=== PATIENT | male | born 1945 | race Caucasian/White ===

== ENCOUNTER 2017-04-29 18:54 | Inpatient (IN) | payer MEDICARE ==
[2017-04-29] MEDS ORDERED: traMADol HCl 50 MG TAB ONE ×2 (20:20→20:50)
--- NOTE | 2017-04-29 21:32 | RAD ---
PELVIC RADIOGRAPH 04/29/17 PROVIDED CLINICAL HISTORY: Bilateral hip pain. FINDINGS: There is no evidence for fracture or other acute osseous abnormality. If there is persistent clinical concern, conservative management and followup imaging are advised. IMPRESSION: As above. POS: [facility]
[2017-04-29 21:56] LABS: Bilirubin Small (Negative); Blood, Urine Moderate (Negative); Clarity CLEAR (Clear); Glucose, Urine (Dipstick) >=1000 mg/dL (Negative); Leukocyte Negative (Negative); Nitrite Negative (Negative); Protein, Urine (Dipstick) 100 mg/dL (Neg-Trace); Specific Gravity, Urine 1.035 (1.002-1.036); pH, Urine 5.5 (5.0-9.0)
[2017-04-29 21:56] LABS: ALT (SGPT) 13 U/L (8-55); AST (SGOT) 18 U/L (5-34); Albumin 3.5 g/dL (3.4-4.8); Alkaline Phosphatase 79 U/L (40-150); Anion Gap 16 mmol/L (10-20); BUN (Urea Nitrogen) 33 mg/dL (8.4-25.7); Bilirubin, Total 0.8 mg/dL (0.2-1.2); Calc. Creatinine Clearance 0 mL/min (70-130); Calcium 9.3 mg/dL (7.8-10.44); Carbon Dioxide 24 mmol/L (23-31); Chloride 93 mmol/L (98-107); Estimated GFR-MDRD 44; Globulin 3.1 g/dL (2.4-3.5); Glucose 254 mg/dL (83-110); Protein, Total 6.6 g/dL (5.8-8.1); Sodium 129 mmol/L (136-145)
[2017-04-29 21:58] LABS: Bacteria/HPF None Seen HPF (None Seen); Hyaline Casts/LPF 7-10 HYALINE CAST LPF (0-3 Hyaline); Pathc Cast-AUWi Flag 0.81 (0-2.49); Squamous Epithelial 0-3 HPF (0-3); WBC/HPF 0-3 HPF (0-3)
[2017-04-29 22:00] LABS: Band 19 % (5-11); Hemoglobin 13.4 g/dL (14.0-18.0); Lymphocytes 3 % (21-51); MDiff Complete? YES; Mean Corpuscular HGB CONC 33.4 g/dL (32.0-36.0); Mean Corpuscular Hemoglobin 32.3 pg (27.0-31.0); Mean Corpuscular Volume 96.6 fl (80.0-94.0); Mean Platelet Volume 9.1 fL (7.4-10.4); Monocytes 5 % (0-10); Neutrophil 73 % (42-75); PLT Morphology Comment Appears Adequate; Platelet Count 282 thou/uL (130-400); RBC Distribution Width 11.4 % (11.5-14.5); RBC Morphology Normal; Red Blood Cell (RBC) Count 4.15 mill/uL (4.70-6.10); White Blood Cell (WBC) Count 17.8 thou/uL (4.8-10.8)
[2017-04-29] MEDS ORDERED: Acetaminophen 500 MG TAB ONE (22:05)
--- NOTE | 2017-04-29 22:35 | RAD ---
PORTABLE CHEST 04/29/17 PROVIDED CLINICAL HISTORY: Fever. FINDINGS: Comparison 11/20/16. The cardiac and mediastinal silhouette is unchanged in appearance. Median sternotomy changes are agai n seen. No focal consolidation, pleural fluid or pneumothorax apparent. IMPRESSION: No evidence for an acute cardiopulmonary process. POS: [facility]
[2017-04-29] MEDS ORDERED: HYDROcodone/Acetaminophen 5/325 mg Tablet ONE (23:57)
[2017-04-30] MEDS ORDERED: Ondansetron HCl/PF 4 MG/2 ML Vial IVP PRN (01:41)
[2017-04-30] MEDS ORDERED: Acetaminophen 325 MG TAB PO PRN (01:41)
[2017-04-30] MEDS ORDERED: Ondansetron ODT 4 MG TAB SL PRN ×2 (01:41→02:33)
[2017-04-30] MEDS ORDERED: Dextrose 5% in Water 1,000 ML IV PRN (02:14)
[2017-04-30] MEDS ORDERED: Dextrose 50% Abboject 50 ML SYRINGE SLOW IVP PRN (02:14)
[2017-04-30] MEDS: Sodium Chloride 0.9% 1,000 ML IV SCH ×3 (02:27→16:40)
--- NOTE | 2017-04-30 04:42 | HP-2 ---
DATE OF ADMISSION: 04/30/2017 CODE STATUS: FULL. PRIMARY CARE PHYSICIAN: Dr. Pitts ATTENDING PHYSICIAN: Dr. Sukhi Chairez RESIDENT: Dr. Irish Bhakta CHIEF COMPLAINT: Bilateral hip pain. HISTORY OF PRESENT ILLNESS: This is a 71-year-old male with past medical history of type 1 diabetes, hyperlipidemia, hypertension who presents by EMS for bilateral hip pain. The patient is a very poor historian, unsure why EMS was called. The patient reports that he has been unable to walk the past 4 days and he also ran out of his Prozac about 3 weeks ago and has been having "anxiety fits" since then. The patient has also been having some nausea and vomiting about 4 days ago where he could not keep anything down, had decreased appetite. The patient reports his nausea and vomiting and appetite have improved since then. The patient denies any fever or chills, but does report decreased sleep over the past few days as well as a sore throat. In the ER, he was given Robaxin 1 gram IV, Viking 5 mg, 1 liter normal saline, Tylenol 1000 mg , tramadol 50 mg. PAST MEDICAL HISTORY: 1. Diabetes type 1. 2. Aortic valve stenosis. 3. Generalized anxiety disorder. 4. Coronary artery disease. 5. Hyperlipidemia. 6. Hypertension. 7. Eczema. PAST SURGICAL HISTORY: CABG x5 in 09/2009, cataract surgery and laser retinopathy surgery. ALLERGIES: No known drug allergies. MEDICATIONS: 1. Carvedilol 12.5 mg b.i.d. 2. Lisinopril 40 mg daily. 3. Atorvastatin 40 mg at bedtime. 4. Lantus 25 units subcu q.a.m. 5. NovoLog 4-5 units premeal per sliding scale. 6. Aspirin 81 mg daily. 7. Fluoxetine 20 mg daily. FAMILY HISTORY: Dad of an [place] in his 70s. SOCIAL HISTORY: Former smoker, smoked for about 7.5 years in the 90s. Smoked about a pack per day. Alcohol, drinks about a beer a day, occasionally. Denies any drug use. He is . REVIEW OF SYSTEMS: GENERAL: Positive for decreased sleep. GENERAL: Negative for fever or chills. EYES: Negative for eye pain or vision changes. ENT: Positive for sore throat. Negative for rhinorrhea. RESPIRATORY: Negative for cough, shortness of breath. CARDIOVASCULAR: Negative for chest pain, edema. GI: Positive for nausea, vomiting, negative for diarrhea, abdominal pain. GENITOURINARY: Negative for dysuria, polyuria. SKIN: Negative for rashes, lesions. MUSCULOSKELETAL: Positive for hip pain and stiffness., negative for tenderness , swelling. NEUROLOGIC: Negative for weakness, numbness. PHYSICAL EXAMINATION: VITAL SIGNS: Blood pressure 157/69, pulse 75, respiratory rate 16, temperature 98.3, pulse ox 97% on room air, current weight 84 kilograms. GENERAL: Alert and oriented x3, no acute distress, well-nourished, appropriately interactive. EYES: PERRLA. Extraocular muscles intact. Conjunctivae within normal limits. ENT: Nasal mucosa and oropharynx within normal limits, poor dentition NECK: Supple. No lymphadenopathy. CARDIAC: Regular rate and rhythm, 3/6 systolic murmur with radiation to carotids, 2+ radial and pedal pulses. RESPIRATORY: Normal effort, no retractions. Clear to auscultation bilaterally. SKIN: Warm, dry. No cyanosis or lesions. ABDOMEN: Soft, nontender to palpation, umbilical hernia easily reducible. Normoactive bowel sounds. No mass or distention. EXTREMITIES: No cyanosis or edema. MUSCULOSKELETAL: Structure and tone within normal limits. The patient not cooperative with musculoskeletal exam secondary to pain. No tenderness to palpation on the hips, full passive range of motion on the right hip, decreased passive range of motion on the left hip due to pain. No active range of motion as the patient refused. NEUROLOGICAL: No focal deficits. Sensation within normal limits. GCS 15. PSYCHIATRIC: Appropriate. LABORATORY DATA: WBC 17.8, hemoglobin 13.4, hematocrit 40.1, platelets 282. 19 % bands, 73% neutrophils. Sodium 129, corrected to 131, potassium 4.0, chloride 93, CO2 of 24, BUN 33, creatinine 1.55, glucose 254, calcium 9.3, total bilirubin 0.8, AST 18, ALT 13, alkaline phosphatase 78. Flu A and B negative. EKG showed normal sinus rhythm with QTS 510. Chest x-ray showed no acute cardiopulmonary process. Pelvis x-ray showed no evidence of fracture or acute osseous abnormality. ASSESSMENT AND PLAN: A 71-year-old male who presents with: 1. Inability to ambulate. This is the reason for admission by ED provider. The patient's bilateral hip pain is his main complaint. He was given tramadol and Viking in the ED, the patient reports that this is helping some. [facility] was consulted in the ED, but denied admission due to patient not meeting inpatient criteria. We will consult PT and will reevaluate the patient's hip exam in the morning after better pain control as we were unable to get a complete exam secondary to pain. We will give tramadol and Tylenol p.r.n. pain. We will discuss with family in the morning when available. Will place in observation on medical and will check a CK. 2. Bandemia with leukocytosis. No obvious source of infection at this time. The maximum temperature was 100.0 in the ED, x1 and has been afebrile. Chest x- ray was negative. We will repeat in a.m. after fluids as the patient appears dehydrated. Urinalysis is negative for infection. We will check blood cultures , urine cultures. Flu was negative, with recent vomiting may be related to gastroenteritis. We will check an ESR, lactate. No need for antibiotics at this time unless the source of infection reveals itself. 3. Acute gastroenteritis. Unclear etiology, but most likely viral. This appears to be resolving. We will give IV fluids normal saline at 150 mL per hour, Zofran p.r.n. nausea and vomiting. We will check a BMP in the morning. The patient may be having withdrawal effects from Prozac, but this is unlikely. 4. Moderate dehydration. Given this at 150, n.p.o. hydration. 5. Acute kidney injury on chronic kidney disease 2. We will give fluids and we will recheck a BMP in the morning. 6. Diabetes type 1. We will give the patient's home insulin regimen, Accu- Cheks a.c. and at bedtime, consistent carbohydrate diet. 7. Hypertension. Continue home medications. 8. Generalized anxiety disorder. We will continue Prozac. The patient has been out recently. 9. Hyperlipidemia. Continue meds. 10. VTE prophylaxis. Lovenox. DISPOSITION: Observation on medical. Symptomatic medications will be provided. History and physical exam as well as management discussed with Dr. Chairez. VLADISLAV
[2017-04-30] MEDS: FLUoxetine HCl 20 MG CAP PO SCH (04:46)
[2017-04-30] MEDS: traMADol HCl 50 MG TAB PO PRN (04:46)
[2017-04-30 05:48] LABS: Lactic Acid 3.1 mmol/L (0.5-2.2)
[2017-04-30 05:53] LABS: Anion Gap 16 mmol/L (10-20); BUN (Urea Nitrogen) 42 mg/dL (8.4-25.7); Calc. Creatinine Clearance 52 mL/min (70-130); Calcium 9.2 mg/dL (7.8-10.44); Carbon Dioxide 25 mmol/L (23-31); Chloride 96 mmol/L (98-107); Estimated GFR-MDRD 45; Glucose 343 mg/dL (83-110); Potassium 5.2 mmol/L (3.5-5.1); Sodium 132 mmol/L (136-145)
[2017-04-30] MEDS: HumaLOG 300 UNITS/3 ML VIAL SC PRN (06:06)
[2017-04-30 06:48] LABS: Band 14 % (5-11); Hemoglobin 14.2 g/dL (14.0-18.0); Lymphocytes 3 % (21-51); MDiff Complete? YES; Mean Corpuscular Hemoglobin 31.9 pg (27.0-31.0); Mean Corpuscular Volume 96.7 fl (80.0-94.0); Mean Platelet Volume 9.1 fL (7.4-10.4); Metamyelocyte 3 % (0-0); Monocytes 5 % (0-10); Neutrophil 75 % (42-75); PLT Morphology Comment Appears Adequate; Platelet Count 274 thou/uL (130-400); RBC Distribution Width 11.5 % (11.5-14.5); Red Blood Cell (RBC) Count 4.46 mill/uL (4.70-6.10); White Blood Cell (WBC) Count 18.2 thou/uL (4.8-10.8)
[2017-04-30] MEDS: Insulin Detemir 100 UNITS/ML 12 UNITS in Pre-Filled Syringe 1 EACH SC SCH ×2 (08:14→22:02)
[2017-04-30] MEDS: Enoxaparin Sodium 30 MG/0.3 ML SYRINGE SC SCH (08:15)
[2017-04-30] MEDS: HumaLOG 300 UNITS/3 ML VIAL SC SCH ×3 (08:15→17:02)
[2017-04-30] MEDS: Carvedilol 6.25 MG TAB PO SCH ×2 (08:15→16:44)
[2017-04-30 08:38] LABS: Creatinine, Urine 238.92 mg/dL (63-166)
[2017-04-30] MEDS ORDERED: Sodium Chloride 0.9% 1,000 ML IV SCH ×2 (11:15→17:00)
[2017-04-30] MEDS: Ondansetron HCl/PF 4 MG/2 ML Vial IVP PRN (11:22)
[2017-04-30 11:25] LABS: Actual Bicarbonate (HCO3a) 21.2 mEq/L (22-26); Base Excess (BEa) -0.8 mEq/L (0 (+/-) 2.5); CO2 Tension 27.7 mmHg (35.0-45.0); Hematocrit-ABG 42.4 % (42.0-52.0); Hemoglobin (Hb) 12.7 g/dL (14.0-18.0)
[2017-04-30 11:26] LABS: Calcium, Ionized 1.1 mmol/L (1.12-1.30); Puncture Site LRA
[2017-04-30] MEDS ORDERED: Sodium Chloride 0.9% 500 ML IVPB SCH (11:30)
[2017-04-30 11:36] LABS: Magnesium 1.8 mg/dL (1.6-2.6)
[2017-04-30 11:42] LABS: Phosphorus 4.1 mg/dL (2.3-4.7)
[2017-04-30 11:45] LABS: Syphilis Antibody Nonreactive (Nonreactive); Syphilis Antibody Index 0.03 S/CO (<1.00 Non-Reactive)
[2017-04-30 11:58] LABS: HIV (1/2) Antibody/Antigen Non-Reactive (NonReactive); HIV 1/2 INDEX 0.07 S/CO (<1.00); Hep C IgG Ab Non-Reactive (NonReactive); Hep C Index 0.14 S/CO (0-0.79); Thyroid Stimulating Hormone 2.2151 uIU/mL (0.35-4.94)
[2017-04-30 11:58] LABS: CKMB 4.9 ng/mL (0-6.6); Troponin I 0.119 ng/mL (< 0.028)
[2017-04-30] MEDS: Haloperidol Lactate 5 MG/ML VIAL IM SCH ×3 (11:59→21:02)
[2017-04-30] MEDS ORDERED: Enoxaparin Sodium 40 MG/0.4 ML SYRINGE SC SCH (12:15)
[2017-04-30 13:04] LABS: ALT (SGPT) 16 U/L (8-55); AST (SGOT) 23 U/L (5-34); Albumin 3.4 g/dL (3.4-4.8); Alkaline Phosphatase 78 U/L (40-150); Anion Gap 19 mmol/L (10-20); BUN (Urea Nitrogen) 46 mg/dL (8.4-25.7); Bilirubin, Total 0.7 mg/dL (0.2-1.2); Calc. Creatinine Clearance 50 mL/min (70-130); Calcium 8.5 mg/dL (7.8-10.44); Carbon Dioxide 20 mmol/L (23-31); Chloride 97 mmol/L (98-107); Estimated GFR-MDRD 44; Globulin 2.6 g/dL (2.4-3.5); Glucose 230 mg/dL (83-110); Potassium 4.2 mmol/L (3.5-5.1); Sodium 132 mmol/L (136-145)
--- NOTE | 2017-04-30 13:24 | CT ---
EXAM: NONCONTRAST HEAD CT: HISTORY: Acute mental status post change. COMPARISON: None. TECHNIQUE: Noncontrast head CT is performed from skull base to the skull vertex. FINDINGS: No parenchymal hemorrhage. No extraaxial hematoma. No midline shift. Basilar cisterns are patent. Brain volume is age appropriate. Cortical resendez-white matter differentiation is preserved. Ventricles and sulci are patent and symmetric. Adequate aeration of the sinuses and mastoid air cells. There is atherosclerosis of the carotid herminia denise. The calvarium is intact. IMPRESSION: No acute intracranial process. POS: [facility]
--- NOTE | 2017-04-30 13:29 | HP ---
I have reviewed the history and physical of Dr. Irish Bhakta and I have discussed the case with her. HISTORY OF PRESENT ILLNESS: Briefly, Mr. Zafar is a 71-year-old white male patient with a history of diabetes and hypertension who presented to the ER via EMS for bilateral hip pain and inability to mo ve, because of the pain. He has no history of trauma. He has been admitted for further evaluation a nd workup. On morning rounds, it was obvious that Mr. Zafar had altered mental status in that he was exhibiting delirium. We elicited the history via Dr. Pitts that the patient daily drink 4 alcoholic beverages ceasing approximately 4 days ago and impending DTs or full blown DTs is certainly a possibility at t his point. PHYSICAL EXAMINATION: GENERAL: As stated, right now he is confused, disoriented. He is alert and easily to awaken. VITAL SIGNS: His blood pressure is 150/70, his pulse rate is 80 and regular, respirations 16-22, olga m air pulse ox 97%. NECK: Supple. CARDIAC: Heart rhythm regular, no gallop noted. Soft, 2/6 systolic murmur noted. LUNGS: Diminished, but clear without rales or wheezes. He is tachypneic, but is not using accessory muscles. ABDOMEN: Flat and soft. No guarding, rebound or rigidity. NEUROLOGICAL: Other than his aforementioned delirium and confusion, he is not exhibiting any focal d eficits. LABORATORY DATA: CBC: White count was initially 17,800, hemoglobin 13.4, hematocrit 40.1, MCV of 96 . Chemistries: Sodium 132, potassium 5.2, chloride 96, bicarbonate 25, BUN 42, creatinine 1.52, glu cose is 343. C-reactive protein is very elevated at 33.94. D-dimer likewise significantly elevated. ASSESSMENT: Acute delirium, broad differential. We will treat for delirium tremens. We will also i nitiate therapy to rule out pulmonary embolus, sepsis, malignancy and numerous other causes of the pa chey's current symptoms.
--- NOTE | 2017-04-30 13:44 | CT ---
CT ANGIOGRAM OF THE CHEST: Date: 04/30/17 HISTORY: Worsening respiratory distress. Evaluate for pulmonary artery embolism. COMPARISON: None. TECHNIQUE: CT angiogram of the chest is performed in the axial plane. Bilateral oblique and coronal three-dimens ional reformatted images are submitted for interpretation. FINDINGS: No mediastinal mass, lymphadenopathy, or hematoma. Heart is enlarged. No significant pericardial flui d. There are coronary calcifications. The visualized aorta has an overall normal caliber. No periaort ic fat stranding. There is fluid attenuation in the mid to distal thoracic esophagus. Fluid attenuation is nonspecific. Upper solid organs are grossly unremarkable. Small right-sided pleural effusion with adjacent consolidation due to atelectasis or pneumonia. Depen dent atelectatic changes in the lung bases. Emphysematous changes in both lung apices. No suspicious masses or consolidation. No pneumothorax. There are no lytic or blastic lesions in the osseous structures. There is adequate contrast opacification of the pulmonary arterial system to the level of the lobar a rteries. No filling defect to imply thromboembolism. Evaluation of the segmental and subsegmental art eries is limited. IMPRESSION: 1. No evidence of pulmonary artery embolism to the level of the lobar arteries. 2. Small right-sided effusion with adjacent consolidation, atelectasis, or pneumonia. 3. Nonspecific fluid in the esophagus. Correlate clinically. POS: [facility]
[2017-04-30] MEDS: Thiamine HCl 100 MG, Admixture Fee 1 EACH in Sodium Chloride 0.9% 50 ML IVPB SCH (13:51)
[2017-04-30] MEDS ORDERED: Haloperidol Lactate 5 MG/ML VIAL IM SCH (15:00)
[2017-04-30] MEDS ORDERED: Vancomycin HCl 1.25 GM in Sodium Chloride 0.9% 250 ML 250 ML IVPB SCH (15:00)
[2017-04-30 15:07] LABS: Troponin I 0.202 ng/mL (< 0.028)
[2017-04-30] MEDS ORDERED: Haloperidol Lactate 5 MG/ML VIAL SLOW IVP SCH (15:30)
[2017-04-30] MEDS: Acetaminophen 325 MG TAB PO PRN (16:44)
[2017-04-30] MEDS: Lorazepam 1 MG TAB PO SCH ×3 (17:02→20:16)
[2017-04-30 18:43] LABS: Troponin I 0.591 ng/mL (< 0.028)
[2017-04-30] MEDS: Piperacillin/Tazobactam 3.375 GM in Sodium Chloride 0.9% 100 ML IVPB SCH (20:11)
[2017-04-30] MEDS: Atorvastatin Calcium 40 MG TAB PO SCH (20:16)
[2017-04-30] MEDS ORDERED: Enoxaparin Sodium 80 MG/0.8 ML SYRINGE SC SCH (21:00)
[2017-04-30 21:26] LABS: CKMB 6.8 ng/mL (0-6.6); Troponin I 0.659 ng/mL (< 0.028)
[2017-05-01] MEDS: Sodium Chloride 0.9% 1,000 ML IV SCH ×3 (00:08→17:41)
[2017-05-01 00:12] LABS: Troponin I 0.747 ng/mL (< 0.028)
--- NOTE | 2017-05-01 00:38 | HP ---
CODE STATUS: FULL CODE. PRIMARY CARE PROVIDER: Yobani Pitts MD CHIEF COMPLAINT: Lower extremity weakness, bilateral hip pain and inability to ambulate. HISTORY OF PRESENT ILLNESS: A 71-year-old diabetic male who complains of bilateral hip pain and has become unable to walk. He states this started over the last few days. He has had a subjective fever and chills and also endorses some nausea and vomiting at home. He was brought to the emergency room via ambulance after his became concerned with his overall condition. The history is obtained from the patient and emergency room medical record and review of the existing chart. There are no family members present at this time. He is a poor historian. ALLERGIES: No known drug allergies. MEDICATIONS: Lisinopril 40 daily, atorvastatin 40 mg daily, Lantus 25 units daily and NovoLog 45 units with meals. He is also on aspirin 81 mg and Prozac 20. HABITS: He quit smoking in , cannot give accurate pack years, but felt to be significant. Alcohol: He admits to drinking about a 6-pack of beer a week. SOCIAL HISTORY: He has been for 40 years. This is his second marriage. He has 2 children with first marriage and 3 with a second marriage. PAST SURGICAL HISTORY: An open heart surgery with a 5-vessel coronary artery bypass graft in 2011 in [place]. He has had bilateral cataracts surgery FAMILY HISTORY: Notable for his father being diabetic and in his 70s from heart disease. sister from had lung carcinoma. REVIEW OF SYSTEMS: General: He has had a low-grade fever recently. His weight has been fluctuating. He states it has varied from 213-181lbs. Integumentary: He endorses that he has had a sebaceous cyst resected from his back. He does have some eczema. He denies any skin cancers. Psychiatric: He suffers from generalized anxiety disorder. Cardiovascular: History of myocardial infarction approximately 2011 followed by bypass. He currently denies any chest pain. He does state he has had a history of a murmur, longstanding hypertension, dyslipidemia, Pulmonary recent mild cough which had been nonproductive. He denies any shortness of breath, history of asthma and denies any obstructive sleep apnea symptoms. Gastrointestinal: Notable for emesis and recent decreased appetite. He denies any blood per rectum abdominal pain or hematemesis. Urologic: No dysuria or hesitancy of urine. Neurological : He has had a history of diabetc neuropathy in the past, otherwise negative paralysis vertigo headache seizure. Musculoskeletal: He does complain of weakness and pain to the hips and lower extremities. PHYSICAL EXAMINATION: GENERAL: He is alert. He is oriented to person, and date. VITAL SIGNS: His weight is 84, his temperature is 98.3, blood pressure 157/69, pulse 75, respirations 16, his O2 saturation is 97% on room air. HEENT: Head is atraumatic, normocephalic. Pupils are equally round and reactive. NECK: Supple. no jvd no carotid bruit. Trachea is midline. No thyromegaly. CARDIOVASCULAR: Normal sinus rhythm. grade 2/6 systolic ejection murmur radiation to neck PULMONARY: Lungs with diminished breath sounds. No crackles, no wheezes are appreciated. ABDOMEN: He does have a reducible umbilical hernia. Soft. No guarding, rebound or tenderness. MUSCULOSKELETAL: tenderness of the left hip greater than right. He is able to passively draw his legs up in bed and passive range of motion elicits no pain and when he is distracted, he can drop both legs up. He does have some resistance and stiffens both lower extremities when asked to raise his straight legs against resistance. There is no swelling of the lower extremities. EXTREMITIES: Show no cyanosis, no clubbing or edema. NEUROLOGIC: Alert. He is oriented to person, place, and time. He does relate that he has some confusion about this being the "old [facility]." No focal neurological defects. PSYCHIATRIC: He is alert. He does have somewhat flat affect. LABORATORY DATA: He does have marked leukocytosis with a white count initially reported at 17.8 with bandemia, hemoglobin 13.4, hematocrit 40, platelet count 282. His sodium is 129, potassium is 4, chloride 93, bicarbonate is 24, BUN is 33, creatinine 1.55, blood sugar is 254. IMAGING: Chest x-ray shows no evidence of acute disease. Pelvic plain films show no fracture. No arthritic changes in the hip are noted. ASSESSMENT: 1. Lower extremity weakness with complaint of bilateral hip pain, left greater than right. 2. History of insulin-dependent diabetes. 3. History of hypertension. 4. History of dyslipidemia. 5. Chronic kidney insufficiency with acute kidney injury and with moderate dehydration. PLAN: Plan will be to admit obtain blood cultures and urine cultures.Inflammatory markers drawn Patient will be rehydrated. exam dosent support septic hip. Antibiotics will be withheld and expectant management for progression of further signs and symptoms. MTDD
[2017-05-01] MEDS: Lorazepam 1 MG TAB PO SCH ×5 (00:42→17:52)
--- NOTE | 2017-05-01 00:46 | CON ---
DATE OF CONSULTATION: 04/30/2017 HISTORY OF PRESENT ILLNESS: Mr. Zafar is a 71-year-old male. He has diabetes and hypertension. According to his , he drinks every day. He says he drinks 4-5 beers in the evening. He actually presented complaining of hip pain, although his hip pain goes back and forth as to which hip is bothering him. He has also been confused. Apparently for the last 3-4 days, he has not been drinking and is unable to walk. He has been anxious. According to the , he ran out of his Prozac, which has created problems. He subsequently transferred to the Intermediate Care Unit because of his confusion and a positive D-d steve. CT angiogram was negative. PAST MEDICAL HISTORY: 1. Diabetes. 2. Aortic stenosis. 3. Anxiety. 4. Coronary artery disease. 5. Lipid disorder. 6. Hypertension. 7. Eczema. 8. Coronary bypass grafting 8 years ago. 9. History of cataract surgery and retinal surgery. SOCIAL HISTORY: He is a former smoker. Reviewing his CT, I suspect he smoked more than he has reported. On admission H and P, says he drink s a beer a day. He told me he drinks 4-5 beers a day. The rough rule is to multiply what the patien t tells you by 2, so that would make him drink almost 12 pack a day which may or may not be the case. He is not a drug user. He has a supportive who is at the bedside. FAMILY HISTORY: Positive for vascular disease. Negative for lung disease at an early age. PHYSICAL EXAMINATION: GENERAL: He is oriented only to person. VITAL SIGNS: His temperature is 101, his heart rate is 109, respiratory rate is 24, oximetry is 98, and blood pressure 117/61. HEENT: Pupils are equal. Sclerae is anicteric. NECK: Very supple. There is no rigidity at all. He has no cervical lymphadenopathy. LUNGS: Clear. HEART: Regular rhythm, no S3. ABDOMEN: Soft and nontender. EXTREMITIES: Without clubbing, cyanosis, or edema. DIAGNOSTIC DATA: Chest CT has been reviewed by me. All x-rays have been reviewed. LABORATORY DATA: Have been reviewed. White count 18.2, hemoglobin 14.2, platelets 274, he has 14% b ands. On his peripheral smear yesterday 19%. Sodium 132, potassium 4.2, chloride 97, bicarbonate 20 , BUN 46, creatinine 1.57, creatinine was 1.55 on admission. IMPRESSION: Fever with encephalopathy. We are out of the mosquito-borne encephalitis season. He ce rtainly could have a viral meningitis/encephalitis. At this point in time, given a supple neck, I do ubt he has bacterial meningitis. I would recommend culturing everything and broad antimicrobial ther apy. I do not recommend a lumbar puncture in this setting. My index of suspicion for bacterial meni ngitis is extremely low. Highly likely had some of this if not all is alcohol withdrawal precipitate d by a viral illness and abstinence. He has nothing on his radiograph to suggest pulmonary edema or pneumonia. He has no pulmonary emboli . He has nothing on abdominal exam that suggests he has an acute intra-abdominal process. He has a large umbilical hernia but this is easily reducible and nontender. He has no rashes, no extremity fi ndings that would suggest a peripheral septic event. It is interesting to note now that he has 2 pos itive blood cultures with gram-positive cocci. These were not reported when I was seeing him earlier today. Apparently, this was called back at 1622. I reviewed prescribed antimicrobial therapy and he has been started on vancomycin. With his hip complaints, his confusion, he may have a paraspinous abscess or septic arthritis, althou gh endocarditis is also a possibility. I would expect septic emboli if he had right-sided endocardit is. A magnetic resonance imaging at some point would be appropriate. It is reasonable for him to ko ve a beer with his meals in the event that the fever is related to the bacteremia and the encephalopa thy is related to alcohol withdrawal. We will continue to follow with the other physicians caring fo r him. Critical care time was 30 minutes.
--- NOTE | 2017-05-01 00:58 | PRG-2 ---
CONTINUITY PROVIDER NOTE PRIMARY CARE PHYSICIAN: Yobani Pitts MD This note is being dictated as the patient's primary care provider as a reference for primary treating team and consultants and offer perspective as the patient's PCP for the last year and a half. HISTORY OF PRESENT ILLNESS: Mr. Dennis Zafar is a 71-year-old male I have been seeing for the last year and a half. He has diabetes mellitus type 1. He states that he has been on insulin since he was diagnosed in his teens and describes hospitalizations at times similar to diabetic ketoacidosis. Since I have been treating him, he has been on a very stable dose of insulin with Lantus 25 units daily in the morning and he gives himself 5-6 units of NovoLog with every meal. His glucose has been mildly uncontrolled between 8.2 and hemoglobin A1c of 9. We have attempted trials of increasing the Lantus to 27 units and other trials of increasing premeal to 7-8 units per meal, but the patient prefers to continue the dose that he was previously on. Other medical issues that we have been managing have been the patient's anxiety. He has been on a stable dose of fluoxetine 20 mg for years. For insurance reasons, he tried paroxetine for a short trial of 2 weeks this past November, but he did not feel like it controlled his anxieties well and so he switched back to fluoxetine. He tells me that he has not taken this medicine for 3 weeks. He is also on atorvastatin and carvedilol, and takes an adult aspirin daily. Other medical problems include aortic valve stenosis. He has not had an echo in several years. He has a security compliance engineer named Dr. Rehman whom he has made plans to see, and this has been discussed over the last few visits, but to my knowledge, he has not followed up with him. The patient's diabetes has developed to the point of some diabetic retinopathy and chronic kidney disease. Baseline creatinine is between 1.1 to 1.3. Most recently it was 1.1 in March. So, creatinine now of 1.56 is an acute kidney injury on chronic kidney disease, mild. The patient's baseline mental status and functionality are good. He lives with his , takes care of himself and helps to take care of her. He continues to manage his diabetes effectively. Can keep a blood glucose log and check his blood sugars 4 times a day. He does this very regularly. Also, I have seen him demonstrate higher levels of functioning including managing sources of medications to reduce cost and navigating different insurance issues. Today, his mental status is certainly a change from baseline. He appears to be in acute delirium. He normally remembers me easily, but has difficulty recognizing me today. He continues to be confused about where he is, at one point saying in office building rather than in hospital and asking if he can go to the bedroom. While initial complaint was hip pain with leukocytosis, the patient allows us to move hips without pain. Actually the more he lets us move his hips, the less pain resistance he has, and so I have low suspicion for a septic arthritis. While infectious source seems more likely for the patient's current delirium with [id number] temperatures, leukocytosis, and elevated CRP, malignancy must also be considered. While offered, the patient has never consented to colonoscopy while we have been taking care of him at [facility]. So, initiate workup with fecal occult blood, PSA, and CTA of the chest looking for lung nodules. We will continue to follow along with the [facility] inpatient team and offer assistance when possible. VLADISLAV
[2017-05-01] MEDS: Piperacillin/Tazobactam 3.375 GM in Sodium Chloride 0.9% 100 ML IVPB SCH ×2 (01:15→06:10)
[2017-05-01] MEDS: Haloperidol Lactate 5 MG/ML VIAL IM SCH ×6 (01:15→21:09)
[2017-05-01 01:29] LABS: Bilirubin Negative (Negative); Blood, Urine Large (Negative); Clarity CLOUDY (Clear); Glucose, Urine (Dipstick) 500 mg/dL (Negative); Leukocyte Negative (Negative); Nitrite Negative (Negative); Protein, Urine (Dipstick) 100 mg/dL (Neg-Trace); Specific Gravity, Urine 1.042 (1.002-1.036)
[2017-05-01 01:31] LABS: Bacteria/HPF None Seen HPF (None Seen); Hyaline Casts/LPF 4-6 HYALINE CAST LPF (0-3 Hyaline); Pathc Cast-AUWi Flag 0.67 (0-2.49)
[2017-05-01 02:07] LABS: Oval Fat Bodies/HPF None Seen HPF (None Seen); Renal Epithelial 0-3 HPF (0-3); Sperm/HPF None Seen HPF (None Seen); Transitional Epithelial NONE SEEN HPF (0-3); Trichomonas/HPF None Seen HPF (None Seen); Yeast-All Forms None Seen HPF (None Seen)
--- NOTE | 2017-05-01 04:20 | PDOC.EVN ---
Event Note - Event Note Event Note: Monitoring patient overnight due to rising troponins in setting of suspected infective endocarditis. Pt has been evaluated multiple times with no complaints of any chest discomfort or SOB. With bacteremia, fever, and overall dehydrated state on admission, pt is likely experiencing demand ischemia leading to elevated troponins. Repeat EKG showed no new ischemic changes earlier in the night. We are continuing to trend troponins and will likely discuss with cardiology in next few hours about the case. If troponins continue to rise, are continuing to consider covering for possible NSTEMI with therapeutic lovenox. The biggest caveat to this are his episodes of confusion which greatly increase his risk of falls with head bleed as a result. Continuing to closely monitor the situation.
[2017-05-01] MEDS: HumaLOG 300 UNITS/3 ML VIAL SC SCH ×3 (05:58→17:43)
[2017-05-01 06:04] LABS: CKMB 7.2 ng/mL (0-6.6); Troponin I 0.669 ng/mL (< 0.028)
[2017-05-01 06:13] LABS: Band 36 % (5-11); Hemoglobin 12.4 g/dL (14.0-18.0); Lymphocytes 1 % (21-51); MDiff Complete? YES; Mean Corpuscular HGB CONC 32.4 g/dL (32.0-36.0); Mean Corpuscular Hemoglobin 31.6 pg (27.0-31.0); Mean Corpuscular Volume 97.4 fl (80.0-94.0); Mean Platelet Volume 9.5 fL (7.4-10.4); Monocytes 3 % (0-10); Neutrophil 60 % (42-75); PLT Morphology Comment Appears Adequate; Platelet Count 248 thou/uL (130-400); RBC Distribution Width 11.6 % (11.5-14.5); Red Blood Cell (RBC) Count 3.92 mill/uL (4.70-6.10); White Blood Cell (WBC) Count 15.8 thou/uL (4.8-10.8)
[2017-05-01 06:34] LABS: Anion Gap 15 mmol/L (10-20); BUN (Urea Nitrogen) 46 mg/dL (8.4-25.7); Calc. Creatinine Clearance 63 mL/min (70-130); Calcium 8.5 mg/dL (7.8-10.44); Carbon Dioxide 22 mmol/L (23-31); Chloride 100 mmol/L (98-107); Estimated GFR-MDRD 57; Glucose 246 mg/dL (83-110); Potassium 4.4 mmol/L (3.5-5.1); Sodium 133 mmol/L (136-145)
--- NOTE | 2017-05-01 09:03 | PDOC.FM ---
- Subjective Subjective: Pt remians confused and not at baseline mentation. Blood cultures are positive X2 and pt had elevated troponins overnight which subsequently trended down. Pt denied chest pain throughout hospital stay. Only complaint is back and hip pain. Denies sob, nvdc. MSSA in blood, will de-escalate abx. - Objective Vital Signs & Weight: Vital Signs (12 hours) Temp Pulse Resp BP BP Pulse Ox 05/01/17 08:08 92 19 05/01/17 07:00 98.1 F 92 22 H 127/63 100 05/01/17 06:13 98.7 F 75 20 126/56 L 100 05/01/17 02:26 82 24 H 108/50 L 97 05/01/17 00:23 98.2 F 85 18 98/46 L 99 04/30/17 23:50 84 16 99 Weight Admit Weight 84.55 kg Weight 85.02 kg I&O: 04/30/17 05/01/17 05/02/17 06:59 06:59 06:59 Intake Total 800 3051 Output Total 300 770 Balance 500 2281 Result Diagrams: 05/01/17 04:52 05/01/17 04:52 Phys Exam - Physical Examination Constitutional: NAD HEENT: moist MMs, sclera anicteric Neck: no nodes, no JVD Respiratory: no wheezing, no rales, no rhonchi, clear to auscultation bilateral Cardiovascular: RRR, no rub 3/6 soledad w/ radiation to carotids Gastrointestinal: soft, non-tender, no distention, positive bowel sounds Musculoskeletal: no edema, pulses present no janeway/osler nodes present Neurological: non-focal, moves all 4 limbs Deviation from normal: A&O X 1 Skin: no rash Dx/Plan (1) SIRS (systemic inflammatory response syndrome) Code(s): R65.10 - SIRS OF NON-INFECTIOUS ORIGIN W/O ACUTE ORGAN DYSFUNCTION Status: Acute (2) Bacteremia due to Gram-positive bacteria Code(s): R78.81 - BACTEREMIA Status: Acute (3) Lactic acidosis Code(s): E87.2 - ACIDOSIS Status: Acute (4) Murmur Code(s): R01.1 - CARDIAC MURMUR, UNSPECIFIED Status: Acute (5) Altered mental status Code(s): R41.82 - ALTERED MENTAL STATUS, UNSPECIFIED Status: Acute (6) Diabetes Code(s): E11.9 - TYPE 2 DIABETES MELLITUS WITHOUT COMPLICATIONS Status: Acute - Plan Plan: Pt has SIRS 2/2 gram positive MSSA bacteremia with no identifiable source thus far. We will de-escalate abx at this time. Given no source and pts complaint of back pain will order MRI w/w/o for concern of osteo of l-spine. The ultimate concern is for endocarditis and TTE is pending. Will await results. Continue IVF and IV abx. Haldol and ativan loyd for confusion. Consider MRI pending echo results. Continue home medications for DM.
[2017-05-01] MEDS: Insulin Detemir 100 UNITS/ML 12 UNITS in Pre-Filled Syringe 1 EACH SC SCH (10:01)
[2017-05-01] MEDS: FLUoxetine HCl 20 MG CAP PO SCH (10:02)
[2017-05-01] MEDS: Enoxaparin Sodium 30 MG/0.3 ML SYRINGE SC SCH (10:02)
[2017-05-01] MEDS: Carvedilol 6.25 MG TAB PO SCH ×2 (10:03→17:50)
[2017-05-01] MEDS: BEER 1 CAN PO SCH ×3 (10:04→19:46)
[2017-05-01 10:21] LABS: Total PSA 0.5 ng/mL (0.0-4.0)
--- NOTE | 2017-05-01 11:08 | PRG ---
DATE OF SERVICE: 05/01/2017 Mr. Zafar's vital signs remain stable. He is a little more cooperative and alert today. He was drin sterling his beer this morning. PHYSICAL EXAMINATION: VITAL SIGNS: He is afebrile, heart rate is 92, respiratory rate 19, blood pressure 127/63. LUNGS: Lungs are clear. HEART: Regular rhythm. ABDOMEN: Soft. LABORATORY DATA: White count 15.8, hemoglobin 12.4, platelets 248. Sodium 133, potassium 4.4, chloride 100, bicarbonate 22, BUN 46, creatinine 1.25. Sensitivities are not back on Staphylococcus aureus yet. IMPRESSION: Staph aureus bacteremia, concerns include endocarditis and septic arthritis or paraspin ous process. His complaint surrounded his hips, but I suppose he could have a lumbar spine paraspino us abscess giving him referred pain. At some point in time, he will need imaging. Infectious Diseas e input may be helpful. I think he has coexistent alcohol withdrawal and the current medications and beer seem to be helping.
--- NOTE | 2017-05-01 11:30 | PRG ---
DATE OF SERVICE: 05/01/2017 Late yesterday afternoon Mr. Zafar had blood cultures returned with methicillin sensitive Staph aureu s. We have since switched his antibiotic coverage to cefazolin 2 grams q.8h. to cover the possibilit y of infective endocarditis. The patient is as we speak getting an echocardiogram to look for eviden ce of infectious endocarditis. Given his moderately severe back pain we have ordered a lumbar MRI to consider the possibility of vertebral osteomyelitis. Depending on these results we may proceed late r with an MRI of the brain given the consideration of septic emboli causing his mental changes. He i s not as agitated as he was yesterday, but he is still quite confused. CBC this morning shows a whit e count of 15,800, hemoglobin is 12.4, hematocrit is 38.2. He still has a significant bandemia with 36% bands. We have also consulted Dr. Alcantara for his input given this gentleman's Staphylococcus mili us bacteremia. We will await further recommendations of Dr. Alcantara. Should his transthoracic echocar diogram not reveal IE we will proceed with a transesophageal echocardiogram.
[2017-05-01] MEDS: Thiamine HCl 100 MG, Admixture Fee 1 EACH in Sodium Chloride 0.9% 50 ML IVPB SCH (12:59)
[2017-05-01] MEDS: CEFAZOLIN/Water 2 GM/20 ML SYRINGE SLOW IVP SCH ×2 (13:56→21:53)
[2017-05-01] MEDS ORDERED: STERILE WATER SLOW IVP SCH ×2 (14:00)
[2017-05-01] MEDS ORDERED: CEFAZOLIN 1.5 GM in Sodium Chloride 0.9% 100 ML IVPB SCH (14:00)
[2017-05-01] MEDS ORDERED: CEFAZOLIN SLOW IVP SCH ×2 (14:00)
--- NOTE | 2017-05-01 18:56 | CON-2 ---
DATE OF CONSULTATION: 05/01/2017 ATTENDING: Damian Vines M.D. RESIDENT: Gerri Arrieta M.D., PGY-2. REASON FOR CONSULTATION: Troponin elevation. HISTORY OF PRESENT ILLNESS: The patient is a 71-year-old male with a past history of coronary artery disease status post CABG x5 in 2009, aortic valve stenosis, diabetes mellitus type 1, hyperlipidemia , and hypertension, who initially presented with a chief complaint of bilateral hip pain and inabilit y to walk. The patient reportedly has a significant alcohol history and became increasingly confused today. The patient does have an elevated white count and neutrophilia and has been febrile and is c urrently being treated for SIRS without a source. The patient has not had any complaints of chest pa in during his hospitalization. He currently has received multiple sedatives for agitation and theref ore is somnolent, not conversant. Of note, 2 out of 2 blood cultures are positive for Staph aureus. PAST MEDICAL HISTORY: 1. Diabetes mellitus type 1. 2. Aortic valve stenosis. 3. Generalized anxiety disorder. 4. Coronary artery disease. 5. Hyperlipidemia. 6. Hypertension. 7. Eczema. PAST SURGICAL HISTORY: Significant for CABG x5 and cataract surgery. MEDICATIONS: 1. Carvedilol 12.5 mg b.i.d. 2. Lisinopril 40 mg daily. 3. Atorvastatin 40 mg at bedtime. 4. Lantus 25 units subcu q.a.m. 5. NovoLog 45 units premeal. 6. Aspirin 81 mg daily. 7. Fluoxetine 20 mg daily. FAMILY HISTORY: The patient's father of an VT in his 70s. SOCIAL HISTORY: The patient is a former smoker and as mentioned before, the patient drinks 4 beers p er day. REVIEW OF SYSTEMS: Difficult to obtain due to the patient's current sedated state. PHYSICAL EXAMINATION: VITAL SIGNS: T-max of 101.2, blood pressure 90/44, pulse ox 96% on room air, respirations 26. GENERAL: The patient is currently sedated, in no distress and breathing comfortably. HEENT: Normocephalic, atraumatic. NECK: Supple. CARDIOVASCULAR: Regular rate and rhythm, 3/6 crescendo-decrescendo systolic murmur. No rubs or gall ops. RESPIRATIONS: Lungs are clear to auscultation bilaterally. No crackles, wheezes or rhonchi. GASTROINTESTINAL: Abdomen is soft and nontender to palpation. No organomegaly. EXTREMITIES: No cyanosis or peripheral edema. NEUROLOGICAL: Difficult to ascertain currently. LABORATORIES: 1. CBC: White blood cell count 15.8, hemoglobin 12.4, hematocrit 38.2, platelet count 248. 2. BMP: Sodium 133, potassium 4.4, chloride 100, carbon dioxide 22, BUN 46, creatinine 1.25, glucos e 246. 3. Cardiac enzymes 0.119, 0.202, 0.591, 0.659, 0.747, and 0.669. 4. Serology: HIV 1 and 2 antigen and antibody nonreactive, hepatitis C antibody nonreactive, syphil is IgG and IgM antibody is nonreactive. 5. Blood cultures show 2 out of 2 cultures sets are positive for Staphylococcus aureus. 6. Influenza A and B antigen negative. 7. Urine culture shows less than 10,000 colony forming units of mixed skin delphine present. ASSESSMENT AND PLAN: The patient is a 71-year-old male with a past medical history as described abov e, who presented with bilateral hip pain and has increasing confusion and agitation and appear septic . 1. Elevated troponins, likely secondary to demand ischemia in the setting of aortic stenosis and sep sis unlikely related to acute coronary syndrome. No further evaluation needed at this time. Continu e to monitor. 2. Systemic inflammatory response syndrome with unknown source. Concern for infective endocarditis raised. Transthoracic echocardiogram does not show vegetations. The patient does have moderate to s evere aortic stenosis related to valve sclerosis. Recommend continuing antibiotic treatment of bacte remia and possibly consider transesophageal echo. As the patient continues to improve, no indication for urgent JOSEPH at this time. 3. Coronary artery disease. Continue medical management.
[2017-05-01] MEDS: Acetaminophen 325 MG TAB PO PRN (19:40)
[2017-05-01] MEDS: Atorvastatin Calcium 40 MG TAB PO SCH (19:41)
--- NOTE | 2017-05-01 23:47 | CON ---
DATE OF CONSULTATION: 05/01/2017 REASON FOR CONSULTATION: Bacteremia. HISTORY OF PRESENT ILLNESS: A 71-year-old who has a history of type 2 diabetes mellitus, coronary ar davy disease with prior bypass graft surgery as well as hypertension and developed progressively wors ening pain in the lower back and hip areas over the past few days associated with fever and chills. The patient had been living in family home with his . On arrival, he was delirious and history w as obtained from family members. Initial findings included a temperature of 98.3, blood pressure 157 /69, pulse 75, respirations 16 and O2 sat 97%. There was a systolic ejection murmur in the aortic ar ea. Lungs with diminished breath sounds. Abdomen was not particularly tender. There was noticeable left hip pain tenderness. The white cell count with a total WBC of 17.8 with 19% bands and a creati nine of 1.25. Sodium 133. Liver profile normal. CRP 33.94, albumin 3.4. Hepatitis C, HIV and syph ilis serology negative. Urinalysis with 0-3 wbc's and 100 protein. Imaging studies to have a CT of chest with angiogram with no evidence of pulmonary embolism and small right-sided pleural effusion, s ome fluid in the esophagus. There is a pelvis x-ray from admission with no osseous abnormalities. T here is a brain CT with no acute intracranial process. The patient has been given DuoNeb and Lipitor was given as well for prevention of delirium tremens, Coreg, cefazolin was started 2 grams q.8 hours , glucagon, insulin, lorazepam and tramadol. Initially actually, he had been given Zosyn and vancomy roseann and was transitioned to cefazolin after results of blood cultures where 2 sets of blood cultures with methicillin-susceptible Staphylococcus aureus. Urine culture negative thus far. Influenza A an d B negative. Currently, Mr. Zafar is awake. He could tell me his name, but could not tell me where he was. He was able to follow some commands with some insistence. REVIEW OF SYSTEMS: Denied any headaches. He still had some pain in the lower back. No respiratory symptoms. No diarrhea. He has a Rueda catheter in place. No pain in the knees, ankles or upper ext remity joints. No abdominal pain. PAST MEDICAL HISTORY: Type 2 diabetes, hypertension and coronary artery disease. There is also hist ory of eczema. PAST SURGICAL HISTORY: Prior bypass graft surgery. SOCIAL HISTORY: . Apparently drinks heavily. Former smoker and drinks 4 beers a day apparen tly or more. FAMILY HISTORY: Noncontributory. ALLERGIES: No known drug allergies. PHYSICAL EXAMINATION: VITAL SIGNS: Temperature max 101.2 and now 100.2, blood pressure 94/44, pulse 88, respirations 26 an d O2 sat 96%. GENERAL: The patient is awake, but confused. SKIN: Shows a small ulcerated area, left first toe with dark scab at the base, unstageable and perip heral IV access and Rueda catheter. HEENT: Ocular movements are conjugate. Sclerae are white, conjunctivae are normal. Oral cavity wit h numerous missing teeth. NECK: Supple. No jugular vein distention. LUNGS: With symmetric clear breath sounds. CARDIAC: Soft, aortic murmur. A 2/6 at the apex and pulse is not palpable. No S3 or S4, regular ra te. ABDOMEN: Soft, not distended or tender. I was able to flex both hips and do a log roll maneuver wit hout any pain elicited. He had some tenderness, which I would say mild to moderate in the lower back , but no tenderness in the cervical spine or thoracic spine area. EXTREMITIES: No other joint inflammatory process noticeable. Pulses 1+ in dorsalis pedis. He seems to have symmetric strength in all 4 extremities. NEUROLOGIC: He is awake, but confused. He cannot follow commands very well. Oriented to time and s elf only. LABORATORY DATA: Latest labs: White cell count 15.8, hemoglobin 12.4, platelets 248, 36% bands. PH 7.5, pCO2 of 27 and pO2 of 65. Creatinine 1.25. GFR 57. Cortisol 23. ASSESSMENT: 1. Type 2 diabetes with hypertension. 2. Coronary artery disease. 3. Aortic sclerosis with stenosis. 4. Alcoholism. 5. Methicillin-susceptible Staphylococcus aureus and methicillin-susceptible bacteremia. 6. Low back pain and pelvic pain and inability to ambulate due to pain localized to the hip region. DISCUSSION: The patient most likely has an inflammatory process in the pelvic area or lumbosacral sp ine area. This could be either diskitis osteomyelitis of lumbosacral spine or iliopsoas muscle absce ss or other pelvic musculature pyomyositis. The hips do not appear to be involved in view of the neg ative log roll maneuver and fairly decent range of motion of the hips. The other joints do not appea r to be involved. Likewise, thoracic spine and cervical spine do not appear to be involved. Endocar ditis is not yet ruled out and the patient may require JOSEPH depending on clinical progress. Continue cefazolin and let's go ahead and scan his lumbosacral spine and pelvis with an MRI with contrast.
[2017-05-02] MEDS: Sodium Chloride 0.9% 1,000 ML IV SCH ×5 (00:55→23:38)
[2017-05-02] MEDS: Insulin Detemir 100 UNITS/ML 12 UNITS in Pre-Filled Syringe 1 EACH SC SCH ×3 (00:55→21:03)
[2017-05-02] MEDS: Haloperidol Lactate 5 MG/ML VIAL IM SCH ×7 (00:57→23:33)
[2017-05-02] MEDS: CEFAZOLIN/Water 2 GM/20 ML SYRINGE SLOW IVP SCH ×3 (05:05→21:01)
--- NOTE | 2017-05-02 06:22 | PDOC.FM ---
- Subjective Subjective: pt reports having back pain and pain overall. Denies any chest pain or SOB. Says he just feels bad. Is alert and oriented x3. No sign of delirium or altered mental status at this time. Reports mouth being dry. Denies any fevers or chills. Denies any acute events overnight. - Objective Vital Signs & Weight: Vital Signs (12 hours) Temp Pulse Resp BP Pulse Ox 05/02/17 04:00 98.2 F 83 18 125/64 94 L 05/02/17 00:00 98.0 F 85 20 110/52 L 93 L 05/01/17 19:56 98.0 F 87 18 105/57 L 95 05/01/17 19:40 98.0 F 85 20 95 Weight Admit Weight 84.55 kg Weight 86.721 kg I&O: 04/30/17 05/01/17 05/02/17 06:59 06:59 06:59 Intake Total 800 3051 1881 Output Total 715 270 6138 Balance 500 2281 401 Result Diagrams: 05/01/17 04:52 05/01/17 04:52 Radiology Reviewed by me: Yes (No new imaging to review at this time. ) Radiology: Getting MRI of lumbar and Sacral spine. Awaiting images to be taken <Mayito Morrison - Last Filed: 05/02/17 07:43> - Objective Vital Signs & Weight: Vital Signs (12 hours) Temp Pulse Resp BP BP Pulse Ox 05/02/17 11:00 98.5 F 89 28 H 132/67 97 05/02/17 08:42 86 16 99 05/02/17 08:00 98.2 F 86 16 98 05/02/17 07:40 98.2 F 94 21 H 158/76 H 98 05/02/17 06:46 151/76 H 05/02/17 04:00 98.2 F 83 18 125/64 94 L Weight Admit Weight 84.55 kg Weight 86.721 kg I&O: 05/01/17 05/02/17 05/03/17 06:59 06:59 06:59 Intake Total 3051 1881 720 Output Total 770 1480 750 Balance 2281 401 -30 Result Diagrams: 05/01/17 04:52 05/01/17 04:52 <Lisa Alexis - Last Filed: 05/02/17 13:57> Phys Exam - Physical Examination Constitutional: NAD HEENT: PERRLA dry mucous membranes Neck: no nodes, supple, full ROM Respiratory: no wheezing, no rales, no rhonchi, clear to auscultation bilateral Cardiovascular: RRR, no rub severe systolic murmur noted Gastrointestinal: soft, non-tender, no distention Musculoskeletal: no edema, pulses present Neurological: non-focal, normal sensation, moves all 4 limbs Lymphatic: no nodes Psychiatric: normal affect, A&O x 3 Skin: no rash, normal turgor <Mayito Morrison - Last Filed: 05/02/17 07:43> Dx/Plan (1) Sepsis Code(s): A41.9 - SEPSIS, UNSPECIFIED ORGANISM Status: Resolved (2) Bacteremia due to Gram-positive bacteria Code(s): R78.81 - BACTEREMIA Status: Acute (3) Aortic stenosis Code(s): I35.0 - NONRHEUMATIC AORTIC (VALVE) STENOSIS Status: Acute (4) Altered mental status Code(s): R41.82 - ALTERED MENTAL STATUS, UNSPECIFIED Status: Acute (5) HTN (hypertension) Code(s): I10 - ESSENTIAL (PRIMARY) HYPERTENSION Status: Acute (6) Diabetes Code(s): E11.9 - TYPE 2 DIABETES MELLITUS WITHOUT COMPLICATIONS Status: Acute (7) KEMAL (acute kidney injury) Code(s): N17.9 - ACUTE KIDNEY FAILURE, UNSPECIFIED Status: Acute - Plan Plan: MSSA Bacteremia -S. Auerus blood cx positive x2. MSSA. -Tx with cefazolin at this time. Sensitivities in cultures show adequate tx. -Concern for source is pelvis, lumbar spine or endocarditis. -ID consulted- Dr. Alcantara- Will follow recs Getting MRI of L spine and pelvis -May need to get JOSEPH. TTE did not show any sign of vegetation at this time. -Will continue NS@150mls/hr. Altered mental Status -Delerium vs Withdrawl. Pt not altered this morning. A&Ox3. Will continue to monitor for signs of withdrawl or delirum -On ASE protocol. Beer ordered to help ease withdrawl sx. -Haldol loyd. Ativan PRN Elevated Troponins -Cardiology Consulted- Will follow recs -Think likely demand ischemia from disease. Plan is to continue medical managment at this time. DM -Continue home medications -Blood sugars stable at this time HTN Bp stable. Continue home medications KEMAL on CKD -Cr trending down. KEMAL resolved at this time. Receiving IVF. <Mayito Morrison - Last Filed: 05/02/17 07:43> Attending Addendum - Attending Addendum I personally evaluated the patient and discussed the management with Dr. Morrison. I agree with the History, Examination, Assessment and Plan documented above with any addition or exceptions noted below. The patient is felling better but still gets confused. Haldol being changed to PRN. Pt will have MRI today to help locate source of bacteremia. Continue antibiotics. <Lisa Alexis - Last Filed: 05/02/17 13:57>
[2017-05-02] MEDS: traMADol HCl 50 MG TAB PO PRN (06:45)
[2017-05-02] MEDS: Carvedilol 6.25 MG TAB PO SCH ×2 (06:46→17:17)
[2017-05-02] MEDS: HumaLOG 300 UNITS/3 ML VIAL SC SCH ×3 (08:33→17:17)
[2017-05-02] MEDS: FLUoxetine HCl 20 MG CAP PO SCH (08:34)
[2017-05-02] MEDS: Enoxaparin Sodium 30 MG/0.3 ML SYRINGE SC SCH (08:34)
[2017-05-02] MEDS: BEER 1 CAN PO SCH ×3 (09:25→17:14)
[2017-05-02] MEDS: Lorazepam 2 MG/ML VIAL SLOW IVP PRN (11:01)
--- NOTE | 2017-05-02 11:08 | PRG ---
DATE OF SERVICE: 05/02/2017 SUBJECTIVE: The patient is doing better, had no acute complaints. Apparently has episodic confusion . PHYSICAL EXAMINATION: VITAL SIGNS: Temperature is 98.2, pulse 86, respirations 16, O2 sat 98%, blood pressure 158/76. HEENT: Unremarkable. NECK: No JVD. CHEST: Fairly clear. CARDIAC: S1 and S2 regular. ABDOMEN: Soft. EXTREMITIES: No edema. LABORATORY DATA: No new labs were obtained today. ASSESSMENT: Staphylococcus bacteremia with concerns for endocarditis. PLAN: Continue antibiotics. Infectious Disease is following and has requested MRI which is still pe nding.
[2017-05-02] MEDS: Thiamine HCl 100 MG, Admixture Fee 1 EACH in Sodium Chloride 0.9% 50 ML IVPB SCH (12:26)
[2017-05-02] MEDS: Atorvastatin Calcium 40 MG TAB PO SCH (20:57)
[2017-05-03] MEDS: Haloperidol Lactate 5 MG/ML VIAL IM SCH (02:34)
[2017-05-03] MEDS: Sodium Chloride 0.9% 1,000 ML IV SCH ×4 (04:31→22:01)
[2017-05-03 04:47] LABS: Anion Gap 11 mmol/L (10-20); BUN (Urea Nitrogen) 40 mg/dL (8.4-25.7); Calc. Creatinine Clearance 100 mL/min (70-130); Calcium 8.2 mg/dL (7.8-10.44); Carbon Dioxide 22 mmol/L (23-31); Chloride 108 mmol/L (98-107); Estimated GFR-MDRD Greater than 90; Glucose 182 mg/dL (83-110); Sodium 137 mmol/L (136-145)
[2017-05-03 05:00] LABS: Band 23 % (5-11); Hemoglobin 11.8 g/dL (14.0-18.0); Lymphocytes 1 % (21-51); MDiff Complete? YES; Mean Corpuscular HGB CONC 32.6 g/dL (32.0-36.0); Mean Corpuscular Hemoglobin 31.5 pg (27.0-31.0); Mean Corpuscular Volume 96.7 fl (80.0-94.0); Mean Platelet Volume 9.2 fL (7.4-10.4); Monocytes 10 % (0-10); Neutrophil 66 % (42-75); PLT Morphology Comment Appears Adequate; Platelet Count 246 thou/uL (130-400); RBC Distribution Width 11.8 % (11.5-14.5); RBC Morphology Normal; Red Blood Cell (RBC) Count 3.74 mill/uL (4.70-6.10); White Blood Cell (WBC) Count 20.7 thou/uL (4.8-10.8)
[2017-05-03] MEDS: CEFAZOLIN/Water 2 GM/20 ML SYRINGE SLOW IVP SCH ×3 (05:03→21:58)
[2017-05-03] MEDS ORDERED: Haloperidol Lactate 5 MG/ML VIAL IM PRN (06:28)
--- NOTE | 2017-05-03 06:28 | PDOC.FM ---
- Subjective Subjective: Pt is alert and orientedx1. He seems confused this morning. Pt says pain is doing better. Denies any acute events overnight. Pt is not reliable at this time due to mental confusion. - Objective Vital Signs & Weight: Vital Signs (12 hours) Temp Pulse Resp BP Pulse Ox 05/03/17 04:00 98.3 F 96 18 151/82 H 94 L 05/03/17 00:00 98.4 F 87 16 142/70 H 95 05/02/17 23:40 81 16 94 L 05/02/17 20:00 98.8 F 90 18 155/68 H 95 05/02/17 18:50 91 20 98 Weight Admit Weight 84.55 kg Weight 88.224 kg I&O: 05/01/17 05/02/17 05/03/17 06:59 06:59 06:59 Intake Total 3051 1881 720 Output Total 770 1480 1984 Balance 2280 371 -4791 Result Diagrams: 05/03/17 04:15 05/03/17 04:15 Radiology Reviewed by me: Yes (No new imaging to review. Awaiting MRI to be taken. ) <Mayito Morrison - Last Filed: 05/03/17 07:36> - Objective Vital Signs & Weight: Vital Signs (12 hours) Temp Pulse Resp BP Pulse Ox 05/03/17 13:37 88 19 99 05/03/17 11:43 98.4 F 89 18 153/76 H 97 05/03/17 07:54 98.3 F 96 20 95 05/03/17 07:45 98.3 F 96 20 162/99 H 95 05/03/17 07:36 98 05/03/17 07:34 95 23 H 98 05/03/17 04:00 98.3 F 96 18 151/82 H 94 L Weight Admit Weight 84.55 kg Weight 88.224 kg I&O: 05/02/17 05/03/17 05/04/17 06:59 06:59 06:59 Intake Total 1881 720 Output Total 1480 1985 Balance 401 -0032 Result Diagrams: 05/03/17 04:15 05/03/17 04:15 <Lisa Alexis - Last Filed: 05/03/17 13:54> Phys Exam - Physical Examination Constitutional: NAD HEENT: PERRLA, moist MMs Neck: no nodes, supple, full ROM Respiratory: no wheezing, no rales, no rhonchi, clear to auscultation bilateral Cardiovascular: RRR, no rub significant systolic murmur noted Gastrointestinal: soft, non-tender, positive bowel sounds belly mildly distended Musculoskeletal: no edema Neurological: non-focal, normal sensation, moves all 4 limbs Lymphatic: no nodes Deviation from normal: Pt confused. A&Ox1 only to person Skin: no rash, normal turgor, cap refill <2 seconds <Mayito Morrison - Last Filed: 05/03/17 07:36> Dx/Plan (1) Sepsis Code(s): A41.9 - SEPSIS, UNSPECIFIED ORGANISM Status: Resolved (2) Bacteremia due to Gram-positive bacteria Code(s): R78.81 - BACTEREMIA Status: Acute (3) Aortic stenosis Code(s): I35.0 - NONRHEUMATIC AORTIC (VALVE) STENOSIS Status: Acute (4) Altered mental status Code(s): R41.82 - ALTERED MENTAL STATUS, UNSPECIFIED Status: Acute (5) HTN (hypertension) Code(s): I10 - ESSENTIAL (PRIMARY) HYPERTENSION Status: Acute (6) Diabetes Code(s): E11.9 - TYPE 2 DIABETES MELLITUS WITHOUT COMPLICATIONS Status: Acute (7) KEMAL (acute kidney injury) Code(s): N17.9 - ACUTE KIDNEY FAILURE, UNSPECIFIED Status: Acute - Plan Plan: MSSA Bacteremia -S. Auerus blood cx positive x2. MSSA. -Tx with cefazolin at this time. Sensitivities in cultures show adequate tx. -Concern for source is pelvis, lumbar spine or endocarditis. -ID consulted- Dr. Alcantara- Will follow recs Getting MRI of L spine and pelvis -Pt confused may need to get anesthesia involved to get images. -May need to get JOSEPH. TTE did not show any sign of vegetation at this time. -Will continue NS@150mls/hr. Altered mental Status -Delerium vs Withdrawl. Pt confused this morning. A&Ox1 only to person. -On ASE protocol. Beer ordered to help ease withdrawl sx. -Haldol PRN. Ativan PRN. Will continue to monitor. Some of his confusion may be due to infection. On appropriate tx. May need to adjust Elevated Troponins -Cardiology Consulted- Will follow recs -Think likely demand ischemia from disease. Plan is to continue medical managment at this time. DM -Continue home medications -Blood sugars stable at this time HTN Bp stable. Continue home medications KEMAL on CKD -Cr trending down. KEMAL resolved at this time. Receiving IVF. <Mayito Morrison - Last Filed: 05/03/17 07:36> Attending Addendum - Attending Addendum I personally evaluated the patient and discussed the management with Dr. Morrison. I agree with the History, Examination, Assessment and Plan documented above with any addition or exceptions noted below. Patient appears more confused this morning. Did not tolerate MRI yesterday. Will set up MRI with sedation for tomorrow. Pt's antibiotics are appropriate for current sensitivities on blood cultures. Continue supportive care. Pt requires restraints periodically as he has been trying to pull out his coppola and take his clothes off. <Lisa Alexis - Last Filed: 05/03/17 13:54>
[2017-05-03] MEDS: FLUoxetine HCl 20 MG CAP PO SCH (08:17)
[2017-05-03] MEDS: Carvedilol 6.25 MG TAB PO SCH ×2 (08:17→17:09)
[2017-05-03] MEDS: Enoxaparin Sodium 30 MG/0.3 ML SYRINGE SC SCH (08:18)
[2017-05-03] MEDS: HumaLOG 300 UNITS/3 ML VIAL SC SCH ×3 (08:18→17:13)
[2017-05-03] MEDS: Insulin Detemir 100 UNITS/ML 12 UNITS in Pre-Filled Syringe 1 EACH SC SCH ×2 (08:19→21:51)
[2017-05-03] MEDS: BEER 1 CAN PO SCH ×3 (10:42→17:34)
--- NOTE | 2017-05-03 11:53 | PRG ---
DATE OF SERVICE: 05/03/2017 SUBJECTIVE: He remains confused and requires restraints to keep him from pulling out his Rueda. OBJECTIVE: VITAL SIGNS: On exam temperature is 98.3, pulse 96, respirations 20, O2 sat 95%, blood pressure 162/ 99. HEENT: Unremarkable. NECK: No JVD. CHEST: Clear. CARDIAC: S1 and S2, regular. ABDOMEN: Soft. EXTREMITIES: No edema. LABORATORY DATA: White blood cell count 20, hematocrit 36.2, platelet count 246. Sodium 137, potass ium 4, chloride 108, CO2 of 22, BUN 40, creatinine 0.8, glucose 182. ASSESSMENT: 1. Encephalopathy. 2. Staphylococcus bacteremia and concern for endocarditis. PLAN: Continue antibiotics. MRI is planned for tomorrow under sedation.
[2017-05-03] MEDS: Thiamine HCl 100 MG, Admixture Fee 1 EACH in Sodium Chloride 0.9% 50 ML IVPB SCH (13:44)
[2017-05-03] MEDS: Lorazepam 2 MG/ML VIAL SLOW IVP PRN (17:09)
[2017-05-03] MEDS: Atorvastatin Calcium 40 MG TAB PO SCH (20:22)
[2017-05-04] MEDS: Sodium Chloride 0.9% 1,000 ML IV SCH ×3 (05:18→18:07)
[2017-05-04] MEDS: CEFAZOLIN/Water 2 GM/20 ML SYRINGE SLOW IVP SCH ×3 (05:19→21:00)
[2017-05-04 06:06] LABS: Anion Gap 14 mmol/L (10-20); BUN (Urea Nitrogen) 40 mg/dL (8.4-25.7); Calc. Creatinine Clearance 88 mL/min (70-130); Calcium 8.2 mg/dL (7.8-10.44); Carbon Dioxide 21 mmol/L (23-31); Chloride 108 mmol/L (98-107); Estimated GFR-MDRD 79; Glucose 275 mg/dL (83-110); Potassium 4.2 mmol/L (3.5-5.1); Sodium 139 mmol/L (136-145)
[2017-05-04 06:35] LABS: Band 9 % (5-11); Hemoglobin 12.7 g/dL (14.0-18.0); Lymphocytes 5 % (21-51); MDiff Complete? YES; Macrocytosis SLIGHT = 6-15 cells (100X) (0-5/hpf); Mean Corpuscular HGB CONC 32.4 g/dL (32.0-36.0); Mean Corpuscular Hemoglobin 31.5 pg (27.0-31.0); Mean Corpuscular Volume 97.1 fl (80.0-94.0); Mean Platelet Volume 9.5 fL (7.4-10.4); Monocytes 3 % (0-10); Neutrophil 82 % (42-75); PLT Morphology Comment Appears Adequate; Platelet Count 258 thou/uL (130-400); Reactive Lymphocytes 1 % (0-10); Red Blood Cell (RBC) Count 4.02 mill/uL (4.70-6.10); White Blood Cell (WBC) Count 17.6 thou/uL (4.8-10.8)
[2017-05-04] MEDS: BEER 1 CAN PO SCH ×3 (07:36→17:54)
[2017-05-04] MEDS: Insulin Detemir 100 UNITS/ML 12 UNITS in Pre-Filled Syringe 1 EACH SC SCH ×2 (07:48→21:01)
--- NOTE | 2017-05-04 08:14 | PDOC.FM ---
- Subjective Subjective: The patient was receiving a breathing treatment at the time of my evaluation. He reports that he is no longer having hip pain. He denies any back pain or chest pain. He is AOx1. - Objective MAR Reviewed: Yes Vital Signs & Weight: Vital Signs (12 hours) Temp Pulse Resp BP Pulse Ox 05/04/17 06:21 96 05/04/17 06:07 98 20 96 05/04/17 04:27 99.0 F 97 20 163/90 H 96 05/04/17 00:03 90 16 93 L 05/03/17 23:49 99.0 F 89 20 153/80 H 92 L Weight Admit Weight 84.55 kg Weight 89.131 kg I&O: 05/03/17 05/04/17 05/05/17 06:59 06:59 06:59 Intake Total 720 2040 Output Total 1984 1650 Balance -1265 390 Result Diagrams: 05/04/17 05:43 05/04/17 05:43 <Irish Bhakta - Last Filed: 05/04/17 08:12> - Objective Vital Signs & Weight: Vital Signs (12 hours) Temp Pulse Resp BP Pulse Ox 05/04/17 11:30 99.4 F 102 H 20 166/87 H 93 L 05/04/17 08:00 98.7 F 102 H 20 165/90 H 96 05/04/17 07:43 97.6 F 91 20 95 05/04/17 06:21 96 05/04/17 06:07 98 20 96 05/04/17 04:27 99.0 F 97 20 163/90 H 96 Weight Admit Weight 84.55 kg Weight 89.131 kg I&O: 05/03/17 05/04/17 05/05/17 06:59 06:59 06:59 Intake Total 720 2040 Output Total 1984 1650 Balance -1265 390 Result Diagrams: 05/04/17 05:43 05/04/17 05:43 <Bernard Campbell - Last Filed: 05/04/17 12:14> Phys Exam - Physical Examination Constitutional: NAD HEENT: moist MMs Respiratory: no wheezing, no rales, clear to auscultation bilateral Cardiovascular: RRR, no rub 3/6 systolic murmur, loudest at R upper sternum w radiation to carotids Gastrointestinal: soft, no distention, positive bowel sounds easily reducible umbilical hernia, mildly tender to palpation no rebound or guarding Musculoskeletal: no edema, pulses present Neurological: non-focal, moves all 4 limbs Deviation from normal: AOx1, oriented to person only <Irish Bhakta - Last Filed: 05/04/17 08:12> Dx/Plan (1) Sepsis Code(s): A41.9 - SEPSIS, UNSPECIFIED ORGANISM Status: Resolved QualifierTitle: Sepsis type: methicillin susceptible Staphylococcus aureus Qualified Code(s): A41.01 - Sepsis due to Methicillin susceptible Staphylococcus aureus (2) Bacteremia due to Gram-positive bacteria Code(s): R78.81 - BACTEREMIA Status: Acute (3) Altered mental status Code(s): R41.82 - ALTERED MENTAL STATUS, UNSPECIFIED Status: Acute QualifierTitle: Altered mental status type: disorientation Qualified Code (s): R41.0 - Disorientation, unspecified (4) KEMAL (acute kidney injury) Code(s): N17.9 - ACUTE KIDNEY FAILURE, UNSPECIFIED Status: Acute (5) Aortic stenosis Code(s): I35.0 - NONRHEUMATIC AORTIC (VALVE) STENOSIS Status: Acute QualifierTitle: Cardiac valve disease etiology: nonrheumatic Qualified Code(s): I35.0 - Nonrheumatic aortic (valve) stenosis (6) Diabetes Code(s): E11.9 - TYPE 2 DIABETES MELLITUS WITHOUT COMPLICATIONS Status: Acute QualifierTitle: Diabetes mellitus type: type 2 Diabetes mellitus complication status: with unspecified complications Diabetes mellitus chcf insulin use: unspecified chcf insulin use status Qualified Code(s): E11.8 - Type 2 diabetes mellitus with unspecified complications (7) HTN (hypertension) Code(s): I10 - ESSENTIAL (PRIMARY) HYPERTENSION Status: Acute QualifierTitle: Hypertension type: essential hypertension Qualified Code( s): I10 - Essential (primary) hypertension (8) Demand ischemia Code(s): I24.8 - OTHER FORMS OF ACUTE ISCHEMIC HEART DISEASE Status: Acute (9) Alcohol abuse Code(s): F10.10 - ALCOHOL ABUSE, UNCOMPLICATED Status: Acute - Plan Plan: MSSA Bacteremia -S. Auerus blood cx positive x2. MSSA. -Tx with cefazolin at this time. Sensitivities in cultures show adequate tx. -Concern for source is pelvis, lumbar spine or endocarditis. -ID consulted- Dr. Alcantara- Will follow recs Getting MRI of L spine and pelvis under sedation today -May need to get JOSEPH. TTE did not show any sign of vegetation at this time. -Will continue NS@150mls/hr. Altered mental Status -Delerium vs Withdrawl. Pt confused this morning. A&Ox1 only to person. -On ASE protocol. Beer ordered to help ease withdrawl sx. -Haldol PRN. Ativan PRN. Will continue to monitor. Some of his confusion may be due to infection. On appropriate tx. May need to adjust Elevated Troponins 2/2 Demand Ischemia -Cardiology Consulted- Will follow recs -Think likely demand ischemia from disease. Plan is to continue medical management at this time. DMII -Continue home medications -Accuchecks ACHS -Blood sugars stable at this time HTN BP has been elevated, will restart lisinopril as KEMAL has improved. Continue home medications KEMAL on CKD -Cr trending down. KEMAL resolved at this time. Receiving IVF. <Irish Bhakta - Last Filed: 05/04/17 08:12> Attending Addendum - Attending Addendum I personally evaluated the patient and discussed the management with Dr. Bhakta. I agree with the History, Examination, Assessment and Plan documented above with any addition or exceptions noted below. Patient continues to have some alteration of mental status, A&Ox1 with some intermittent confusion. Assume this is likely related to his bacteremia. We continue to segura for the source of his infection, MRI of the hip and pelvis today in search of bacterial infection. If negative, he will likely need JOSEPH to r/o endocarditis and prostate exam to r/o prostatitis. Continue on abx for infection, and he has been afebrile with decreasing WBC. He continues on treatment for EtOH withdrawal as could be worsening his delirium. BP elevated, will resume some of his BP meds today. <Bernard Campbell - Last Filed: 05/04/17 12:14>
[2017-05-04] MEDS ORDERED: Promethazine HCl 25 MG/ML VIAL IM PRN (09:43)
[2017-05-04] MEDS ORDERED: Promethazine HCl 25 MG/ML VIAL SLOW IVP PRN (09:43)
[2017-05-04] MEDS ORDERED: Ondansetron HCl/PF 4 MG/2 ML Vial IVP PRN (09:43)
--- NOTE | 2017-05-04 11:21 | MRI ---
MRI PELVIS WITH AND WITHOUT CONTRAST: HISTORY: Pain. MSSA bacteremia. COMPARISON: None. FINDINGS: Please refer to the lumbar spine MRI examination for findings of the spine. There is some loss of normal T1 signal within the S1 vertebra, as well as the S2 vertebra, which has the appearance of marrow reactivation. The same is true for the ilium. No erosions. These areas of T1 marrow reactivation do not have normal enhancement to suggest metastatic disease. Normal alignment of the hip joints. No fracture. There is extensive third spacing of fluid. There is hyperenhancement of the gluteus musculature. Th ere is severe thickening of the urinary bladder. There is free fluid within the pelvis, as well as e xtensive edema in the presacral space. No pyomyositis is appreciated. IMPRESSION: 1. No acute abnormality of the osseous pelvis. 2. Degenerative changes of L5-S1. Please see dedicated MRI spine for details. 3. Extensive third-spacing of fluid and presacral edema. There is also mild hyperenhancement, sugge sting hyperemic changes and less likely myositis. No evidence of pyomyositis. 4. Given the extensive third-spacing of fluid, retroperitoneal fasciitis cannot be totally excluded, although felt less likely. 5. Extensive thickening in the urinary bladder wall. POS: [facility]
[2017-05-04] MEDS: HumaLOG 300 UNITS/3 ML VIAL SC SCH ×3 (12:00→17:54)
[2017-05-04] MEDS: FLUoxetine HCl 20 MG CAP PO SCH (12:01)
[2017-05-04] MEDS: Carvedilol 6.25 MG TAB PO SCH ×2 (12:01→17:54)
[2017-05-04] MEDS: Thiamine HCl 100 MG, Admixture Fee 1 EACH in Sodium Chloride 0.9% 50 ML IVPB SCH (12:27)
--- NOTE | 2017-05-04 12:37 | MRI ---
EXAM: LUMBAR SPINE MRI WITH AND WITHOUT CONTRAST: HISTORY: MSSA bacteremia. Pain. COMPARISON: None. TECHNIQUE: A lumbar spine MRI is performed with and without intravenous Gadolinium administration. Multisequent ial, multiplanar imaging is performed. FINDINGS: There is diffuse T1 marrow signal hypointensity of the visualized lumbar vertebrae. No significant S TIR hyperintensity to suggest edema or ligamentous injury. There is anterolisthesis of L5 upon S1 wi th presumed associated spondylolysis. There is edema in the L5-S1 disk space. On the postcontrast i mages, there may be subtle enhancement of the S1 vertebral body level, remote from the end plate. Ty pe III Modic changes are stable. Symmetric signal intensity of the psoas muscles. Appropriate signal intensity of the visualized ramo d organs. On the postcontrast images, no abnormal enhancement within the thecal sac. T12-L1: Adequate disk hydration. No significant central canal stenosis or foraminal narrowing. L1-L2: Adequate disk hydration. No significant central canal stenosis. Mild ligamentum flavum thic kening and facet hypertrophy. Neural foramen are patent. L2-L3: Mild loss of disk space height. Generalized disk bulge, ligamentum flavum thickening, and fa cet hypertrophy result in mild central canal stenosis. Mild bilateral foraminal narrowing. L3-L4: Generalized disk bulge with a central disk protrusion. There is moderate central canal steno sis secondary to disk material and posterior epidural lipomatosis. Moderate bilateral foraminal narr owing. L4-L5: Generalized disk bulge, ligamentum flavum thickening, and facet hypertrophy result in mild to moderate central canal stenosis. Moderate bilateral foraminal narrowing. L5-S1: Moderate narrowing of the thecal sac secondary to epidural lipomatosis as well as posterior e lement hypertrophy. Moderate bilateral foraminal narrowing. IMPRESSION: 1. Suboptimal evaluation due to poor signal to noise resolution. There appears to be type III Modic change at the L5-S1 level. There is associated spondylolisthesis and spondylolysis. 2. No definite MR evidence of diskitis osteomyelitis or epidural abscess. 3. Degenerative change of the lumbar spine as above. POS: [facility]
[2017-05-04] MEDS: Enoxaparin Sodium 30 MG/0.3 ML SYRINGE SC SCH (12:40)
--- NOTE | 2017-05-04 16:17 | PRG ---
DATE OF SERVICE: 05/04/2017 Mr. Zafar is still encephalopathic. I met with his and daughter at bedside. OBJECTIVE: VITAL SIGNS: His temperature max today is 99.4, heart rate is 102, respiratory rate is 20, oximetry is 93 on 2 liters, blood pressure 166/87. LUNGS: Clear. NECK: Still not stiff. HEART: Regular rhythm. ABDOMEN: Soft. LABORATORY DATA: White count 17.6, hemoglobin 12.7, platelets 258. Sodium 139 , potassium 4.2, chloride 108, bicarb 21, BUN 40, creatinine 0.9, glucose 275. IMPRESSION: Oxacillin sensitive Staphylococcus aureus bacteremia. Pelvis MRI done today shows presacral edema, no evidence of pyomyositis. There was some concern about possible retroperitoneal fasciitis, although it was felt by the radiologist to be less likely, thickening of the urinary bladder wall was seen. Lumbar spine did not show any osteomyelitis or epidural abscesses. I do not see where an echocardiogram has been done. His blood cultures also would need to be repeated to document clearing in my opinion. I ordered above. IMPRESSION: Staphylococcus aureus bacteremia of unclear source, likely starting with cutaneous lesion, it is unclear whether or not it has lead to endocarditis. There is nothing by my review of the MRI report suggesting that he has a paraspinous or hip process. Continue with antimicrobial therapy. Input from Infectious Disease might be helpful. VLADISLAV
--- NOTE | 2017-05-04 17:40 | PRG ---
DATE OF SERVICE: 05/04/2017. SUBJECTIVE: Mr. Zafar remains confused and disoriented, but he is not short of breath. PHYSICAL EXAMINATION: VITAL SIGNS: Blood pressure 157/80, pulse 90 and sinus. LUNGS: Clear. CARDIAC: There is a harsh systolic murmur of aortic stenosis. ABDOMEN: Soft, nontender. EXTREMITIES: No edema. ASSESSMENT: 1. Staphylococcus sepsis being treated. 2. Aortic stenosis, valve area 1.2 cm2, peak gradient 48 mmHg, mean gradient 24 mmHg. PLAN: Transesophageal echo tomorrow to see if there is any evidence of any vegetation.
--- NOTE | 2017-05-04 18:14 | PRG ---
DATE OF SERVICE: 05/04/2017 SUBJECTIVE: Patient is still with some hallucinations, little bit disoriented, but is not agitated. He is able to have a conversation with me. Denies headaches. No respiratory symptoms. He has a Fo courtney catheter. No abdominal pain. Has some pain in the lower back area and with some certain movemen ts, but not in hips. OBJECTIVE: VITAL SIGNS: His vital signs with T-max 99.4, blood pressure 150/80, pulse 97, respirations 20, O2 s aturation 95%. GENERAL: Appears in no distress, disoriented, but appears calm at this time. Ocular movements are c onjugate. LUNGS: With symmetric air entry. HEART: S1, S2, regular rate. ABDOMEN: Soft. EXTREMITIES: I was able to mobilize his hips and lower extremities without eliciting any pain. He d id have some tenderness in lower lumbosacral spine area. LABORATORY DATA: White cell count is down to 17.6, hemoglobin 12, platelets 258, bands are down to 9 % and creatinine is at 0.94. We need to repeat two sets of blood cultures to verify resolution of ba cteremia. His MRI of pelvis and lumbar spine did not show any obvious areas of that which suggest in fection. The lumbosacral spine MRI was of poor technical quality; and therefore, I think we cannot r ule out the lumbosacral spine at this point in time and in fact I would advise treating as if he did have diskitis and osteomyelitis. The pelvis MRI showed some third spacing presacral edema. Some are as of enhancement felt to be edema as well. ASSESSMENT AND DISCUSSION: Type 2 diabetes, coronary artery disease, aortic sclerosis with stenosis, alcoholism, methicillin-sensitive susceptible Staphylococcus aureus, bacteremia, low back pain, and pelvic pain. Although, endocarditis is still concern and the possibility of lumbosacral spine infect ion is not ruled out. He is currently receiving cefazolin and appears to be steadily improving. He will need to continue treatment for a protracted period at this time, I would say at least until the first week of 06/10/2017 approximately weekly labs. JOSEPH might be necessary, but will repeat two sets of blood cultures. If they are negative, I probably advise just continuation of treatment without a ny further testing unless something develops.
[2017-05-04] MEDS: Lisinopril 20 MG TAB PO SCH (21:01)
[2017-05-04] MEDS: Atorvastatin Calcium 40 MG TAB PO SCH (21:01)
[2017-05-05] MEDS: Sodium Chloride 0.9% 1,000 ML IV SCH ×4 (01:08→22:33)
[2017-05-05 06:28] LABS: Anion Gap 10 mmol/L (10-20); BUN (Urea Nitrogen) 33 mg/dL (8.4-25.7); Calc. Creatinine Clearance 110 mL/min (70-130); Calcium 7.9 mg/dL (7.8-10.44); Carbon Dioxide 25 mmol/L (23-31); Chloride 110 mmol/L (98-107); Estimated GFR-MDRD Greater than 90; Glucose 171 mg/dL (83-110); Potassium 3.6 mmol/L (3.5-5.1); Sodium 141 mmol/L (136-145)
[2017-05-05] MEDS: CEFAZOLIN/Water 2 GM/20 ML SYRINGE SLOW IVP SCH ×3 (06:30→22:33)
[2017-05-05 06:33] LABS: Band 3 % (5-11); Hemoglobin 12.5 g/dL (14.0-18.0); Lymphocytes 12 % (21-51); MDiff Complete? YES; Mean Corpuscular HGB CONC 33.7 g/dL (32.0-36.0); Mean Corpuscular Hemoglobin 32.5 pg (27.0-31.0); Mean Corpuscular Volume 96.3 fl (80.0-94.0); Mean Platelet Volume 9.1 fL (7.4-10.4); Monocytes 3 % (0-10); Neutrophil 82 % (42-75); PLT Morphology Comment Appears Adequate; Platelet Count 278 thou/uL (130-400); RBC Distribution Width 12.1 % (11.5-14.5); Red Blood Cell (RBC) Count 3.86 mill/uL (4.70-6.10); White Blood Cell (WBC) Count 19.9 thou/uL (4.8-10.8)
[2017-05-05] MEDS ORDERED: Diprivan 20 ML ONE (07:10)
--- NOTE | 2017-05-05 07:44 | PDOC.FM ---
- Subjective Subjective: Patient had no specific complaints this morning. He pulled out his coppola overnight, but does not appear to have caused trauma as the bulb had deflated first. The new coppola was inserted without any blood return. He also has had a significant cough overnight and appears to be choking when he coughs per the nurse, and they were concerned about him eating until speech evaluated him. He denies any chest pain, SOB, abdominal pain, hip pain, back pain. - Objective MAR Reviewed: Yes Vital Signs & Weight: Vital Signs (12 hours) Temp Pulse Resp BP BP Pulse Ox 05/05/17 04:15 99 F 93 20 155/80 H 95 05/05/17 00:41 87 20 95 05/05/17 00:00 99.4 F 96 22 H 152/79 H 96 05/04/17 21:01 152/75 H Weight Admit Weight 84.55 kg Weight 89.981 kg I&O: 05/04/17 05/05/17 05/06/17 06:59 06:59 06:59 Intake Total 2040 1800 Output Total 1650 1550 Balance 390 250 Result Diagrams: 05/05/17 06:02 05/05/17 06:02 <Irish Bhakta - Last Filed: 05/05/17 07:47> - Objective Vital Signs & Weight: Vital Signs (12 hours) Temp Pulse Pulse Pulse Resp BP BP 05/05/17 12:00 170/82 H 05/05/17 09:41 98 86 172/89 H 05/05/17 09:09 90 16 05/05/17 08:42 152/75 H 05/05/17 08:25 98.6 F 90 16 05/05/17 08:00 98.6 F 90 16 169/94 H 05/05/17 04:15 99 F 93 20 05/05/17 00:41 87 20 BP BP Pulse Ox Pulse Ox Pulse Ox 05/05/17 12:00 05/05/17 09:41 172/89 H 100 98 05/05/17 09:09 98 05/05/17 08:42 05/05/17 08:25 169/94 H 98 05/05/17 08:00 98 05/05/17 04:15 155/80 H 95 05/05/17 00:41 95 Weight Admit Weight 84.55 kg Weight 89.981 kg I&O: 05/04/17 05/05/17 05/06/17 06:59 06:59 06:59 Intake Total 2040 1800 Output Total 1650 1550 Balance 390 250 Result Diagrams: 05/05/17 06:02 05/05/17 06:02 <Bernard Campbell - Last Filed: 05/05/17 12:11> Phys Exam - Physical Examination Constitutional: NAD HEENT: moist MMs Respiratory: no wheezing, no rales, no rhonchi, clear to auscultation bilateral Cardiovascular: RRR, no rub 3/6 systolic ejection murmur w radiation to carotids Gastrointestinal: soft, no distention, positive bowel sounds mildly tender diffusely, easily reducible abdominal hernia rectal tone wnl, prostate enlarged, but non-tender Musculoskeletal: no edema, pulses present Neurological: non-focal, moves all 4 limbs Psychiatric: normal affect Deviation from normal: AOx1 Skin: no rash <Irish Bhakta - Last Filed: 05/05/17 07:47> Dx/Plan (1) Sepsis Code(s): A41.9 - SEPSIS, UNSPECIFIED ORGANISM Status: Resolved QualifierTitle: Sepsis type: methicillin susceptible Staphylococcus aureus Qualified Code(s): A41.01 - Sepsis due to Methicillin susceptible Staphylococcus aureus (2) Bacteremia due to Gram-positive bacteria Code(s): R78.81 - BACTEREMIA Status: Acute (3) Altered mental status Code(s): R41.82 - ALTERED MENTAL STATUS, UNSPECIFIED Status: Acute QualifierTitle: Altered mental status type: disorientation Qualified Code (s): R41.0 - Disorientation, unspecified (4) KEMAL (acute kidney injury) Code(s): N17.9 - ACUTE KIDNEY FAILURE, UNSPECIFIED Status: Acute (5) Aortic stenosis Code(s): I35.0 - NONRHEUMATIC AORTIC (VALVE) STENOSIS Status: Acute QualifierTitle: Cardiac valve disease etiology: nonrheumatic Qualified Code(s): I35.0 - Nonrheumatic aortic (valve) stenosis (6) Diabetes Code(s): E11.9 - TYPE 2 DIABETES MELLITUS WITHOUT COMPLICATIONS Status: Acute QualifierTitle: Diabetes mellitus type: type 2 Diabetes mellitus complication status: with unspecified complications Diabetes mellitus mcc insulin use: unspecified terminal superintendent insulin use status Qualified Code(s): E11.8 - Type 2 diabetes mellitus with unspecified complications (7) HTN (hypertension) Code(s): I10 - ESSENTIAL (PRIMARY) HYPERTENSION Status: Acute QualifierTitle: Hypertension type: essential hypertension Qualified Code( s): I10 - Essential (primary) hypertension (8) Demand ischemia Code(s): I24.8 - OTHER FORMS OF ACUTE ISCHEMIC HEART DISEASE Status: Acute (9) Alcohol abuse Code(s): F10.10 - ALCOHOL ABUSE, UNCOMPLICATED Status: Acute - Plan Plan: MSSA Bacteremia -S. Auerus blood cx positive x2 MSSA. -Tx with cefazolin at this time. Sensitivities in cultures show adequate tx. -Concern for source is skin vs endocarditis. Prostate was enlarged, but non- tender - not concerning for prostatitis. MRI L spine and pelvis did not show any signs of osteo, abscess, diskitis. There was some edema seen. -ID consulted- Dr. Alcantara- Will follow recs -TTE did not show any sign of vegetation at this time. Getting JOSEPH today to rule/out endocarditis -Will continue NS@150mls/hr. -Repeat blood cx NG @ 24h Altered mental Status -Delirium vs Withdrawal. Pt confused this morning. A&Ox1 only to person. -On ASE protocol. Beer ordered to help ease withdrawal sx. -Haldol PRN. Ativan PRN. Will continue to monitor. Some of his confusion may be due to infection. On appropriate tx. May need to adjust -Patient coughing and choking some when trying to eat, this could be 2/2 AMS. Will make pt NPO and order a speech eval. Elevated Troponins 2/2 Demand Ischemia -Cardiology Consulted- Will follow recs -Think likely demand ischemia from disease. Plan is to continue medical management at this time. DMII -Continue home medications -Accuchecks ACHS -Blood sugars stable at this time HTN BP has been elevated, restarted lisinopril as KEMAL has improved. Continue home medications KEMAL on CKD -Cr trending down. KEMAL resolved at this time. Receiving IVF. <Irish Bhakta - Last Filed: 05/05/17 07:47> Attending Addendum - Attending Addendum I personally evaluated the patient and discussed the management with Dr. Bhakta. I agree with the History, Examination, Assessment and Plan documented above with any addition or exceptions noted below. Patient with elevation in WBC but continues to be afebrile. Per nursing, JOSEPH showed vegetations which are likely the cause of his bacteremia. Repeat blood cultures obtained and are negative to date. Patient to need mcc antibiotics and monitoring, and will work to set that up today, including PICC line. He will get speech eval due to concern for aspiration. Mentation continues to wax and wane but no definite cause other than his infection. Will work on placement, likely to SNF. <Bernard Campbell - Last Filed: 05/05/17 12:11>
[2017-05-05] MEDS: Carvedilol 6.25 MG TAB PO SCH ×2 (08:42→16:09)
[2017-05-05] MEDS: BEER 1 CAN PO SCH ×3 (08:42→16:08)
[2017-05-05] MEDS: HumaLOG 300 UNITS/3 ML VIAL SC SCH ×3 (08:42→16:09)
[2017-05-05] MEDS: FLUoxetine HCl 20 MG CAP PO SCH (08:43)
[2017-05-05] MEDS: Enoxaparin Sodium 30 MG/0.3 ML SYRINGE SC SCH (08:44)
[2017-05-05] MEDS: Insulin Detemir 100 UNITS/ML 12 UNITS in Pre-Filled Syringe 1 EACH SC SCH ×2 (08:45→21:07)
--- NOTE | 2017-05-05 10:10 | ECHO ---
TRANSESOPHAGEAL ECHOCARDIOGRAM: DATE OF PROCEDURE: 05/05/2017. HISTORY: This is a 71-year-old gentleman with Staph sepsis and possible endocarditis. PROCEDURE: The patient was taken to the PACU, the patient is sedated by anesthesiology. A transesophageal probe was placed to the distal esophagus and stomach. Echocardiographic images were obtained. The transe sophageal probe was removed. FINDINGS: 1. Normal left ventricular systolic function. 2. The aortic valve leaflets are heavily calcified with reduced leaflet excursion. 3. Moderate aortic stenosis. 4. A 1 cm mass was noted attached to the posterior mitral valve leaflet suggestive of vegetation. 5. Mild mitral regurgitation. 6. Mild tricuspid regurgitation. 7. Atherosclerotic debris descending aorta. IMPRESSION: A 1 cm mass noted attached to the posterior mitral valve leaflet highly suggestive of vegetation. POS: [facility]
[2017-05-05] MEDS: Thiamine HCl 100 MG, Admixture Fee 1 EACH in Sodium Chloride 0.9% 50 ML IVPB SCH (13:22)
[2017-05-05] MEDS ORDERED: Propofol 200 MG/20 ML VIAL ONE (14:48)
[2017-05-05] MEDS ORDERED: Labetalol HCl 100 MG/20 ML VIAL SLOW IVP PRN (14:57)
[2017-05-05] MEDS ORDERED: Heparin 1,000 UNITS/ML VIAL ONE (15:49)
--- NOTE | 2017-05-05 16:36 | PRG ---
DATE OF SERVICE: 05/05/2017 SUBJECTIVE: Mr. Zafar had a transesophageal echo. He has moderate aortic stenosis. He had 1 cm mas s attached to his mitral valve. IMPRESSION: Probable endocarditis. PLAN: Continue per Infectious Disease.
--- NOTE | 2017-05-05 16:45 | SPC ---
LEFT UPPER EXTREMITY PICC PLACEMENT WITH ULTRASOUND GUIDANCE 05/05/17 HISTORY: 71-year-old male with a history of endocarditis and need of IV antibiotics. FINDINGS: Informed consent was obtained prior to the procedure. Left antecubital fossa was prepped and draped i n normal sterile fashion and skin overlying the left basilic vein is anesthetized with 1% buffered li docaine. With direct sonographic guidance, vascular access is obtained via the left basilic vein and an 0.018 wire is advanced into the IVC. Subsequently, retracted to the cavoatrial junction. Intravascular betty th is calculated at 44 cm and the PICC is cut accordingly. Needle was removed and replaced with a pee l away sheath. PICC is advanced over the wire. The peel away sheath and wire were removed. Tip of catheter overlies the cavoatrial junction. Both ports flush well and the catheter is ready for use. IMPRESSION: Successful ultrasound guided left upper extremity PICC placement. EXPOSURE DATA: 0.2 minutes of fluoroscopic time, 2756 mGy*cm2. POS: [facility]
[2017-05-05] MEDS: Atorvastatin Calcium 40 MG TAB PO SCH (20:49)
[2017-05-05] MEDS: Lisinopril 20 MG TAB PO SCH (20:49)
[2017-05-06] MEDS: Metoprolol Tartrate 5 MG/5 ML VIAL IVP SCH ×4 (03:55→20:21)
[2017-05-06] MEDS: Sodium Chloride 0.9% 1,000 ML IV SCH ×2 (06:11→13:02)
[2017-05-06] MEDS: CEFAZOLIN/Water 2 GM/20 ML SYRINGE SLOW IVP SCH ×3 (06:12→21:28)
[2017-05-06] MEDS ORDERED: Lorazepam 2 MG/ML VIAL SLOW IVP PRN ×2 (06:38→06:44)
[2017-05-06] MEDS ORDERED: chlordiazePOXIDE HCl 25 MG CAP PO PRN (06:39)
--- NOTE | 2017-05-06 06:42 | PDOC.FM ---
- Subjective Subjective: Pt is AOx3 this morning, still a bit disoriented to day/time but mentation is much improved from yesterday. He is aware of his situation, wanting to know when he will be going to SNF asking if it will be local. Removed coppola just now , will remove soft restraints, discussed not pulling at PICC and talked to nursing about covering the PICC site to try to help with picking. Reports that his throat is very sore. Speech has him NPO for now but will re-eval today. He reports being hungry/thirsty but afraid to drink due to sore throat. - Objective MAR Reviewed: Yes Vital Signs & Weight: Vital Signs (12 hours) Temp Pulse Resp BP BP Pulse Ox 05/06/17 04:05 99.5 F 101 H 20 156/81 H 96 05/06/17 00:15 99 20 99 05/06/17 00:05 99.6 F 103 H 18 159/71 H 100 05/05/17 21:08 89 162/77 H 05/05/17 20:49 180/89 H 05/05/17 20:28 102 H 180/89 H 05/05/17 19:50 94 20 99 05/05/17 19:30 99.6 F 102 H 18 145/90 H 100 Weight Admit Weight 84.55 kg Weight 89.046 kg I&O: 05/04/17 05/05/17 05/06/17 06:59 06:59 06:59 Intake Total 2040 1800 1800 Output Total 1650 1550 3800 Balance 390 250 -2000 Result Diagrams: 05/05/17 06:02 05/05/17 06:02 <Itzel Carver - Last Filed: 05/06/17 08:32> - Objective Vital Signs & Weight: Vital Signs (12 hours) Temp Pulse Resp BP BP BP Pulse Ox 05/06/17 11:20 99.2 F 101 H 19 151/71 H 97 05/06/17 08:40 95 20 98 05/06/17 07:13 99.2 F 101 H 18 997 H 05/06/17 07:08 99.2 F 101 H 18 153/82 H 153/82 H 97 05/06/17 04:05 99.5 F 101 H 20 156/81 H 96 05/06/17 00:15 99 20 99 01/31/18 00:05 99.6 F 103 H 18 159/71 H 100 Weight Admit Weight 84.55 kg Weight 89.046 kg I&O: 05/05/17 05/06/17 05/07/17 06:59 06:59 06:59 Intake Total 1800 1800 Output Total 1550 3800 450 Balance 250 -2000 -450 Result Diagrams: 05/06/17 08:46 05/05/17 06:02 <Bernard Campbell - Last Filed: 05/06/17 12:05> Phys Exam - Physical Examination Constitutional: NAD HEENT: PERRLA dry mm, posterior oropharynx appears to have crusting burn like lesion Respiratory: no wheezing, no rales, no rhonchi, clear to auscultation bilateral Cardiovascular: RRR, no significant murmur Gastrointestinal: soft, non-tender Musculoskeletal: no edema Neurological: moves all 4 limbs Psychiatric: normal affect, A&O x 3 <Itzel Carver - Last Filed: 05/06/17 08:32> Dx/Plan (1) Endocarditis due to Staphylococcus Code(s): I33.0 - ACUTE AND SUBACUTE INFECTIVE ENDOCARDITIS; B95.8 - UNSP STAPHYLOCOCCUS THE CAUSE OF DISEASES CLASSD ELSWHR Status: Acute Plan: Dx via JOSEPH and cards yesterday, appreciate recs. Received PICC yesterday. To receive ancef through PICC at a SNF for 6 weeks. Repeat BCx so far negative. Pending placement to SNF, family is looking at 3 local SNFs. Coppola out today, to get up with PT, use bedside commode, up with assist, restraints off, protect PICC. Not ready for dc yet pending SNF approval and ability to take PO per speech. (2) Bacteremia due to Gram-positive bacteria Code(s): R78.81 - BACTEREMIA Status: Acute Plan: repeat cultures have been negative so far. (3) Abnormal mouth finding Code(s): K13.70 - UNSPECIFIED LESIONS OF ORAL MUCOSA Status: Acute Plan: Pt has very poor oral hygiene, there is a burn like crusting lesion in the posterior oropharynx which is likely contributing to his difficultly tolerating PO. Ordered oral care today with nursing, speech to re-eval. Could consider SSW lidocaine to aid with pain. (4) Altered mental status Code(s): R41.82 - ALTERED MENTAL STATUS, UNSPECIFIED Status: Acute QualifierTitle: Altered mental status type: disorientation Qualified Code (s): R41.0 - Disorientation, unspecified Plan: Seems much improved today, but he is in a waxing and waning state, a couple nights ago pulled out his coppola. Possibly improving 2/2 to resolving infection vs delirium and waxing and waning state (5) Diabetes Code(s): E11.9 - TYPE 2 DIABETES MELLITUS WITHOUT COMPLICATIONS Status: Acute QualifierTitle: Diabetes mellitus type: type 2 Diabetes mellitus complication status: with unspecified complications Diabetes mellitus exterminator helper termite insulin use: unspecified group home insulin use status Qualified Code(s): E11.8 - Type 2 diabetes mellitus with unspecified complications Plan: At goal for critical care <180. Continue levemir and SS I prn. Has been held recently 2/2 to NPO status so glucose has increased a bit. Re-eval by speech today (6) HTN (hypertension) Code(s): I10 - ESSENTIAL (PRIMARY) HYPERTENSION Status: Acute QualifierTitle: Hypertension type: essential hypertension Qualified Code( s): I10 - Essential (primary) hypertension Plan: BP not at goal but he is NPO and did not receive his nightly lisinopril. Has metoprolol IV loyd and labetalol prn for now. Will need to re-address when taking PO and likely will need a second agent. (7) Sepsis Code(s): A41.9 - SEPSIS, UNSPECIFIED ORGANISM Status: Resolved QualifierTitle: Sepsis type: methicillin susceptible Staphylococcus aureus Qualified Code(s): A41.01 - Sepsis due to Methicillin susceptible Staphylococcus aureus Plan: resolved as above (8) Alcohol abuse Code(s): F10.10 - ALCOHOL ABUSE, UNCOMPLICATED Status: Acute Plan: ASE scores recorded have been between 6-12. Ordered librium when tolerating PO and ativan IV for ASE>10 today. Also has haldol ordered for agitation. <Itzel Carver - Last Filed: 05/06/17 08:32> Attending Addendum - Attending Addendum I personally evaluated the patient and discussed the management with Dr. Carver. I agree with the History, Examination, Assessment and Plan documented above with any addition or exceptions noted below. Patient mentation significantly improved. He continues to be afebrile, though slight uptrend in WBC today. He has received PICC line. Awaiting placement for exterminator helper termite abx and deconditioning. Speech eval again today with SSW medication as he has a large abrasion on the soft palate that seems to be causing him some discomfort with swallowing. <Bernard Campbell - Last Filed: 05/06/17 12:05>
[2017-05-06] MEDS ORDERED: Sodium Chloride 0.9% 1,000 ML IV SCH (06:45)
[2017-05-06] MEDS: HumaLOG 300 UNITS/3 ML VIAL SC SCH ×3 (07:22→16:53)
[2017-05-06] MEDS: FLUoxetine HCl 20 MG CAP PO SCH (07:22)
[2017-05-06] MEDS: Enoxaparin Sodium 30 MG/0.3 ML SYRINGE SC SCH (07:22)
[2017-05-06] MEDS: Insulin Detemir 100 UNITS/ML 12 UNITS in Pre-Filled Syringe 1 EACH SC SCH ×2 (07:23→20:19)
[2017-05-06 09:04] LABS: Hemoglobin 12.3 g/dL (14.0-18.0); Mean Corpuscular HGB CONC 31.9 g/dL (32.0-36.0); Mean Corpuscular Hemoglobin 30.9 pg (27.0-31.0); Mean Corpuscular Volume 96.8 fl (80.0-94.0); Mean Platelet Volume 9.4 fL (7.4-10.4); Platelet Count 293 thou/uL (130-400); RBC Distribution Width 12.2 % (11.5-14.5); Red Blood Cell (RBC) Count 3.98 mill/uL (4.70-6.10); White Blood Cell (WBC) Count 22.2 thou/uL (4.8-10.8)
[2017-05-06 09:16] LABS: Band 2 % (5-11); Hypersemented Neutrophil SLIGHT; Lymphocytes 13 % (21-51); MDiff Complete? YES; Monocytes 1 % (0-10); Neutrophil 84 % (42-75); PLT Morphology Comment Appears Adequate; Toxic Granulation SLIGHT
[2017-05-06] MEDS ORDERED: Lidocaine Viscous Sol 2% 15 ml UD Cup SSW PRN (09:43)
[2017-05-06] MEDS ORDERED: Chloraseptic Spray 180 ml Bottle PO PRN (09:43)
--- NOTE | 2017-05-06 09:50 | PRG ---
DATE OF SERVICE: 05/06/2017 SUBJECTIVE: Mr. Zafar has no chest pain or pressure. He is awake. He appears alert. He is oriente d to know that he is in [place]. He does not know the year. OBJECTIVE: VITAL SIGNS: Blood pressure 150/80, pulse 90. LUNGS: Clear. CARDIAC: There is a soft murmur as before. ABDOMEN: Soft, nontender. EXTREMITIES: No edema. ASSESSMENT: 1. Endocarditis of the mitral valve. 2. Aortic stenosis, moderate. PLAN: 1. Continue intravenous antibiotics. 2. He is on aspirin. 3. He is on atorvastatin. 4. He is on carvedilol. Okay with me to go off telemetry. Reduced the saline infusion rate. We wi ll sign off for now. He needs to follow up as an outpatient in the Cardiology clinic.
[2017-05-06] MEDS: BEER 1 CAN PO SCH ×3 (13:02→17:58)
[2017-05-06] MEDS: Thiamine HCl 100 MG, Admixture Fee 1 EACH in Sodium Chloride 0.9% 50 ML IVPB SCH (15:47)
--- NOTE | 2017-05-06 18:44 | PRG ---
DATE OF SERVICE: 05/06/2017 SUBJECTIVE: The patient is still confused and somewhat delirious, having some visual hallucinations and still on the restraints, had a JOSEPH which showed mitral valve mass or vegetation and he denies any pain right now, no dyspnea. OBJECTIVE: VITAL SIGNS: T-max 99.8, blood pressure 170/88, pulse 102, respirations 19-20, O2 sat 92-97%. GENERAL: Appears in no distress. HEENT: Ocular movements are conjugate, establishes eye contact, follows commands. LUNGS: Clear. HEART: S1, S2, regular rate. ABDOMEN: Soft, nontender. EXTREMITIES: Moves all extremities. LABORATORY DATA: Repeat blood cultures from two days ago, thus far negative at 48 hours. ASSESSMENT AND DISCUSSION: Type 2 diabetes and coronary artery disease, aortic sclerosis, mitral marianne ve vegetation with methicillin sensitive Staph aureus endocarditis. May have a lumbosacral spine inv olvement as well. The patient to continue on cefazolin and the end date of therapy will be 8 with weekly labs.
[2017-05-06] MEDS: Lisinopril 20 MG TAB PO SCH (20:20)
[2017-05-06] MEDS: Atorvastatin Calcium 40 MG TAB PO SCH (20:20)
[2017-05-07] MEDS: Sodium Chloride 0.9% 1,000 ML IV SCH ×2 (02:31→09:22)
[2017-05-07] MEDS: Metoprolol Tartrate 5 MG/5 ML VIAL IVP SCH ×2 (02:31→09:13)
[2017-05-07 05:17] LABS: Anion Gap 14 mmol/L (10-20); BUN (Urea Nitrogen) 23 mg/dL (8.4-25.7); Calc. Creatinine Clearance 109 mL/min (70-130); Calcium 7.8 mg/dL (7.8-10.44); Carbon Dioxide 25 mmol/L (23-31); Chloride 106 mmol/L (98-107); Estimated GFR-MDRD Greater than 90; Glucose 178 mg/dL (83-110); Potassium 3.5 mmol/L (3.5-5.1); Sodium 141 mmol/L (136-145)
[2017-05-07] MEDS: CEFAZOLIN/Water 2 GM/20 ML SYRINGE SLOW IVP SCH ×3 (05:37→21:31)
[2017-05-07] MEDS: HumaLOG 300 UNITS/3 ML VIAL SC PRN (05:44)
--- NOTE | 2017-05-07 06:32 | PRG ---
DATE OF SERVICE: 05/06/2017 SUBJECTIVE: Dennis Zafar is still encephalopathic. OBJECTIVE: VITAL SIGNS: Stable. He is afebrile, heart rate is 77, respiratory rate is 18, oximetry is 91 on ro om air, blood pressures is 175/87 this evening. Intake and outputs, negative 2015 reported. LUNGS: Clear. HEART: S1 and S2 are normal with grade 2/6 systolic murmur today. ABDOMEN: Soft and nontender. EXTREMITIES: Without asymmetry. LABORATORY DATA: Blood cultures remain negative. IMPRESSION: Methicillin-sensitive Staph aureus endocarditis. Even though, his findings on his MRI were not diagnostic of paraspinous abscess with complaints of ba ck and hip pain when he came in without any abnormalities on MRI, so I suspect this could be an infla mmatory process related to his endocarditis. He is going to continue with antimicrobial therapy. Pl acement is the next step. Hopefully, encephalopathy will gradually improve. He can probably be take n off the heart monitor and moved to a medical bed. I the patient.
--- NOTE | 2017-05-07 07:59 | PDOC.FM ---
- Subjective Subjective: Patient AOx1 this AM. He reports that his buttocks feels sore, but otherwise has no symptoms. His throat feels better and he denies any CP, SOB, abd pain. He pulled his PICC line out last night when he got confused and agitated. - Objective MAR Reviewed: Yes Vital Signs & Weight: Vital Signs (12 hours) Temp Pulse Resp BP BP BP Pulse Ox 05/07/17 04:00 98.8 F 97 18 170/92 H 170/92 H 94 L 05/07/17 00:00 99.0 F 98 20 152/78 H 152/78 H 94 L 05/06/17 20:20 175/87 H 05/06/17 20:00 98.8 F 107 H 18 175/87 H 91 L Weight Admit Weight 84.55 kg Weight 90.407 kg I&O: 05/06/17 05/07/17 05/08/17 06:59 06:59 06:59 Intake Total 1800 3800 Output Total 3800 1750 Balance -1999 2049 Result Diagrams: 05/06/17 08:46 05/07/17 04:21 <Irish Bhakta - Last Filed: 05/07/17 08:03> - Objective Vital Signs & Weight: Vital Signs (12 hours) Temp Pulse Resp BP BP BP Pulse Ox 05/07/17 09:27 82 16 95 05/07/17 08:51 98.0 F 101 H 19 157/75 H 96 05/07/17 04:00 98.8 F 97 18 170/92 H 170/92 H 94 L 05/07/17 00:00 99.0 F 98 20 152/78 H 152/78 H 94 L Weight Admit Weight 84.55 kg Weight 90.407 kg I&O: 05/06/17 05/07/17 05/08/17 06:59 06:59 06:59 Intake Total 1800 3800 Output Total 3800 1750 Balance -1999 2049 Result Diagrams: 05/06/17 08:46 05/07/17 04:21 <Bernard Campbell - Last Filed: 05/07/17 11:01> Phys Exam - Physical Examination Constitutional: NAD HEENT: moist MMs burn like lesion on post pharynx Respiratory: no wheezing, no rales, no rhonchi, clear to auscultation bilateral Cardiovascular: RRR 3/6 syst murmur w radiation to carotids Gastrointestinal: soft, non-tender, no distention, positive bowel sounds Musculoskeletal: no edema, pulses present Neurological: non-focal, moves all 4 limbs Psychiatric: normal affect Deviation from normal: AOx1 <Irish Bhakta - Last Filed: 05/07/17 08:03> Dx/Plan (1) Endocarditis due to Staphylococcus Code(s): I33.0 - ACUTE AND SUBACUTE INFECTIVE ENDOCARDITIS; B95.8 - UNSP STAPHYLOCOCCUS THE CAUSE OF DISEASES CLASSD ELSWHR Status: Acute (2) Sepsis Code(s): A41.9 - SEPSIS, UNSPECIFIED ORGANISM Status: Resolved QualifierTitle: Sepsis type: methicillin susceptible Staphylococcus aureus Qualified Code(s): A41.01 - Sepsis due to Methicillin susceptible Staphylococcus aureus (3) Bacteremia due to Gram-positive bacteria Code(s): R78.81 - BACTEREMIA Status: Acute (4) Altered mental status Code(s): R41.82 - ALTERED MENTAL STATUS, UNSPECIFIED Status: Acute QualifierTitle: Altered mental status type: disorientation Qualified Code (s): R41.0 - Disorientation, unspecified (5) KEMAL (acute kidney injury) Code(s): N17.9 - ACUTE KIDNEY FAILURE, UNSPECIFIED Status: Acute (6) Aortic stenosis Code(s): I35.0 - NONRHEUMATIC AORTIC (VALVE) STENOSIS Status: Acute QualifierTitle: Cardiac valve disease etiology: nonrheumatic Qualified Code(s): I35.0 - Nonrheumatic aortic (valve) stenosis (7) Diabetes Code(s): E11.9 - TYPE 2 DIABETES MELLITUS WITHOUT COMPLICATIONS Status: Acute QualifierTitle: Diabetes mellitus type: type 2 Diabetes mellitus complication status: with unspecified complications Diabetes mellitus nursing home insulin use: unspecified intermodal dispatcher insulin use status Qualified Code(s): E11.8 - Type 2 diabetes mellitus with unspecified complications (8) HTN (hypertension) Code(s): I10 - ESSENTIAL (PRIMARY) HYPERTENSION Status: Acute QualifierTitle: Hypertension type: essential hypertension Qualified Code( s): I10 - Essential (primary) hypertension (9) Demand ischemia Code(s): I24.8 - OTHER FORMS OF ACUTE ISCHEMIC HEART DISEASE Status: Acute (10) Alcohol abuse Code(s): F10.10 - ALCOHOL ABUSE, UNCOMPLICATED Status: Acute (11) Abnormal mouth finding Code(s): K13.70 - UNSPECIFIED LESIONS OF ORAL MUCOSA Status: Acute - Plan Plan: Endocarditis 2/2 MSSA -S. Auerus blood cx positive x2 MSSA. Repeat BCx NG @ 48h -Tx with cefazolin at this time. Sensitivities in cultures show adequate tx. Will need 6 weeks of cefazolin -ID consulted- Dr. Alcantara- Will follow recs -Will continue NS@80mls/hr. -PICC was pulled last night, will re-insert PICC, but consider other options Altered mental Status -Delirium vs Withdrawal. Pt confused this morning. A&Ox1 only to person. -On ASE protocol. Beer ordered to help ease withdrawal sx. ASE scores 6-11 in past 24h -Librium PRN, Ativan PRN. Will continue to monitor. Some of his confusion may be due to infection. On appropriate tx. May need to adjust -Patient coughing and choking some when trying to eat, this could be 2/2 AMS vs lesion in post pharynx. Will do oral care and follow speech recs with diet. Currently pureed, will have them re-evaluate Elevated Troponins 2/2 Demand Ischemia -Cardiology Consulted- Will follow recs -Likely demand ischemia from disease. Plan is to continue medical management at this time. DMII -Continue home medications -Accuchecks ACHS -Blood sugars at goal at this time HTN BP has been elevated as patient has not been taking PO medications. Scheduled IV metoprolol. Speech will re-evaluate for possibility of taking PO meds. KEMAL on CKD -Cr at baseline. KEMAL resolved at this time. Receiving IVF. <Irish Bhakta - Last Filed: 05/07/17 08:03> Attending Addendum - Attending Addendum I personally evaluated the patient and discussed the management with Dr. Bhakta. I agree with the History, Examination, Assessment and Plan documented above with any addition or exceptions noted below. Patient afebrile. COntinue on nursing home abx per ID for Endocarditis. Will work to change IV metoprolol back to oral Coreg for better control of BP. Adding Geodon for his agitation that causes nightly issues and resulted in pulling out PICC line last night. Will replace PICC. Awaiting placement acceptance. Expect encephalopathy to improve as his infection clears. Blood cultures continue to be negative on repeat. <Bernard Campbell - Last Filed: 05/07/17 11:01>
[2017-05-07] MEDS: Insulin Detemir 100 UNITS/ML 12 UNITS in Pre-Filled Syringe 1 EACH SC SCH ×2 (09:12→20:21)
[2017-05-07] MEDS: Enoxaparin Sodium 30 MG/0.3 ML SYRINGE SC SCH (09:13)
[2017-05-07] MEDS: FLUoxetine HCl 20 MG CAP PO SCH (09:13)
[2017-05-07] MEDS: traMADol HCl 50 MG TAB PO PRN ×2 (09:19→20:20)
[2017-05-07] MEDS: HumaLOG 300 UNITS/3 ML VIAL SC SCH ×3 (09:21→17:50)
[2017-05-07] MEDS: BEER 1 CAN PO SCH ×3 (09:21→18:52)
[2017-05-07] MEDS ORDERED: Ziprasidone 20 MG CAP PO SCH (11:00)
[2017-05-07 11:47] LABS: Hemoglobin 11.3 g/dL (14.0-18.0); Mean Corpuscular HGB CONC 31.9 g/dL (32.0-36.0); Mean Corpuscular Hemoglobin 31.6 pg (27.0-31.0); Mean Platelet Volume 10.2 fL (7.4-10.4); Platelet Count 296 thou/uL (130-400); RBC Distribution Width 12.3 % (11.5-14.5); Red Blood Cell (RBC) Count 3.57 mill/uL (4.70-6.10); White Blood Cell (WBC) Count 24.5 thou/uL (4.8-10.8)
[2017-05-07 12:13] LABS: Band 3 % (5-11); Eosinophils 1 % (0-10); Lymphocytes 7 % (21-51); MDiff Complete? YES; Monocytes 5 % (0-10); Neutrophil 84 % (42-75); PLT Morphology Comment Appears Adequate; Toxic Granulation SLIGHT
--- NOTE | 2017-05-07 16:30 | PDOC.EVN ---
Event Note - Event Note Event Note: We were called to the bedside as pt reportedly was bradycardic to the 30s. Upon exam, he was somnolent than his baseline, AOx1-2 which is unchanged from this morning. From a physical pulse check and cardiac exam, he was truly bradycardic. His monitor showed PACs every other beat, HR was reading around 90 but on exam was half that. We administered atropine and HR rapidly returned to NSR, EKG confirmed. We spoke to Dr. Vines who agreed with plan to d/c all BB, continue tele monitoring and administer atropine for bradycardia. <Itzel Carver - Last Filed: 05/07/17 16:27> Attending Addendum - Attending Addendum I personally evaluated the patient and discussed the management with Dr. Carver I agree with the History, Examination, Assessment and Plan documented above with any addition or exceptions noted below. <Mendoza Juarez - Last Filed: 05/07/17 17:17>
[2017-05-07] MEDS: Ziprasidone 20 MG CAP PO SCH (17:52)
[2017-05-07 18:27] LABS: Bilirubin Negative (Negative); Blood, Urine Large (Negative); Clarity CLEAR (Clear); Glucose, Urine (Dipstick) >=1000 mg/dL (Negative); Leukocyte Negative (Negative); Nitrite Negative (Negative); Protein, Urine (Dipstick) 30 mg/dL (Neg-Trace); Specific Gravity, Urine 1.025 (1.002-1.036); Urobilinogen 0.2 mg/dL (0.2-1.0)
[2017-05-07 18:28] LABS: Bacteria/HPF None Seen HPF (None Seen); Hyaline Casts/LPF 0-3 HYALINE CAST LPF (0-3 Hyaline); RBC/HPF 21-50 HPF (0-3); Squamous Epithelial None Seen HPF (0-3); WBC/HPF 0-3 HPF (0-3)
--- NOTE | 2017-05-07 19:34 | PRG ---
DATE OF SERVICE: 05/07/2017 SUBJECTIVE: Mr. Zafar continues to be encephalopathic. He continues to receive antibiotics for methicillin sensitive staph. OBJECTIVE: VITAL SIGNS: Afebrile, heart rate is 83, respiratory rate is 18, oximetry is 97 on room air, blood pressure 144/71. He pulled out PICC line earlier and this has been replaced. LUNGS: Clear. LABORATORY DATA: White count is 24, hemoglobin is 11.3, platelets 296. Renal function has been stable. Last creatinine was 0.76 today. IMPRESSION: 1. Toxic metabolic encephalopathy. 2. Methicillin-sensitive Staph endocarditis. 3. Diabetes. 4. History of heavy alcohol use in the past and moderately heavy alcohol use recently. PLAN: Transfer to a medical bed. No reason to continue with telemetry monitoring. Would consider slowly tapering off the beer. MTDD
[2017-05-07] MEDS: Lisinopril 20 MG TAB PO SCH (20:18)
[2017-05-07] MEDS: Atorvastatin Calcium 40 MG TAB PO SCH (20:18)
[2017-05-07] MEDS ORDERED: Carvedilol 6.25 MG TAB PO SCH (21:00)
[2017-05-08] MEDS ORDERED: Dextrose 5 % And 0.9 % NaCl 1,000 ML IV SCH (00:15)
[2017-05-08] MEDS: Ondansetron HCl/PF 4 MG/2 ML Vial IVP PRN (01:10)
[2017-05-08] MEDS: Sodium Chloride 0.9% 1,000 ML IV SCH ×3 (01:35→17:55)
[2017-05-08] MEDS: traMADol HCl 50 MG TAB PO PRN ×2 (01:47→21:43)
[2017-05-08] MEDS: CEFAZOLIN/Water 2 GM/20 ML SYRINGE SLOW IVP SCH ×3 (05:35→21:35)
[2017-05-08] MEDS: HumaLOG 300 UNITS/3 ML VIAL SC PRN (05:38)
[2017-05-08 07:22] LABS: Hemoglobin 10.8 g/dL (14.0-18.0); Mean Corpuscular HGB CONC 31.6 g/dL (32.0-36.0); Mean Corpuscular Hemoglobin 30.8 pg (27.0-31.0); Mean Corpuscular Volume 97.5 fl (80.0-94.0); Mean Platelet Volume 9.4 fL (7.4-10.4); Platelet Count 318 thou/uL (130-400); RBC Distribution Width 12.4 % (11.5-14.5); White Blood Cell (WBC) Count 24.3 thou/uL (4.8-10.8)
[2017-05-08 07:23] LABS: Band 3 % (5-11); Hypersemented Neutrophil SLIGHT; Lymphocytes 5 % (21-51); MDiff Complete? YES; Monocytes 4 % (0-10); Neutrophil 88 % (42-75); PLT Morphology Comment Appears Adequate
--- NOTE | 2017-05-08 08:02 | PDOC.FM ---
- Subjective Subjective: The patient was AOx1 this AM. He was complaining of pain in his arms and abdomen. He has not had a BM in a few days. He had an episode of bradycardia yesterday that has resolved. He denies CP, SOB, N/V. He is tolerating PO well. - Objective MAR Reviewed: Yes Vital Signs & Weight: Vital Signs (12 hours) Temp Pulse Resp BP BP Pulse Ox 05/08/17 07:23 99.0 F 107 H 20 155/83 H 95 05/08/17 04:00 98.8 F 108 H 18 153/69 H 96 05/08/17 00:00 98.6 F 99 18 179/93 H 100 05/07/17 23:11 96 12 100 05/07/17 20:18 141/62 H Weight Admit Weight 84.55 kg Weight 91.342 kg I&O: 05/07/17 05/08/17 05/09/17 06:59 06:59 06:59 Intake Total 3800 3301 Output Total 1750 2375 Balance 2049 926 Result Diagrams: 05/08/17 04:42 05/07/17 04:21 <Irish Bhakta - Last Filed: 05/08/17 08:03> - Objective Vital Signs & Weight: Vital Signs (12 hours) Temp Pulse Resp BP Pulse Ox 05/08/17 09:17 97 05/08/17 09:15 107 H 20 97 05/08/17 08:00 99.0 F 107 H 20 97 05/08/17 07:23 99.0 F 107 H 20 155/83 H 95 05/08/17 04:00 98.8 F 108 H 18 153/69 H 96 05/08/17 00:00 98.6 F 99 18 179/93 H 100 05/07/17 23:11 96 12 100 Weight Admit Weight 84.55 kg Weight 91.342 kg I&O: 05/07/17 05/08/17 05/09/17 06:59 06:59 06:59 Intake Total 3800 3301 Output Total 1750 2375 Balance 2050 926 Result Diagrams: 05/08/17 04:42 05/07/17 04:21 <Bernard Campbell - Last Filed: 05/08/17 10:59> Phys Exam - Physical Examination Constitutional: NAD HEENT: moist MMs burn like lesion on posterior oropharynx Respiratory: no wheezing, no rales, no rhonchi, clear to auscultation bilateral Cardiovascular: RRR 3/6 systolic murmur Gastrointestinal: soft, non-tender, no distention, positive bowel sounds easily reducible umbilical hernia Musculoskeletal: no edema, pulses present Neurological: non-focal, moves all 4 limbs Psychiatric: normal affect Deviation from normal: AOx1 <Irish Bhakta - Last Filed: 05/08/17 08:03> Dx/Plan (1) Endocarditis due to Staphylococcus Code(s): I33.0 - ACUTE AND SUBACUTE INFECTIVE ENDOCARDITIS; B95.8 - UNSP STAPHYLOCOCCUS THE CAUSE OF DISEASES CLASSD ELSWHR Status: Acute (2) Sepsis Code(s): A41.9 - SEPSIS, UNSPECIFIED ORGANISM Status: Resolved QualifierTitle: Sepsis type: methicillin susceptible Staphylococcus aureus Qualified Code(s): A41.01 - Sepsis due to Methicillin susceptible Staphylococcus aureus (3) Bacteremia due to Gram-positive bacteria Code(s): R78.81 - BACTEREMIA Status: Acute (4) Altered mental status Code(s): R41.82 - ALTERED MENTAL STATUS, UNSPECIFIED Status: Acute QualifierTitle: Altered mental status type: disorientation Qualified Code (s): R41.0 - Disorientation, unspecified (5) KEMAL (acute kidney injury) Code(s): N17.9 - ACUTE KIDNEY FAILURE, UNSPECIFIED Status: Acute (6) Aortic stenosis Code(s): I35.0 - NONRHEUMATIC AORTIC (VALVE) STENOSIS Status: Acute QualifierTitle: Cardiac valve disease etiology: nonrheumatic Qualified Code(s): I35.0 - Nonrheumatic aortic (valve) stenosis (7) Diabetes Code(s): E11.9 - TYPE 2 DIABETES MELLITUS WITHOUT COMPLICATIONS Status: Acute QualifierTitle: Diabetes mellitus type: type 2 Diabetes mellitus complication status: with unspecified complications Diabetes mellitus intermediate designer insulin use: unspecified intermediate designer insulin use status Qualified Code(s): E11.8 - Type 2 diabetes mellitus with unspecified complications (8) HTN (hypertension) Code(s): I10 - ESSENTIAL (PRIMARY) HYPERTENSION Status: Acute QualifierTitle: Hypertension type: essential hypertension Qualified Code( s): I10 - Essential (primary) hypertension (9) Demand ischemia Code(s): I24.8 - OTHER FORMS OF ACUTE ISCHEMIC HEART DISEASE Status: Acute (10) Alcohol abuse Code(s): F10.10 - ALCOHOL ABUSE, UNCOMPLICATED Status: Acute (11) Abnormal mouth finding Code(s): K13.70 - UNSPECIFIED LESIONS OF ORAL MUCOSA Status: Acute (12) Constipation Code(s): K59.00 - CONSTIPATION, UNSPECIFIED Status: Acute QualifierTitle: Constipation type: unspecified constipation type Qualified Code(s): K59.00 - Constipation, unspecified (13) Urinary retention Code(s): R33.9 - RETENTION OF URINE, UNSPECIFIED Status: Acute - Plan Plan: Endocarditis 2/2 MSSA -S. Auerus blood cx positive x2 MSSA. Repeat BCx NG @ 48h -Tx with cefazolin at this time. Sensitivities in cultures show adequate tx. Will need 6 weeks of cefazolin -ID consulted- Dr. Alcantara- Will follow recs -Will continue NS@80mls/hr. -PICC was pulled 2 nights ago, will re-insert PICC today Altered mental Status -Delirium vs Withdrawal. Pt confused this morning. A&Ox1 only to person. -On ASE protocol. Beer ordered to help ease withdrawal sx. ASE scores have improved, 3-9 in past 24h -Librium PRN, Ativan PRN. Will continue to monitor. Some of his confusion may be due to infection. On appropriate tx. May need to adjust -Patient coughing and choking some when trying to eat, this could be 2/2 AMS vs lesion in post pharynx. Will do oral care and follow speech recs with diet. Currently pureed, will have them re-evaluate -Yoselin FISHER, pt did not receive this yesterday due to being asleep Bradycardia Transient, resolved with atropine -Discontinued all beta blockers -Cardiology on board, appreciate recs -Will monitor Elevated Troponins 2/2 Demand Ischemia -Cardiology Consulted- Will follow recs -Likely demand ischemia from disease. Plan is to continue medical management at this time. Urinary Retention, likely 2/2 BPH Patient had enlarged, non-tender prostate on exam and has had several episodes of urinary retention requiring in-and-out caths and foleys placed throughout his hospitalization. -Trial of flomax DMII -Continue home medications -Accuchecks ACHS -Blood sugar dropped to 63 yesterday, got D5NS and they improved to 260, switched back to NS. Will continue to monitor closely HTN Continue lisinopril, hold coreg due to patient's episode of bradycardia. KEMAL on CKD -Cr at baseline. KEMAL resolved at this time. Receiving IVF. Constipation -Bowel regimen, monitor <Irish Bhakta - Last Filed: 05/08/17 08:03> Attending Addendum - Attending Addendum I personally evaluated the patient and discussed the management with Dr. Bhakta. I agree with the History, Examination, Assessment and Plan documented above with any addition or exceptions noted below. Patient seems to be more oriented this morning. He did not have agitation overnight and his ASE scores have been ok. He continues to be treated for MSSA endocarditis with IV therapy. His WBC is elevated but overall stable, but he has been afebrile. Appreciate ID recs. We are still awaiting placement for intermediate abx therapy. Will schedule PICC placement today. Geodon should be resumed to help prevent agitation at night that results in pulling out lines and monitors. Patient did have episode of bradycardia yesterday that required atropine. Continue on tele monitoring and holding beta blockers for now. Can transfer patient out of IMCU but should continue on a telemetry floor. Ensure that patient is not progressing to heart block due to his endocarditis. He has had some issues with urinary retention recently, and prostate exam shows enlargement, will begin flomax therapy today. Consider that bradycardia yesterday could have been vagal response to urinary retention/distention. Not quite ready for discharge. <Bernard Campbell - Last Filed: 05/08/17 10:59>
--- NOTE | 2017-05-08 08:11 | PRG ---
DATE OF SERVICE: 05/08/2017 Mr. Zafar is alert today, but only oriented to person. PHYSICAL EXAMINATION: VITAL SIGNS: Blood pressure 150/80, pulse today is 109. Yesterday apparently he had some bradycardi a. LUNGS: Clear. CARDIAC: Normal S1, normal S2. ASSESSMENT: 1. Episode of bradycardia yesterday. 2. Confusion and disorientation. 3. Endocarditis. PLAN: 1. Continue antibiotics. 2. He is off beta blockers. 3. Continue aspirin and statins. 4. Continue antibiotics. 5. Continue lisinopril.
--- NOTE | 2017-05-08 08:57 | PDOC.FM ---
- Objective Vital Signs & Weight: Vital Signs (12 hours) Temp Pulse Resp BP Pulse Ox 05/08/17 08:00 99.0 F 107 H 20 97 05/08/17 07:23 99.0 F 107 H 20 155/83 H 95 05/08/17 04:00 98.8 F 108 H 18 153/69 H 96 05/08/17 00:00 98.6 F 99 18 179/93 H 100 05/07/17 23:11 96 12 100 Weight Admit Weight 84.55 kg Weight 91.342 kg I&O: 05/07/17 05/08/17 05/09/17 06:59 06:59 06:59 Intake Total 3800 3301 Output Total 1750 2375 Balance 2050 926 Result Diagrams: 05/08/17 04:42 05/07/17 04:21
--- NOTE | 2017-05-08 09:25 | SPC ---
LEFT LOWER EXTREMITY PICC LINE PLACEMENT ULTRASOUND AND FLUOROSCOPY GUIDANCE: COMPARISON: Comparison is made with an exam of 05/05/17. FINDINGS: The patient was brought to the specials suite. All questions were answered. The patient's left upper extremity was prepped and draped in normal sterile fashion. 2 mL of Lidocai ne was instilled into the superficial and deep soft tissues. Using a micropuncture kit, the left basilic vein was accessed. Over a wire and through a peelaway eath, a 45 cm dual-lumen PICC was placed. The patient tolerated the procedure well. IMPRESSION: Technically successful PICC line placement. FLUORO TIME: 0.6 minutes. Dose 5963 mGy*^cm2. POS: NATALIA
[2017-05-08] MEDS: HumaLOG 300 UNITS/3 ML VIAL SC SCH ×3 (10:28→16:53)
[2017-05-08] MEDS: Ziprasidone 20 MG CAP PO SCH ×2 (10:28→17:56)
[2017-05-08] MEDS: Enoxaparin Sodium 30 MG/0.3 ML SYRINGE SC SCH (10:29)
[2017-05-08] MEDS: FLUoxetine HCl 20 MG CAP PO SCH (10:29)
[2017-05-08] MEDS: Tamsulosin HCl 0.4 MG CAP PO SCH (10:29)
[2017-05-08] MEDS: Docusate 100 MG CAP PO SCH ×2 (10:29→21:33)
[2017-05-08] MEDS: Polyethylene Glycol 3350 17 GM Packet PO SCH (10:30)
[2017-05-08] MEDS: Insulin Detemir 100 UNITS/ML 12 UNITS in Pre-Filled Syringe 1 EACH SC SCH ×2 (10:31→21:34)
[2017-05-08] MEDS ORDERED: Heparin 1,000 UNITS/ML VIAL ONE (14:00)
[2017-05-08] MEDS ORDERED: BEER 1 CAN PO SCH (17:00)
[2017-05-08] MEDS: Atorvastatin Calcium 40 MG TAB PO SCH (21:33)
[2017-05-08] MEDS: Lisinopril 20 MG TAB PO SCH (21:33)
[2017-05-09] MEDS: CEFAZOLIN/Water 2 GM/20 ML SYRINGE SLOW IVP SCH ×3 (05:13→22:15)
[2017-05-09] MEDS: Sodium Chloride 0.9% 1,000 ML IV SCH ×2 (05:18→22:03)
[2017-05-09 05:56] LABS: #Lymphocytes 1.2 thou/uL (1.20-3.40); #Neutrophils 22.7 thou/uL (1.40-6.50); %Basophils 0.1 % (0.0-1.0); %Eosinophils 0.1 % (0.0-10.0); %Lymphocytes 4.7 % (21.0-51.0); %Neutrophils 91.2 % (42.0-75.0); Hemoglobin 11.1 g/dL (14.0-18.0); Mean Corpuscular HGB CONC 32.1 g/dL (32.0-36.0); Mean Corpuscular Hemoglobin 31.3 pg (27.0-31.0); Mean Corpuscular Volume 97.4 fl (80.0-94.0); Platelet Count 361 thou/uL (130-400); RBC Distribution Width 12.2 % (11.5-14.5); Red Blood Cell (RBC) Count 3.55 mill/uL (4.70-6.10); White Blood Cell (WBC) Count 24.9 thou/uL (4.8-10.8)
--- NOTE | 2017-05-09 06:55 | PDOC.FM ---
- Subjective Subjective: Patient has had urinary retention since having his coppola removed. He was able to void a little on the first day, but since then he has required in and out caths. He is still complaining of constipation. He is alert and oriented to person, but not to place or time, although he was oriented to who our president was. - Objective MAR Reviewed: Yes Vital Signs & Weight: Vital Signs (12 hours) Temp Pulse Resp BP BP Pulse Ox 05/09/17 05:55 98.8 F 106 H 20 178/86 H 178/86 H 94 L 05/09/17 00:38 106 H 16 05/08/17 21:33 141/62 H 05/08/17 20:00 98.2 F 106 H 16 163/77 H 92 L 05/08/17 19:03 99 16 99 Weight Admit Weight 84.55 kg Weight 96.479 kg I&O: 05/07/17 05/08/17 05/09/17 06:59 06:59 06:59 Intake Total 3800 3301 3574 Output Total 1750 2375 3875 Balance 2050 926 301 Result Diagrams: 05/09/17 05:34 05/07/17 04:21 <Irish Bhakta - Last Filed: 05/09/17 06:54> - Objective Vital Signs & Weight: Vital Signs (12 hours) Temp Pulse Resp BP BP Pulse Ox 05/09/17 08:33 95 05/09/17 08:31 106 H 16 05/09/17 08:00 99.9 F H 110 H 22 H 174/80 H 96 05/09/17 05:55 98.8 F 106 H 20 178/86 H 178/86 H 94 L 05/09/17 00:38 106 H 16 Weight Admit Weight 84.55 kg Weight 96.479 kg I&O: 05/08/17 05/09/17 05/10/17 06:59 06:59 06:59 Intake Total 3301 3574 Output Total 2375 3875 Balance 926 301 Result Diagrams: 05/09/17 05:34 05/07/17 04:21 <Bernard Campbell - Last Filed: 05/09/17 10:06> Phys Exam - Physical Examination Constitutional: NAD HEENT: moist MMs burn like lesion in posterior pharynx Respiratory: no wheezing, no rales, no rhonchi, clear to auscultation bilateral Cardiovascular: RRR, no rub 3/6 systolic murmur Gastrointestinal: soft, no distention, positive bowel sounds mildly tender to palpation diffusely Musculoskeletal: no edema, pulses present Neurological: non-focal, moves all 4 limbs Deviation from normal: AOx1 <LiviaIrish - Last Filed: 05/09/17 06:54> Dx/Plan (1) Endocarditis due to Staphylococcus Code(s): I33.0 - ACUTE AND SUBACUTE INFECTIVE ENDOCARDITIS; B95.8 - UNSP STAPHYLOCOCCUS THE CAUSE OF DISEASES CLASSD ELSWHR Status: Acute (2) Sepsis Code(s): A41.9 - SEPSIS, UNSPECIFIED ORGANISM Status: Resolved QualifierTitle: Sepsis type: methicillin susceptible Staphylococcus aureus Qualified Code(s): A41.01 - Sepsis due to Methicillin susceptible Staphylococcus aureus (3) Bacteremia due to Gram-positive bacteria Code(s): R78.81 - BACTEREMIA Status: Acute (4) Altered mental status Code(s): R41.82 - ALTERED MENTAL STATUS, UNSPECIFIED Status: Acute QualifierTitle: Altered mental status type: disorientation Qualified Code (s): R41.0 - Disorientation, unspecified (5) KEMAL (acute kidney injury) Code(s): N17.9 - ACUTE KIDNEY FAILURE, UNSPECIFIED Status: Acute (6) Aortic stenosis Code(s): I35.0 - NONRHEUMATIC AORTIC (VALVE) STENOSIS Status: Acute QualifierTitle: Cardiac valve disease etiology: nonrheumatic Qualified Code(s): I35.0 - Nonrheumatic aortic (valve) stenosis (7) Diabetes Code(s): E11.9 - TYPE 2 DIABETES MELLITUS WITHOUT COMPLICATIONS Status: Acute QualifierTitle: Diabetes mellitus type: type 2 Diabetes mellitus complication status: with unspecified complications Diabetes mellitus long-term insulin 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 Qualified Code(s): E11.8 - Type 2 diabetes mellitus with unspecified complications (8) HTN (hypertension) Code(s): I10 - ESSENTIAL (PRIMARY) HYPERTENSION Status: Acute QualifierTitle: Hypertension type: essential hypertension Qualified Code( s): I10 - Essential (primary) hypertension (9) Demand ischemia Code(s): I24.8 - OTHER FORMS OF ACUTE ISCHEMIC HEART DISEASE Status: Acute (10) Alcohol abuse Code(s): F10.10 - ALCOHOL ABUSE, UNCOMPLICATED Status: Acute (11) Abnormal mouth finding Code(s): K13.70 - UNSPECIFIED LESIONS OF ORAL MUCOSA Status: Acute (12) Constipation Code(s): K59.00 - CONSTIPATION, UNSPECIFIED Status: Acute QualifierTitle: Constipation type: unspecified constipation type Qualified Code(s): K59.00 - Constipation, unspecified (13) Urinary retention Code(s): R33.9 - RETENTION OF URINE, UNSPECIFIED Status: Acute - Plan Plan: Endocarditis 2/2 MSSA -S. Auerus blood cx positive x2 MSSA. Repeat BCx NG @ 48h -Tx with cefazolin at this time. Sensitivities in cultures show adequate tx. Will need 6 weeks of cefazolin. Pt has signed choice letter for [facility]. -ID consulted- Dr. Alcantara- Will follow recs -Will continue NS@80mls/hr. -Patient pulled first PICC line, but new PICC was inserted on 2/2 Altered mental Status -Delirium vs Withdrawal. Pt confused this morning. A&Ox1 only to person. -On ASE protocol. Beer ordered to help ease withdrawal sx. ASE scores have improved, 2-7 in past 24h -Librium PRN, Ativan PRN. Will continue to monitor. Some of his confusion may be due to infection. On appropriate tx. May need to adjust -Patient coughing and choking some when trying to eat, this could be 2/2 AMS vs lesion in post pharynx. Will do oral care and follow speech recs with diet. Currently pureed, will have them re-evaluate -Yoselin BID Bradycardia Transient, resolved with atropine -Discontinued all beta blockers -Cardiology on board, appreciate recs -Will monitor on tele Elevated Troponins 2/2 Demand Ischemia -Cardiology Consulted- Will follow recs -Likely demand ischemia from disease. Plan is to continue medical management at this time. Urinary Retention, likely 2/2 BPH Patient had enlarged, non-tender prostate on exam and has had several episodes of urinary retention requiring in-and-out caths and foleys placed throughout his hospitalization. -Trial of flomax DMII -Continue home medications -Accuchecks ACHS HTN Continue lisinopril, hold coreg due to patient's episode of bradycardia. KEMAL on CKD -Cr at baseline. KEMAL resolved at this time. Receiving IVF. Constipation -Bowel regimen, monitor <Irish Bhakta - Last Filed: 05/09/17 06:54> Attending Addendum - Attending Addendum I personally evaluated the patient and discussed the management with Dr. Bhakta. I agree with the History, Examination, Assessment and Plan documented above with any addition or exceptions noted below. Patient feels well this morning. He continues to have episodes of urinary retention, coppola will be placed, continue flomax. He has less agitation on Geodon, will continue for now. His HR has been persistently tachycardic with no further indications of bradycardia. Will begin beta aracely therapy to help get heart rate and BP under better control. COntinue abx for endocarditis, continues to have elevated WBC but afebrile. <Bernard Campbell - Last Filed: 05/09/17 10:06>
[2017-05-09] MEDS: HumaLOG 300 UNITS/3 ML VIAL SC SCH ×3 (08:00→17:41)
[2017-05-09] MEDS ORDERED: Carvedilol 6.25 MG TAB PO SCH (11:00)
[2017-05-09] MEDS: Docusate 100 MG CAP PO SCH ×2 (11:45→22:01)
[2017-05-09] MEDS: FLUoxetine HCl 20 MG CAP PO SCH (11:48)
[2017-05-09] MEDS: Tamsulosin HCl 0.4 MG CAP PO SCH (11:48)
[2017-05-09] MEDS: Ziprasidone 20 MG CAP PO SCH ×2 (11:48→17:41)
[2017-05-09] MEDS: Enoxaparin Sodium 30 MG/0.3 ML SYRINGE SC SCH (11:48)
[2017-05-09] MEDS: Polyethylene Glycol 3350 17 GM Packet PO SCH (11:49)
[2017-05-09] MEDS: Insulin Detemir 100 UNITS/ML 12 UNITS in Pre-Filled Syringe 1 EACH SC SCH ×3 (11:53→22:24)
--- NOTE | 2017-05-09 13:43 | EKG ---
Test Reason : Blood Pressure : / mmHG Vent. Rate : 087 BPM Atrial Rate : 087 BPM P-R Int : 160 ms QRS Dur : 090 ms QT Int : 424 ms P-R-T Axes : 078 083 029 degrees QTc Int : 510 ms Normal sinus rhythm Prolonged QT Abnormal ECG Confirmed by SHANELLE WEISS ([id number]), editor at large REX MCGHEE ([id number]) on 05/09/2017 1:43:14 PM Referred By: Confirmed By:SHANELLE WEISS
[2017-05-09] MEDS: Carvedilol 6.25 MG TAB PO SCH (17:40)
[2017-05-09] MEDS ORDERED: Clopidogrel Bisulfate 75 MG TAB ONE ×2 (17:42→17:43)
[2017-05-09] MEDS: traMADol HCl 50 MG TAB PO PRN (22:01)
[2017-05-09] MEDS: Atorvastatin Calcium 40 MG TAB PO SCH (22:01)
[2017-05-09] MEDS: Lisinopril 20 MG TAB PO SCH (22:01)
[2017-05-10] MEDS: CEFAZOLIN/Water 2 GM/20 ML SYRINGE SLOW IVP SCH ×3 (05:30→20:57)
[2017-05-10] MEDS: Sodium Chloride 0.9% 1,000 ML IV SCH (05:31)
[2017-05-10 06:29] LABS: #Eosinphils 0.1 thou/uL (0.0-0.7); #Lymphocytes 0.9 thou/uL (1.20-3.40); #Monocytes 1.1 thou/uL (0.11-0.59); #Neutrophils 19.6 thou/uL (1.40-6.50); %Eosinophils 0.2 % (0.0-10.0); %Lymphocytes 4.2 % (21.0-51.0); %Monocytes 5.1 % (0.0-10.0); %Neutrophils 90.5 % (42.0-75.0); Hemoglobin 10.4 g/dL (14.0-18.0); Mean Corpuscular Hemoglobin 31.5 pg (27.0-31.0); Mean Corpuscular Volume 98.6 fl (80.0-94.0); Mean Platelet Volume 8.5 fL (7.4-10.4); Platelet Count 379 thou/uL (130-400); RBC Distribution Width 12.2 % (11.5-14.5); White Blood Cell (WBC) Count 21.7 thou/uL (4.8-10.8)
--- NOTE | 2017-05-10 07:23 | PDOC.FM ---
- Subjective Subjective: Patient AOx2 this AM. No specific complaints. He has still not had a BM. He denies chest pain, abdominal pain, N/V. - Objective MAR Reviewed: Yes Vital Signs & Weight: Vital Signs (12 hours) Temp Pulse Resp BP BP Pulse Ox 05/10/17 04:00 97.7 F 106 H 17 162/74 H 162/74 H 97 05/10/17 03:58 97 05/10/17 02:56 94 L 05/10/17 00:08 85 15 05/10/17 00:01 165/70 H 96 05/10/17 00:00 99.7 F H 103 H 20 165/70 H 96 05/09/17 21:44 98.7 F 105 H 20 167/72 H 167/22 H 94 L Weight Admit Weight 84.55 kg Weight 93.485 kg I&O: 05/09/17 05/10/17 05/11/17 06:59 06:59 06:59 Intake Total 3574 2392 Output Total 3875 1300 Balance -301 1092 Result Diagrams: 05/10/17 05:51 05/07/17 04:21 <Irish Bhakta - Last Filed: 05/10/17 07:21> - Objective Vital Signs & Weight: Vital Signs (12 hours) Temp Pulse Resp BP BP BP Pulse Ox 05/10/17 09:06 106 H 16 05/10/17 08:00 98.7 F 108 H 18 144/71 H 97 05/10/17 04:00 97.7 F 106 H 17 162/74 H 162/74 H 97 05/10/17 03:58 97 05/10/17 02:56 94 L 05/10/17 00:08 85 15 05/10/17 00:01 165/70 H 96 05/10/17 00:00 99.7 F H 103 H 20 165/70 H 96 Weight Admit Weight 84.55 kg Weight 93.485 kg I&O: 05/09/17 05/10/17 05/11/17 06:59 06:59 06:59 Intake Total 3574 2392 Output Total 3875 1300 Balance -301 1092 Result Diagrams: 05/10/17 05:51 05/07/17 04:21 <Bernard Campbell - Last Filed: 05/10/17 10:04> Phys Exam - Physical Examination Constitutional: NAD HEENT: moist MMs burn like lesion in post pharynx Respiratory: no wheezing, no rales, no rhonchi, clear to auscultation bilateral Cardiovascular: RRR, no rub 3/6 syst murmur with radiation to carotids Gastrointestinal: soft, non-tender, no distention, positive bowel sounds Musculoskeletal: no edema, pulses present Neurological: non-focal, moves all 4 limbs Psychiatric: normal affect Deviation from normal: AOx2 <Irish Bhakta - Last Filed: 05/10/17 07:21> Dx/Plan (1) Endocarditis due to Staphylococcus Code(s): I33.0 - ACUTE AND SUBACUTE INFECTIVE ENDOCARDITIS; B95.8 - UNSP STAPHYLOCOCCUS THE CAUSE OF DISEASES CLASSD ELSWHR Status: Acute (2) Sepsis Code(s): A41.9 - SEPSIS, UNSPECIFIED ORGANISM Status: Resolved QualifierTitle: Sepsis type: methicillin susceptible Staphylococcus aureus Qualified Code(s): A41.01 - Sepsis due to Methicillin susceptible Staphylococcus aureus (3) Bacteremia due to Gram-positive bacteria Code(s): R78.81 - BACTEREMIA Status: Acute (4) Altered mental status Code(s): R41.82 - ALTERED MENTAL STATUS, UNSPECIFIED Status: Acute QualifierTitle: Altered mental status type: disorientation Qualified Code (s): R41.0 - Disorientation, unspecified (5) KEMAL (acute kidney injury) Code(s): N17.9 - ACUTE KIDNEY FAILURE, UNSPECIFIED Status: Acute (6) Aortic stenosis Code(s): I35.0 - NONRHEUMATIC AORTIC (VALVE) STENOSIS Status: Acute QualifierTitle: Cardiac valve disease etiology: nonrheumatic Qualified Code(s): I35.0 - Nonrheumatic aortic (valve) stenosis (7) Diabetes Code(s): E11.9 - TYPE 2 DIABETES MELLITUS WITHOUT COMPLICATIONS Status: Acute QualifierTitle: Diabetes mellitus type: type 2 Diabetes mellitus complication status: with unspecified complications Diabetes mellitus 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 Qualified Code(s): E11.8 - Type 2 diabetes mellitus with unspecified complications (8) HTN (hypertension) Code(s): I10 - ESSENTIAL (PRIMARY) HYPERTENSION Status: Acute QualifierTitle: Hypertension type: essential hypertension Qualified Code( s): I10 - Essential (primary) hypertension (9) Demand ischemia Code(s): I24.8 - OTHER FORMS OF ACUTE ISCHEMIC HEART DISEASE Status: Acute (10) Alcohol abuse Code(s): F10.10 - ALCOHOL ABUSE, UNCOMPLICATED Status: Acute (11) Abnormal mouth finding Code(s): K13.70 - UNSPECIFIED LESIONS OF ORAL MUCOSA Status: Acute (12) Constipation Code(s): K59.00 - CONSTIPATION, UNSPECIFIED Status: Acute QualifierTitle: Constipation type: unspecified constipation type Qualified Code(s): K59.00 - Constipation, unspecified (13) Urinary retention Code(s): R33.9 - RETENTION OF URINE, UNSPECIFIED Status: Acute - Plan Plan: Endocarditis 2/2 MSSA -S. Auerus blood cx positive x2 MSSA. Repeat BCx NG @ 5 days -Tx with cefazolin at this time. Sensitivities in cultures show adequate tx. Will need 6 weeks of cefazolin. Pt has signed choice letter for [facility]. -ID consulted- Dr. Alcantara- Will follow recs -Will continue NS@80mls/hr. -Patient pulled first PICC line, but new PICC was inserted on 2/2 Altered mental Status -Delirium vs Withdrawal. A&Ox2 today - to person and place -On ASE protocol. ASE scores have been 5-8 in past 24h -Librium PRN, Ativan PRN. Will continue to monitor. Some of his confusion may be due to infection. On appropriate tx. May need to adjust -Patient coughing and choking some when trying to eat, this could be 2/2 AMS vs lesion in post pharynx. Will do oral care and follow speech recs with diet. Currently pureed, will have them re-evaluate -Geodon BID Bradycardia Transient, resolved with atropine -Carvedilol has been restarted at half dose and patient has tolerated this well and has remained tachycardic and hypertensive -Cardiology on board, appreciate recs -Will monitor on tele Elevated Troponins 2/2 Demand Ischemia -Cardiology Consulted- Will follow recs -Likely demand ischemia from disease. Plan is to continue medical management at this time. Urinary Retention, likely 2/2 BPH Patient had enlarged, non-tender prostate on exam and has had several episodes of urinary retention requiring in-and-out caths and foleys placed throughout his hospitalization. -Trial of flomax -Reinserted coppola on 2/3 DMII -Continue home medications -Accuchecks ACHS HTN Continue lisinopril and coreg KEMAL on CKD -Cr at baseline. KEMAL resolved at this time. Receiving IVF. Constipation -Bowel regimen, monitor <Irish Bhakta - Last Filed: 05/10/17 07:21> Attending Addendum - Attending Addendum I personally evaluated the patient and discussed the management with Dr. Bhakta. I agree with the History, Examination, Assessment and Plan documented above with any addition or exceptions noted below. Patient overall stable. His WBC has a slight downtrend, and remains afebrile. Continue Ancef for retirement abx for endocarditis. Repeat cx negative implying clearing of infection. Coppola in place and draining well 2/2 prostate enlargement. His HR and BP continues to be elevated, therefore will increase Coreg dose. Continue tele monitoring. No bowel movement, will escalate bowel regimen. Anticipate patient is nearing ready for discharge in next 1-2 days. <Bernard Campbell - Last Filed: 05/10/17 10:04>
[2017-05-10] MEDS: HumaLOG 300 UNITS/3 ML VIAL SC SCH ×3 (08:00→17:37)
[2017-05-10] MEDS: Polyethylene Glycol 3350 17 GM Packet PO SCH (09:54)
[2017-05-10] MEDS: Carvedilol 6.25 MG TAB PO SCH ×2 (09:58→17:36)
[2017-05-10] MEDS: FLUoxetine HCl 20 MG CAP PO SCH (09:58)
[2017-05-10] MEDS: Docusate 100 MG CAP PO SCH ×3 (09:58→21:02)
[2017-05-10] MEDS: Ziprasidone 20 MG CAP PO SCH ×2 (09:59→17:37)
[2017-05-10] MEDS: Tamsulosin HCl 0.4 MG CAP PO SCH (10:00)
[2017-05-10] MEDS: Enoxaparin Sodium 30 MG/0.3 ML SYRINGE SC SCH (10:03)
[2017-05-10] MEDS ORDERED: Carvedilol 6.25 MG TAB PO SCH ×2 (10:30→11:30)
[2017-05-10] MEDS ORDERED: Bisacodyl 10 MG SUPP PR SCH (10:30)
[2017-05-10] MEDS: Insulin Detemir 100 UNITS/ML 12 UNITS in Pre-Filled Syringe 1 EACH SC SCH ×2 (12:21→20:57)
--- NOTE | 2017-05-10 16:17 | EKG ---
Test Reason : Blood Pressure : / mmHG Vent. Rate : 102 BPM Atrial Rate : 102 BPM P-R Int : 186 ms QRS Dur : 088 ms QT Int : 378 ms P-R-T Axes : 089 081 050 degrees QTc Int : 492 ms Sinus tachycardia Otherwise normal ECG When compared with ECG of 29-APR-2017 20:52, (Unconfirmed) No significant change was found Confirmed by Evangelist PETTY ([id number]) on 05/10/2017 4:17:23 PM Referred By: RUBIN Confirmed By:Evangelist PETTY
--- NOTE | 2017-05-10 16:26 | EKG ---
Test Reason : STAT Blood Pressure : / mmHG Vent. Rate : 086 BPM Atrial Rate : 086 BPM P-R Int : 164 ms QRS Dur : 090 ms QT Int : 416 ms P-R-T Axes : 000 000 015 degrees QTc Int : 497 ms Normal sinus rhythm Prolonged QT Abnormal ECG When compared with ECG of 30-APR-2017 11:56, (Unconfirmed) Questionable change in QRS axis Confirmed by Evangelist PETTY ([id number]) on 05/10/2017 4:25:51 PM Referred By: ROBIN Confirmed By:Evangelist PETTY
--- NOTE | 2017-05-10 18:02 | PRG ---
DATE OF SERVICE: 05/10/2017 SUBJECTIVE: Patient is transferred to [facility]. He is awake and alert, less confused than before. Edgar es any respiratory symptoms or abdominal pain, no diarrhea. OBJECTIVE: VITAL SIGNS: T-max 99.7, blood pressure 140/63, pulse 82, respirations 16, O2 sat 94%. GENERAL: Patient on distress, less confused and more calm than before. LUNGS: Symmetric air entry. HEART: S1 and S2, regular rate. ABDOMEN: Soft and not distended. EXTREMITIES: Moves all extremities equally. LABORATORY DATA: White cell count down to 21.7, hemoglobin 10.4, MCV 98, platelets 379 with 90% neut rophils. The chemistry was not remarkable except for hyperglycemia 178, repeat blood cultures no db wth in 5 days from 05/04/2017. 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 The patient to continue c efazolin and date of therapy 06/10/2017 with weekly reads.
[2017-05-10] MEDS: Lisinopril 20 MG TAB PO SCH ×4 (20:56→21:14)
[2017-05-10] MEDS: Atorvastatin Calcium 40 MG TAB PO SCH ×4 (20:56→21:15)
[2017-05-10] MEDS: Acetaminophen 325 MG TAB PO PRN (21:10)
[2017-05-11] MEDS: Morphine 5 MG/ML SYRINGE SLOW IVP PRN ×2 (04:43→11:55)
[2017-05-11] MEDS: CEFAZOLIN/Water 2 GM/20 ML SYRINGE SLOW IVP SCH ×3 (05:07→22:12)
[2017-05-11 05:58] LABS: #Basophils 0.1 thou/uL (0.0-0.2); #Lymphocytes 0.8 thou/uL (1.20-3.40); #Monocytes 1.3 thou/uL (0.11-0.59); #Neutrophils 20.2 thou/uL (1.40-6.50); %Basophils 0.2 % (0.0-1.0); %Eosinophils 0.1 % (0.0-10.0); %Lymphocytes 3.7 % (21.0-51.0); %Monocytes 5.6 % (0.0-10.0); %Neutrophils 90.3 % (42.0-75.0); Hemoglobin 10.6 g/dL (14.0-18.0); Mean Corpuscular HGB CONC 32.1 g/dL (32.0-36.0); Mean Corpuscular Hemoglobin 31.3 pg (27.0-31.0); Mean Corpuscular Volume 97.5 fl (80.0-94.0); Mean Platelet Volume 8.4 fL (7.4-10.4); Platelet Count 405 thou/uL (130-400); RBC Distribution Width 12.2 % (11.5-14.5); Red Blood Cell (RBC) Count 3.39 mill/uL (4.70-6.10); White Blood Cell (WBC) Count 22.4 thou/uL (4.8-10.8)
--- NOTE | 2017-05-11 06:37 | PDOC.FM ---
- Subjective Subjective: Patient slightly agitated this AM. He was made NPO at midnight due to barium swallow to be performed this AM to evaluate swallowing. Patient upset that he cannot have any water. He endorses some shortness of breath. His oxygen saturation is >92%. No significant overnight events. Patient able to answer questions appropriately. Oriented x2 to person and place. - Objective MAR Reviewed: Yes Vital Signs & Weight: Vital Signs (12 hours) Temp Pulse Resp BP BP Pulse Ox 05/11/17 04:57 160/65 H 05/11/17 04:00 98.1 F 100 20 160/65 H 94 L 05/11/17 01:28 92 16 05/11/17 00:40 154/68 H 05/11/17 00:00 99.0 F 85 20 154/68 H 93 L 05/10/17 21:02 99.4 F 98 20 94 L 05/10/17 20:45 99.4 F 98 20 122/69 122/69 94 L 05/10/17 19:17 88 16 Weight Admit Weight 84.55 kg Weight 94.574 kg I&O: 05/09/17 05/10/17 05/11/17 06:59 06:59 06:59 Intake Total 3574 2392 140 Output Total 3875 1300 450 Balance -301 1092 -310 Result Diagrams: 05/11/17 05:36 05/07/17 04:21 EKG Reviewed by me: Yes Radiology Reviewed by me: Yes <Guerline Sánchez - Last Filed: 05/11/17 08:46> - Objective Vital Signs & Weight: Vital Signs (12 hours) Temp Pulse Resp BP BP Pulse Ox 05/11/17 09:39 160/65 H 05/11/17 08:15 96.1 F L 105 H 18 131/59 L 93 L 05/11/17 08:05 95 16 96 05/11/17 04:57 160/65 H 05/11/17 04:00 98.1 F 100 20 160/65 H 94 L 05/11/17 01:28 92 16 05/11/17 00:40 154/68 H 05/11/17 00:00 99.0 F 85 20 154/68 H 93 L Weight Admit Weight 84.55 kg Weight 94.574 kg I&O: 0205/11/17 05/12/17 06:59 06:59 06:59 Intake Total 2392 140 Output Total 1300 450 Balance 1092 -310 Result Diagrams: 05/11/17 05:36 05/07/17 04:21 <PopeAndrews Bernard - Last Filed: 05/11/17 11:09> Phys Exam - Physical Examination Constitutional: NAD Agitated HEENT: moist MMs Oropharynx with ulceration Neck: supple Respiratory: no wheezing, no rales Cardiovascular: RRR systolic murmur Gastrointestinal: soft, no distention reducible umbilical hernia Musculoskeletal: no edema Legs painful to palpation b/l Neurological: non-focal, moves all 4 limbs Psychiatric: normal affect Skin: no rash, cap refill <2 seconds <Guerline Sánchez - Last Filed: 05/11/17 08:46> Dx/Plan (1) Endocarditis due to Staphylococcus Code(s): I33.0 - ACUTE AND SUBACUTE INFECTIVE ENDOCARDITIS; B95.8 - UNSP STAPHYLOCOCCUS THE CAUSE OF DISEASES CLASSD ELSWHR Status: Acute (2) Abnormal mouth finding Code(s): K13.70 - UNSPECIFIED LESIONS OF ORAL MUCOSA Status: Acute (3) Alcohol abuse Code(s): F10.10 - ALCOHOL ABUSE, UNCOMPLICATED Status: Chronic (4) Altered mental status Code(s): R41.82 - ALTERED MENTAL STATUS, UNSPECIFIED Status: Acute QualifierTitle: Altered mental status type: disorientation Qualified Code (s): R41.0 - Disorientation, unspecified (5) Constipation Code(s): K59.00 - CONSTIPATION, UNSPECIFIED Status: Acute QualifierTitle: Constipation type: unspecified constipation type Qualified Code(s): K59.00 - Constipation, unspecified - Plan Plan: Endocarditis 05/08 MSSA -S. Auerus blood cx positive x2 MSSA. Repeat BCx NG @ 5 days -Tx with cefazolin at this time. Sensitivities in cultures show adequate tx. Will need 6 weeks of cefazolin. Pt has signed choice letter for [facility]. -ID consulted- Dr. Alcantara- Will follow recs -Patient pulled first PICC line, but new PICC was inserted on 05/08/16 Altered mental Status -Delirium vs. baseline mental status; A&Ox2 today - to person and place, answering questions appropriately -On ASE protocol. ASE scores have been 5-8 in past 24h -Librium PRN, Ativan PRN. Will continue to monitor. Some of his confusion may be due to infection. On appropriate tx. May need to adjust -Patient coughing and choking some when trying to eat, this could be 2/2 AMS vs lesion in posterior pharynx. Will do oral care and follow speech recs with diet. Currently pureed, will have them re-evaluate -Yoselin BID -Barium swallow this AM; concerns for aspiration Bradycardia Transient, resolved with atropine -Carvedilol has been restarted at half dose and patient has tolerated this well and has remained tachycardic and hypertensive -Cardiology on board, appreciate recs -Will monitor on telemetry -No episodes of bradycarida overnight; short segment of SVT Elevated Troponins 2/2 Demand Ischemia -Cardiology Consulted- Will follow recs -Likely demand ischemia from disease. Plan is to continue medical management at this time. Urinary Retention, likely 2/2 BPH -Patient had enlarged, non-tender prostate on exam and has had several episodes of urinary retention requiring in-and-out caths and foleys placed throughout his hospitalization. -Trial of flomax -Reinserted coppola on 05/09/16 -May need to go to SNF with coppola in place DMII -Continue home medications -Accuchecks ACHS HTN Continue lisinopril and coreg KEMAL on CKD -Cr at baseline. KEMAL resolved at this time. Receiving IVF. Constipation -Bowel regimen -BM x2 yesterday <Guerline Sánchez - Last Filed: 05/11/17 08:46> Attending Addendum - Attending Addendum I personally evaluated the patient and discussed the management with Dr. Sánchez I agree with the History, Examination, Assessment and Plan documented above with any addition or exceptions noted below. Concern prior to discharge to [facility] of not having had bms for a few days. He has had 2 bms overnight. Concern from speech yesterday of aspiration, made NPO for a modified barium swallow today. Plan is for patient to be discharged with coppola catheter for at least 1-2 weeks and allow flomax to take effect. If not urinating, will not outpatient urology follow up. <Andrews Barriga - Last Filed: 05/11/17 11:09>
[2017-05-11] MEDS: Carvedilol 6.25 MG TAB PO SCH ×2 (09:39→17:38)
[2017-05-11] MEDS: HumaLOG 300 UNITS/3 ML VIAL SC SCH ×3 (09:39→17:38)
[2017-05-11] MEDS: Ziprasidone 20 MG CAP PO SCH ×2 (09:39→17:38)
[2017-05-11] MEDS: Enoxaparin Sodium 30 MG/0.3 ML SYRINGE SC SCH (09:43)
[2017-05-11] MEDS: Docusate 100 MG CAP PO SCH ×2 (13:46→21:54)
[2017-05-11] MEDS: FLUoxetine HCl 20 MG CAP PO SCH (13:46)
[2017-05-11] MEDS: Polyethylene Glycol 3350 17 GM Packet PO SCH (13:47)
[2017-05-11] MEDS: Insulin Detemir 100 UNITS/ML 12 UNITS in Pre-Filled Syringe 1 EACH SC SCH ×2 (13:47→22:11)
[2017-05-11] MEDS: Tamsulosin HCl 0.4 MG CAP PO SCH (13:47)
--- NOTE | 2017-05-11 15:01 | RAD ---
MODIFIED BARIUM SWALLOW WITH SPEECH THERAPIST: DATE: 05/11/17. HISTORY: A 71-year-old male with dysphagia, oropharyngeal phase, R13.12; feeding difficulties, R63.3; and pneu monitis due to inhalation of food and vomit, J69.0. FINDINGS: There is poor laryngeal elevation. Epiglottic inversion is slow. There is premature free spillage w ith all consistencies. There is significant residue with all consistencies in the vallecula, with po or clearing. There is significantly delayed swallow initiation. There are several episodes of silen t penetration. There is at least 1 episode of silent aspiration. The patient had a single delayed c ough episode, uncertain whether related to the aspiration. IMPRESSION: 1. Significant pharyngeal phase of dysphagia, including silent penetration and aspiration. 2. See separate complete report by speech pathologist. POS: DILLAN
[2017-05-11] MEDS: Sodium Chloride 0.9% 1,000 ML IV SCH (17:53)
--- NOTE | 2017-05-11 18:57 | PDOC.EVN ---
Event Note - Event Note Event Note: This is a transition of care note to outline the first part of Mr. Zafar' hospitalization as I am handing him off as the primary provider at this time. This is a 71 y/o gentleman with DMI, HTN, HLD, Aortic Stenosis who presented due to inability to ambulate, hip pain, and altered mental status. He was found to be septic with a lactic acid of 3.1, so he was worked up to find sources of infection and started on Vanc and Zosyn on 04/30. It was initially thought that he may have an infection involving his hips, but this was ruled out with a negative MRI of his pelvis and lumbar spine. He had 05/08 blood cultures come back positive for MSSA, so he was de-escalated to Cefazolin on 05/01. Endocarditis was considered at this time, so a TTE was ordered, but it did not reveal any vegetation. On 05/05 the patient got a JOSEPH by Dr. Florez, which showed a 1cm mass attached to the posterior mitral valve leaflet, suggestive of vegetation. At this time an official diagnosis of endocarditis was made and the patient needed to be treated with Cefazolin for 6 weeks. A PICC line was placed on 05/05, but the patient pulled this out due to his delirium (see below) on . A new PICC was placed on 05/08. The patient had repeat blood cultures done that showed no growth at 5 days. The patient was found to have an ulcer on his posterior pharynx that could have possibly been a source of infection. He had been having difficulty swallowing and speech evaluated him and gave him a modified diet and reported that his dentures did not fit appropriately and could have caused the ulcer. He was treated with oral care and speech was asked to re-evaluate him. After his first day of hospitalization, it was discovered that the patient was a heavy drinker and was possibly in alcohol withdrawal. He was given beer three times a day as well as ativan and librium. He was watched very closely on the ASE protocol, but it was difficult to assess him as the patient was AOx1 and likely has underlying dementia. The patient had several episodes of delirium where he pulled out his coppola one night and pulled out his PICC another night. He was started on Geodon BID and this improved his symptoms. His beer was stopped as he was refusing it and the patient was not requiring any librium or ativan. He has been less agitated since his first few nights of hospitalization. The patient had elevated troponins that started off indeterminate and then became positive and peaked at 0.747 and then downtrended again on the first night of hospitalization. Cardiology was consulted and they stated that this was likely demand ischemia from the sepsis and to continue to monitor as the patient had no chest pain and no ischemic changes on EKG. On 05/07 the patient had an episode of bradycardia down to the 30's. He was given atropine, which rapidly returned his heart rate to NSR. All beta blockers were discontinued at that point. After that time it discovered that he had significant urinary retention and he was unable to void on his own. This could have been the cause of his episode of bradycardia. The patient was started on flomax, but still could not void so a coppola was re-inserted. The patient remained tachycardic to the low 100's after this time, so he was restarted on his beta aracely and had no further episodes of bradycardia. I suspect BPH is the cause of the urinary retention because I did a prostate exam and the patient had an enlarge prostate, but it was non-tender, and the nurses had difficulty passing catheters. The patient has remained AOx1 and had not had a BM in several days despite a bowel regimen. The patient has been approved at [facility]. I will handoff the patient at this time to Dr. Sánchez and I appreciate all of the recommendations from Cardiology, Infectious Disease, and Pulmonology.
--- NOTE | 2017-05-11 19:55 | PRG ---
DATE OF SERVICE: 05/11/2017 Mr. Zafar is still encephalopathic. He has had urinary retention. I have seen ipratropium cause urinary retention. He is not hypoxic. He is on room air. He is in no distress. I recommended stopping his nebulizer treatments. I will continue to follow from a distance.
[2017-05-11] MEDS: Atorvastatin Calcium 40 MG TAB PO SCH (21:53)
[2017-05-11] MEDS: Lisinopril 20 MG TAB PO SCH (21:54)
[2017-05-12] MEDS: Sodium Chloride 0.9% 1,000 ML IV SCH (01:08)
[2017-05-12 05:40] LABS: #Lymphocytes 1.2 thou/uL (1.20-3.40); #Monocytes 1.3 thou/uL (0.11-0.59); #Neutrophils 17.9 thou/uL (1.40-6.50); %Basophils 0.1 % (0.0-1.0); %Eosinophils 0.1 % (0.0-10.0); %Lymphocytes 5.6 % (21.0-51.0); %Monocytes 6.3 % (0.0-10.0); %Neutrophils 87.9 % (42.0-75.0); Hemoglobin 11.6 g/dL (14.0-18.0); Mean Corpuscular HGB CONC 31.7 g/dL (32.0-36.0); Mean Corpuscular Hemoglobin 30.9 pg (27.0-31.0); Mean Corpuscular Volume 97.5 fl (80.0-94.0); Mean Platelet Volume 8.6 fL (7.4-10.4); Platelet Count 488 thou/uL (130-400); RBC Distribution Width 12.5 % (11.5-14.5); Red Blood Cell (RBC) Count 3.74 mill/uL (4.70-6.10); White Blood Cell (WBC) Count 20.3 thou/uL (4.8-10.8)
[2017-05-12] MEDS: CEFAZOLIN/Water 2 GM/20 ML SYRINGE SLOW IVP SCH ×2 (05:48→14:05)
[2017-05-12 05:56] LABS: ALT (SGPT) Less than 7 U/L (8-55); AST (SGOT) 14 U/L (5-34); Albumin 2.4 g/dL (3.4-4.8); Alkaline Phosphatase 72 U/L (40-150); Anion Gap 19 mmol/L (10-20); BUN (Urea Nitrogen) 30 mg/dL (8.4-25.7); Bilirubin, Total 0.5 mg/dL (0.2-1.2); Calc. Creatinine Clearance 86 mL/min (70-130); Calcium 8.2 mg/dL (7.8-10.44); Carbon Dioxide 21 mmol/L (23-31); Chloride 106 mmol/L (98-107); Estimated GFR-MDRD 72; Globulin 3.7 g/dL (2.4-3.5); Glucose 253 mg/dL (83-110); Potassium 4.2 mmol/L (3.5-5.1); Protein, Total 6.1 g/dL (5.8-8.1); Sodium 142 mmol/L (136-145)
--- NOTE | 2017-05-12 07:31 | PDOC.FM ---
- Subjective Subjective: Patient alert and oriented x1 today. He is complaining of dry mouth this morning. Otherwise, he feels fine. He was asking for urinal this morning, and it was explained that he has a coppola in place. I will contact family this morning to see if they would be willing to come up to the hospital for a meeting regarding goals of care. - Objective MAR Reviewed: Yes Vital Signs & Weight: Vital Signs (12 hours) Temp Pulse Resp BP BP Pulse Ox 05/12/17 04:00 154/64 H 05/12/17 03:25 97.3 F L 102 H 20 154/64 H 98 05/11/17 21:50 98.0 F 107 H 20 107/52 L 98 05/11/17 20:00 107/52 L Weight Admit Weight 84.55 kg Weight 94.347 kg I&O: 05/11/17 05/12/17 05/13/17 06:59 06:59 06:59 Intake Total 140 1320 Output Total 450 1575 Balance -310 -255 Result Diagrams: 05/12/17 05:06 05/12/17 05:06 EKG Reviewed by me: Yes Radiology Reviewed by me: Yes <Guerline Sánchez - Last Filed: 05/12/17 08:32> - Objective Vital Signs & Weight: Vital Signs (12 hours) Temp Pulse Resp BP BP BP Pulse Ox 05/12/17 09:15 154/64 H 05/12/17 08:00 97.5 F L 104 H 22 H 184/80 H 98 05/12/17 04:00 154/64 H 05/12/17 03:25 97.3 F L 102 H 20 154/64 H 98 Weight Admit Weight 84.55 kg Weight 94.347 kg I&O: 05/11/17 05/12/17 05/13/17 06:59 06:59 06:59 Intake Total 140 1320 Output Total 450 1575 Balance -310 -255 Result Diagrams: 05/12/17 05:06 05/12/17 05:06 <Andrews Barriga - Last Filed: 05/12/17 10:50> Phys Exam - Physical Examination Constitutional: NAD Dry mucous membranes Ulceration in posterior pharynx Neck: supple Respiratory: no wheezing 3/6 systolic murmur, tachycardic Gastrointestinal: soft, no distention Musculoskeletal: no edema, pulses present Neurological: non-focal, moves all 4 limbs Deviation from normal: Alert and oriented to person, but not place or time Skin: no rash <PrincessGuerline massey - Last Filed: 05/12/17 08:32> Dx/Plan (1) Endocarditis due to Staphylococcus Code(s): I33.0 - ACUTE AND SUBACUTE INFECTIVE ENDOCARDITIS; B95.8 - UNSP STAPHYLOCOCCUS THE CAUSE OF DISEASES CLASSD ELSWHR Status: Acute (2) Abnormal mouth finding Code(s): K13.70 - UNSPECIFIED LESIONS OF ORAL MUCOSA Status: Acute (3) Alcohol abuse Code(s): F10.10 - ALCOHOL ABUSE, UNCOMPLICATED Status: Chronic (4) Altered mental status Code(s): R41.82 - ALTERED MENTAL STATUS, UNSPECIFIED Status: Acute QualifierTitle: Altered mental status type: disorientation Qualified Code (s): R41.0 - Disorientation, unspecified (5) Constipation Code(s): K59.00 - CONSTIPATION, UNSPECIFIED Status: Acute QualifierTitle: Constipation type: unspecified constipation type Qualified Code(s): K59.00 - Constipation, unspecified - Plan Plan: Endocarditis 2/2 MSSA -S. Auerus blood cx positive x2 MSSA. Repeat BCx NG @ 5 days -Tx with cefazolin at this time. Sensitivities in cultures show adequate tx. Will need 6 weeks of cefazolin. Pt has signed choice letter for [facility]. -ID consulted- Dr. Alcantara- Will follow recs -Patient pulled first PICC line, but new PICC was inserted on 05/08/16 Altered mental Status -Delirium vs. baseline mental status; A&Ox1 today - to person -On ASE protocol -Librium PRN, Ativan PRN. Will continue to monitor. Some of his confusion may be due to infection. On appropriate tx. May need to adjust -Patient coughing and choking some when trying to eat, this could be 2/2 AMS vs lesion in posterior pharynx. Will do oral care and follow speech recs with diet. -Geodon BID -Modified barium swallow showed patient aspirating. Speech therapy does not recommend oral diet at this time. Will discuss findings with family and decide on plan of care based on family discussion. Palliative Care was consulted for goals of care. Bradycardia Transient, resolved with atropine -Cardiology on board, appreciate recs -Will monitor on telemetry -No episodes of bradycarida overnight -Tele strip showed sinus rhythm with many PAC's that appeared bigeminal in nature Elevated Troponins 2/2 Demand Ischemia -Cardiology Consulted- Will follow recs -Likely demand ischemia from disease. Plan is to continue medical management at this time. Urinary Retention, likely 2/2 BPH -Patient had enlarged, non-tender prostate on exam and has had several episodes of urinary retention requiring in-and-out caths and foleys placed throughout his hospitalization. -Trial of flomax -Reinserted coppola on 05/09/16 -May need to go to SNF with coppola in place DMII -Continue home medications -Accuchecks ACHS HTN -Continue lisinopril and coreg -Since patient NPO, will add IV medications KEMAL on CKD -Cr at baseline. KEMAL resolved at this time. Receiving IVF. Constipation -Bowel regimen -BM x4 Ulcer of posterior pharynx - Oral care - Patient currently NPO - Advised to keep dentures off as it may be contributing factor <Guerline Sánchez - Last Filed: 05/12/17 08:32> Attending Addendum - Attending Addendum I personally evaluated the patient and discussed the management with Dr. Sánchez. I agree with the History, Examination, Assessment and Plan documented above with any addition or exceptions noted below. The plan is to have a discussion with his family about his aspiration risk and PEG tube placement vs palliative and comfort feeds. From our standpoint, he is not a good candidate for PEG with his underlying dementia and agitation w/hx of pulling out his PICC and coppola. <Andrews Barriga - Last Filed: 05/12/17 10:50>
[2017-05-12] MEDS ORDERED: Labetalol HCl 100 MG/20 ML VIAL SLOW IVP PRN (08:39)
[2017-05-12] MEDS: Insulin Detemir 100 UNITS/ML 12 UNITS in Pre-Filled Syringe 1 EACH SC SCH (09:13)
[2017-05-12] MEDS: HumaLOG 300 UNITS/3 ML VIAL SC SCH (09:14)
[2017-05-12] MEDS: Enoxaparin Sodium 30 MG/0.3 ML SYRINGE SC SCH (09:14)
[2017-05-12] MEDS: Carvedilol 6.25 MG TAB PO SCH (09:15)
[2017-05-12] MEDS: Docusate 100 MG CAP PO SCH (09:16)
[2017-05-12] MEDS: Ziprasidone 20 MG CAP PO SCH (09:16)
[2017-05-12] MEDS: Polyethylene Glycol 3350 17 GM Packet PO SCH (09:17)
[2017-05-12] MEDS: FLUoxetine HCl 20 MG CAP PO SCH (09:17)
[2017-05-12] MEDS: Tamsulosin HCl 0.4 MG CAP PO SCH (09:17)
[2017-05-12] MEDS ORDERED: Sodium Chloride 0.9% 1,000 ML IV SCH (09:19)
[2017-05-12 09:38] VITALS: BMI 27.4
--- NOTE | 2017-05-12 09:44 | PRG ---
DATE OF SERVICE: 05/12/2017 Mr. Zafar remains confused and disoriented. PHYSICAL EXAMINATION: VITAL SIGNS: Blood pressure 154/64, pulse is about 90, it is sinus. LUNGS: Clear. CARDIAC: Normal S1, S2. ASSESSMENT: 1. Confusion and disorientation. 2. Endocarditis. 3. Hypertension. 4. Previous bradycardia. PLAN: 1. We are going to reduce intravenous fluid. 2. ? PEG tube.
[2017-05-12 12:36] VITALS: BP 159/83; TEMP 97.6
== END 2017-05-12 17:52 | DRG 871 ==
LOC: ERS 18:54 → T4-B 04-30 01:26 → OBSVTOIN 04-30 01:26 → IMCU/EMU 04-30 12:28 → 2NO 05-08 18:42
PROVIDERS: ADMIT Family Medicine; ATTEND Family Medicine
PROC: 02HV33Z Insertion of Infusion Device into Superior Vena Cava, Percutaneous Approach (ICD-10-PCS; principal; 2017-05-05)
PROC: 02HV33Z Insertion of Infusion Device into Superior Vena Cava, Percutaneous Approach (ICD-10-PCS; 2017-05-08)
DX: A41.01 Sepsis due to Methicillin susceptible Staphylococcus aureus (principal); I33.0 Acute and subacute infective endocarditis; N17.9 Acute kidney failure, unspecified; F10.231 Alcohol dependence with withdrawal delirium; G92 Toxic encephalopathy; I24.8 Other forms of acute ischemic heart disease; R44.3 Hallucinations, unspecified; B95.61 Methicillin susceptible Staphylococcus aureus infection as the cause of diseases classified elsewhere; K13.70 Unspecified lesions of oral mucosa; K59.00 Constipation, unspecified; N40.1 Benign prostatic hyperplasia with lower urinary tract symptoms; R33.8 Other retention of urine; J39.2 Other diseases of pharynx; I35.0 Nonrheumatic aortic (valve) stenosis; I25.2 Old myocardial infarction; I25.10 Atherosclerotic heart disease of native coronary artery without angina pectoris; F41.1 Generalized anxiety disorder; L30.9 Dermatitis, unspecified; E78.5 Hyperlipidemia, unspecified; E86.0 Dehydration; Z87.891 Personal history of nicotine dependence; K52.9 Noninfective gastroenteritis and colitis, unspecified; A08.4 Viral intestinal infection, unspecified; I70.0 Atherosclerosis of aorta; I12.9 Hypertensive chronic kidney disease with stage 1 through stage 4 chronic kidney disease, or unspecified chronic kidney disease; E10.22 Type 1 diabetes mellitus with diabetic chronic kidney disease; N18.2 Chronic kidney disease, stage 2 (mild); Z79.4 Long term (current) use of insulin; E10.65 Type 1 diabetes mellitus with hyperglycemia
CPT/HCPCS: 36415; 36416; 36569; 70450; 71045; 71275; 72158; 72170; 72197; 74230; 80048; 80053; 81001; 81003; 81015; 82010; 82274; 82533; 82550; 82553; 82570; 82805; 83605; 83735; 83935; 84100; 84153; 84154; 84300; 84443; 84484; 85025; 85379; 85652; 86140; 86780; 86803; 87040; 87077; 87086; 87149; 87186; 87389; 93005; 93010; 93306; 93312; 94640; 96360; J2270; A4216; C1751; G8978-GP-CN; G8979-GP-CJ; G8996-GN-CL; G8996-GN-CN; G8997-GN-CI; G8997-GN-CJ; G8997-GN-CN; J0690; J1644; J1650; J1815; J2405; J2543; J2704; J2920; J3370; J3411; J7050; J7620

== ENCOUNTER 2017-05-13 23:48 | Emergency (ER) | payer MEDICARE ==
[2017-05-14 00:25] LABS: Bilirubin Negative (Negative); Blood, Urine Large (Negative); Clarity TURBID (Clear); Glucose, Urine (Dipstick) Negative (Negative); Leukocyte Moderate (Negative); Nitrite Negative (Negative); Protein, Urine (Dipstick) 30 mg/dL (Neg-Trace)
[2017-05-14 00:27] LABS: Bacteria/HPF None Seen HPF (None Seen); Squamous Epithelial 0-3 HPF (0-3)
[2017-05-14 00:34] LABS: Pathc Cast-AUWi Flag 18.43 (0-2.49); Yeast-AUWi Flag 1550.2 (0-25.0)
[2017-05-14 00:44] LABS: Hyaline Casts/LPF 0-3 HYALINE CAST LPF (0-3 Hyaline); Other Casts/LPF None Seen LPF (0-3 Hyaline); Yeast-All Forms 4+ HPF (None Seen)
[2017-05-14 01:37] LABS: #Lymphocytes 0.8 thou/uL (1.20-3.40); #Monocytes 0.8 thou/uL (0.11-0.59); %Basophils 0.1 % (0.0-1.0); %Eosinophils 0.1 % (0.0-10.0); %Lymphocytes 6.6 % (21.0-51.0); %Monocytes 6.3 % (0.0-10.0); %Neutrophils 86.8 % (42.0-75.0); Hemoglobin 10.4 g/dL (14.0-18.0); Mean Corpuscular HGB CONC 32.1 g/dL (32.0-36.0); Mean Corpuscular Hemoglobin 31.2 pg (27.0-31.0); Mean Corpuscular Volume 97.1 fl (80.0-94.0); Platelet Count 428 thou/uL (130-400); RBC Distribution Width 12.3 % (11.5-14.5); Red Blood Cell (RBC) Count 3.34 mill/uL (4.70-6.10); White Blood Cell (WBC) Count 12.7 thou/uL (4.8-10.8)
[2017-05-14 01:57] LABS: ALT (SGPT) Less than 7 U/L (8-55); AST (SGOT) 14 U/L (5-34); Albumin 2.4 g/dL (3.4-4.8); Alkaline Phosphatase 74 U/L (40-150); Anion Gap 11 mmol/L (10-20); BUN (Urea Nitrogen) 18 mg/dL (8.4-25.7); Bilirubin, Total 0.7 mg/dL (0.2-1.2); Calc. Creatinine Clearance 0 mL/min (70-130); Calcium 8.2 mg/dL (7.8-10.44); Carbon Dioxide 31 mmol/L (23-31); Chloride 106 mmol/L (98-107); Estimated GFR-MDRD Greater than 90; Globulin 3.5 g/dL (2.4-3.5); Glucose 63 mg/dL (83-110); Potassium 3.2 mmol/L (3.5-5.1); Protein, Total 5.9 g/dL (5.8-8.1); Sodium 145 mmol/L (136-145)
[2017-05-14] MEDS ORDERED: Ciprofloxacin 500 MG TAB ONE (02:14)
[2017-05-14] MEDS ORDERED: Potassium Chloride 20 MEQ TAB ONE (02:14)
--- NOTE | 2017-05-14 07:54 | RAD ---
1 VIEW CHEST: Date: 05/14/17 COMPARISON: 04/29/17. HISTORY: Fall. FINDINGS: There are sternotomy wires. There is atherosclerosis of aorta. There is a left-sided PICC line with d istal tip terminating in the expected region of the superior vena cava. Normal cardiac silhouette. Pu lmonary vessels are normal. There are bibasilar veil-like opacities which may represent pleural effus ion. Superimposed parenchymal changes in the lung bases cannot be excluded. No pneumothorax or osseou s abnormalities. IMPRESSION: Bibasilar opacities as detailed above. Continued surveillance. POS: [facility]
--- NOTE | 2017-05-14 08:57 | CT ---
PRELIMINARY REPORT/[facility]/EMERGENCY AFTER HOURS PROCEDURE: EXAM: CT Cervical Spine Without Intravenous Contrast CLINICAL HISTORY: 71 years old, male; Injury or trauma; Fall; Initial encounter; Abrasion; Patient HX: Er 4; M71 presen ts to ed S/P fall from bed. According to records, pt did hit his head. Pt has no complaints. TECHNIQUE: Axial computed tomography images of the cervical spine without intravenous contrast. Coronal and sagittal reformatted images were created and reviewed. COMPARISON: No relevant prior studies available. FINDINGS: Vertebrae: Loss of vertebral body height, presumed degenerative No acute fracture. Discs/spinal canal/neural foramina: No acute findings. Central canal and foraminal stenosis most pron ounced at C4-C5 and C6-C7. Soft tissues: Unremarkable. Lung apices: Emphysema and question superimposed minimal edema/pleural fluid IMPRESSION: No definite acute cervical fracture observed Minimal pulmonary edema and trace pleural effusion suspected Thank you for allowing us to participate in the care of your patient. Dictated and Authenticated by: Joseph Li MD 05/14/2017 1:39 AM Central Time ([place] & [place]) FINAL REPORT CT CERVICAL SPINE WITH CORONAL AND SAGITTAL REFORMATIONS: I agree with the preliminary report given by Dr. Joseph Li of [facility]. POS: [facility]
--- NOTE | 2017-05-14 08:59 | CT ---
PRELIMINARY REPORT/[facility]/EMERGENCY AFTER HOURS PROCEDURE: EXAM: CT Head Without Intravenous Contrast CLINICAL HISTORY: 71 years old, male; Injury or trauma; Fall; Initial encounter; Abrasion; Head, generalized; Patient H X: Er 4; M71 presents to ed S/P fall from bed. According to records, pt did hit his head. Pt has no complaints. TECHNIQUE: Axial computed tomography images of the head/brain without intravenous contrast. COMPARISON: No relevant prior studies available. FINDINGS: Brain: Moderate volume loss No hemorrhage. Mild white matter disease. No edema. Ventricles: Unremarkable. No ventriculomegaly. Bones/joints: Unremarkable. No acute fracture. Soft tissues: Unremarkable. Sinuses: Unremarkable as visualized. No acute sinusitis. Mastoid air cells: Unremarkable as visualized. No mastoid effusion. IMPRESSION: No intracranial hemorrhage.Please see discussion above. Thank you for allowing us to participate in the care of your patient. Dictated and Authenticated by: Joseph Li MD 05/14/2017 1:38 AM Central Time ([place] & [place]) FINAL REPORT CT BRAIN WITHOUT CONTRAST: I agree with the preliminary report given by Dr. Joseph Li of [facility]. Comparison is made with the exam of 12/29/17. No CT evidence of acute intracranial process is identified. POS: [facility]
== END 2017-05-14 05:18 | disposition home or self-care (01) ==
LOC: ERS 23:48
DX: N30.00 Acute cystitis without hematuria (principal); I25.10 Atherosclerotic heart disease of native coronary artery without angina pectoris; I11.0 Hypertensive heart disease with heart failure; I50.9 Heart failure, unspecified; E10.9 Type 1 diabetes mellitus without complications; I25.2 Old myocardial infarction; F41.9 Anxiety disorder, unspecified
CPT/HCPCS: 36415; 70450; 71045; 72125; 80053; 81003; 81015; 85025; 87040; 87077; 87149; 87186; 93005

== ENCOUNTER 2017-05-17 19:01 | Emergency (ER) | payer MEDICARE ==
[2017-05-17 20:29] LABS: #Lymphocytes 0.8 thou/uL (1.20-3.40); #Monocytes 0.8 thou/uL (0.11-0.59); #Neutrophils 10.8 thou/uL (1.40-6.50); %Eosinophils 0.2 % (0.0-10.0); %Lymphocytes 6.3 % (21.0-51.0); %Monocytes 6.6 % (0.0-10.0); %Neutrophils 86.8 % (42.0-75.0); Hemoglobin 10.2 g/dL (14.0-18.0); Mean Corpuscular HGB CONC 33.2 g/dL (32.0-36.0); Mean Corpuscular Hemoglobin 32.5 pg (27.0-31.0); Mean Corpuscular Volume 97.8 fl (80.0-94.0); Mean Platelet Volume 7.9 fL (7.4-10.4); Platelet Count 378 thou/uL (130-400); RBC Distribution Width 12.2 % (11.5-14.5); Red Blood Cell (RBC) Count 3.13 mill/uL (4.70-6.10); White Blood Cell (WBC) Count 12.5 thou/uL (4.8-10.8)
[2017-05-17 20:38] LABS: INR-International Normal Ratio 1.3; Prothrombin Time 16.1 SEC (12.0-14.7)
[2017-05-17 20:39] LABS: PTT 38.6 SEC (22.9-36.1)
[2017-05-17 21:17] LABS: ALT (SGPT) Less than 7 U/L (8-55); AST (SGOT) 19 U/L (5-34); Albumin 2.2 g/dL (3.4-4.8); Alkaline Phosphatase 70 U/L (40-150); Anion Gap 10 mmol/L (10-20); BUN (Urea Nitrogen) 16 mg/dL (8.4-25.7); Bilirubin, Total 0.5 mg/dL (0.2-1.2); Calc. Creatinine Clearance 0 mL/min (70-130); Calcium 8.2 mg/dL (7.8-10.44); Carbon Dioxide 31 mmol/L (23-31); Chloride 102 mmol/L (98-107); Estimated GFR-MDRD Greater than 90; Glucose 109 mg/dL (83-110); Potassium 3.8 mmol/L (3.5-5.1); Protein, Total 6.2 g/dL (5.8-8.1); Sodium 139 mmol/L (136-145)
== END 2017-05-17 22:25 ==
LOC: ERS 19:01
DX: E10.649 Type 1 diabetes mellitus with hypoglycemia without coma (principal); I25.10 Atherosclerotic heart disease of native coronary artery without angina pectoris; I50.9 Heart failure, unspecified; I25.2 Old myocardial infarction; G89.29 Other chronic pain; F41.9 Anxiety disorder, unspecified; Z86.718 Personal history of other venous thrombosis and embolism
CPT/HCPCS: 36415; 36416; 80053; 85025; 85610; 85730; 93005

== ENCOUNTER 2017-05-27 01:33 | Emergency (ER) | payer MEDICARE ==
[2017-05-27 02:15] LABS: Bilirubin Negative (Negative); Blood, Urine Large (Negative); Clarity TURBID (Clear); Glucose, Urine (Dipstick) Negative (Negative); Leukocyte Large (Negative); Nitrite Negative (Negative); Protein, Urine (Dipstick) 100 mg/dL (Neg-Trace); Specific Gravity, Urine 1.027 (1.002-1.036); pH, Urine 6.5 (5.0-9.0)
[2017-05-27 02:21] LABS: #Eosinphils 0.1 thou/uL (0.0-0.7); #Lymphocytes 1.3 thou/uL (1.20-3.40); #Monocytes 0.7 thou/uL (0.11-0.59); #Neutrophils 6.6 thou/uL (1.40-6.50); %Basophils 0.4 % (0.0-1.0); %Eosinophils 1.1 % (0.0-10.0); %Neutrophils 75.5 % (42.0-75.0); Mean Corpuscular HGB CONC 32.5 g/dL (32.0-36.0); Mean Corpuscular Hemoglobin 30.8 pg (27.0-31.0); Mean Corpuscular Volume 94.6 fl (80.0-94.0); Mean Platelet Volume 7.1 fL (7.4-10.4); Platelet Count 437 thou/uL (130-400); RBC Distribution Width 11.9 % (11.5-14.5); Red Blood Cell (RBC) Count 2.59 mill/uL (4.70-6.10); White Blood Cell (WBC) Count 8.7 thou/uL (4.8-10.8)
[2017-05-27 02:34] LABS: ALT (SGPT) Less than 7 U/L (8-55); AST (SGOT) 14 U/L (5-34); Albumin 2.2 g/dL (3.4-4.8); Alkaline Phosphatase 76 U/L (40-150); Anion Gap 8 mmol/L (10-20); BUN (Urea Nitrogen) 13 mg/dL (8.4-25.7); Bilirubin, Total 0.3 mg/dL (0.2-1.2); Calc. Creatinine Clearance 0 mL/min (70-130); Calcium 7.9 mg/dL (7.8-10.44); Carbon Dioxide 31 mmol/L (23-31); Chloride 101 mmol/L (98-107); Estimated GFR-MDRD Greater than 90; Globulin 3.6 g/dL (2.4-3.5); Glucose 104 mg/dL (83-110); Potassium 3.4 mmol/L (3.5-5.1); Protein, Total 5.8 g/dL (5.8-8.1); Sodium 137 mmol/L (136-145)
[2017-05-27 02:56] LABS: Renal Epithelial None Seen HPF (0-3); Squamous Epithelial 0-3 HPF (0-3); Transitional Epithelial NONE SEEN HPF (0-3)
[2017-05-27 02:57] LABS: Bacteria/HPF Rare-Few HPF (None Seen); Crystals/HPF RARE CA OXALATE HPF (Negative); Hyaline Casts/LPF NONE SEEN LPF (0-3 Hyaline); Sperm/HPF 1+ HPF (None Seen); Yeast-All Forms 2+ HPF (None Seen)
== END 2017-05-27 04:19 | disposition home or self-care (01) ==
LOC: ERS 01:33
DX: N39.0 Urinary tract infection, site not specified (principal); D64.9 Anemia, unspecified; I25.10 Atherosclerotic heart disease of native coronary artery without angina pectoris; I11.0 Hypertensive heart disease with heart failure; I50.9 Heart failure, unspecified; E10.9 Type 1 diabetes mellitus without complications; I25.2 Old myocardial infarction; F41.9 Anxiety disorder, unspecified; Z86.718 Personal history of other venous thrombosis and embolism; Z79.899 Other long term (current) drug therapy; Z79.82 Long term (current) use of aspirin
CPT/HCPCS: 80053; 81003; 81015; 82274; 85025; 86850; 86900; 86901; 87086; 96374; J0696

== ENCOUNTER 2017-06-20 17:05 | Inpatient (IN) | payer MEDICARE ==
[2017-06-20] MEDS ORDERED: Dextrose 50% Abboject 50 ML SYRINGE ONE (17:14)
[2017-06-20] MEDS ORDERED: hydrALAZINE 20 MG/ML VIAL ONE (17:53)
[2017-06-20 17:56] LABS: Bilirubin Negative (Negative); Blood, Urine Large (Negative); Clarity TURBID (Clear); Glucose, Urine (Dipstick) 250 mg/dL (Negative); Leukocyte Large (Negative); Nitrite Negative (Negative); Protein, Urine (Dipstick) 100 mg/dL (Neg-Trace); Specific Gravity, Urine 1.021 (1.002-1.036); pH, Urine 6.5 (5.0-9.0)
[2017-06-20 18:00] LABS: Bacteria/HPF Rare-Few HPF (None Seen); RBC/HPF GREATER THAN 50-TNTC HPF (0-3); Squamous Epithelial 0-3 HPF (0-3)
[2017-06-20 18:21] LABS: Pathc Cast-AUWi Flag 7.85 (0-2.49)
[2017-06-20 18:23] LABS: Hyaline Casts/LPF 0-3 HYALINE CAST LPF (0-3 Hyaline); Manual Microscopic Reviewed? No Path Casts Seen; Yeast-All Forms 1+ HPF (None Seen)
--- NOTE | 2017-06-20 18:37 | RAD ---
PORTABLE UPRIGHT FRONTAL CHEST RADIOGRAPH 06/20/17 COMPARISON: 05/14/17 HISTORY: Hypoglycemia, cough. FINDINGS: Mild increased interstitial density with pulmonary hyperinflation noted. Midline sternotomy wires are present. No pneumothorax, pleural fluid, focal consolidation or alveolar edema. IMPRESSION: Stable appearance of the chest - no acute findings. POS: [facility]
[2017-06-20 18:43] LABS: #Eosinphils 0.1 thou/uL (0.0-0.7); #Lymphocytes 1.8 thou/uL (1.20-3.40); #Monocytes 0.9 thou/uL (0.11-0.59); #Neutrophils 8.6 thou/uL (1.40-6.50); %Eosinophils 1.2 % (0.0-10.0); %Lymphocytes 15.9 % (21.0-51.0); %Monocytes 7.8 % (0.0-10.0); %Neutrophils 75.1 % (42.0-75.0); Hemoglobin 9.5 g/dL (14.0-18.0); Mean Corpuscular HGB CONC 31.5 g/dL (32.0-36.0); Mean Corpuscular Hemoglobin 28.1 pg (27.0-31.0); Mean Corpuscular Volume 89.1 fl (80.0-94.0); Mean Platelet Volume 7.1 fL (7.4-10.4); Platelet Count 418 thou/uL (130-400); Red Blood Cell (RBC) Count 3.37 mill/uL (4.70-6.10); White Blood Cell (WBC) Count 11.4 thou/uL (4.8-10.8)
[2017-06-20 18:52] LABS: INR-International Normal Ratio 1.1; PTT 27.3 SEC (22.9-36.1); Prothrombin Time 14.4 SEC (12.0-14.7)
[2017-06-20] MEDS ORDERED: Fluconazole In NaCl,Iso-Osm 200 MG in Premix Bag 1 BAG IVPB ONE (19:00)
[2017-06-20 19:07] LABS: Troponin I Less than 0.010 ng/mL (< 0.028)
[2017-06-20 19:11] LABS: ALT (SGPT) Less than 7 U/L (8-55); AST (SGOT) 15 U/L (5-34); Albumin 2.6 g/dL (3.4-4.8); Alkaline Phosphatase 138 U/L (40-150); Anion Gap 16 mmol/L (10-20); BUN (Urea Nitrogen) 10 mg/dL (8.4-25.7); Bilirubin, Total 0.4 mg/dL (0.2-1.2); CK (CPK) 52 U/L (30-200); Calc. Creatinine Clearance 0 mL/min (70-130); Calcium 8.4 mg/dL (7.8-10.44); Carbon Dioxide 21 mmol/L (23-31); Chloride 99 mmol/L (98-107); Estimated GFR-MDRD Greater than 90; Globulin 4.6 g/dL (2.4-3.5); Glucose 67 mg/dL (83-110); Lipase 8 U/L (8-78); Potassium 4.7 mmol/L (3.5-5.1); Protein, Total 7.2 g/dL (5.8-8.1); Sodium 131 mmol/L (136-145)
--- NOTE | 2017-06-20 20:17 | CT ---
HEAD CT WITHOUT CONTRAST 06/20/17 COMPARISON: 05/14/17 HISTORY: Confusion, fall, trauma, pain. TECHNIQUE: Serial axial CT imaging at 5 mm intervals from the vertex through the skull base without contrast. FINDINGS: There is mild mucosal thickening involving the alveolar recess of the maxillary sinus on the left. Th ere is atherosclerotic calcification of the cavernous carotid arteries bilaterally. There is no displ aced calvarial fracture. There is moderate diffuse cerebral volume loss with associated prominence of the CSF containing space s. No intracranial hemorrhage, midline shift or mass effect. IMPRESSION: Cerebral volume loss with no evidence for intracranial hemorrhage or displaced calvarial fracture. POS: [facility]
[2017-06-20] MEDS ORDERED: Dextrose 5 % And 0.9 % NaCl 1,000 ML IV SCH ×2 (21:30)
--- NOTE | 2017-06-20 22:12 | CT ---
CERVICAL SPINE CT WITHOUT CONTRAST: 06/20/17 COMPARISON: 05/14/17. HISTORY: Fall, trauma, pain. TECHNIQUE: Serial axial CT imaging at 2.5 mm intervals from lung apices through skull base without contrast. Cor onal and sagittal reformatted imaging obtained. FINDINGS: There is prominent emphysematous change noted in bilateral lung apices. There is atherosclerotic calc ifications involving the distal CCA and proximal ICA bilaterally, right greater than left. The C1 ring is intact. Occipital condyles, dens, and C1-2 articulation demonstrate no acute findings. There is prominent deg enerative change at the atlantoaxial interspace. There is no significant anterolisthesis or retrolisthesis noted within the cervical spine. There is m ild stable anterolisthesis of C7 on T1. There is prominent multilevel bilateral facet and uncovertebral osteophyte formation, left greater th an right, most significant at the C3-4, C4-5, and C5-6 levels. No acute fracture or evidence of dislocation is seen. IMPRESSION: Multilevel prominent degenerative change noted within the cervical spine, stable. No displaced fractu re or evidence of dislocation. POS: [facility]
[2017-06-20 22:40] LABS: Lactic Acid 0.8 mmol/L (0.5-2.2)
--- NOTE | 2017-06-20 23:14 | HP ---
DATE OF ADMISSION: 06/20/2017 CHIEF COMPLAINT: Fall. HISTORY OF PRESENT ILLNESS: This is a 71-year-old white male living in a ch[facility]. The patient has a history of urinary tract infection, recurrent infections in the past. He has known history of type 2 diabetes mellitus. Today, he was very confused at the [facility] and happened to had a fall , being very agitated and when he fell, he hit his head on the ground and the fall was not witnessed by anybody, so patient was brought to the ER and was noted to have low blood sugars in 50s and was gi sonido D50s per hyperglycemia protocol and had a cervical spine CT which was negative for any fractures and also brain CT was negative for any intracranial hemorrhage. Chest x-ray was unremarkable, but vahid bobbytahir had evidence of a urinary tract infection which could have triggered the confusion. Patient al so had a chest x-ray which did not show any evidence of pneumonia. PAST MEDICAL HISTORY: 1. Patient has a history of 5-vessel coronary artery bypass, history of coronary artery disease. 2. Type 2 diabetes mellitus, on insulin. 3. Hypertension. 4. Hyperlipidemia. PAST SURGICAL HISTORY: CABG in 2011 in [place], history of bilateral cataract surgery. SOCIAL HISTORY: Patient is for 40 years and he has 2 children. His older daughter is monique fernando power of [employer]agger maker. The patient lives in a chcf. The patient is at a rehab facility accord ing to the ER physician. The patient is a known smoker, quit smoking in 1989. No history of alcohol , no history of illicit drug use at this time. FAMILY HISTORY: Father of diabetes with heart disease at age of 70 and sister from lung ca ncer. REVIEW OF SYSTEMS: Unable to obtain review of systems. The patient is completely confused and unabl e to give any reliable history. No family member is available at the bedside. ALLERGIES: No known drug allergies. HOME MEDICATIONS: 1. Aspirin 81 mg p.o. daily. 2. Phenol. 3. Polyethylene glycol. 4. Insulin. The patient takes 5 units subcutaneous a.c. and at bedtime. 5. Glargine 20 units subcu daily. 6. Coreg 12.5 mg p.o. b.i.d. 7. Fluoxetine 20 mg p.o. daily. 8. Lisinopril 40 mg p.o. at bedtime. 9. Simvastatin 1 tablet p.o. daily. 10. Tamsulosin 0.4 mg p.o. daily. 11. Ziprasidone 20 mg p.o. b.i.d. PHYSICAL EXAMINATION: VITAL SIGNS: Blood pressure is 122/88, heart rate is 18, saturation is 98% on 3 liters. GENERAL: The patient is moderately built and moderately nourished, but does not appear to be in acut e distress at this time. He is alert, but completely disoriented. HEENT: Trauma to the neck on a cervical collar at this time. PERRLA. Extraocular movements were in tact. Oral mucosa is dry. CARDIOVASCULAR: S1, S2 normal. No murmurs, rubs or gallops. LUNGS: Bilateral air entry was equal. No wheezing, no crackles. ABDOMEN: Soft, nontender, no guarding, no rebound tenderness. Bowel sounds normal. MUSCULOSKELETAL: No calf tenderness. No pedal edema, no joint tenderness, no joint swelling. SKIN: No cyanosis, no erythema, no rash, no pallor. CENTRAL NERVOUS SYSTEM: Could not be done as the patient is not able to follow the commands. PSYCHIATRIC: No signs of suicidal ideation. No signs of micky. No signs of agitation at this time. NECK: No thyromegaly. No lymphadenopathy was noted. LABORATORY DATA: WBC 11.4, hemoglobin is 9.5, hematocrit is 30.0, platelets 418. Sodium 131, potass ium 3.7, chloride is 99, BUN 10, creatinine 0.72, blood sugar is 60. BNP was 571. ASSESSMENT: 1. Acute pyelonephritis. 2. Acute hypoglycemia with type 2 diabetes mellitus. 3. Acute hyponatremia. 4. History of coronary artery disease and coronary artery bypass graft. 5. Acute encephalopathy. PLAN: 1. Plan is to closely monitor this patient. We will start the patient on D5 NS at this time for 1 l iter and then change to normal saline. We will reduce Lantus to 10 units. We will start 10 units in the morning. I will hold off on the a.c and at bedtime until we see the patient is able to be eatin g normally. 2. We will check the hemoglobin A1c to look for blood sugar control. 3. The patient has evidence of pyelonephritis with elevated white count and the flank UTI. 4. Patient has anemia of chronic disease with low hemoglobin. We will closely monitor and we will s tart the patient on iron medications. 5. The patient has history of coronary artery disease with history of coronary artery bypass graftin g. We will closely monitor. Avoid any fluid overload at this time and patient has elevated BNP curr ently. I will continue the patient on the lisinopril. 6. Deep venous thrombosis prophylaxis. Lovenox 40 mg subcu daily. I spent 75 minutes with this patient.
[2017-06-21] MEDS ORDERED: Dextrose 50% Abboject 50 ML SYRINGE SLOW IVP PRN (01:15)
[2017-06-21] MEDS ORDERED: Dextrose 5% in Water 1,000 ML IV PRN (01:15)
[2017-06-21] MEDS ORDERED: HYDROcodone/Acetaminophen 5/325 mg Tablet PO PRN (01:15)
[2017-06-21] MEDS ORDERED: Ondansetron HCl/PF 4 MG/2 ML Vial IVP PRN (01:15)
[2017-06-21] MEDS ORDERED: Acetaminophen 325 MG TAB PO PRN (01:15)
[2017-06-21 01:58] VITALS: BMI 21.2
[2017-06-21] MEDS ORDERED: Cefepime 2 GM in Sodium Chloride 0.9% 100 ML IVPB SCH (02:00)
[2017-06-21] MEDS: Cefepime 2 GM in Syringe 12.5 ML IVPB SCH ×2 (02:10→13:05)
[2017-06-21 02:12] LABS: #Basophils 0.1 thou/uL (0.0-0.2); #Eosinphils 0.2 thou/uL (0.0-0.7); #Lymphocytes 2.4 thou/uL (1.20-3.40); %Basophils 0.5 % (0.0-1.0); %Eosinophils 1.3 % (0.0-10.0); %Lymphocytes 19.1 % (21.0-51.0); %Monocytes 7.8 % (0.0-10.0); %Neutrophils 71.4 % (42.0-75.0); Hemoglobin 9.3 g/dL (14.0-18.0); Mean Corpuscular HGB CONC 31.7 g/dL (32.0-36.0); Mean Corpuscular Hemoglobin 28.1 pg (27.0-31.0); Mean Corpuscular Volume 88.7 fl (80.0-94.0); Mean Platelet Volume 6.7 fL (7.4-10.4); Platelet Count 526 thou/uL (130-400); RBC Distribution Width 13.7 % (11.5-14.5); Red Blood Cell (RBC) Count 3.29 mill/uL (4.70-6.10); White Blood Cell (WBC) Count 12.6 thou/uL (4.8-10.8)
[2017-06-21 03:01] LABS: Anion Gap 13 mmol/L (10-20); BUN (Urea Nitrogen) 10 mg/dL (8.4-25.7); Calc. Creatinine Clearance 103 mL/min (70-130); Calcium 8.4 mg/dL (7.8-10.44); Carbon Dioxide 26 mmol/L (23-31); Chloride 99 mmol/L (98-107); Estimated GFR-MDRD Greater than 90; Glucose 72 mg/dL (83-110); Potassium 3.7 mmol/L (3.5-5.1); Sodium 134 mmol/L (136-145)
[2017-06-21] MEDS ORDERED: Sodium Chloride 0.9% 1,000 ML IV SCH (07:30)
[2017-06-21] MEDS: Tamsulosin HCl 0.4 MG CAP PO SCH (08:16)
[2017-06-21] MEDS: Famotidine 40 MG/4 ML VIAL SLOW IVP SCH ×2 (08:16→20:03)
[2017-06-21] MEDS: Carvedilol 25 MG TAB PO SCH ×2 (08:16→20:03)
[2017-06-21] MEDS: FLUoxetine HCl 20 MG CAP PO SCH (08:16)
[2017-06-21] MEDS: Docusate 100 MG CAP PO SCH ×2 (08:17→20:07)
[2017-06-21] MEDS: Insulin Detemir 100 UNITS/ML 10 UNITS in Admixture Fee 1 EACH SC SCH (08:22)
[2017-06-21] MEDS ORDERED: FLU VACC TS2017-18 (>65YR) 0.5 ML SYRINGE IM ONE (09:00)
[2017-06-21] MEDS ORDERED: Enoxaparin Sodium 40 MG/0.4 ML SYRINGE SC SCH (09:00)
[2017-06-21] MEDS ORDERED: Prevnar 13-Val Conj/PF 0.5 ML SYRINGE IM ONE (09:00)
[2017-06-21] MEDS: Ziprasidone 20 MG CAP PO SCH ×2 (10:58→15:53)
--- NOTE | 2017-06-21 12:12 | PDOC.PN ---
- Subjective Encounter Start Date: 06/21/17 Encounter Start Time: 12:21 Subjective: No complaints. AO x 3 -: No acute overnight events. - Objective Resuscitation Status: Resuscitation Status FULL:Full Resuscitation MAR Reviewed: Yes Vital Signs & Weight: Vital Signs (12 hours) Temp Pulse Resp BP Pulse Ox 06/21/17 11:13 98.7 F 73 16 134/73 98 06/21/17 08:05 98.6 F 90 16 162/75 H 96 06/21/17 08:00 98.6 F 90 16 06/21/17 05:01 98.6 F 85 20 142/63 H 95 06/21/17 01:32 98.5 F 97 20 99 06/21/17 01:08 98.5 F 97 20 151/61 H 99 Weight Weight 161 lb 5 oz I&O: 06/20/17 06/21/17 06/22/17 06:59 06:59 06:59 Intake Total 880 Output Total 450 Balance 430 Result Diagrams: 06/21/17 01:56 06/21/17 01:56 Additional Labs: Accuchecks 06/21/17 06/21/17 06/21/17 11:11 10:12 08:09 POC Glucose 302 H 264 H 218 H 06/21/17 06/21/17 06/20/17 05:01 02:09 23:43 POC Glucose 299 H 73 64 L 06/20/17 19:47 POC Glucose 64 L Phys Exam - Physical Examination Constitutional: NAD HEENT: PERRLA, moist MMs, sclera anicteric Neck: no JVD, supple, full ROM Respiratory: no wheezing, no rales, no rhonchi, clear to auscultation bilateral Cardiovascular: RRR, no significant murmur, no rub Gastrointestinal: soft, non-tender, no distention, positive bowel sounds Musculoskeletal: no edema, pulses present Neurological: non-focal, moves all 4 limbs Psychiatric: normal affect, A&O x 3 Skin: no rash, normal turgor Dx/Plan (1) Hypoglycemia associated with diabetes Code(s): E11.649 - TYPE 2 DIABETES MELLITUS WITH HYPOGLYCEMIA WITHOUT COMA Status: Acute Comment: Resolved. Will discontinue d5, continue long and short acting insulin. (2) Acute encephalopathy Code(s): G93.40 - ENCEPHALOPATHY, UNSPECIFIED Status: Acute Comment: 2/2 hypoglycemia. (3) Pyelonephritis Code(s): N12 - TUBULO-INTERSTITIAL NEPHRITIS, NOT [facility] ACUTE OR CHRONIC Status: Acute Comment: Continue antibiotics. F/u cultures. (4) CAD (coronary artery disease) of artery bypass graft Code(s): I25.810 - ATHEROSCLEROSIS OF CABG W/O ANGINA PECTORIS Status: Acute Qualifiers: [place] vs. transplanted heart: [place] heart Associated angina: without angina Qualified Code(s): I25.810 - Atherosclerosis of coronary artery bypass graft(s) without angina pectoris Comment: Stable, chest pain free. Continue home medications. (5) Diabetes mellitus, insulin dependent (IDDM), uncontrolled Code(s): E10.65 - TYPE 1 DIABETES MELLITUS WITH HYPERGLYCEMIA Status: Acute Qualifiers: Diabetes mellitus complication status: with hypoglycemia Diabetes mellitus complication detail: without coma Qualified Code(s): E10.649 - Type 1 diabetes mellitus with hypoglycemia without coma Plan: See problem #1. (6) HTN (hypertension) Code(s): I10 - ESSENTIAL (PRIMARY) HYPERTENSION Status: Acute Qualifiers: Hypertension type: essential hypertension Comment: Fair conrtol. Continue home regimen. - Plan cont current plan of care, continue antibiotics * . Review of Systems - Review of Systems Constitutional: negative: fever, chills, sweats, weakness, malaise, other Eyes: negative: Pain, Vision Change, Conjunctivae Inflammation, Eyelid Inflammation, Redness, Other ENT: negative: Ear Pain, Ear Discharge, Nose Pain, Nose Discharge, Nose Congestion, Mouth Pain, Mouth Swelling, Throat Pain, Throat Swelling, Other Respiratory: negative: Cough, Dry, Shortness of Breath, Hemoptysis, SOB with Excertion, Pleuritic Pain, Sputum, Wheezing Cardiovascular: negative: chest pain, palpitations, orthopnea, paroxysmal nocturnal dyspnea, edema, light headedness, other Gastrointestinal: negative: Nausea, Vomiting, Abdominal Pain, Diarrhea, Constipation, Melena, Hematochezia, Other Genitourinary: negative: Dysuria, Frequency, Incontinence, Hematuria, Retention , Other Musculoskeletal: negative: Neck Pain, Shoulder Pain, Arm Pain, Back Pain, Hand Pain, Leg Pain, Foot Pain, Other Skin: negative: Rash, Lesions, Norbert, Bruising, Other Neurological: negative: Weakness, Numbness, Incoordination, Change in Speech, Confusion, Seizures, Other - Medications/Allergies Allergies/Adverse Reactions: Allergies Allergy/AdvReac Type Severity Reaction Status Date / Time No Known Allergies Allergy Verified 06/21/17 02:47 Medications: Current Medications Acetaminophen (Tylenol) 650 mg PO Q4H PRN PRN Reason: Headache/Fever or Pain Hydrocodone Bitart/Acetaminophen ([place] 5/325) 1 tab PO Q4H PRN PRN Reason: Moderate Pain (4-6) Aspirin (Aspirin Chewable) 81 mg PO DAILY [facility] Last Admin: 06/21/17 08:16 Dose: 81 mg Atorvastatin Calcium (Lipitor) 20 mg PO HS [facility] Carvedilol (Coreg) 12.5 mg PO BID [facility] Last Admin: 06/21/17 08:16 Dose: 12.5 mg Dextrose/Water (Dextrose 50%) 25 gm SLOW IVP PRN PRN PRN Reason: Hypoglycemia Docusate Sodium (Colace) 100 mg PO BID [facility] Last Admin: 06/21/17 08:17 Dose: Not Given Enoxaparin Sodium (Lovenox) 40 mg SC 0900 [facility] Last Admin: 06/21/17 08:17 Dose: 40 mg Famotidine (Pepcid) 20 mg SLOW IVP Q12HR [facility] Last Admin: 06/21/17 08:16 Dose: 20 mg Fluoxetine HCl (Prozac) 20 mg PO DAILY [facility] Last Admin: 06/21/17 08:16 Dose: 20 mg Glucagon (Glucagon) 1 mg IM PRN PRN PRN Reason: Hypoglycemia Guaifenesin/Dextromethorphan (Robitussin Dm) 15 ml PO Q4H PRN PRN Reason: Cough Sodium Chloride (Normal Saline 0.9%) 1,000 mls @ 75 mls/hr IV .[id number] [facility] Last Admin: 06/21/17 10:58 Dose: 1,000 mls Dextrose/Water (D5w) 1,000 mls @ 0 mls/hr IV .Q0M PRN; As Directed PRN Reason: Hypoglycemia Insulin Detemir 10 units/ (Miscellaneous Medication) 0.1 mls @ 0 mls/hr SC QAM [facility] Last Admin: 06/21/17 08:22 Dose: 0.1 mls Cefepime HCl 2 gm/ Syringe 12.5 mls @ 150 mls/hr IVPB 0200,1400 [facility] Last Admin: 06/21/17 02:10 Dose: 12.5 mls Insulin Human Lispro (Humalog) 0 units SC .MODERATE SLIDING SC PRN PRN Reason: Moderate Correctional Scale Lactulose (Lactulose) 20 gm PO DAILYPRN PRN PRN Reason: Constipation Lisinopril (Zestril) 40 mg PO HS [facility] Ondansetron HCl (Zofran) 4 mg IVP Q6H PRN PRN Reason: Nausea/Vomiting Tamsulosin HCl (Flomax) 0.4 mg PO DAILY [facility] Last Admin: 06/21/17 08:16 Dose: 0.4 mg Ziprasidone (Geodon) 20 mg PO BID-[facility] Last Admin: 06/21/17 10:58 Dose: Not Given
[2017-06-21] MEDS ORDERED: Ondansetron ODT 4 MG TAB PO PRN (12:25)
[2017-06-21] MEDS ORDERED: Ziprasidone 20 MG CAP PO SCH (17:00)
[2017-06-21] MEDS: Saccharomyces boulardii 250 MG CAP PO SCH (20:04)
[2017-06-21] MEDS: Ferrous Sulfate 325 MG TAB PO SCH (20:04)
[2017-06-21] MEDS ORDERED: Lisinopril 20 MG TAB PO SCH (21:00)
[2017-06-21] MEDS ORDERED: Atorvastatin Calcium 20 MG TAB PO SCH (21:00)
[2017-06-22] MEDS: Cefepime 2 GM in Syringe 12.5 ML IVPB SCH (01:45)
[2017-06-22] MEDS: Guaifenesin DM 100-10/5 ML UDCUP PO PRN ×2 (03:05→09:36)
[2017-06-22 04:38] LABS: #Eosinphils 0.3 thou/uL (0.0-0.7); #Lymphocytes 1.9 thou/uL (1.20-3.40); #Monocytes 0.8 thou/uL (0.11-0.59); #Neutrophils 7.5 thou/uL (1.40-6.50); %Basophils 0.4 % (0.0-1.0); %Eosinophils 2.7 % (0.0-10.0); %Monocytes 7.9 % (0.0-10.0); Hemoglobin 9.2 g/dL (14.0-18.0); Mean Corpuscular Hemoglobin 27.7 pg (27.0-31.0); Mean Corpuscular Volume 89.3 fl (80.0-94.0); Mean Platelet Volume 6.9 fL (7.4-10.4); Platelet Count 534 thou/uL (130-400); RBC Distribution Width 13.9 % (11.5-14.5); Red Blood Cell (RBC) Count 3.33 mill/uL (4.70-6.10); White Blood Cell (WBC) Count 10.5 thou/uL (4.8-10.8)
[2017-06-22 04:56] LABS: Anion Gap 11 mmol/L (10-20); BUN (Urea Nitrogen) 9 mg/dL (8.4-25.7); Calc. Creatinine Clearance 97 mL/min (70-130); Calcium 8.2 mg/dL (7.8-10.44); Carbon Dioxide 26 mmol/L (23-31); Chloride 101 mmol/L (98-107); Estimated GFR-MDRD Greater than 90; Glucose 177 mg/dL (83-110); Potassium 3.9 mmol/L (3.5-5.1); Sodium 134 mmol/L (136-145)
[2017-06-22] MEDS: HumaLOG 300 UNITS/3 ML VIAL SC PRN ×2 (05:22→11:40)
[2017-06-22 08:32] LABS: Hemoglobin A1c 6.3 % (4.0-6.0)
[2017-06-22] MEDS ORDERED: Rivaroxaban 10 MG TAB PO SCH (09:00)
[2017-06-22] MEDS ORDERED: Polyethylene Glycol 3350 17 GM Packet PO SCH (09:00)
[2017-06-22] MEDS ORDERED: Tamsulosin HCl 0.4 MG CAP PO SCH (09:00)
[2017-06-22] MEDS: Insulin Detemir 100 UNITS/ML 10 UNITS in Admixture Fee 1 EACH SC SCH (09:19)
[2017-06-22] MEDS: Saccharomyces boulardii 250 MG CAP PO SCH (09:22)
[2017-06-22] MEDS: Carvedilol 25 MG TAB PO SCH (09:23)
[2017-06-22] MEDS: FLUoxetine HCl 20 MG CAP PO SCH (09:23)
[2017-06-22] MEDS: Ferrous Sulfate 325 MG TAB PO SCH (09:25)
[2017-06-22] MEDS: Tamsulosin HCl 0.4 MG CAP PO SCH (09:26)
[2017-06-22] MEDS: Docusate 100 MG CAP PO SCH (09:26)
[2017-06-22] MEDS: Ziprasidone 20 MG CAP PO SCH (09:27)
[2017-06-22] MEDS: Famotidine 40 MG/4 ML VIAL SLOW IVP SCH (09:28)
[2017-06-22] MEDS ORDERED: cloNIDine 0.1 MG TAB PO SCH (11:30)
[2017-06-22 11:34] VITALS: BP 176/80; TEMP 98.3
--- NOTE | 2017-06-22 15:32 | DIS ---
DATE OF ADMISSION: 06/20/2017 DATE OF DISCHARGE: 06/22/2017 DISCHARGE DIAGNOSES: Hypoglycemia, type 2 diabetes mellitus on insulin, acute encephalopathy, mur[place] ry artery disease, and hypertension. HISTORY OF PRESENT ILLNESS/HOSPITAL COURSE: A 71-year-old male who resides in a nursing facility and has a history of recurrent urinary tract infections in the past and type 2 diabetes mellitus who was found confused at the snf and had a fall and was very agitated. He just fell on the ground , although fall was not witnessed. He was brought to the emergency room and noted to have blood gluc ose in the 50s and was given an amp of D50 with improvement. He also had a brain CT and cervical spi ne, which was negative for intracranial hemorrhage or acute pathology respectively. He had a chest x -ray that was unremarkable. He had evidence of urinary tract infection, which could have triggered h is confusion. His labs showed mild elevated WBC and blood glucose of 60. BNP was 571. An assessmen t of ? acute pyelonephritis and acute hypoglycemia was made. The patient was started on IV D5. He w as monitored with his blood sugar check every 2 hours, insulin Lantus was reduced to 10 units from 15 and he was placed on the sliding scale insulin. He was also started on antibiotics for his question able pyelonephritis which is elevated. White count and he improved. On admission, his blood sugar a ctually became elevated while he was here and dextrose was discontinued. On the day of discharge, bl ood sugar check was 365 and insulin was scheduled to be given to the patient, but he declined stating he would prefer to consider getting his regimen from the snf. DISCHARGE MEDICATIONS: Simvastatin 1 tablet daily, lisinopril 1 tablet at bedtime, aspirin 1 tablet daily, carvedilol 12.5 mg twice a day, fluoxetine 20 mg daily, MiraLax 17 grams daily, menthol applie d topically 4 times a day as needed for muscle pain, ondansetron 4 mg q.8 h. for nausea, Xarelto 20 m g daily, saccharomyces boulardii 250 mg twice a day, acetaminophen with codeine 1 tablet 3 times dash y, ferrous sulfate 325 mg twice daily, ziprasidone 20 mg b.i.d., tamsulosin 0.4 mg daily, insulin gla rgine 15 units subcutaneously every morning, insulin aspart sliding scale. PHYSICAL EXAMINATION: He was examined on the day of discharge. VITAL SIGNS: Temperature 98.3, pulse rate 84, respiratory rate 16, oxygen saturation 98% on room air , blood pressure 176/80. GENERAL: Not in acute distress, sitting comfortably in bed. HEENT: PERRLA, EOMI. Moist mucous membranes. HEAD: Normocephalic, atraumatic. NECK: No JVD. Supple. Full range of movement respirations. No wheezes, rales or rhonchi. LUNGS: Clear to auscultation bilaterally. CARDIOVASCULAR: S1, S2 noted with no murmurs, rubs or gallop. Regular rate and rhythm. GASTROINTESTINAL: Soft, nontender, nondistended. Bowel sounds positive. No organomegaly. MUSCULOSKELETAL: No edema. NEUROLOGIC: Well oriented, no focal deficits. PSYCHIATRIC: Normal mood and affect. SKIN: Warm, dry, well-perfused. No rashes. LABORATORY DATA: Sodium 134, potassium 3.9, chloride 101, carbon dioxide 26, anion gap 11, BUN 9, cr eatinine 0.7, glucose 177, calcium 8.2, WBC count 10.5, hemoglobin 9.2, platelet count 534. IMAGING: Cervical spine CT, chest x-ray and brain CT result as discussed in HPI/hospital course. CONSULTS: Palliative care CONDITION AT DISCHARGE: Stable and improved. PROCEDURES: None. DIET: Diabetic, heart healthy with low sodium. HEALTHCARE GOALS: The patient is to follow up with his primary care physician within 1 week of disch arge for repeat labs. He is also told to return to the emergency room if he develops any chest pain, shortness of breath or any episodes of confusion. Activity: Resume as tolerated. Discharge time 55 minutes including chart review and documentation.
--- NOTE | 2017-07-12 00:25 | EKG ---
Test Reason : Blood Pressure : / mmHG Vent. Rate : 097 BPM Atrial Rate : 100 BPM P-R Int : 000 ms QRS Dur : 090 ms QT Int : 390 ms P-R-T Axes : 000 -05 046 degrees QTc Int : 495 ms Accelerated Junctional rhythm Prolonged QT Abnormal ECG Confirmed by SHANELLE WEISS ([id number]), editorial specialist ANNIE MARION ([id number]) on 07/12/2017 12:24:23 AM Referred By: Confirmed By:SHANELLE WEISS
== END 2017-06-22 11:45 | DRG 727 ==
LOC: ERS 17:05 → T4-A 19:46
PROVIDERS: ADMIT Emergency Medicine; ATTEND Emergency Medicine
DX: B37.49 Other urogenital candidiasis (principal); G93.41 Metabolic encephalopathy; E87.1 Hypo-osmolality and hyponatremia; E11.649 Type 2 diabetes mellitus with hypoglycemia without coma; D63.8 Anemia in other chronic diseases classified elsewhere; I10 Essential (primary) hypertension; Z79.4 Long term (current) use of insulin; Z95.1 Presence of aortocoronary bypass graft; I25.10 Atherosclerotic heart disease of native coronary artery without angina pectoris; Z51.5 Encounter for palliative care
CPT/HCPCS: 36415; 36416; 51702; 70450; 71045; 72125; 80048; 80053; 81003; 81015; 82553; 83036; 83605; 83690; 83880; 84484; 85025; 85610; 85730; 87040; 87086; 90471; 90670; 90682; 93005; 96365; 96375; G0008; G0009; G8978-GP-CM; G8979-GP-CK; G8987-GO-CL; G8988-GO-CK; J0360; J0692; J1450; J1650; J1815; J7050; Q2036

== ENCOUNTER 2017-06-27 19:04 | Inpatient (IN) | payer MEDICARE ==
[2017-06-27 19:56] LABS: Bilirubin Moderate (Negative); Blood, Urine Large (Negative); Clarity TURBID (Clear); Glucose, Urine (Dipstick) 500 mg/dL (Negative); Leukocyte Large (Negative); Nitrite Negative (Negative); Protein, Urine (Dipstick) 300 mg/dL (Neg-Trace); Specific Gravity, Urine 1.029 (1.002-1.036); pH, Urine 5.5 (5.0-9.0)
[2017-06-27 19:56] LABS: Hemoglobin 8.4 g/dL (14.0-18.0); Mean Corpuscular Hemoglobin 27.2 pg (27.0-31.0); Mean Corpuscular Volume 87.6 fl (80.0-94.0); Mean Platelet Volume 6.9 fL (7.4-10.4); Platelet Count 374 thou/uL (130-400); RBC Distribution Width 14.4 % (11.5-14.5); White Blood Cell (WBC) Count 31.1 thou/uL (4.8-10.8)
[2017-06-27 19:58] LABS: Bacteria/HPF None Seen HPF (None Seen)
[2017-06-27 20:03] LABS: Hyaline Casts/LPF >50 HYALINE CAST LPF (0-3 Hyaline); Yeast-AUWi Flag 249.2 (0-25.0)
[2017-06-27 20:04] LABS: Pathc Cast-AUWi Flag 28.81 (0-2.49)
[2017-06-27 20:12] LABS: Crystals/HPF RARE CA OXALATE HPF (Negative); Other Casts/LPF None Seen LPF (0-3 Hyaline); RBC/HPF 21-50 HPF (0-3); Yeast-All Forms None Seen HPF (None Seen)
[2017-06-27 20:14] LABS: Band 14 % (5-11); Lymphocytes 3 % (21-51); MDiff Complete? YES; Monocytes 1 % (0-10); Neutrophil 82 % (42-75); PLT Morphology Comment Appears Adequate; Polychromasia SLIGHT = 2-3 cells (100X) (0-2/hpf)
[2017-06-27 20:15] LABS: ALT (SGPT) Less than 7 U/L (8-55); AST (SGOT) 6 U/L (5-34); Albumin 2.5 g/dL (3.4-4.8); Alkaline Phosphatase 124 U/L (40-150); Anion Gap 14 mmol/L (10-20); BUN (Urea Nitrogen) 20 mg/dL (8.4-25.7); Bilirubin, Total 0.4 mg/dL (0.2-1.2); CK (CPK) 45 U/L (30-200); Calc. Creatinine Clearance 0 mL/min (70-130); Calcium 8.2 mg/dL (7.8-10.44); Carbon Dioxide 24 mmol/L (23-31); Chloride 99 mmol/L (98-107); Estimated GFR-MDRD 72; Globulin 3.7 g/dL (2.4-3.5); Glucose 245 mg/dL (83-110); Potassium 4.3 mmol/L (3.5-5.1); Protein, Total 6.2 g/dL (5.8-8.1); Sodium 133 mmol/L (136-145)
[2017-06-27 20:20] LABS: Troponin I 0.039 ng/mL (< 0.028)
--- NOTE | 2017-06-27 20:34 | RAD ---
PORTABLE AP CHEST X-RAY: 06/27/17 HISTORY: Hyperglycemia and episode of vomiting. COMPARISON: 06/20/17. FINDINGS: Postsurgical changes related to CABG are again noted. The cardiac silhouette is magnified by projecti on. Pulmonary vasculature is within normal limits. There is a small right pleural effusion and atelec tasis. The left lung is clear. Vascular calcifications are seen in the thoracic aorta. No other inter marianne change. IMPRESSION: Very small right pleural effusion and atelectasis. POS: DILLAN
[2017-06-27] MEDS ORDERED: Piperacillin/Tazobactam 4.5 GM in Sodium Chloride 0.9% 100 ML IVPB SCH (21:45)
[2017-06-27] MEDS ORDERED: Vancomycin HCl 1.5 GM in Sodium Chloride 0.9% 250 ML 300 ML IVPB SCH (21:45)
[2017-06-28] MEDS ORDERED: Ondansetron HCl/PF 4 MG/2 ML Vial IVP PRN (02:30)
[2017-06-28] MEDS ORDERED: HYDROcodone/Acetaminophen 5/325 mg Tablet PO PRN ×2 (02:30)
[2017-06-28] MEDS ORDERED: Ondansetron ODT 4 MG TAB SL PRN (02:30)
[2017-06-28] MEDS ORDERED: Acetaminophen 325 MG TAB PO PRN (02:30)
[2017-06-28] MEDS ORDERED: VANCOMYCIN/ RENALLY ADJUST ZOSYN IVPB PRN (03:09)
[2017-06-28] MEDS: Sodium Chloride 0.9% 1,000 ML IV SCH ×2 (03:39→15:49)
[2017-06-28 04:31] LABS: Anion Gap 11 mmol/L (10-20); BUN (Urea Nitrogen) 18 mg/dL (8.4-25.7); Calc. Creatinine Clearance 95 mL/min (70-130); Calcium 7.8 mg/dL (7.8-10.44); Carbon Dioxide 26 mmol/L (23-31); Chloride 101 mmol/L (98-107); Estimated GFR-MDRD Greater than 90; Glucose 209 mg/dL (83-110); Potassium 4.1 mmol/L (3.5-5.1); Sodium 134 mmol/L (136-145)
[2017-06-28 04:34] LABS: Troponin I 0.048 ng/mL (< 0.028)
[2017-06-28 04:35] LABS: Band 5 % (5-11); Hemoglobin 7.9 g/dL (14.0-18.0); Lymphocytes 4 % (21-51); MDiff Complete? YES; Mean Corpuscular HGB CONC 31.4 g/dL (32.0-36.0); Mean Corpuscular Hemoglobin 27.5 pg (27.0-31.0); Mean Corpuscular Volume 87.5 fl (80.0-94.0); Mean Platelet Volume 7.2 fL (7.4-10.4); Monocytes 3 % (0-10); Neutrophil 88 % (42-75); PLT Morphology Comment Appears Adequate; Platelet Count 357 thou/uL (130-400); RBC Distribution Width 14.3 % (11.5-14.5); Red Blood Cell (RBC) Count 2.89 mill/uL (4.70-6.10); White Blood Cell (WBC) Count 27.8 thou/uL (4.8-10.8)
[2017-06-28] MEDS: Piperacillin/Tazobactam 3.375 GM in Sodium Chloride 0.9% 100 ML IVPB SCH ×3 (06:52→18:15)
[2017-06-28] MEDS: Ziprasidone 20 MG CAP PO SCH ×2 (08:13→16:55)
[2017-06-28] MEDS: Carvedilol 6.25 MG TAB PO SCH ×2 (08:13→21:19)
[2017-06-28] MEDS: Ferrous Sulfate 325 MG TAB PO SCH ×2 (08:13→16:55)
[2017-06-28] MEDS: Rivaroxaban 10 MG TAB PO SCH (08:14)
[2017-06-28] MEDS: Tamsulosin HCl 0.4 MG CAP PO SCH (08:15)
[2017-06-28] MEDS ORDERED: Non-Formulary Item 1 EACH (Insulin Glargine,Hum.Rec.Anlog [Lantus] 15 UNITS) SQ SCH (09:00)
[2017-06-28] MEDS: Insulin Detemir 100 UNITS/ML 15 UNITS in Pre-Filled Syringe 1 EACH SC SCH (09:13)
[2017-06-28] MEDS: Vancomycin HCl 1 GM in Premix Bag 1 BAG IVPB SCH ×2 (09:14→21:19)
--- NOTE | 2017-06-28 09:52 | HP ---
PRIMARY CARE PHYSICIAN: Sd Gaming M.D. CHIEF COMPLAINT: Hyperglycemia/elevated blood sugar. HISTORY OF PRESENT ILLNESS: Patient is a [facility] patient. Most of the history is obtained from [facility] and from documentations. The patient is a 71-year-old male, who arrived through EMS fr [facility] with complaints of hyperglycemia and altered mental status. Per notes, patient had v omited x1; however, denied any abdominal pain or diarrhea. The patient, in the ER, was found to have elevated white count of 31,000 and possible UTI. Patient also complained of lower abdominal pain. The patient also was found to have bands of 14, and therefore, he was admitted for further evaluation . PAST MEDICAL HISTORY: 1. A 5-vessel coronary artery bypass. 2. Type 2 diabetes. 3. Hypertension. 4. Hyperlipidemia. PAST SURGICAL HISTORY: CABG in 2011 in [place], history of bilateral cataract surgery. SOCIAL HISTORY: The patient lives in a [facility]. He is a nonsmoker; quit in 1989. No history o f alcohol or drug use. FAMILY HISTORY: Father of diabetes with heart disease at the age of 70. Sister from lung cancer. REVIEW OF SYSTEMS: Unable to obtain, patient is only oriented x2. ALLERGIES: No known drug allergies. HOME MEDICATIONS: 1. Aspirin 81 mg daily. 2. Insulin 5 units a.c. and at bedtime. 3. The patient takes Lantus 20 units subcu daily. 4. Coreg 12.5 mg p.o. b.i.d. 5. Fluoxetine 20 mg p.o. daily. 6. Lisinopril 40 mg at bedtime. 7. Simvastatin 1 tab p.o. daily. 8. Tamsulosin 0.4 daily. 9. Ziprasidone 20 mg p.o. b.i.d. PHYSICAL EXAMINATION: VITAL SIGNS: Temperature of 98.8, blood pressure of 141/62, respirations 18, 98% on room air, [address] he[address] rate. GENERAL: He is awake, alert, oriented to self and to place. CARDIOVASCULAR: S1 and S2 present. No rubs or gallops. Patient does have a systolic murmur in his right and left sternal border and I am not sure if this is something new or old. RESPIRATORY: Clear to auscultation. No rhonchi or wheezes noted. ABDOMEN: Soft, mild tenderness to lower suprapubic area; however, no pain upon epigastric area. Watson el sounds are present x2. EXTREMITIES: No edema. Pedal pulses present x2. LABORATORY AND X-RAY FINDINGS: Labs are as the following: White count of 31.1; hemoglobin of 8.4, w hich is at baseline; hematocrit of 27.1; platelets of 374; bands of 14. Chemistry: Sodium of 134, p otassium 4.1, BUN of 18, creatinine of 0.73, mildly elevated troponins. The patient did have a chest x-ray, which indicated very small pleural effusion and atelectasis. He did have a UA, which indicat ed a large amount of leukocytes, wbcs 21-50, negative for any nitrites. ASSESSMENT: The patient is a very pleasant 71-year-old male, who initially presented to the hospital for altered mental status and hypoglycemia. 1. Acute metabolic encephalopathy, possibly secondary to urinary tract infection. We will start the patient on some Zosyn and vancomycin since the patient's previous cultures indicated he had blood cu ltures in actually 05/2017 of Enterococcus. He did have yeast in the urine and also in April 2017, he had Staphylococcus aureus in his blood cultures. Blood cultures are drawn and pending. We will broadly cover patient with Zosyn and vancomycin. Vancomycin should cover Enterococcus. Urine cultur e is pending. We will continue some gentle IV hydration. 2. Leukocytosis with bandemia, most likely secondary to urinary tract infection. We will continue c urrent antibiotics. 3. Anemia. We will continue to monitor patient's baseline. 3. Diabetes. We will continue patient's home insulin. 4. Mildly elevated troponins. It seems like that is the patient's baseline. He has been mildly trista vated in April. We will continue to trend. Patient denies any pain of any chest pain. 5. Systolic murmur. Upon reviewing the notes, patient had a JOSEPH that was done in 05/2017, which ind icated he did have a 1 cm mass noted attached to the posterior mitral valve, highly suggestive of pos sible vegetation. Actually when looking back at his medication list, it does indicate Xarelto, so we will continue Xare lto; however, I am unsure why he is on Xarelto.
--- NOTE | 2017-06-28 12:27 | PDOC.PN ---
- Subjective Encounter Start Date: 06/28/17 Encounter Start Time: 10:00 Subjective: has dry cough, freq of urination -: no chest pain/palp/sob/back pain -: no diarrhea - Objective Resuscitation Status: Resuscitation Status FULL:Full Resuscitation MAR Reviewed: Yes Vital Signs & Weight: Vital Signs (12 hours) Temp Pulse Resp BP BP Pulse Ox 06/28/17 11:37 98.3 F 79 12 140/64 94 L 06/28/17 08:13 149/72 H 06/28/17 08:00 99.3 F 101 H 16 149/72 H 93 L 06/28/17 07:45 99.3 F 101 H 16 06/28/17 04:00 98.8 F 95 18 141/62 H 98 06/28/17 01:50 98.8 F 95 18 148/68 H 97 Weight Weight 165 lb 2 oz Result Diagrams: 06/28/17 03:39 06/28/17 03:39 Additional Labs: Accuchecks 06/28/17 06/28/17 11:20 07:14 POC Glucose 331 H 282 H Phys Exam - Physical Examination HEENT: PERRLA, sclera anicteric dry mucosa Neck: no JVD, supple Respiratory: no wheezing, no rales Cardiovascular: RRR, no significant murmur Gastrointestinal: soft, non-tender, positive bowel sounds Musculoskeletal: no edema, pulses present Neurological: non-focal, moves all 4 limbs Psychiatric: normal affect, A&O x 3 Dx/Plan (1) Sepsis Code(s): A41.9 - SEPSIS, UNSPECIFIED ORGANISM Status: Acute Qualifiers: Sepsis type: sepsis due to unspecified organism Qualified Code(s): A41.9 - Sepsis, unspecified organism (2) UTI (urinary tract infection) Status: Acute Qualifiers: Urinary tract infection type: acute cystitis Hematuria presence: without hematuria Qualified Code(s): N30.00 - Acute cystitis without hematuria (3) H/O endocarditis Code(s): Z86.79 - PERSONAL HISTORY OF OTHER DISEASES OF THE CIRCULATORY SYSTEM Status: Chronic Comment: had mitral post leaflet veg 05/05/2017 (4) DM type 2 (diabetes mellitus, type 2) Status: Chronic Qualifiers: Diabetes mellitus terminal press operator insulin use: with fdc use Diabetes mellitus complication status: with unspecified complications Qualified Code(s) : E11.8 - Type 2 diabetes mellitus with unspecified complications; Z79.4 - nursing home (current) use of insulin; Z79.4 - nursing home (current) use of insulin; Z79.4 - nursing home (current) use of insulin; Z79.4 - intermediate card tender (current) use of insulin (5) CAD (coronary artery disease) Code(s): I25.10 - ATHSCL HEART DISEASE OF [place] CORONARY ARTERY W/O ANG PCTRS Status: Chronic Qualifiers: Coronary Disease-Associated Artery/Lesion type: bypass graft [place] vs. transplanted heart: [place] heart Associated angina: without angina Qualified Code(s): I25.810 - Atherosclerosis of coronary artery bypass graft(s) without angina pectoris (6) Demand ischemia of myocardium Code(s): I24.8 - OTHER FORMS OF ACUTE ISCHEMIC HEART DISEASE Status: Acute (7) Hypoalbuminemia due to protein-calorie malnutrition Code(s): E46 - UNSPECIFIED PROTEIN-CALORIE MALNUTRITION Status: Chronic (8) Aortic stenosis Code(s): I35.0 - NONRHEUMATIC AORTIC (VALVE) STENOSIS Status: Chronic Qualifiers: Cardiac valve disease etiology: nonrheumatic Comment: valve area of 1.2cm2 (9) HTN (hypertension) Code(s): I10 - ESSENTIAL (PRIMARY) HYPERTENSION Status: Chronic Qualifiers: Hypertension type: essential hypertension Comment: - Plan on vanc and zosyn -: gentle iv hydration, watch for overload -: tx pt to telemetry -: is on xarelto, switch pt to inpt status -: await cultures, echo, wbc is down to 27k from 31 * . Review of Systems - Medications/Allergies Allergies/Adverse Reactions: Allergies Allergy/AdvReac Type Severity Reaction Status Date / Time No Known Allergies Allergy Verified 06/21/17 02:47 Medications: Current Medications Aspirin (Aspirin Chewable) 81 mg PO DAILY [facility] Last Admin: 06/28/17 08:13 Dose: 81 mg Carvedilol (Coreg) 12.5 mg PO BID [facility] Last Admin: 06/28/17 08:13 Dose: 12.5 mg Ferrous Sulfate (Feosol) 325 mg PO BID-WM [facility] Last Admin: 06/28/17 08:13 Dose: 325 mg Fluoxetine HCl (Prozac) 20 mg PO DAILY [facility] Sodium Chloride (Normal Saline 0.9%) 1,000 mls @ 75 mls/hr IV .[id number] [facility] Last Admin: 06/28/17 03:39 Dose: 1,000 mls Piperacillin Sod/Tazobactam (Sod 3.375 gm/ Sodium Chloride) 100 mls @ 200 mls/ hr IVPB Q6HR [facility] Last Admin: 06/28/17 11:01 Dose: 100 mls Vancomycin HCl 1 gm/ Device 200 mls @ 200 mls/hr IVPB 1000,2200 [facility] Last Admin: 06/28/17 09:14 Dose: 200 mls Insulin Detemir 15 units/ (Miscellaneous Medication) 0.15 mls @ 0 mls/hr SC QAM KIM PRN Reason: As Directed Last Admin: 06/28/17 09:13 Dose: 0.15 mls Lisinopril (Zestril) 1 mg PO HS [facility] Miscellaneous Medication (Pharmacy To Dose) 1 each IVPB PRN PRN PRN Reason: Pharmacy to dose Polyethylene Glycol (Miralax) 17 gm PO DAILY [facility] Rivaroxaban (Xarelto) 20 mg PO DAILY [facility] Last Admin: 06/28/17 08:14 Dose: 20 mg Saccharomyces Boulardii (Florastor) 250 mg PO BID [facility] Simvastatin (Zocor) 40 mg PO HS [facility] Sodium Chloride (Flush - Normal Saline) 10 ml IVF Q12HR [facility] Last Admin: 06/28/17 08:15 Dose: Not Given Sodium Chloride (Flush - Normal Saline) 10 ml IVF PRN PRN PRN Reason: Saline Flush Tamsulosin HCl (Flomax) 0.4 mg PO DAILY [facility] Last Admin: 06/28/17 08:15 Dose: 0.4 mg Ziprasidone (Geodon) 20 mg PO BID-[facility] Last Admin: 06/28/17 08:13 Dose: 20 mg
[2017-06-28] MEDS ORDERED: Ibuprofen 200 MG TAB PO PRN (18:13)
[2017-06-28] MEDS ORDERED: Lisinopril 20 MG TAB PO SCH (21:00)
[2017-06-28] MEDS: Saccharomyces boulardii 250 MG CAP PO SCH (21:18)
[2017-06-28] MEDS: Simvastatin 40 MG TAB PO SCH (21:19)
[2017-06-29] MEDS: Piperacillin/Tazobactam 3.375 GM in Sodium Chloride 0.9% 100 ML IVPB SCH ×4 (00:06→17:23)
[2017-06-29] MEDS: Sodium Chloride 0.9% 1,000 ML IV SCH ×3 (00:06→17:30)
[2017-06-29] MEDS: Tamsulosin HCl 0.4 MG CAP PO SCH (09:04)
[2017-06-29] MEDS: FLUoxetine HCl 20 MG CAP PO SCH (09:04)
[2017-06-29] MEDS: Carvedilol 6.25 MG TAB PO SCH ×2 (09:04→21:57)
[2017-06-29] MEDS: Ziprasidone 20 MG CAP PO SCH ×2 (09:04→17:24)
[2017-06-29] MEDS: Rivaroxaban 10 MG TAB PO SCH (09:04)
[2017-06-29] MEDS: Polyethylene Glycol 3350 17 GM Packet PO SCH (09:05)
[2017-06-29] MEDS: Ferrous Sulfate 325 MG TAB PO SCH ×2 (09:05→17:24)
[2017-06-29] MEDS: Saccharomyces boulardii 250 MG CAP PO SCH ×2 (09:05→21:58)
[2017-06-29] MEDS: Insulin Detemir 100 UNITS/ML 15 UNITS in Pre-Filled Syringe 1 EACH SC SCH (09:05)
[2017-06-29 09:19] LABS: Vancomycin, Trough 11.3 ug/mL
[2017-06-29 09:19] LABS: Anion Gap 11 mmol/L (10-20); BUN (Urea Nitrogen) 14 mg/dL (8.4-25.7); Calc. Creatinine Clearance 108 mL/min (70-130); Calcium 7.8 mg/dL (7.8-10.44); Carbon Dioxide 24 mmol/L (23-31); Chloride 102 mmol/L (98-107); Estimated GFR-MDRD Greater than 90; Glucose 140 mg/dL (83-110); Potassium 3.6 mmol/L (3.5-5.1); Sodium 133 mmol/L (136-145)
[2017-06-29] MEDS: Vancomycin HCl 1 GM in Premix Bag 1 BAG IVPB SCH (09:54)
[2017-06-29 10:07] LABS: #Lymphocytes 1.7 thou/uL (1.20-3.40); #Monocytes 0.8 thou/uL (0.11-0.59); #Neutrophils 15.2 thou/uL (1.40-6.50); %Basophils 0.1 % (0.0-1.0); %Eosinophils 0.1 % (0.0-10.0); %Lymphocytes 9.3 % (21.0-51.0); %Monocytes 4.5 % (0.0-10.0); Anisocytosis SLIGHT = 6-15 cells (100X) (0-5/hpf); Hemoglobin 8.9 g/dL (14.0-18.0); MDiff Complete? YES; Mean Corpuscular Hemoglobin 26.9 pg (27.0-31.0); Mean Corpuscular Volume 89.7 fl (80.0-94.0); Mean Platelet Volume 7.4 fL (7.4-10.4); PLT Morphology Comment Appears Adequate; Platelet Count 295 thou/uL (130-400); RBC Distribution Width 14.3 % (11.5-14.5); Red Blood Cell (RBC) Count 3.33 mill/uL (4.70-6.10); White Blood Cell (WBC) Count 17.7 thou/uL (4.8-10.8)
--- NOTE | 2017-06-29 10:59 | PDOC.PN ---
- Subjective Encounter Start Date: 06/29/17 Encounter Start Time: 09:40 Subjective: no sob, feels better -: no cough or freq of urination -: no chest pain or palp - Objective Resuscitation Status: Resuscitation Status FULL:Full Resuscitation MAR Reviewed: Yes Vital Signs & Weight: Vital Signs (12 hours) Temp Pulse Resp BP BP Pulse Ox 06/29/17 07:30 98.6 F 89 20 167/77 H 92 L 06/29/17 04:15 94 L 06/29/17 03:57 97.8 F 86 16 145/72 H 87 L 06/28/17 23:38 98.5 F 80 16 128/60 92 L Weight Admit Weight 165 lb 1.6 oz Weight 167 lb I&O: 06/28/17 06/29/17 06/30/17 06:59 06:59 06:59 Intake Total 1599 Output Total 700 Balance 899 Result Diagrams: 06/29/17 08:54 06/29/17 08:55 Additional Labs: Accuchecks 06/28/17 06/28/17 15:22 11:20 POC Glucose 241 H 331 H Phys Exam - Physical Examination HEENT: PERRLA, sclera anicteric dry mucosa Neck: no JVD, supple Respiratory: no wheezing, no rales Cardiovascular: RRR, no significant murmur Gastrointestinal: soft, non-tender, positive bowel sounds Musculoskeletal: no edema, pulses present Neurological: non-focal, moves all 4 limbs Psychiatric: A&O x 3 Dx/Plan (1) Sepsis Code(s): A41.9 - SEPSIS, UNSPECIFIED ORGANISM Status: Acute Qualifiers: Sepsis type: sepsis due to unspecified organism Qualified Code(s): A41.9 - Sepsis, unspecified organism (2) UTI (urinary tract infection) Status: Acute Qualifiers: Urinary tract infection type: acute cystitis Hematuria presence: without hematuria Qualified Code(s): N30.00 - Acute cystitis without hematuria (3) H/O endocarditis Code(s): Z86.79 - PERSONAL HISTORY OF OTHER DISEASES OF THE CIRCULATORY SYSTEM Status: Chronic Comment: had mitral post leaflet veg 05/05/2017 (4) DM type 2 (diabetes mellitus, type 2) Status: Chronic Qualifiers: Diabetes mellitus prison insulin use: with intermediate accountant use Diabetes mellitus complication status: with unspecified complications Qualified Code(s) : E11.8 - Type 2 diabetes mellitus with unspecified complications; Z79.4 - exterminator helper (current) use of insulin; Z79.4 - group home (current) use of insulin; Z79.4 - group home (current) use of insulin; Z79.4 - group home (current) use of insulin (5) CAD (coronary artery disease) Code(s): I25.10 - ATHSCL HEART DISEASE OF [place] CORONARY ARTERY W/O ANG PCTRS Status: Chronic Qualifiers: Coronary Disease-Associated Artery/Lesion type: bypass graft [place] vs. transplanted heart: [place] heart Associated angina: without angina Qualified Code(s): I25.810 - Atherosclerosis of coronary artery bypass graft(s) without angina pectoris (6) Demand ischemia of myocardium Code(s): I24.8 - OTHER FORMS OF ACUTE ISCHEMIC HEART DISEASE Status: Acute (7) Hypoalbuminemia due to protein-calorie malnutrition Code(s): E46 - UNSPECIFIED PROTEIN-CALORIE MALNUTRITION Status: Chronic (8) Aortic stenosis Code(s): I35.0 - NONRHEUMATIC AORTIC (VALVE) STENOSIS Status: Chronic Qualifiers: Cardiac valve disease etiology: nonrheumatic Comment: valve area of 1.2cm2 (9) HTN (hypertension) Code(s): I10 - ESSENTIAL (PRIMARY) HYPERTENSION Status: Chronic Qualifiers: Hypertension type: essential hypertension Comment: - Plan await echo, CT results -: is on vanc and zosyn -: xarelto, gentle iv hydration -: wbc down to 17k today from 30+ on admit -: mobilize as tolerated * . Review of Systems - Medications/Allergies Allergies/Adverse Reactions: Allergies Allergy/AdvReac Type Severity Reaction Status Date / Time No Known Allergies Allergy Verified 06/21/17 02:47 Medications: Current Medications Aspirin (Aspirin Chewable) 81 mg PO DAILY [facility] Last Admin: 06/29/17 09:05 Dose: 81 mg Carvedilol (Coreg) 12.5 mg PO BID [facility] Last Admin: 06/29/17 09:04 Dose: 12.5 mg Ferrous Sulfate (Feosol) 325 mg PO BID-WM [facility] Last Admin: 06/29/17 09:05 Dose: 325 mg Fluoxetine HCl (Prozac) 20 mg PO DAILY [facility] Last Admin: 06/29/17 09:04 Dose: 20 mg Sodium Chloride (Normal Saline 0.9%) 1,000 mls @ 75 mls/hr IV .[id number] [facility] Last Admin: 06/29/17 05:27 Dose: Not Given Piperacillin Sod/Tazobactam (Sod 3.375 gm/ Sodium Chloride) 100 mls @ 200 mls/ hr IVPB Q6HR [facility] Last Admin: 06/29/17 05:21 Dose: 100 mls Vancomycin HCl 1 gm/ Device 200 mls @ 200 mls/hr IVPB 1000,2200 [facility] Last Admin: 06/29/17 09:54 Dose: 200 mls Insulin Detemir 15 units/ (Miscellaneous Medication) 0.15 mls @ 0 mls/hr SC QAM [facility] PRN Reason: As Directed Last Admin: 06/29/17 09:05 Dose: 0.15 mls Ibuprofen (Motrin) 400 mg PO TIDPRN PRN PRN Reason: PAIN/FEVER Last Admin: 06/28/17 18:23 Dose: 400 mg Lisinopril (Zestril) 1 mg PO [facility] Last Admin: 06/28/17 21:18 Dose: 1 mg Miscellaneous Medication (Pharmacy To Dose) 1 each IVPB PRN PRN PRN Reason: Pharmacy to dose Polyethylene Glycol (Miralax) 17 gm PO DAILY [facility] Last Admin: 06/29/17 09:05 Dose: 17 gm Rivaroxaban (Xarelto) 20 mg PO DAILY [facility] Last Admin: 06/29/17 09:04 Dose: 20 mg Saccharomyces Boulardii (Florastor) 250 mg PO BID [facility] Last Admin: 06/29/17 09:05 Dose: 250 mg Simvastatin (Zocor) 40 mg PO [facility] Last Admin: 06/28/17 21:19 Dose: 40 mg Sodium Chloride (Flush - Normal Saline) 10 ml IVF Q12HR [facility] Last Admin: 06/29/17 09:06 Dose: Not Given Sodium Chloride (Flush - Normal Saline) 10 ml IVF PRN PRN PRN Reason: Saline Flush Tamsulosin HCl (Flomax) 0.4 mg PO DAILY [facility] Last Admin: 06/29/17 09:04 Dose: 0.4 mg Ziprasidone (Geodon) 20 mg PO BID-[facility] Last Admin: 06/29/17 09:04 Dose: 20 mg
--- NOTE | 2017-06-29 11:49 | PQF ---
DATE: 06-29-17 ATTN: DR. CHAPO VELÁSQUEZ Please exercise your independent, professional judgment in responding to the clarification form. Clinical indicators are provided on the bottom of this form for your review Please check appropriate box(s): [ x ] Sepsis with UTI due to Indwelling catheter [ ] Sepsis with UTI not due to Indwelling catheter [ ] Other diagnosis [ ] Unable to determine In addition, please specify: Present on Admission (POA): [ x ] Yes [ ] No [ ] Unable to determine For continuity of documentation, please document condition throughout progress notes and discharge summary. Thank You. 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 PT IS FROM LONG TERM TREATMENT: (ER): VANCOCIN, ZOSYN, IVF (This form is maintained as a part of the permanent medical record) 2014 [employer] All Rights Reserved [email or web address] Office: [phone] [email or web address]
[2017-06-29] MEDS ORDERED: Dextrose 50% Abboject 50 ML SYRINGE SLOW IVP PRN (12:50)
[2017-06-29] MEDS ORDERED: Dextrose 5% in Water 1,000 ML IV PRN (12:50)
[2017-06-29] MEDS ORDERED: Iopamidol 370 76% 100 ML VIAL ONE (13:10)
--- NOTE | 2017-06-29 14:20 | PQF ---
Date: 06-29-17 ATTN: DR. CHAPO VELÁSQUEZ Please exercise your independent, professional judgment in responding to the clarification form. Clinical indicators are provided on the bottom of this form for your review Please check appropriate box(s): [ x ] Protein Calorie Malnutrition: [ ] Mild [ x ] Moderate [ ] Severe [ ] Cachexia [ ] Other diagnosis [ ] Unable to determine In addition, please specify: Present on Admission (POA): [ ] Yes [ ] No [ ] Unable to determine CLINICAL INDICATORS - SIGNS / SYMPTOMS / LABS BMI of 22.0 ALBUMIN: 06-27-17: 2.5 PN 06-28-17: HYPOALBUMINEMIA DUE TO PROTEIN CALORIE MALNUTRITION RISK FACTORS: ER DOCUMENTATION: FROM [facility], AMS, VOMITING, HX OF CAD, CHF, DM 1, HX OF PR, ENDOCARDITIS, CABG, DRINKER TREATMENT: DITCHER OPERATOR CONSULT 06-29-17: RECOMMEND 2000 KCAL CONSISTENT CARD, HEART HEALTHY DIET. RD WILL ADD SF MIGHTY SHAKES BID WITH MEALS Moderate Malnutrition (in acute illness) Energy Intake: <75% of estimated energy requirement for > 7 days Weight Loss: 1-2%/1 week; 5%/ 1 month; 7.5%/3 months Other: mild body fat loss; mild muscle mass loss; mild fluid accumulation; Severe Malnutrition (in acute illness) Energy Intake: < 50% of estimated energy requirement for > 5 days Weight Loss: >1-2%/1 week; >5%/1 month; >7.5%/3 months Other: moderate body fat loss; moderate muscle mass loss; moderate- severe fluid accumulation; measurably reduced insulation board back tender strength Moderate Malnutrition (in chronic illness) Energy Intake: <75% of estimated energy requirement for >1 month Weight Loss: 5%/1 month; 7.5%/3 months; 10%/6 months; 20%/1 year Other: mild body fat loss; mild muscle mass loss; mild fluid accumulation Severe Malnutrition (in chronic illness) Energy Intake: <75% of estimated energy requirement for >1 month Weight Loss: >5%/1 month; >7.5%/3 months; >10%/6 months; >20%/1 year Other: severe body fat loss; severe muscle mass loss; severe fluid accumulation ; measurably reduced insulation board back tender strength (This form is maintained as a part of the permanent medical record) 2014 [employer] All Rights Reserved [email or web address] Office: [phone] [facility]
--- NOTE | 2017-06-29 14:32 | CON ---
DATE OF CONSULTATION: 06/29/2017 REASON FOR CONSULTATION: Altered mental status, diarrhea, neutrophilia and lower abdominal pain. HISTORY OF PRESENT ILLNESS: A 71-year-old patient whom I had seen at the beginning of this year with a history of type 2 diabetes, coronary artery disease, prior bypass graft surgery as well as hyperte nsion and methicillin susceptible Staphylococcus aureus bacteremia. Patient was diagnosed with luis m l valve endocarditis and received 6 weeks course of treatment with IV antimicrobial therapy. This co ncluded at the beginning of this month. Now, the patient had been living at home and then developed altered mental status with hyperglycemia. The patient had one episode of vomiting. No reported head aches, no seizure activity, no respiratory symptoms. No abdominal pain or genitourinary symptoms. I nitial white cell count 31,000. Bands are 14 with a temperature 98.8, blood pressure 140/60, respira tory rate 18, O2 saturation 98%. Appeared alert and oriented with a systolic murmur at the second in tercostal space to the left of the sternal border. Lungs were clear. Abdomen is soft with mild tend erness in lower suprapubic area. Initial labs, white cell count 31,000 down to 17, hemoglobin 8.4 an d 8.9, platelets 295, the predominance of mature neutrophils. Sodium 134, creatinine 0.73 and transa minases, bilirubin and alkaline phosphatase within normal limits. Albumin 2.5. Urinalysis greater t stephen 50 wbcs and urine culture with yeast species, two sets of negative blood cultures thus far. PAST MEDICAL HISTORY: 1. Type 2 diabetes. 2. Coronary artery disease. 3. Eczema. 4. Hypertension. PAST SURGICAL HISTORY: Bypass graft surgery. SOCIAL HISTORY: Apparently drinks heavily. Former smoker. FAMILY HISTORY: Noncontributory. ALLERGIES: None. CURRENT MEDICATIONS: Aspirin, Coreg, dextrose, Feosol, Prozac, glucagon, Motrin, insulin, Zosyn, Mar juliane, Xarelto, Florastor, Zocor, and vancomycin. PHYSICAL EXAMINATION: VITAL SIGNS: T-max 102.2 yesterday at 5:00 p.m., BP 160/70, pulse is 64, respirations 20. SKIN: The area of hypospadia at the entrance of the Rueda catheter and some maceration with erythema in the perianal area. Peripheral IV access. No lymphadenopathy. HEENT: Ocular movements conjugate. Oral cavity with numerous missing teeth. NECK: Supple. LUNGS: With symmetric clear breath sounds. HEART: S1, S2, without murmurs. No S3 or S4. ABDOMEN: Soft and not distended or tender. No bladder distention. GENITOURINARY: Rueda catheter in place. EXTREMITIES: He is awake. He has some element of large airway secretions which he has hard time to clear and the lung examination actually does have basilar inspiratory crackles. EXTREMITIES: Pulses are 1+ in dorsalis pedis. NEUROLOGIC: Plantar responses are flexure. No clonus. Some element of onychodystrophy. He moves e xtremities equally. Cognitive function is remarkable for orientation x3, follows commands. Recollec tion is somewhat limited. LABORATORY AND X-RAY FINDINGS: Urinalysis with greater than 50 WBCs. White cell count 31,000 and 17 ,000, hemoglobin 8.2, creatinine 0.73. Transaminases normal, albumin 2.5. Chest, abdomen, and pelvi s CT scan is pending at this time. Wet reading demonstrates interstitial pulmonary edema in the CT o f chest and the abdomen shows the Rueda catheter in place. There is a distended rectosigmoid area. The bladder is not remarkable. ASSESSMENT: Coronary artery disease with prior bypass graft surgery, type 2 diabetes, hypertension, abnormal urinalysis, recent episode of Enterococcus faecalis bacteremia, 1/2 sets of unknown primary site. DISCUSSION: Differential diagnosis includes invasive UTI with bacteremia. An intra-abdominal inflam matory process is not apparent, but will wait on interpretation of the CT scan completed. The chest area demonstrates interstitial edema, but no pneumonic infiltrate. Continue current regimen and then will follow up the results of cultures to determine further interventions if needed.
--- NOTE | 2017-06-29 15:20 | CT ---
CT CHEST WITH IV CONTRAST CT ABDOMEN AND PELVIS WITH IV CONTRAST: Date: 06/29/17 HISTORY: Sepsis, unclear source. UTI. COMPARISON: CTA thorax on 04/30/17, as well as CTA abdomen on 03/11/09. FINDINGS: CT THORAX: As noted on the prior exam, there are postsurgical changes related to CABG. Vascular calcifications a re seen in the coronary arteries, as well as involving the thoracic aorta. Thoracic aorta is normal i n caliber without evidence of an aortic dissection. There are small to moderate sized bilateral pleur al effusions and associated passive atelectasis. There are mild emphysematous changes seen within the upper lobes, greater on the right. Minimal ground-glass densities are seen in the right upper lobe, and to a lesser extent on the left, which could be related to atelectasis or infectious process. Degenerative changes are noted in the spine. There is mildly prominent pretracheal lymph node present, which measures 1.2 cm in short axis dimensi on, and was also on prior exam. CT ABDOMEN/PELVIS: There is prominent motion artifact. There are subcentimeter, too small to characterize, hypodense les ions within the left kidney. The liver, spleen, pancreas, bilateral adrenal glands, and opacified small bowel demonstrate a normal CT appearance. There are dense atherosclerotic vascular calcifications seen in the abdominal aorta and involving the iliac arteries. Rueda catheter is present in the urinary bladder. There is gas in the urinary bladder, likely related to the catheterization. There is a small amount of stranding and edema within the mesentery and greater in a presacral locati on. There is no fluid collection or lymphadenopathy seen in the abdomen or pelvis. There is a small to moderate amount of retained fecal material seen throughout the colon. A small por tion of the appendix is visualized and is normal in caliber. Prominent degenerative changes are seen in the spine with severe end plate degenerative changes prese nt at the L4-5 and L5-S1 levels. There is Grade I anterolisthesis of L5 on S1. There is generalized subcutaneous edema suggesting anasarca. IMPRESSION: 1. Small to moderate size bilateral pleural effusions and passive atelectasis. 2. Tiny amount of intraperitoneal free fluid and edema within the mesentery, as well as in a presacr al location. There is evidence of anasarca. 3. Findings likely attributable to severe end plate degenerative changes in the lower lumbar spine, greatest at the L5-S1 level. There is Grade I anterolisthesis of L5 on S1. 4. Subtle ground-glass densities in the upper lobes bilaterally, which could be a factor of atelecta sis, but infectious or inflammatory process is a possibility as well. 5. Emphysematous changes. POS: DILLAN
[2017-06-29] MEDS: Lisinopril 20 MG TAB PO SCH (21:57)
[2017-06-29] MEDS: Simvastatin 40 MG TAB PO SCH (21:58)
[2017-06-29] MEDS: Vancomycin HCl 1.25 GM in Sodium Chloride 0.9% 250 ML 250 ML IVPB SCH (22:27)
[2017-06-30] MEDS: Piperacillin/Tazobactam 3.375 GM in Sodium Chloride 0.9% 100 ML IVPB SCH ×4 (00:19→17:27)
[2017-06-30 05:22] LABS: #Lymphocytes 2.6 thou/uL (1.20-3.40); %Eosinophils 0.1 % (0.0-10.0); %Lymphocytes 17.8 % (21.0-51.0); %Monocytes 6.6 % (0.0-10.0); %Neutrophils 75.5 % (42.0-75.0); Hemoglobin 8.5 g/dL (14.0-18.0); Mean Corpuscular HGB CONC 30.6 g/dL (32.0-36.0); Mean Corpuscular Hemoglobin 26.9 pg (27.0-31.0); Mean Platelet Volume 7.4 fL (7.4-10.4); Platelet Count 309 thou/uL (130-400); RBC Distribution Width 14.1 % (11.5-14.5); Red Blood Cell (RBC) Count 3.14 mill/uL (4.70-6.10); White Blood Cell (WBC) Count 14.5 thou/uL (4.8-10.8)
[2017-06-30 05:38] LABS: Anion Gap 8 mmol/L (10-20); BUN (Urea Nitrogen) 11 mg/dL (8.4-25.7); Calc. Creatinine Clearance 126 mL/min (70-130); Calcium 7.6 mg/dL (7.8-10.44); Carbon Dioxide 25 mmol/L (23-31); Chloride 102 mmol/L (98-107); Estimated GFR-MDRD Greater than 90; Potassium 3.4 mmol/L (3.5-5.1); Sodium 132 mmol/L (136-145)
[2017-06-30 06:04] LABS: Glucose 43 mg/dL (83-110)
[2017-06-30] MEDS: Saccharomyces boulardii 250 MG CAP PO SCH ×2 (08:26→21:21)
[2017-06-30] MEDS: Rivaroxaban 10 MG TAB PO SCH (08:26)
[2017-06-30] MEDS: Polyethylene Glycol 3350 17 GM Packet PO SCH (08:26)
[2017-06-30] MEDS: Ferrous Sulfate 325 MG TAB PO SCH ×2 (08:27→17:28)
[2017-06-30] MEDS: Tamsulosin HCl 0.4 MG CAP PO SCH (08:27)
[2017-06-30] MEDS: Ziprasidone 20 MG CAP PO SCH ×2 (08:27→17:28)
[2017-06-30] MEDS: Carvedilol 6.25 MG TAB PO SCH ×2 (08:27→21:20)
[2017-06-30] MEDS: FLUoxetine HCl 20 MG CAP PO SCH (08:27)
[2017-06-30] MEDS: Insulin Detemir 100 UNITS/ML 15 UNITS in Pre-Filled Syringe 1 EACH SC SCH (08:48)
[2017-06-30] MEDS: Vancomycin HCl 1.25 GM in Sodium Chloride 0.9% 250 ML 250 ML IVPB SCH ×2 (08:48→21:22)
[2017-06-30] MEDS: Sodium Chloride 0.9% 1,000 ML IV SCH (08:49)
--- NOTE | 2017-06-30 10:45 | PDOC.PN ---
- Subjective Encounter Start Date: 06/30/17 Encounter Start Time: 09:15 Subjective: no sob or abd pain -: is not fully oriented this am, ?hypoglycemic episode this am - Objective Resuscitation Status: Resuscitation Status FULL:Full Resuscitation MAR Reviewed: Yes Vital Signs & Weight: Vital Signs (12 hours) Temp Pulse Resp BP BP Pulse Ox 06/30/17 08:27 159/75 H 06/30/17 08:00 98.5 F 84 16 137/65 93 L 06/30/17 04:00 98.0 F 78 19 159/74 H 100 06/30/17 00:49 99.8 F H 86 15 163/75 H 96 Weight Admit Weight 165 lb 1.6 oz Weight 176 lb I&O: 06/29/17 06/30/17 07/01/17 06:59 06:59 06:59 Intake Total 1599 3250 Output Total 700 960 Balance 899 2290 Result Diagrams: 06/30/17 05:12 06/30/17 05:12 Additional Labs: Accuchecks 06/30/17 06/30/17 06/30/17 07:17 06:36 06:00 POC Glucose 135 H 88 63 L 06/29/17 06/29/17 06/29/17 20:17 16:49 10:43 POC Glucose 115 H 160 H 254 H Phys Exam - Physical Examination HEENT: PERRLA, moist MMs Neck: no JVD, supple Respiratory: no wheezing, no rales Cardiovascular: RRR, no significant murmur Gastrointestinal: soft, non-tender, positive bowel sounds Musculoskeletal: no edema, pulses present Neurological: non-focal, moves all 4 limbs Dx/Plan (1) Sepsis Code(s): A41.9 - SEPSIS, UNSPECIFIED ORGANISM Status: Acute Qualifiers: Sepsis type: sepsis due to unspecified organism Qualified Code(s): A41.9 - Sepsis, unspecified organism (2) UTI (urinary tract infection) Status: Acute Qualifiers: Urinary tract infection type: acute cystitis Hematuria presence: without hematuria Qualified Code(s): N30.00 - Acute cystitis without hematuria (3) H/O endocarditis Code(s): Z86.79 - PERSONAL HISTORY OF OTHER DISEASES OF THE CIRCULATORY SYSTEM Status: Chronic Comment: had mitral post leaflet veg 05/05/2017 (4) DM type 2 (diabetes mellitus, type 2) Status: Chronic Qualifiers: Diabetes mellitus computer terminal operator insulin use: with mcc use Diabetes mellitus complication status: with unspecified complications Qualified Code(s) : E11.8 - Type 2 diabetes mellitus with unspecified complications; Z79.4 - halfway (current) use of insulin; Z79.4 - halfway (current) use of insulin; Z79.4 - halfway (current) use of insulin; Z79.4 - computer terminal operator (current) use of insulin (5) CAD (coronary artery disease) Code(s): I25.10 - ATHSCL HEART DISEASE OF [place] CORONARY ARTERY W/O ANG PCTRS Status: Chronic Qualifiers: Coronary Disease-Associated Artery/Lesion type: bypass graft [place] vs. transplanted heart: [place] heart Associated angina: without angina Qualified Code(s): I25.810 - Atherosclerosis of coronary artery bypass graft(s) without angina pectoris (6) Demand ischemia of myocardium Code(s): I24.8 - OTHER FORMS OF ACUTE ISCHEMIC HEART DISEASE Status: Resolved (7) Hypoalbuminemia due to protein-calorie malnutrition Code(s): E46 - UNSPECIFIED PROTEIN-CALORIE MALNUTRITION Status: Chronic (8) Aortic stenosis Code(s): I35.0 - NONRHEUMATIC AORTIC (VALVE) STENOSIS Status: Chronic Qualifiers: Cardiac valve disease etiology: nonrheumatic Comment: valve area of 1.2cm2 (9) HTN (hypertension) Code(s): I10 - ESSENTIAL (PRIMARY) HYPERTENSION Status: Chronic Qualifiers: Hypertension type: essential hypertension Comment: - Plan mercedez miguel just coverage for now -: encourage po intake -: repeat echo is pending, h/o mitral veg -: blood cs are -ve, urine ?wen -: is on vanc and zosyn, wbc down to 14 from 31k * . Review of Systems - Medications/Allergies Allergies/Adverse Reactions: Allergies Allergy/AdvReac Type Severity Reaction Status Date / Time No Known Allergies Allergy Verified 06/21/17 02:47 Medications: Current Medications Aspirin (Aspirin Chewable) 81 mg PO DAILY [facility] Last Admin: 06/30/17 08:27 Dose: 81 mg Carvedilol (Coreg) 12.5 mg PO BID [facility] Last Admin: 06/30/17 08:27 Dose: 12.5 mg Dextrose/Water (Dextrose 50%) 25 gm SLOW IVP PRN PRN PRN Reason: Hypoglycemia Ferrous Sulfate (Feosol) 325 mg PO BID-[facility] Last Admin: 06/30/17 08:27 Dose: 325 mg Fluoxetine HCl (Prozac) 20 mg PO DAILY [facility] Last Admin: 06/30/17 08:27 Dose: 20 mg Glucagon (Glucagon) 1 mg IM PRN PRN PRN Reason: Hypoglycemia Sodium Chloride (Normal Saline 0.9%) 1,000 mls @ 75 mls/hr IV .[id number] [facility] Last Admin: 06/30/17 08:49 Dose: 1,000 mls Piperacillin Sod/Tazobactam (Sod 3.375 gm/ Sodium Chloride) 100 mls @ 200 mls/ hr IVPB Q6HR [facility] Last Admin: 06/30/17 05:38 Dose: 100 mls Vancomycin HCl 1.25 gm/ Sodium (Chloride) 250 mls @ 166.667 mls/hr IVPB 1000, 2200 [facility] Last Admin: 06/30/17 08:48 Dose: 250 mls Dextrose/Water (D5w) 1,000 mls @ 0 mls/hr IV .Q0M PRN; As Directed PRN Reason: Hypoglycemia Ibuprofen (Motrin) 400 mg PO TIDPRN PRN PRN Reason: PAIN/FEVER Last Admin: 06/28/17 18:23 Dose: 400 mg Insulin Human Lispro (Humalog) 0 units SC .MODERATE SLIDING SC PRN PRN Reason: Moderate Correctional Scale Insulin Human Lispro (Humalog) 0 units SC .BEDTIME SLIDING SC PRN PRN Reason: Bedtime Correctional Scale Lisinopril (Zestril) 40 mg PO [facility] Last Admin: 06/29/17 21:57 Dose: 40 mg Miscellaneous Medication (Pharmacy To Dose) 1 each IVPB PRN PRN PRN Reason: Pharmacy to dose Polyethylene Glycol (Miralax) 17 gm PO DAILY [facility] Last Admin: 06/30/17 08:26 Dose: 17 gm Rivaroxaban (Xarelto) 20 mg PO DAILY [facility] Last Admin: 06/30/17 08:26 Dose: 20 mg Saccharomyces Boulardii (Florastor) 250 mg PO BID [facility] Last Admin: 06/30/17 08:26 Dose: 250 mg Simvastatin (Zocor) 40 mg PO [facility] Last Admin: 06/29/17 21:58 Dose: 40 mg Sodium Chloride (Flush - Normal Saline) 10 ml IVF Q12HR [facility] Last Admin: 06/30/17 08:27 Dose: 10 ml Sodium Chloride (Flush - Normal Saline) 10 ml IVF PRN PRN PRN Reason: Saline Flush Tamsulosin HCl (Flomax) 0.4 mg PO DAILY [facility] Last Admin: 06/30/17 08:27 Dose: 0.4 mg Ziprasidone (Geodon) 20 mg PO BID-[facility] Last Admin: 06/30/17 08:27 Dose: 20 mg
[2017-06-30] MEDS: Lisinopril 20 MG TAB PO SCH (21:20)
[2017-06-30] MEDS: Simvastatin 40 MG TAB PO SCH (21:21)
[2017-07-01] MEDS: Sodium Chloride 0.9% 1,000 ML IV SCH ×3 (00:08→21:02)
[2017-07-01] MEDS: Piperacillin/Tazobactam 3.375 GM in Sodium Chloride 0.9% 100 ML IVPB SCH ×4 (00:30→23:27)
[2017-07-01 06:07] LABS: #Lymphocytes 2.3 thou/uL (1.20-3.40); #Monocytes 0.8 thou/uL (0.11-0.59); #Neutrophils 8.5 thou/uL (1.40-6.50); %Basophils 0.1 % (0.0-1.0); %Eosinophils 0.1 % (0.0-10.0); %Lymphocytes 19.8 % (21.0-51.0); %Monocytes 7.2 % (0.0-10.0); %Neutrophils 72.8 % (42.0-75.0); Hemoglobin 8.1 g/dL (14.0-18.0); Mean Corpuscular HGB CONC 30.6 g/dL (32.0-36.0); Mean Corpuscular Hemoglobin 27.2 pg (27.0-31.0); Mean Corpuscular Volume 88.9 fl (80.0-94.0); Mean Platelet Volume 7.7 fL (7.4-10.4); Platelet Count 315 thou/uL (130-400); RBC Distribution Width 14.2 % (11.5-14.5); White Blood Cell (WBC) Count 11.6 thou/uL (4.8-10.8)
[2017-07-01 06:16] LABS: Anion Gap 9 mmol/L (10-20); BUN (Urea Nitrogen) 10 mg/dL (8.4-25.7); Calc. Creatinine Clearance 128 mL/min (70-130); Calcium 7.4 mg/dL (7.8-10.44); Carbon Dioxide 24 mmol/L (23-31); Chloride 103 mmol/L (98-107); Estimated GFR-MDRD Greater than 90; Glucose 115 mg/dL (83-110); Potassium 3.2 mmol/L (3.5-5.1); Sodium 133 mmol/L (136-145)
[2017-07-01] MEDS: FLUoxetine HCl 20 MG CAP PO SCH (09:17)
[2017-07-01] MEDS: Tamsulosin HCl 0.4 MG CAP PO SCH (09:17)
[2017-07-01] MEDS: Saccharomyces boulardii 250 MG CAP PO SCH ×2 (09:17→20:56)
[2017-07-01] MEDS: Carvedilol 6.25 MG TAB PO SCH ×2 (09:17→20:56)
[2017-07-01] MEDS: Polyethylene Glycol 3350 17 GM Packet PO SCH (09:17)
[2017-07-01] MEDS: Ziprasidone 20 MG CAP PO SCH ×2 (09:17→17:28)
[2017-07-01] MEDS: Rivaroxaban 10 MG TAB PO SCH (09:18)
[2017-07-01] MEDS: Ferrous Sulfate 325 MG TAB PO SCH ×2 (09:18→17:28)
--- NOTE | 2017-07-01 09:38 | PDOC.PN ---
- Subjective Encounter Start Date: 07/01/17 Encounter Start Time: 09:36 Subjective: nsg notes rev, kathrin ovn, no new c/o, is currently working with PT - Objective Resuscitation Status: Resuscitation Status FULL:Full Resuscitation Vital Signs & Weight: Vital Signs (12 hours) Temp Pulse Resp BP BP Pulse Ox 07/01/17 09:17 128/68 07/01/17 04:50 98.7 F 91 16 128/68 93 L 07/01/17 00:26 98.7 F 79 18 158/73 H 94 L Weight Admit Weight 165 lb 1.6 oz Weight 179 lb 3.2 oz I&O: 06/30/17 07/01/17 07/02/17 06:59 06:59 06:59 Intake Total 3250 1720 Output Total 960 500 Balance 2290 1220 Result Diagrams: 07/01/17 05:46 07/01/17 05:46 Additional Labs: Accuchecks 07/01/17 07/01/17 06/30/17 06:00 00:26 21:11 POC Glucose 124 H 97 90 06/30/17 06/30/17 17:36 11:02 POC Glucose 85 178 H Phys Exam - Physical Examination Constitutional: NAD HEENT: PERRLA, moist MMs, sclera anicteric Neck: no nodes Respiratory: no wheezing, no rales, no rhonchi, clear to auscultation bilateral diminished throughout Cardiovascular: RRR, no rub, gallop 3/5 JODIE best heard LSB Gastrointestinal: soft, no distention, positive bowel sounds Musculoskeletal: no edema Neurological: moves all 4 limbs Psychiatric: normal affect Dx/Plan - Plan * UTI * bacteremia * leukocytosis improved with empiric abx * ? ECHO repeat * pending culture speciation (only 1- of 2) * apprec ID c/s Review of Systems - Medications/Allergies Allergies/Adverse Reactions: Allergies Allergy/AdvReac Type Severity Reaction Status Date / Time No Known Allergies Allergy Verified 06/21/17 02:47 Medications: Current Medications Aspirin (Aspirin Chewable) 81 mg PO DAILY [facility] Last Admin: 07/01/17 09:18 Dose: 81 mg Carvedilol (Coreg) 12.5 mg PO BID [facility] Last Admin: 07/01/17 09:17 Dose: 12.5 mg Dextrose/Water (Dextrose 50%) 25 gm SLOW IVP PRN PRN PRN Reason: Hypoglycemia Ferrous Sulfate (Feosol) 325 mg PO BID-[facility] Last Admin: 07/01/17 09:18 Dose: 325 mg Fluoxetine HCl (Prozac) 20 mg PO DAILY [facility] Last Admin: 07/01/17 09:17 Dose: 20 mg Glucagon (Glucagon) 1 mg IM PRN PRN PRN Reason: Hypoglycemia Sodium Chloride (Normal Saline 0.9%) 1,000 mls @ 75 mls/hr IV .[id number] [facility] Last Admin: 07/01/17 04:57 Dose: 1,000 mls Piperacillin Sod/Tazobactam (Sod 3.375 gm/ Sodium Chloride) 100 mls @ 200 mls/ hr IVPB Q6HR [facility] Last Admin: 07/01/17 05:02 Dose: 100 mls Vancomycin HCl 1.25 gm/ Sodium (Chloride) 250 mls @ 166.667 mls/hr IVPB 1000, 2200 [facility] Last Admin: 06/30/17 21:22 Dose: 250 mls Dextrose/Water (D5w) 1,000 mls @ 0 mls/hr IV .Q0M PRN; As Directed PRN Reason: Hypoglycemia Ibuprofen (Motrin) 400 mg PO TIDPRN PRN PRN Reason: PAIN/FEVER Last Admin: 06/28/17 18:23 Dose: 400 mg Insulin Human Lispro (Humalog) 0 units SC .MODERATE SLIDING SC PRN PRN Reason: Moderate Correctional Scale Insulin Human Lispro (Humalog) 0 units SC .BEDTIME SLIDING SC PRN PRN Reason: Bedtime Correctional Scale Lisinopril (Zestril) 40 mg PO [facility] Last Admin: 06/30/17 21:20 Dose: 40 mg Miscellaneous Medication (Pharmacy To Dose) 1 each IVPB PRN PRN PRN Reason: Pharmacy to dose Polyethylene Glycol (Miralax) 17 gm PO DAILY [facility] Last Admin: 07/01/17 09:17 Dose: 17 gm Rivaroxaban (Xarelto) 20 mg PO DAILY [facility] Last Admin: 07/01/17 09:18 Dose: 20 mg Saccharomyces Boulardii (Florastor) 250 mg PO BID [facility] Last Admin: 07/01/17 09:17 Dose: 250 mg Simvastatin (Zocor) 40 mg PO [facility] Last Admin: 06/30/17 21:21 Dose: 40 mg Sodium Chloride (Flush - Normal Saline) 10 ml IVF Q12HR [facility] Last Admin: 07/01/17 09:19 Dose: 10 ml Sodium Chloride (Flush - Normal Saline) 10 ml IVF PRN PRN PRN Reason: Saline Flush Tamsulosin HCl (Flomax) 0.4 mg PO DAILY [facility] Last Admin: 07/01/17 09:17 Dose: 0.4 mg Ziprasidone (Geodon) 20 mg PO BID-[facility] Last Admin: 07/01/17 09:17 Dose: 20 mg
[2017-07-01 09:44] LABS: Vancomycin, Trough 16.8 ug/mL
[2017-07-01] MEDS: Vancomycin HCl 1.25 GM in Sodium Chloride 0.9% 250 ML 250 ML IVPB SCH (11:00)
[2017-07-01] MEDS: HumaLOG 300 UNITS/3 ML VIAL SC PRN ×2 (11:14→17:28)
[2017-07-01] MEDS: Simvastatin 40 MG TAB PO SCH (20:57)
[2017-07-01] MEDS: Lisinopril 20 MG TAB PO SCH (20:57)
[2017-07-01] MEDS ORDERED: Piperacillin/Tazobactam 3.375 GM in Sodium Chloride 0.9% 100 ML IVPB SCH (21:00)
[2017-07-02] MEDS: Vancomycin HCl 1.25 GM in Sodium Chloride 0.9% 250 ML 250 ML IVPB SCH ×3 (00:27→21:12)
[2017-07-02] MEDS: Piperacillin/Tazobactam 3.375 GM in Sodium Chloride 0.9% 100 ML IVPB SCH ×4 (05:02→23:25)
[2017-07-02 06:10] LABS: #Lymphocytes 1.7 thou/uL (1.20-3.40); #Monocytes 0.6 thou/uL (0.11-0.59); %Basophils 0.1 % (0.0-1.0); %Eosinophils 0.2 % (0.0-10.0); %Monocytes 4.7 % (0.0-10.0); Hemoglobin 8.8 g/dL (14.0-18.0); Mean Corpuscular HGB CONC 31.3 g/dL (32.0-36.0); Mean Corpuscular Hemoglobin 27.3 pg (27.0-31.0); Mean Corpuscular Volume 87.2 fl (80.0-94.0); Mean Platelet Volume 7.7 fL (7.4-10.4); Platelet Count 390 thou/uL (130-400); RBC Distribution Width 14.4 % (11.5-14.5); Red Blood Cell (RBC) Count 3.23 mill/uL (4.70-6.10); White Blood Cell (WBC) Count 12.3 thou/uL (4.8-10.8)
[2017-07-02] MEDS: HumaLOG 300 UNITS/3 ML VIAL SC PRN ×4 (06:25→21:13)
[2017-07-02 06:29] LABS: Anion Gap 19 mmol/L (10-20); BUN (Urea Nitrogen) 18 mg/dL (8.4-25.7); Calc. Creatinine Clearance 88 mL/min (70-130); Calcium 7.7 mg/dL (7.8-10.44); Carbon Dioxide 16 mmol/L (23-31); Chloride 102 mmol/L (98-107); Estimated GFR-MDRD 84; Glucose 332 mg/dL (83-110); Potassium 3.7 mmol/L (3.5-5.1); Sodium 133 mmol/L (136-145)
--- NOTE | 2017-07-02 07:21 | PRG ---
DATE OF SERVICE: 07/01/2017 Mr. Zafar is awake, a little bit confused. He had a hard time answering questions. Denies all the q uestions regarding his review of systems, specifically no chest pain, no abdominal pain, no back pain . Not clear that his answers are reliable. PHYSICAL EXAMINATION: VITAL SIGNS: The T-max 99.8, blood pressure 120/69, pulse 87, respirations 16, O2 sat 95%. SKIN: No skin changes of significance. GENERAL: Disheveled a little bit diaphoretic and warm. HEENT: Ocular movements conjugate. NECK: Supple. LUNGS: Symmetric clear breath sounds. HEART: S1, S2, regular rate. ABDOMEN: Soft. LABORATORY DATA: White cell count 11.6, hemoglobin 8, platelets 315. Sodium 133, creatinine 0.89 an d now 2 sets of blood cultures with Staphylococcus aureus with pending susceptibilities. There is an echocardiogram report which demonstrates EF 55% to 60%, mild to moderate mitral regurgita tion, moderate aortic stenosis. We have the chest, abdomen, and pelvis CT from 06/29/2017 with small to moderate sized bilateral pleural effusions, passive atelectases, some intraperitoneal free fluid and edema with anasarca and end-plate degenerative changes L5-S1 and subtle ground glass densities up per lobes. ASSESSMENT AND DISCUSSION: Coronary artery disease, prior bypass graft surgery, type 2 diabetes, hyp ertension Staphylococcus aureus bacteremia, either MSSA or MRSA. Possible lumbosacral spine infectio n, possible endocarditis with hematogenous lung strike check. Consider a JOSEPH and MRI of the lumbosac ral spine. Will need protracted treatment for the organism anywhere from 4-6 weeks depending on the results of the above workup.
[2017-07-02] MEDS: Ziprasidone 20 MG CAP PO SCH ×2 (10:22→14:33)
[2017-07-02] MEDS: Ferrous Sulfate 325 MG TAB PO SCH ×3 (10:22→17:28)
[2017-07-02] MEDS: FLUoxetine HCl 20 MG CAP PO SCH ×2 (10:22→14:34)
[2017-07-02] MEDS: Carvedilol 6.25 MG TAB PO SCH ×3 (10:22→20:29)
[2017-07-02] MEDS: Tamsulosin HCl 0.4 MG CAP PO SCH (10:23)
[2017-07-02] MEDS: Polyethylene Glycol 3350 17 GM Packet PO SCH ×2 (10:23→14:34)
[2017-07-02] MEDS: Rivaroxaban 10 MG TAB PO SCH ×2 (10:23→14:34)
[2017-07-02] MEDS: Saccharomyces boulardii 250 MG CAP PO SCH ×3 (10:23→20:29)
[2017-07-02] MEDS: Sodium Chloride 0.9% 1,000 ML IV SCH (14:41)
--- NOTE | 2017-07-02 15:50 | PDOC.PN ---
- Subjective Encounter Start Date: 07/02/17 Encounter Start Time: 11:00 Subjective: nsg notes rev, kathrin ovn, no new c/o -: denies any fevers/ chills - Objective Resuscitation Status: Resuscitation Status FULL:Full Resuscitation Vital Signs & Weight: Vital Signs (12 hours) Temp Pulse Pulse Pulse Resp BP BP 07/02/17 15:39 98.7 F 86 15 07/02/17 14:33 121/60 07/02/17 13:03 97 89 172/79 H 07/02/17 12:45 98.6 F 94 20 07/02/17 10:22 121/60 07/02/17 08:12 98.7 F 90 20 07/02/17 07:49 98.7 F 90 20 BP BP Pulse Ox 07/02/17 15:39 165/71 H 97 07/02/17 14:33 07/02/17 13:03 141/66 H 07/02/17 12:45 128/61 96 07/02/17 10:22 07/02/17 08:12 94 L 07/02/17 07:49 110/55 L 94 L Weight Admit Weight 165 lb 1.6 oz Weight 186 lb 4.8 oz I&O: 07/01/17 07/02/17 07/03/17 06:59 06:59 06:59 Intake Total 1720 1980 1000 Output Total 500 1250 500 Balance 1220 730 500 Result Diagrams: 07/02/17 05:50 07/02/17 05:50 Additional Labs: Accuchecks 07/02/17 07/02/17 07/01/17 11:10 05:40 20:36 POC Glucose 316 H 315 H 208 H 07/01/17 17:00 POC Glucose 211 H Phys Exam - Physical Examination Constitutional: NAD HEENT: PERRLA, moist MMs, sclera anicteric Respiratory: no wheezing, no rales, no rhonchi, clear to auscultation bilateral Cardiovascular: RRR, no significant murmur, no rub Gastrointestinal: soft, positive bowel sounds Musculoskeletal: pulses present Psychiatric: normal affect, A&O x 3 Deviation from normal: no splinter hemorrhages Dx/Plan - Plan * UTI * bacteremia * leukocytosis improved with empiric abx * apprec card c/s for JOSEPH * pending MRI spine for further eval * pending culture speciation & sensitivity of staph aureus * apprec ID c/s * diet as marianna activity as marianna dvt ppx Review of Systems - Medications/Allergies Allergies/Adverse Reactions: Allergies Allergy/AdvReac Type Severity Reaction Status Date / Time No Known Allergies Allergy Verified 06/21/17 02:47 Medications: Current Medications Aspirin (Aspirin Chewable) 81 mg PO DAILY [facility] Last Admin: 07/02/17 14:33 Dose: 81 mg Carvedilol (Coreg) 12.5 mg PO BID [facility] Last Admin: 07/02/17 14:33 Dose: 12.5 mg Dextrose/Water (Dextrose 50%) 25 gm SLOW IVP PRN PRN PRN Reason: Hypoglycemia Ferrous Sulfate (Feosol) 325 mg PO BID-[facility] Last Admin: 07/02/17 14:33 Dose: 325 mg Fluoxetine HCl (Prozac) 20 mg PO DAILY [facility] Last Admin: 07/02/17 14:34 Dose: 20 mg Glucagon (Glucagon) 1 mg IM PRN PRN PRN Reason: Hypoglycemia Sodium Chloride (Normal Saline 0.9%) 1,000 mls @ 75 mls/hr IV .[id number] [facility] Last Admin: 07/02/17 14:41 Dose: 1,000 mls Vancomycin HCl 1.25 gm/ Sodium (Chloride) 250 mls @ 166.667 mls/hr IVPB 1000, 2200 [facility] Last Admin: 07/02/17 10:27 Dose: 250 mls Dextrose/Water (D5w) 1,000 mls @ 0 mls/hr IV .Q0M PRN; As Directed PRN Reason: Hypoglycemia Piperacillin Sod/Tazobactam (Sod 3.375 gm/ Sodium Chloride) 100 mls @ 200 mls/ hr IVPB 0600,1200,1800,2359 [facility] Last Admin: 07/02/17 12:35 Dose: 100 mls Ibuprofen (Motrin) 400 mg PO TIDPRN PRN PRN Reason: PAIN/FEVER Last Admin: 06/28/17 18:23 Dose: 400 mg Insulin Human Lispro (Humalog) 0 units SC .MODERATE SLIDING SC PRN PRN Reason: Moderate Correctional Scale Last Admin: 07/02/17 11:50 Dose: 8 unit Insulin Human Lispro (Humalog) 0 units SC .BEDTIME SLIDING SC PRN PRN Reason: Bedtime Correctional Scale Lisinopril (Zestril) 40 mg PO HS [facility] Last Admin: 07/01/17 20:57 Dose: 40 mg Miscellaneous Medication (Pharmacy To Dose) 1 each IVPB PRN PRN PRN Reason: Pharmacy to dose Polyethylene Glycol (Miralax) 17 gm PO DAILY [facility] Last Admin: 07/02/17 14:34 Dose: 17 gm Rivaroxaban (Xarelto) 20 mg PO DAILY [facility] Last Admin: 07/02/17 14:34 Dose: 20 mg Saccharomyces Boulardii (Florastor) 250 mg PO BID [facility] Last Admin: 07/02/17 14:33 Dose: 250 mg Simvastatin (Zocor) 40 mg PO HS [facility] Last Admin: 07/01/17 20:57 Dose: 40 mg Sodium Chloride (Flush - Normal Saline) 10 ml IVF Q12HR [facility] Last Admin: 07/02/17 10:23 Dose: Not Given Sodium Chloride (Flush - Normal Saline) 10 ml IVF PRN PRN PRN Reason: Saline Flush Tamsulosin HCl (Flomax) 0.4 mg PO DAILY [facility] Last Admin: 07/02/17 10:23 Dose: Not Given Ziprasidone (Geodon) 20 mg PO BID-[facility] Last Admin: 07/02/17 14:33 Dose: 20 mg
[2017-07-02] MEDS: Lisinopril 20 MG TAB PO SCH (20:28)
[2017-07-02] MEDS: Simvastatin 40 MG TAB PO SCH (20:30)
[2017-07-03 04:39] LABS: #Eosinphils 0.1 thou/uL (0.0-0.7); #Lymphocytes 2.1 thou/uL (1.20-3.40); #Monocytes 0.9 thou/uL (0.11-0.59); #Neutrophils 11.3 thou/uL (1.40-6.50); %Basophils 0.2 % (0.0-1.0); %Eosinophils 0.4 % (0.0-10.0); %Lymphocytes 14.4 % (21.0-51.0); %Monocytes 6.2 % (0.0-10.0); %Neutrophils 78.9 % (42.0-75.0); Hemoglobin 8.4 g/dL (14.0-18.0); Mean Corpuscular HGB CONC 31.8 g/dL (32.0-36.0); Mean Corpuscular Hemoglobin 27.8 pg (27.0-31.0); Mean Corpuscular Volume 87.3 fl (80.0-94.0); Mean Platelet Volume 7.7 fL (7.4-10.4); Platelet Count 426 thou/uL (130-400); RBC Distribution Width 14.3 % (11.5-14.5); Red Blood Cell (RBC) Count 3.04 mill/uL (4.70-6.10); White Blood Cell (WBC) Count 14.4 thou/uL (4.8-10.8)
[2017-07-03 04:55] LABS: Anion Gap 13 mmol/L (10-20); BUN (Urea Nitrogen) 19 mg/dL (8.4-25.7); Calc. Creatinine Clearance 94 mL/min (70-130); Carbon Dioxide 21 mmol/L (23-31); Chloride 106 mmol/L (98-107); Estimated GFR-MDRD 86; Glucose 331 mg/dL (83-110); Potassium 3.6 mmol/L (3.5-5.1); Sodium 136 mmol/L (136-145)
[2017-07-03] MEDS: Piperacillin/Tazobactam 3.375 GM in Sodium Chloride 0.9% 100 ML IVPB SCH ×3 (05:41→17:39)
[2017-07-03] MEDS: Sodium Chloride 0.9% 1,000 ML IV SCH ×2 (05:42→16:14)
[2017-07-03] MEDS: HumaLOG 300 UNITS/3 ML VIAL SC PRN ×2 (06:04→17:40)
[2017-07-03 09:12] VITALS: BMI 25.4
[2017-07-03 09:19] LABS: Vancomycin, Trough 24.4 ug/mL
[2017-07-03] MEDS: Ziprasidone 20 MG CAP PO SCH ×2 (10:40→17:21)
[2017-07-03] MEDS: Carvedilol 6.25 MG TAB PO SCH ×2 (10:40→20:30)
[2017-07-03] MEDS: Ferrous Sulfate 325 MG TAB PO SCH ×2 (10:40→17:21)
[2017-07-03] MEDS: FLUoxetine HCl 20 MG CAP PO SCH (10:40)
[2017-07-03] MEDS: Saccharomyces boulardii 250 MG CAP PO SCH ×2 (10:41→20:31)
[2017-07-03] MEDS: Vancomycin HCl 1 GM in Premix Bag 1 BAG IVPB SCH ×3 (10:41→21:16)
[2017-07-03] MEDS: Polyethylene Glycol 3350 17 GM Packet PO SCH (10:41)
[2017-07-03] MEDS: Tamsulosin HCl 0.4 MG CAP PO SCH (10:41)
[2017-07-03] MEDS: Rivaroxaban 10 MG TAB PO SCH (10:41)
[2017-07-03] MEDS ORDERED: PROPOFOL 0 ML ONE (11:44)
--- NOTE | 2017-07-03 11:53 | SPC ---
LEFT UPPER EXTREMITY PICC LINE ULTRASOUND AND FLUOROSCOPIC GUIDANCE: PROCEDURE: After informed consent had been obtained, the patient was placed on the interventional suite table in a supine position. The leftl arm was prepped and draped in a standard sterile fashion. Topical ane sthesia was achieved utilizing 1% Lidocaine and sodium bicarbonate. Under real-time sonography, the brachial vein of the left upper extremity was accessed with a small caliber needle with venous flash present at the needle hub. A guidewire was then advanced in to the needle, and under real-time fluor oscopy, the guidewire was advanced to the level of the inferior vena cava to confirm appropriate veno us placement. A small skin incision was made and the needle was removed. Over the guidewire, a sing le lumen PICC line was cut to 43 cm. The PICC line was advanced under real-time fluoroscopy over the guidewire to the level of the cavoatrial junction. The guidewire and peelaway sheath were then sydney kath. PICC line flushed and aspirated appropriately and was secured to the left upper extremity. The re were no procedural complications. RADIATION DOSIMETRY: 12 mGy*cm^2, 0 minutes intermittent fluoroscopy. IMPRESSION: Technically successful ultrasound and fluoroscopic-guided left PICC line placement, as above. POS: DILLAN
--- NOTE | 2017-07-03 14:15 | PRG ---
DATE OF SERVICE: 07/02/2017 SUBJECTIVE: Mr. Zafar is about the same with difficulty with communication. All of his review of systems is negative, but I am not sure about the accuracy of his review of systems. In view of his cognitive status. OBJECTIVE: VITAL SIGNS: His temperature has been normal. Blood pressure 160/78, pulse 72 , respirations 20-24, O2 sat 97%. SKIN: As a small area of stage II pressure damage to the skin on left heel, small lacerations in the feet. Otherwise, the skin exam is okay. LUNGS: With few crackles at the base. HEART: S1, S2, regular rate. ABDOMEN: Soft, not distended. NEUROLOGIC: Unchanged. LABORATORY DATA: White cell count is 14.4, hemoglobin 8.4, platelets 426, 78% neutrophils. Sodium 138, creatinine 0.87. The last liver profile is from 06/27 and was normal. 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 The echocardiogram shows an area of lesion with the same vegetation as noted before and seems to be unchanged. The patient had JOSEPH before in the past which showed vegetation. There are some inconsistencies as to the placement of this vegetation if it is in the anterior or posterior leaflet of the mitral valve. 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 The other possibility would be that he had infection in the lumbosacral spine area. He will need again repeat treatment for 6 weeks with cefazolin and imaging of the lumbosacral spine is pending. I see a palliative consult and maybe a less aggressive approach will be decided upon. If aggressive treatment is decided upon, then he will need a PICC line placement and labs weekly and probably transferred to facility. VLADISLAV
[2017-07-03] MEDS: Lisinopril 20 MG TAB PO SCH (20:30)
[2017-07-03] MEDS: Simvastatin 40 MG TAB PO SCH (20:31)
[2017-07-04] MEDS: Piperacillin/Tazobactam 3.375 GM in Sodium Chloride 0.9% 100 ML IVPB SCH ×4 (00:14→17:24)
[2017-07-04 05:49] LABS: #Monocytes 0.7 thou/uL (0.11-0.59); #Neutrophils 9.4 thou/uL (1.40-6.50); %Eosinophils 0.1 % (0.0-10.0); %Lymphocytes 16.6 % (21.0-51.0); %Monocytes 5.5 % (0.0-10.0); %Neutrophils 77.8 % (42.0-75.0); Hemoglobin 9.2 g/dL (14.0-18.0); Mean Corpuscular HGB CONC 30.3 g/dL (32.0-36.0); Mean Corpuscular Hemoglobin 26.7 pg (27.0-31.0); Mean Platelet Volume 7.7 fL (7.4-10.4); Platelet Count 519 thou/uL (130-400); RBC Distribution Width 14.4 % (11.5-14.5); Red Blood Cell (RBC) Count 3.44 mill/uL (4.70-6.10)
[2017-07-04] MEDS: HumaLOG 300 UNITS/3 ML VIAL SC PRN ×4 (06:07→21:23)
[2017-07-04 06:09] LABS: Anion Gap 16 mmol/L (10-20); BUN (Urea Nitrogen) 19 mg/dL (8.4-25.7); Calc. Creatinine Clearance 86 mL/min (70-130); Calcium 8.2 mg/dL (7.8-10.44); Carbon Dioxide 20 mmol/L (23-31); Chloride 105 mmol/L (98-107); Estimated GFR-MDRD 78; Glucose 409 mg/dL (83-110); Potassium 3.9 mmol/L (3.5-5.1); Sodium 137 mmol/L (136-145)
[2017-07-04] MEDS: Sodium Chloride 0.9% 1,000 ML IV SCH ×2 (07:39→09:03)
[2017-07-04] MEDS ORDERED: Heparin 1,000 UNITS/ML VIAL ONE (09:00)
[2017-07-04] MEDS: Ziprasidone 20 MG CAP PO SCH ×2 (09:02→17:24)
[2017-07-04] MEDS: Ferrous Sulfate 325 MG TAB PO SCH ×2 (09:02→17:24)
[2017-07-04] MEDS: Rivaroxaban 10 MG TAB PO SCH (09:02)
[2017-07-04] MEDS: Carvedilol 6.25 MG TAB PO SCH ×2 (09:03→21:15)
[2017-07-04] MEDS: FLUoxetine HCl 20 MG CAP PO SCH (09:03)
[2017-07-04] MEDS: Saccharomyces boulardii 250 MG CAP PO SCH ×2 (09:03→21:15)
[2017-07-04] MEDS: Tamsulosin HCl 0.4 MG CAP PO SCH (10:41)
[2017-07-04] MEDS: Polyethylene Glycol 3350 17 GM Packet PO SCH (10:42)
[2017-07-04] MEDS: Vancomycin HCl 1 GM in Premix Bag 1 BAG IVPB SCH ×2 (11:28→21:20)
--- NOTE | 2017-07-04 12:57 | MRI ---
LUMBAR SPINE MRI WITH AND WITHOUT CONTRAST: COMPARISON: 05/04/17. CLINICAL HISTORY: MSSA bacteremia, followup. The patient reports pain, although improving. FINDINGS: There remains abnormal fluid signal of the L5-S1 disk space. There has been interval development of marrow edema of the adjacent L5 and S1 vertebral segments along with enhancement. This does indicate evolution to include diskitis/osteomyelitis. As was described on previous exam, there remains exten sive artifact which limits evaluation notably of the adjacent vertebral canal. There is prominence o f circumferential signal within the vertebral canal at the L5 and S1 level. Dural thickening/hyperin tensity is seen to indicate component of pathologic dural enhancement. A well-formed T2 fluid collec tion of the vertebral canal is not identified to confirm epidural abscess. The bilateral L5-S1 neura l foramina are obscured, a component of which is due to artifact. Degree of inflammatory extension i nto the neural foramina and possible associated neuritis not excluded. Probable superimposed degener ative foraminal stenosis is also present, although not reliably assessed. A similar appearance of th e adjacent L4-5 neural foramina is noted, incompletely evaluated due to artifact, as well. Degree of central canal narrowing is similar to prior exam. Multilevel degenerative change redemonstrated, incompletely assessed due to the degree of artifact. There is incidental note of increased T1 signal which is present on the precontrast at the posterior aspect of the iliac bones bilaterally which likely relates to incomplete fat saturation of fatty ulises ow. There is prominent size of the posterior paraspinous musculature indicating edema. This is nons pecific and could relate to reactive myositis or, alternatively, a component of early denervation atr ophy. Recommend clinical correlation. IMPRESSION: Evidence of diskitis/osteomyelitis of L5-S1 with associated dural thickening and postcontrast hyperin tensity. Limited evaluation, although no definite epidural abscess of significance visualized. Cont inued followup to document expected resolution of findings upon completion of treatment regimen is re commended. POS: DILLAN
[2017-07-04] MEDS: Lisinopril 20 MG TAB PO SCH (21:15)
[2017-07-04] MEDS: Simvastatin 40 MG TAB PO SCH (21:15)
--- NOTE | 2017-07-04 22:12 | PDOC.PN ---
- Subjective Encounter Start Date: 07/04/17 Encounter Start Time: 15:00 Subjective: nsg notes rev, kathrin ovn, no new issues -: no new c/o, denies abd pain - Objective Resuscitation Status: Resuscitation Status DNR:Do Not Resuscitate Vital Signs & Weight: Vital Signs (12 hours) Temp Pulse Resp BP BP BP Pulse Ox 07/04/17 21:15 136/63 07/04/17 20:00 97.6 F 76 12 129/61 99 07/04/17 15:58 98.1 F 69 18 138/65 99 07/04/17 12:00 97.6 F 76 16 112/55 L 97 Weight Admit Weight 165 lb 1.6 oz Weight 189 lb 4.8 oz I&O: 07/03/17 07/04/17 07/05/17 06:59 06:59 06:59 Intake Total 1966 1000 Output Total 1250 1999 850 Balance 716 -2000 150 Result Diagrams: 07/05/17 04:57 07/05/17 04:57 Additional Labs: Accuchecks 07/04/17 07/04/17 07/04/17 20:56 17:27 10:57 POC Glucose 271 H 256 H 374 H Phys Exam - Physical Examination Constitutional: NAD HEENT: PERRLA, moist MMs, sclera anicteric Respiratory: no wheezing, no rales, no rhonchi, clear to auscultation bilateral Cardiovascular: RRR, no significant murmur, no rub Gastrointestinal: soft, non-tender, no distention, positive bowel sounds Neurological: moves all 4 limbs Psychiatric: normal affect Dx/Plan - Plan * sepsis on adm, resolved * UTI from indwelling catheter, t/c Rueda change out * bacteremia * leukocytosis improved with empiric pip-tax and vancomycin * MRI + concerning for osteomyelitis * blood culture 2/2 staph aureus * UCx + wen * apprec ID c/s diet as marianna activity as marianna dvt ppx c/s case mgmt, anticipate will need extended iv abx Review of Systems - Medications/Allergies Allergies/Adverse Reactions: Allergies Allergy/AdvReac Type Severity Reaction Status Date / Time No Known Allergies Allergy Verified 06/21/17 02:47 Medications: Current Medications Aspirin (Aspirin Chewable) 81 mg PO DAILY [facility] Last Admin: 07/04/17 09:03 Dose: 81 mg Carvedilol (Coreg) 12.5 mg PO BID [facility] Last Admin: 07/04/17 21:15 Dose: 12.5 mg Dextrose/Water (Dextrose 50%) 25 gm SLOW IVP PRN PRN PRN Reason: Hypoglycemia Ferrous Sulfate (Feosol) 325 mg PO BID-[facility] Last Admin: 07/04/17 17:24 Dose: 325 mg Fluoxetine HCl (Prozac) 20 mg PO DAILY [facility] Last Admin: 07/04/17 09:03 Dose: 20 mg Glucagon (Glucagon) 1 mg IM PRN PRN PRN Reason: Hypoglycemia Sodium Chloride (Normal Saline 0.9%) 1,000 mls @ 75 mls/hr IV .[id number] [facility] Last Admin: 07/05/17 05:47 Dose: 1,000 mls Dextrose/Water (D5w) 1,000 mls @ 0 mls/hr IV .Q0M PRN; As Directed PRN Reason: Hypoglycemia Piperacillin Sod/Tazobactam (Sod 3.375 gm/ Sodium Chloride) 100 mls @ 200 mls/ hr IVPB 0600,1200,1800,2359 [facility] Last Admin: 07/05/17 05:48 Dose: 100 mls Vancomycin HCl 1 gm/ Device 200 mls @ 200 mls/hr IVPB DAILY [facility] Ibuprofen (Motrin) 400 mg PO TIDPRN PRN PRN Reason: PAIN/FEVER Last Admin: 06/28/17 18:23 Dose: 400 mg Insulin Human Lispro (Humalog) 0 units SC .MODERATE SLIDING SC PRN PRN Reason: Moderate Correctional Scale Last Admin: 07/05/17 05:51 Dose: 10 unit Insulin Human Lispro (Humalog) 0 units SC .BEDTIME SLIDING SC PRN PRN Reason: Bedtime Correctional Scale Last Admin: 07/04/17 21:23 Dose: 3 unit Lisinopril (Zestril) 40 mg PO HS [facility] Last Admin: 07/04/17 21:15 Dose: 40 mg Miscellaneous Medication (Pharmacy To Dose) 1 each IVPB PRN PRN PRN Reason: Pharmacy to dose Polyethylene Glycol (Miralax) 17 gm PO DAILY [facility] Last Admin: 07/04/17 10:42 Dose: Not Given Rivaroxaban (Xarelto) 20 mg PO DAILY [facility] Last Admin: 07/04/17 09:02 Dose: 20 mg Saccharomyces Boulardii (Florastor) 250 mg PO BID [facility] Last Admin: 07/04/17 21:15 Dose: 250 mg Simvastatin (Zocor) 40 mg PO HS [facility] Last Admin: 07/04/17 21:15 Dose: 40 mg Sodium Chloride (Flush - Normal Saline) 10 ml IVF Q12HR [facility] Last Admin: 07/04/17 21:16 Dose: 10 ml Sodium Chloride (Flush - Normal Saline) 10 ml IVF PRN PRN PRN Reason: Saline Flush Tamsulosin HCl (Flomax) 0.4 mg PO DAILY [facility] Last Admin: 07/04/17 10:41 Dose: 0.4 mg Ziprasidone (Geodon) 20 mg PO BID-[facility] Last Admin: 07/04/17 17:24 Dose: 20 mg
--- NOTE | 2017-07-04 22:12 | PDOC.PN ---
- Subjective Encounter Start Date: 07/03/17 Encounter Start Time: 13:00 Subjective: nsg notes rev, kathrin ovn, no new c/o, waiting to get JOSEPH and MRLI -: pt no new c/o -: LATE ENTRY FOR 07/03/17 - Objective Resuscitation Status: Resuscitation Status DNR:Do Not Resuscitate Vital Signs & Weight: Vital Signs (12 hours) Temp Pulse Resp BP BP BP Pulse Ox 07/04/17 21:15 136/63 07/04/17 20:00 97.6 F 76 12 129/61 99 07/04/17 15:58 98.1 F 69 18 138/65 99 07/04/17 12:00 97.6 F 76 16 112/55 L 97 Weight Admit Weight 165 lb 1.6 oz Weight 189 lb 4.8 oz I&O: 07/03/17 07/04/17 07/05/17 06:59 06:59 06:59 Intake Total 1966 1000 Output Total 1250 2000 850 Balance 716 -2000 150 Result Diagrams: 07/05/17 04:57 07/05/17 04:57 Additional Labs: Accuchecks 07/04/17 07/04/17 07/04/17 20:56 17:27 10:57 POC Glucose 271 H 256 H 374 H Phys Exam - Physical Examination Constitutional: NAD HEENT: PERRLA, moist MMs, sclera anicteric sclera and conjunctivae clear Respiratory: no wheezing, no rales, no rhonchi, clear to auscultation bilateral marginal air mvmt, limited ant exam per pt req Cardiovascular: RRR, no significant murmur, no rub no splinter hemorrhages notes Gastrointestinal: soft, no distention, positive bowel sounds Musculoskeletal: pulses present Neurological: moves all 4 limbs Psychiatric: normal affect, A&O x 3 Dx/Plan - Plan * sepsis on adm, resolved * UTI from indwelling catheter * bacteremia * leukocytosis improved with empiric abx * apprec card c/s for JOSEPH * pending MRI spine for further eval * pending culture speciation & sensitivity of staph aureus * apprec ID c/s diet as marianna activity as marianna dvt ppx c/s case mgmt, anticipate will need extended iv abx Review of Systems - Medications/Allergies Allergies/Adverse Reactions: Allergies Allergy/AdvReac Type Severity Reaction Status Date / Time No Known Allergies Allergy Verified 06/21/17 02:47 Medications: Current Medications Aspirin (Aspirin Chewable) 81 mg PO DAILY [facility] Last Admin: 07/04/17 09:03 Dose: 81 mg Carvedilol (Coreg) 12.5 mg PO BID [facility] Last Admin: 07/04/17 21:15 Dose: 12.5 mg Dextrose/Water (Dextrose 50%) 25 gm SLOW IVP PRN PRN PRN Reason: Hypoglycemia Ferrous Sulfate (Feosol) 325 mg PO BID-[facility] Last Admin: 07/04/17 17:24 Dose: 325 mg Fluoxetine HCl (Prozac) 20 mg PO DAILY [facility] Last Admin: 07/04/17 09:03 Dose: 20 mg Glucagon (Glucagon) 1 mg IM PRN PRN PRN Reason: Hypoglycemia Sodium Chloride (Normal Saline 0.9%) 1,000 mls @ 75 mls/hr IV .[id number] [facility] Last Admin: 07/05/17 05:47 Dose: 1,000 mls Dextrose/Water (D5w) 1,000 mls @ 0 mls/hr IV .Q0M PRN; As Directed PRN Reason: Hypoglycemia Piperacillin Sod/Tazobactam (Sod 3.375 gm/ Sodium Chloride) 100 mls @ 200 mls/ hr IVPB 0600,1200,1800,2359 [facility] Last Admin: 07/05/17 05:48 Dose: 100 mls Vancomycin HCl 1 gm/ Device 200 mls @ 200 mls/hr IVPB DAILY [facility] Ibuprofen (Motrin) 400 mg PO TIDPRN PRN PRN Reason: PAIN/FEVER Last Admin: 06/28/17 18:23 Dose: 400 mg Insulin Human Lispro (Humalog) 0 units SC .MODERATE SLIDING SC PRN PRN Reason: Moderate Correctional Scale Last Admin: 07/05/17 05:51 Dose: 10 unit Insulin Human Lispro (Humalog) 0 units SC .BEDTIME SLIDING SC PRN PRN Reason: Bedtime Correctional Scale Last Admin: 07/04/17 21:23 Dose: 3 unit Lisinopril (Zestril) 40 mg PO HS [facility] Last Admin: 07/04/17 21:15 Dose: 40 mg Miscellaneous Medication (Pharmacy To Dose) 1 each IVPB PRN PRN PRN Reason: Pharmacy to dose Polyethylene Glycol (Miralax) 17 gm PO DAILY [facility] Last Admin: 07/04/17 10:42 Dose: Not Given Rivaroxaban (Xarelto) 20 mg PO DAILY [facility] Last Admin: 07/04/17 09:02 Dose: 20 mg Saccharomyces Boulardii (Florastor) 250 mg PO BID [facility] Last Admin: 07/04/17 21:15 Dose: 250 mg Simvastatin (Zocor) 40 mg PO HS [facility] Last Admin: 07/04/17 21:15 Dose: 40 mg Sodium Chloride (Flush - Normal Saline) 10 ml IVF Q12HR [facility] Last Admin: 07/04/17 21:16 Dose: 10 ml Sodium Chloride (Flush - Normal Saline) 10 ml IVF PRN PRN PRN Reason: Saline Flush Tamsulosin HCl (Flomax) 0.4 mg PO DAILY [facility] Last Admin: 07/04/17 10:41 Dose: 0.4 mg Ziprasidone (Geodon) 20 mg PO BID-[facility] Last Admin: 07/04/17 17:24 Dose: 20 mg
[2017-07-05] MEDS: Piperacillin/Tazobactam 3.375 GM in Sodium Chloride 0.9% 100 ML IVPB SCH ×4 (00:21→17:19)
[2017-07-05 05:33] LABS: Anion Gap 13 mmol/L (10-20); BUN (Urea Nitrogen) 16 mg/dL (8.4-25.7); Calc. Creatinine Clearance 97 mL/min (70-130); Calcium 8.1 mg/dL (7.8-10.44); Carbon Dioxide 23 mmol/L (23-31); Chloride 106 mmol/L (98-107); Estimated GFR-MDRD Greater than 90; Glucose 359 mg/dL (83-110); Potassium 3.5 mmol/L (3.5-5.1); Sodium 138 mmol/L (136-145)
[2017-07-05 05:45] LABS: Band 6 % (5-11); Hemoglobin 8.4 g/dL (14.0-18.0); Lymphocytes 10 % (21-51); MDiff Complete? YES; Mean Corpuscular HGB CONC 31.2 g/dL (32.0-36.0); Mean Corpuscular Hemoglobin 27.2 pg (27.0-31.0); Mean Corpuscular Volume 87.2 fl (80.0-94.0); Mean Platelet Volume 7.3 fL (7.4-10.4); Monocytes 1 % (0-10); Neutrophil 83 % (42-75); Platelet Count 519 thou/uL (130-400); RBC Distribution Width 14.6 % (11.5-14.5); Red Blood Cell (RBC) Count 3.09 mill/uL (4.70-6.10); White Blood Cell (WBC) Count 11.3 thou/uL (4.8-10.8)
[2017-07-05] MEDS: Sodium Chloride 0.9% 1,000 ML IV SCH ×3 (05:47→21:28)
[2017-07-05] MEDS: HumaLOG 300 UNITS/3 ML VIAL SC PRN ×4 (05:51→21:29)
--- NOTE | 2017-07-05 08:29 | PDOC.EVN ---
Event Note - Event Note Event Note: LATE ENTRY 07/03 for [facility] Dx: bacteremia, UTI Involved: pt at bedside Discussion summary: Discussed with patient advanced care planning - patient would like to pursue continued aggressive medical treatment but would not want to have CPR or shocks or intubation if his heart were to stop or he were to stop breathing despite aggressive medical treatment. Code status is a DNR 15+ min spent discussing advanced care plans
[2017-07-05] MEDS ORDERED: Vancomycin HCl 1 GM in Premix Bag 1 BAG IVPB SCH (09:00)
[2017-07-05 09:07] LABS: Vancomycin, Random 20.8 ug/mL (See Comment)
[2017-07-05] MEDS: Ferrous Sulfate 325 MG TAB PO SCH ×2 (09:29→17:19)
[2017-07-05] MEDS: Carvedilol 6.25 MG TAB PO SCH ×2 (09:30→21:27)
[2017-07-05] MEDS: Tamsulosin HCl 0.4 MG CAP PO SCH (09:30)
[2017-07-05] MEDS: Rivaroxaban 10 MG TAB PO SCH (09:30)
[2017-07-05] MEDS: Saccharomyces boulardii 250 MG CAP PO SCH ×2 (09:30→21:28)
[2017-07-05] MEDS: FLUoxetine HCl 20 MG CAP PO SCH (09:30)
[2017-07-05] MEDS: Ziprasidone 20 MG CAP PO SCH ×2 (09:30→17:19)
[2017-07-05] MEDS: Polyethylene Glycol 3350 17 GM Packet PO SCH (09:31)
[2017-07-05] MEDS: Vancomycin HCl 1.5 GM in Sodium Chloride 0.9% 250 ML 300 ML IVPB SCH (11:57)
--- NOTE | 2017-07-05 15:41 | PDOC.PN ---
- Subjective Encounter Start Date: 07/05/17 Encounter Start Time: 10:00 Subjective: nsg notes rev, kathrin ovn, no new c/o at this time, seated in hospital -: chair, just ate. denies any chest pain, fevers, chills, abd pain, back -: pain - Objective Resuscitation Status: Resuscitation Status DNR:Do Not Resuscitate Vital Signs & Weight: Vital Signs (12 hours) Temp Pulse Resp BP BP Pulse Ox 07/05/17 12:00 98.9 F 83 18 142/93 H 100 07/05/17 09:30 139/63 07/05/17 08:00 98.1 F 78 14 139/63 96 Weight Admit Weight 165 lb 1.6 oz Weight 202 lb 5 oz I&O: 07/04/17 07/05/17 07/06/17 06:59 06:59 06:59 Intake Total 1000 480 Output Total 1999 1974 Balance -[id number] 480 Result Diagrams: 07/05/17 04:57 07/05/17 04:57 Additional Labs: Accuchecks 07/05/17 07/05/17 07/04/17 10:58 05:49 20:56 POC Glucose 324 H 355 H 271 H 07/04/17 17:27 POC Glucose 256 H Phys Exam - Physical Examination Constitutional: NAD HEENT: PERRLA, moist MMs, sclera anicteric Respiratory: no wheezing, no rales, no rhonchi, clear to auscultation bilateral Cardiovascular: RRR, no significant murmur, no rub Gastrointestinal: soft, non-tender, positive bowel sounds Musculoskeletal: pulses present Neurological: moves all 4 limbs Psychiatric: normal affect, A&O x 3 Dx/Plan - Plan * sepsis on adm, resolved * metabolic encephalopathy sig improved, continue to monitor * UTI from indwelling catheter, change Rueda as it has been approximately a year * bacteremia * leukocytosis improved with empiric pip-tax and vancomycin * MRI + concerning for osteomyelitis * blood culture 2/2 staph aureus * UCx + wen * apprec ID c/s - will likely need prolonged IV antibiotics * prior JOSEPH approximately 1 month prior demonstrated ?old vegetation afib, currently rate ctrlled diet as marianna activity as marianna dvt ppx c/s case mgmt, anticipate will need coordination for 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 antibiotics Review of Systems - Medications/Allergies Allergies/Adverse Reactions: Allergies Allergy/AdvReac Type Severity Reaction Status Date / Time No Known Allergies Allergy Verified 06/21/17 02:47 Medications: Current Medications Aspirin (Aspirin Chewable) 81 mg PO DAILY [facility] Last Admin: 07/05/17 09:30 Dose: 81 mg Carvedilol (Coreg) 12.5 mg PO BID [facility] Last Admin: 07/05/17 09:30 Dose: 12.5 mg Dextrose/Water (Dextrose 50%) 25 gm SLOW IVP PRN PRN PRN Reason: Hypoglycemia Ferrous Sulfate (Feosol) 325 mg PO BID-[facility] Last Admin: 07/05/17 09:29 Dose: 325 mg Fluoxetine HCl (Prozac) 20 mg PO DAILY [facility] Last Admin: 07/05/17 09:30 Dose: 20 mg Glucagon (Glucagon) 1 mg IM PRN PRN PRN Reason: Hypoglycemia Sodium Chloride (Normal Saline 0.9%) 1,000 mls @ 75 mls/hr IV .[id number] [facility] Last Admin: 07/05/17 09:31 Dose: Not Given Dextrose/Water (D5w) 1,000 mls @ 0 mls/hr IV .Q0M PRN; As Directed PRN Reason: Hypoglycemia Piperacillin Sod/Tazobactam (Sod 3.375 gm/ Sodium Chloride) 100 mls @ 200 mls/ hr IVPB 0600,1200,1800,2359 [facility] Last Admin: 07/05/17 11:57 Dose: 100 mls Vancomycin HCl 1.5 gm/ Sodium (Chloride) 300 mls @ 200 mls/hr IVPB 1100 [facility] Last Admin: 07/05/17 11:57 Dose: 300 mls Ibuprofen (Motrin) 400 mg PO TIDPRN PRN PRN Reason: PAIN/FEVER Last Admin: 06/28/17 18:23 Dose: 400 mg Insulin Human Lispro (Humalog) 0 units SC .MODERATE SLIDING SC PRN PRN Reason: Moderate Correctional Scale Last Admin: 07/05/17 11:56 Dose: 8 unit Insulin Human Lispro (Humalog) 0 units SC .BEDTIME SLIDING SC PRN PRN Reason: Bedtime Correctional Scale Last Admin: 07/04/17 21:23 Dose: 3 unit Lisinopril (Zestril) 40 mg PO HS [facility] Last Admin: 07/04/17 21:15 Dose: 40 mg Miscellaneous Medication (Pharmacy To Dose) 1 each IVPB PRN PRN PRN Reason: Pharmacy to dose Polyethylene Glycol (Miralax) 17 gm PO DAILY [facility] Last Admin: 07/05/17 09:31 Dose: Not Given Rivaroxaban (Xarelto) 20 mg PO DAILY [facility] Last Admin: 07/05/17 09:30 Dose: 20 mg Saccharomyces Boulardii (Florastor) 250 mg PO BID [facility] Last Admin: 07/05/17 09:30 Dose: 250 mg Simvastatin (Zocor) 40 mg PO HS [facility] Last Admin: 07/04/17 21:15 Dose: 40 mg Sodium Chloride (Flush - Normal Saline) 10 ml IVF Q12HR [facility] Last Admin: 07/05/17 09:31 Dose: Not Given Sodium Chloride (Flush - Normal Saline) 10 ml IVF PRN PRN PRN Reason: Saline Flush Tamsulosin HCl (Flomax) 0.4 mg PO DAILY [facility] Last Admin: 07/05/17 09:30 Dose: 0.4 mg Ziprasidone (Geodon) 20 mg PO BID-[facility] Last Admin: 07/05/17 09:30 Dose: 20 mg
[2017-07-05] MEDS: Lisinopril 20 MG TAB PO SCH (21:27)
[2017-07-05] MEDS: Simvastatin 40 MG TAB PO SCH (21:27)
[2017-07-06] MEDS: Piperacillin/Tazobactam 3.375 GM in Sodium Chloride 0.9% 100 ML IVPB SCH ×4 (00:01→17:33)
[2017-07-06 05:54] LABS: #Eosinphils 0.2 thou/uL (0.0-0.7); #Lymphocytes 1.5 thou/uL (1.20-3.40); #Monocytes 0.5 thou/uL (0.11-0.59); #Neutrophils 9.9 thou/uL (1.40-6.50); %Basophils 0.1 % (0.0-1.0); %Eosinophils 1.6 % (0.0-10.0); %Lymphocytes 12.2 % (21.0-51.0); %Monocytes 4.1 % (0.0-10.0); %Neutrophils 81.9 % (42.0-75.0); Hemoglobin 8.2 g/dL (14.0-18.0); Mean Corpuscular HGB CONC 31.7 g/dL (32.0-36.0); Mean Corpuscular Hemoglobin 27.4 pg (27.0-31.0); Mean Corpuscular Volume 86.6 fl (80.0-94.0); Mean Platelet Volume 7.6 fL (7.4-10.4); Platelet Count 526 thou/uL (130-400); RBC Distribution Width 14.9 % (11.5-14.5)
[2017-07-06] MEDS: HumaLOG 300 UNITS/3 ML VIAL SC PRN ×3 (05:57→17:20)
[2017-07-06 06:30] LABS: Anion Gap 10 mmol/L (10-20); BUN (Urea Nitrogen) 14 mg/dL (8.4-25.7); Calc. Creatinine Clearance 107 mL/min (70-130); Calcium 7.7 mg/dL (7.8-10.44); Carbon Dioxide 24 mmol/L (23-31); Chloride 106 mmol/L (98-107); Estimated GFR-MDRD Greater than 90; Glucose 242 mg/dL (83-110); Potassium 3.3 mmol/L (3.5-5.1); Sodium 137 mmol/L (136-145)
[2017-07-06] MEDS: Ziprasidone 20 MG CAP PO SCH ×2 (09:19→17:33)
[2017-07-06] MEDS: Carvedilol 6.25 MG TAB PO SCH (09:19)
[2017-07-06] MEDS: Ferrous Sulfate 325 MG TAB PO SCH ×2 (09:19→17:33)
[2017-07-06] MEDS: Polyethylene Glycol 3350 17 GM Packet PO SCH (09:20)
[2017-07-06] MEDS: Saccharomyces boulardii 250 MG CAP PO SCH (09:20)
[2017-07-06] MEDS: FLUoxetine HCl 20 MG CAP PO SCH (09:20)
[2017-07-06] MEDS: Tamsulosin HCl 0.4 MG CAP PO SCH (09:20)
[2017-07-06] MEDS: Rivaroxaban 10 MG TAB PO SCH (09:20)
[2017-07-06] MEDS: Vancomycin HCl 1.5 GM in Sodium Chloride 0.9% 250 ML 300 ML IVPB SCH (11:45)
[2017-07-06 15:49] VITALS: BP 149/69; TEMP 98.3
--- NOTE | 2017-07-06 16:51 | ULT ---
LEFT UPPER EXTREMITY DOPPLER VENOUS ULTRASOUND: CLINICAL HISTORY: Edema of the left upper extremity. Indwelling PICC line present. TECHNIQUE: Reich-scale and Doppler color-flow imaging with spectral analysis was performed. FINDINGS: There is diffuse soft tissue edema visualized. Correlate clinically. The imaged deep vein system of the left lower extremity reveals no sonographic evidence of DVT. Indwelling linear increased echoge nicity does correlate to the patient's indwelling PICC line. IMPRESSION: 1. No discrete deep venous thrombosis of the left upper extremity. 2. Indwelling peripherally inserted central catheter line noted. 3. Soft tissue edema. Correlate clinically. 4. Incidental note of atherosclerosis. POS: [facility]
--- NOTE | 2017-07-07 15:04 | DIS ---
DISCHARGE DIAGNOSES: 1. Metabolic encephalopathy secondary to sepsis, resolved. 2. Sepsis, resolved. 3. Bacteremia, secondary to Staphylococcus aureus, ongoing. 4. 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 5. Urinary tract infection secondary to Shakira. 6. Atrial fibrillation, currently rate controlled. BRIEF SUMMARY OF HOSPITAL COURSE: This is a 71-year-old male who was recently treated for bacteremia, who presented initially with a chief complaint of altered mental status. Please see the original history and physical for full details surrounding admission. During this hospitalization, the patient was found to be septic as the cause of his metabolic encephalopathy on presentation. At the time of discharge, his presenting mental status has significantly improved. It is felt that his metabolic encephalopathy and sepsis is secondary to Staph aureus bacteremia, which was found on blood cultures 2/2 on admission. The patient also underwent an MRI which demonstrated osteomyelitis. The patient has been seen by Infectious Disease on consultation and at the time of discharge. We will continue on a prolonged course of 6 weeks of antibiotics. Further course will be determined in conjunction with Infectious Diseases on an ongoing and outpatient basis. The patient has a known old vegetation on prior JOSEPH approximately 1 month ago demonstrated this. It is not clear at the time of discharge whether or not the patient has developed in the interim new vegetation or not. Given the patient' s course of antibiotics, we will attempt this first. Patient also has known history of atrial fibrillation which was currently rate controlled at the time of discharge. The remainder of the patient's chronic medical issues have remained stable during this hospitalization. CONSULTATIONS: 1. Infectious Diseases. 2. Cardiology. CONDITION AT DISCHARGE: Hemodynamically stable. He is tolerating his antibiotic course and is participating with physical therapy. He will need both prolonged antibiotics along with physical therapy and continue rehabilitation for deconditioning secondary to his acute medical issues. MEDICATION RECONCILIATION: Please see the EMR for full details. DISCHARGE MEDICATIONS: Patient will continue on his home regimen with the addition of IV antibiotics as outlined above. DISCHARGE INSTRUCTIONS: The patient is asked to follow up closely with his outpatient team including his primary care provider and Infectious Disease. Thank you for asking me to care for this patient. Greater than 30 minutes were spent coordinating discharge for the patient. VLADISLAV
--- NOTE | 2017-07-11 21:34 | EKG ---
Test Reason : Blood Pressure : / mmHG Vent. Rate : 099 BPM Atrial Rate : 099 BPM P-R Int : 160 ms QRS Dur : 086 ms QT Int : 418 ms P-R-T Axes : 087 045 035 degrees QTc Int : 536 ms Normal sinus rhythm Pulmonary disease pattern Prolonged QT Abnormal ECG Confirmed by JOHNNIE BONILLA M.D. ([id number]), editorial specialist ANNIE MARION ([id number]) on 07/11/2017 9:34:34 PM Referred By: Confirmed By:JOHNNIE OBNILLA M.D.
== END 2017-07-06 18:27 | disposition home or self-care (01) | DRG 698 ==
LOC: ERS 19:04 → SURG A 06-28 01:38 → OBSVTOIN 06-28 01:38 → 2SE 06-28 18:01
PROVIDERS: ADMIT Internal Medicine; ATTEND Internal Medicine
PROC: 02HV33Z Insertion of Infusion Device into Superior Vena Cava, Percutaneous Approach (ICD-10-PCS; principal; 2017-07-03)
PROC: B5181ZA Fluoroscopy of Superior Vena Cava using Low Osmolar Contrast, Guidance (ICD-10-PCS; 2017-07-03)
DX: R65.20 Severe sepsis without septic shock; D64.9 Anemia, unspecified; Z86.79 Personal history of other diseases of the circulatory system; R01.1 Cardiac murmur, unspecified; J90 Pleural effusion, not elsewhere classified; I08.0 Rheumatic disorders of both mitral and aortic valves; Z79.01 Long term (current) use of anticoagulants; T83.511A Infection and inflammatory reaction due to indwelling urethral catheter, initial encounter; L89.622 Pressure ulcer of left heel, stage 2; Z79.82 Long term (current) use of aspirin; G93.41 Metabolic encephalopathy; Z86.14 Personal history of Methicillin resistant Staphylococcus aureus infection; I25.2 Old myocardial infarction; E88.09 Other disorders of plasma-protein metabolism, not elsewhere classified; E78.5 Hyperlipidemia, unspecified; A41.9 Sepsis, unspecified organism; Z79.4 Long term (current) use of insulin; Z95.1 Presence of aortocoronary bypass graft; J98.11 Atelectasis; I24.8 Other forms of acute ischemic heart disease; I25.10 Atherosclerotic heart disease of native coronary artery without angina pectoris; E11.65 Type 2 diabetes mellitus with hyperglycemia; B37.41 Candidal cystitis and urethritis; Z68.26 Body mass index [BMI] 26.0-26.9, adult; Z86.718 Personal history of other venous thrombosis and embolism; Z66 Do not resuscitate; E44.0 Moderate protein-calorie malnutrition; I10 Essential (primary) hypertension
CPT/HCPCS: 36415; 36416; 36569; 71045; 71260; 72158; 74177; 80048; 80053; 80202; 81003; 81015; 82010; 82550; 82553; 84484; 85025; 87040; 87045; 87046; 87077; 87081; 87086; 87149; 87186; 87324; 87449; 87899; 93005; 93306; 96361; 96365; 96366; 96367; A4216; C1751; G8978-GP-CL; G8978-GP-CM; G8979-GP-CK; G8987-GO-CL; G8988-GO-CJ; J1644; J1815; J2405; J2543; J2704; J3370; J7050

== ENCOUNTER 2017-07-08 03:40 | Emergency (ER) | payer MEDICARE ==
[2017-07-08 04:04] LABS: #Basophils 0.1 thou/uL (0.0-0.2); #Eosinphils 0.3 thou/uL (0.0-0.7); #Lymphocytes 2.5 thou/uL (1.20-3.40); #Monocytes 0.6 thou/uL (0.11-0.59); #Neutrophils 10.4 thou/uL (1.40-6.50); %Basophils 0.4 % (0.0-1.0); %Eosinophils 2.4 % (0.0-10.0); %Lymphocytes 18.1 % (21.0-51.0); %Monocytes 4.5 % (0.0-10.0); %Neutrophils 74.6 % (42.0-75.0); Mean Corpuscular HGB CONC 31.8 g/dL (32.0-36.0); Mean Corpuscular Hemoglobin 27.8 pg (27.0-31.0); Mean Corpuscular Volume 87.4 fl (80.0-94.0); Mean Platelet Volume 7.1 fL (7.4-10.4); Platelet Count 561 thou/uL (130-400); RBC Distribution Width 15.4 % (11.5-14.5); Red Blood Cell (RBC) Count 3.24 mill/uL (4.70-6.10)
[2017-07-08 04:08] LABS: Bilirubin Negative (Negative); Blood, Urine Small (Negative); Clarity CLOUDY (Clear); Glucose, Urine (Dipstick) Negative (Negative); Leukocyte Large (Negative); Nitrite Negative (Negative); Protein, Urine (Dipstick) Negative (Neg-Trace); Specific Gravity, Urine 1.009 (1.002-1.036); Urobilinogen 0.2 mg/dL (0.2-1.0)
[2017-07-08 04:16] LABS: RBC/HPF 0-3 HPF (0-3); Squamous Epithelial 0-3 HPF (0-3)
[2017-07-08 04:18] LABS: ALT (SGPT) Less than 7 U/L (8-55); AST (SGOT) 8 U/L (5-34); Albumin 2.2 g/dL (3.4-4.8); Alkaline Phosphatase 110 U/L (40-150); Anion Gap 9 mmol/L (10-20); BUN (Urea Nitrogen) 10 mg/dL (8.4-25.7); Bilirubin, Total 0.3 mg/dL (0.2-1.2); CK (CPK) 20 U/L (30-200); Calc. Creatinine Clearance 0 mL/min (70-130); Calcium 7.9 mg/dL (7.8-10.44); Carbon Dioxide 27 mmol/L (23-31); Chloride 108 mmol/L (98-107); Estimated GFR-MDRD Greater than 90; Globulin 3.5 g/dL (2.4-3.5); Lipase Less than 4 U/L (8-78); Protein, Total 5.7 g/dL (5.8-8.1); Sodium 141 mmol/L (136-145)
[2017-07-08 04:20] LABS: WBC/HPF 21-50 HPF (0-3)
[2017-07-08 04:21] LABS: Bacteria/HPF Rare-Few HPF (None Seen); Yeast-All Forms 2+ HPF (None Seen)
[2017-07-08 04:22] LABS: Glucose 41 mg/dL (83-110); Potassium 2.9 mmol/L (3.5-5.1); Troponin I 0.024 ng/mL (< 0.028)
[2017-07-08] MEDS ORDERED: Potassium Chloride 20 MEQ TAB ONE (04:26)
[2017-07-08] MEDS ORDERED: Nitroglycerin 2% Ointment 1 INCH/1 GM Packet ONE (04:26)
[2017-07-08] MEDS ORDERED: Furosemide 40 MG/4 ML VIAL ONE (04:26)
[2017-07-08] MEDS ORDERED: Dextrose 50% Abboject 50 ML SYRINGE ONE (04:26)
--- NOTE | 2017-07-08 08:15 | RAD ---
PORTABLE AP CHEST RADIOGRAPH: Date: 07-08-17 History: Edema, fluid retention. Dyspnea. Comparison: 06-27-17 FINDINGS: Post-surgical changes related to CABG are again noted. A left sided PICC line is in place with tip ov erlying the distal SVC. There is hazy opacity seen in the left hemithorax which is likely attributabl e to left pleural effusion layering posteriorly. Patchy parenchymal density is seen in the right infr ahilar region, worrisome for pneumonia/pneumonitis. There is suboptimal evaluation of the retrocardia c region, there is suggestion of increased density in this region as well which may be attributable t o the left pleural effusion/atelectasis, although infiltrate/pneumonia at the left lung base also can not be entirely excluded. There is questionable nodular density at the lateral aspect right mid lung zone. This may represent an overlying nipple shadow. This was not present on the prior exam. Vascular calcification seen in the thoracic aorta. There is bilateral glenohumeral osteoarthropathy. IMPRESSION: 1. Small to moderate size left pleural effusion and atelectasis. Increased density in the retrocardia c region may be related to atelectasis, but infiltrate/pneumonia cannot be excluded. 2. Patchy parenchymal densities right infrahilar region which may be related to either atelectasis or pneumonia. Follow up chest radiograph is recommended. POS: [facility]
== END 2017-07-08 07:21 | disposition home or self-care (01) ==
LOC: ERS 03:40
DX: I11.0 Hypertensive heart disease with heart failure (principal); I50.9 Heart failure, unspecified; E10.649 Type 1 diabetes mellitus with hypoglycemia without coma; E87.6 Hypokalemia; B37.49 Other urogenital candidiasis; I25.10 Atherosclerotic heart disease of native coronary artery without angina pectoris; Z79.4 Long term (current) use of insulin; Z79.82 Long term (current) use of aspirin; Z79.899 Other long term (current) drug therapy; Z79.891 Long term (current) use of opiate analgesic
CPT/HCPCS: 36416; 71045; 80053; 81003; 81015; 82553; 83690; 83880; 84484; 85025; 87040; 87086; 93005; 96374; 96375; J1940

== ENCOUNTER 2017-07-14 22:50 | Emergency (ER) | payer MEDICARE | END 2017-07-15 00:30 | LOC: ERS 22:50 | DX: E10.649 Type 1 diabetes mellitus with hypoglycemia without coma (principal); I25.10 Atherosclerotic heart disease of native coronary artery without angina pectoris; I11.0 Hypertensive heart disease with heart failure; I25.2 Old myocardial infarction; I50.9 Heart failure, unspecified; Z79.82 Long term (current) use of aspirin; Z79.899 Other long term (current) drug therapy | CPT/HCPCS: 36416; 99285 ==

== ENCOUNTER 2017-07-24 01:36 | Inpatient (IN) | payer MEDICARE ==
[2017-07-24 02:50] LABS: #Eosinphils 0.2 thou/uL (0.0-0.7); #Lymphocytes 2.1 thou/uL (1.20-3.40); #Monocytes 0.5 thou/uL (0.11-0.59); #Neutrophils 4.8 thou/uL (1.40-6.50); %Basophils 0.2 % (0.0-1.0); %Eosinophils 3.1 % (0.0-10.0); %Lymphocytes 27.4 % (21.0-51.0); %Monocytes 6.1 % (0.0-10.0); %Neutrophils 63.1 % (42.0-75.0); Hemoglobin 8.1 g/dL (14.0-18.0); Mean Corpuscular HGB CONC 30.6 g/dL (32.0-36.0); Mean Corpuscular Hemoglobin 27.1 pg (27.0-31.0); Mean Corpuscular Volume 88.7 fl (80.0-94.0); Mean Platelet Volume 7.1 fL (7.4-10.4); Platelet Count 261 thou/uL (130-400); RBC Distribution Width 16.9 % (11.5-14.5); Red Blood Cell (RBC) Count 2.99 mill/uL (4.70-6.10); White Blood Cell (WBC) Count 7.6 thou/uL (4.8-10.8)
[2017-07-24 03:06] LABS: Bilirubin Negative (Negative); Blood, Urine Small (Negative); Clarity CLOUDY (Clear); Glucose, Urine (Dipstick) Negative (Negative); Leukocyte Large (Negative); Nitrite Negative (Negative); Protein, Urine (Dipstick) 100 mg/dL (Neg-Trace); Specific Gravity, Urine 1.026 (1.002-1.036); Urobilinogen 0.2 mg/dL (0.2-1.0); pH, Urine 6.5 (5.0-9.0)
[2017-07-24 03:07] LABS: Bacteria/HPF None Seen HPF (None Seen); Hyaline Casts/LPF 4-6 HYALINE CAST LPF (0-3 Hyaline); Pathc Cast-AUWi Flag 1.16 (0-2.49); Squamous Epithelial 0-3 HPF (0-3)
[2017-07-24 03:08] LABS: Yeast-All Forms None Seen HPF (None Seen)
[2017-07-24 03:14] LABS: ALT (SGPT) Less than 7 U/L (8-55); AST (SGOT) 6 U/L (5-34); Albumin 2.4 g/dL (3.4-4.8); Alkaline Phosphatase 115 U/L (40-150); BUN (Urea Nitrogen) 15 mg/dL (8.4-25.7); Bilirubin, Total 0.2 mg/dL (0.2-1.2); CK (CPK) 22 U/L (30-200); Calc. Creatinine Clearance 0 mL/min (70-130); Calcium 8.6 mg/dL (7.8-10.44); Estimated GFR-MDRD Greater than 90; Globulin 3.4 g/dL (2.4-3.5); Glucose 64 mg/dL (83-110); Magnesium 1.6 mg/dL (1.6-2.6); Phosphorus 2.9 mg/dL (2.3-4.7); Protein, Total 5.8 g/dL (5.8-8.1)
[2017-07-24 03:26] LABS: Chloride 106 mmol/L (98-107); Potassium 3.2 mmol/L (3.5-5.1); Sodium 149 mmol/L (136-145)
[2017-07-24 03:29] LABS: Anion Gap 10 mmol/L (10-20); Carbon Dioxide 36 mmol/L (23-31)
[2017-07-24] MEDS ORDERED: Ondansetron HCl/PF 4 MG/2 ML Vial IVP PRN ×2 (04:05→06:48)
[2017-07-24] MEDS ORDERED: Sodium Chloride 0.9% 1,000 ML IV SCH (04:05)
[2017-07-24] MEDS ORDERED: Ondansetron ODT 4 MG TAB SL PRN (04:05)
[2017-07-24] MEDS ORDERED: Acetaminophen 325 MG TAB PO PRN ×2 (04:05→06:48)
[2017-07-24 04:10] VITALS: BMI 18.0
[2017-07-24] MEDS ORDERED: Milk Of Magnesia 30 ML UDCUP PO PRN (06:48)
[2017-07-24] MEDS ORDERED: Artificial Tears 18 DROP/0.9 ML EA EYE PRN (06:48)
[2017-07-24] MEDS ORDERED: Senokot 8.6 MG TAB PO PRN (06:48)
[2017-07-24] MEDS ORDERED: Zolpidem Tartrate 5 MG TAB PO PRN (06:48)
[2017-07-24] MEDS ORDERED: Ondansetron ODT 4 MG TAB PO PRN (06:48)
[2017-07-24] MEDS ORDERED: Loratadine 10 MG TAB PO PRN (06:48)
[2017-07-24] MEDS ORDERED: hydrALAZINE 20 MG/ML VIAL SLOW IVP PRN (06:48)
[2017-07-24] MEDS ORDERED: Chloraseptic Spray 180 ml Bottle PO PRN (06:48)
[2017-07-24] MEDS ORDERED: Loperamide HCl 2 MG CAP PO PRN (06:48)
[2017-07-24] MEDS ORDERED: Diabetic Tussin 200 MG/10 ML UDCUP PO PRN (06:48)
[2017-07-24] MEDS ORDERED: Eucerin (Mineral Oil/Petrolatum,White) 30 gm Jar TOP PRN (06:48)
[2017-07-24] MEDS ORDERED: HYDROcodone/Acetaminophen 5/325 mg Tablet PO PRN (06:48)
[2017-07-24] MEDS ORDERED: Mag-Al 1200 mg/1200 mg/30 ML UDCUP PO PRN (06:48)
[2017-07-24] MEDS ORDERED: Sodium Chloride 0.65% Nasal 44 ML BOT EA NARE PRN (06:48)
[2017-07-24] MEDS ORDERED: Dextrose 5% in Water 1,000 ML IV PRN (06:50)
[2017-07-24] MEDS ORDERED: Dextrose 50% Abboject 50 ML SYRINGE SLOW IVP PRN (06:50)
[2017-07-24] MEDS ORDERED: cefTRIAXone\\ROCEPHIN 1 GM in Sodium Chloride 0.9% 100 ML IVPB SCH (07:00)
[2017-07-24] MEDS: Famotidine 20 MG TAB PO SCH ×2 (08:53→20:31)
[2017-07-24] MEDS: cefTRIAXone\\ROCEPHIN 1 GM, Syringe 0.4 ML in Sterile Water 9.6 ML SLOW IVP SCH (10:58)
--- NOTE | 2017-07-24 14:44 | HP ---
PRIMARY CARE PHYSICIAN: Dr. Taylor at [facility]. REASON FOR ADMISSION: Urinary tract infection, hypernatremia. HISTORY OF PRESENT ILLNESS: A 71-year-old male who lives at [facility] who was recently admitted in our hospital on 06/28/2017. At that time, the patient had chest, abdomen, and pelvis CT scan, which showed bilateral pleural effusion and atelectasis as well as severe degenerative spine disease at L5-S1 and ground glass opacity in the upper lobes bilaterally with emphysematous changes. At that time, the patient was found with anasarca as well. During that admission, echocardiography was also done and it showed normal EF, moderate aortic stenosis and mild pulmonary hypertension, lumber spine MRI was done which showed evidence of diskitis and osteomyelitis of L5- S1. The patient was discharged to [facility] after PICC line placed. The patient is supposed to get IV antibiotic therapy 2 gram q.[address] Alcantara also saw this patient during that admission. At this time, the patient was sent from alf for abnormal labs. The patient was found with hypernatremia with sodium 150. The patient's urinalysis was suggestive of UTI, but patient does not have any UTI symptoms. He does not have any fever or chills. His back pain is also under control. He does not have any new complaints other than abnormal labs and he was clinically appeared dehydrated in the emergency room. He was given IV fluid and subsequently he was admitted from emergency room as a full admission. This patient has out of hospital DNR from previous admission and he wants to continue out of hospital as well as hospital DNR while in hospital as well. REVIEW OF SYSTEMS: Please see my HPI for pertinent positive and negative. All other review of system reviewed and negative except as mentioned in the HPI. Constitutional: Weight loss or gain, ability to conduct usual activities. Skin: Rash, itching. Eyes: Double vision, pain. ENT/Mouth: Nose bleeding, neck stiffness, pain, tenderness. Cardiovascular: Palpitations, dyspnea on exertion, orthopnea. Respiratory: Shortness of breath, wheezing, cough, hemoptysis, fever or night sweats. Gastrointestinal: Poor appetite, abdominal pain, heartburn, nausea, vomiting, constipation, or diarrhea. Genitourinary: Urgency, frequency, dysuria, nocturia. Musculoskeletal: Pain, swelling. Neurologic/Psychiatric: Anxiety, depression. Allergy/Immunologic: Skin rash, bleeding tendency. PAST MEDICAL HISTORY: Diabetes type 2, hypertension, dyslipidemia, coronary artery disease, chronic diastolic heart failure, COPD/asthma, history of diskitis and osteomyelitis of L5-S1. FAMILY HISTORY: No strong family history of premature CAD, CVA or cancer ALLERGY: No known drug allergy CURRENT HOME MEDICATION: There is no medication list from alf with patient, will get from alf and review later. Patient does not know his current medication. PAST SURGICAL HISTORY: CABG x5, cyst removed from his back. PAST PSYCHIATRIC HISTORY: Anxiety and depression. SOCIAL HISTORY: The patient is from [facility]. No history of tobacco, alcohol or illicit drug abuse. EMERGENCY ROOM COURSE: The patient was given IV fluid. PHYSICAL EXAMINATION: VITAL SIGNS: On arrival, blood pressure 152/80, pulse 63, respiratory rate 18, temperature 97.9, saturation 100% on room air, weight 72.5 kilograms. GENERAL: The patient is currently alert, awake, no obvious acute distress. HEAD: Normocephalic, atraumatic. EYES: Pupils round, reactive to light. Extraocular muscle intact. ENT: Oropharynx within normal limits, somewhat dry appearing mucous membranes. No oral lesion, no pharyngeal erythema, no exudate. NECK: Supple, no JVD, no thyromegaly, no carotid bruit. LUNGS: Clear to auscultation without any rhonchi or rales, air entry reduced at base. CARDIAC: S1, S2 appears regular. The patient does have systolic murmur at aortic area. ABDOMEN: Soft, bowel sounds present, nontender, nondistended. No organomegaly , no mass, no suprapubic tenderness. BACK: Unremarkable, no CVA tenderness. EXTREMITIES: Upper extremity: Passive movements of all joints are normal. Lower extremities: No edema. Good peripheral pulsation. SKIN: No skin rash. HEMATOLOGIC: No lymphadenopathy. PSYCHIATRIC: Normal affect. SIGNIFICANT LABS: EKG showing premature supraventricular complexes, low voltage QRS complex. ASSESSMENT AND PLAN: 1. Hypernatremia. 2. Hypokalemia. 3. Anemia, normocytic normochromic. 4. Urinary tract infection. 5. History of methicillin-sensitive Staphylococcus aureus bacteremia. 6. Hypertension. 7. Anxiety and depression. 8. Diabetes type 2. 9. Chronic anticoagulation. 10. Benign enlargement of prostate. 11. Dyslipidemia. 12. Moderate aortic stenosis with pulmonary hypertension. PLAN: Admission to medical floor. We already obtained from the emergency room. Start Rocephin and levofloxacin. We will verify his alf medication and start selected home medication as per medication administration. DVT prophylaxis not needed because the patient is already on Xarelto therapy at alf. Gastrointestinal prophylaxis, Pepcid 20 mg b.i.d. CODE STATUS: The patient has out of hospital DNR and the patient wants to continue DNR status while in hospital. We will monitor patient's laboratory profile while in hospital and we are expecting patient's stay in hospital more than 2 midnights. Plan of care discussed with the patient in detail. LAD
[2017-07-24] MEDS: HumaLOG 300 UNITS/3 ML VIAL SC PRN ×2 (16:36→21:27)
[2017-07-24] MEDS: Ferrous Sulfate 325 MG TAB PO SCH (20:29)
[2017-07-24] MEDS: Atorvastatin Calcium 20 MG TAB PO SCH (20:31)
[2017-07-24] MEDS: Saccharomyces boulardii 250 MG CAP PO SCH (20:31)
[2017-07-24] MEDS: Carvedilol 6.25 MG TAB PO SCH (20:32)
[2017-07-25 04:33] LABS: #Eosinphils 0.2 thou/uL (0.0-0.7); #Lymphocytes 1.9 thou/uL (1.20-3.40); #Monocytes 0.6 thou/uL (0.11-0.59); #Neutrophils 4.6 thou/uL (1.40-6.50); %Basophils 0.2 % (0.0-1.0); %Lymphocytes 26.6 % (21.0-51.0); %Monocytes 7.9 % (0.0-10.0); %Neutrophils 62.3 % (42.0-75.0); Hemoglobin 8.2 g/dL (14.0-18.0); Mean Corpuscular HGB CONC 30.8 g/dL (32.0-36.0); Mean Corpuscular Hemoglobin 27.1 pg (27.0-31.0); Mean Corpuscular Volume 87.9 fl (80.0-94.0); Mean Platelet Volume 7.8 fL (7.4-10.4); Platelet Count 229 thou/uL (130-400); RBC Distribution Width 17.1 % (11.5-14.5); Red Blood Cell (RBC) Count 3.05 mill/uL (4.70-6.10); White Blood Cell (WBC) Count 7.3 thou/uL (4.8-10.8)
[2017-07-25 05:05] LABS: Anion Gap 9 mmol/L (10-20); BUN (Urea Nitrogen) 16 mg/dL (8.4-25.7); Calc. Creatinine Clearance 67 mL/min (70-130); Calcium 7.9 mg/dL (7.8-10.44); Carbon Dioxide 33 mmol/L (23-31); Chloride 102 mmol/L (98-107); Estimated GFR-MDRD 87; Glucose 234 mg/dL (83-110); Potassium 3.3 mmol/L (3.5-5.1); Sodium 141 mmol/L (136-145)
[2017-07-25] MEDS: HumaLOG 300 UNITS/3 ML VIAL SC PRN ×2 (06:06→20:59)
[2017-07-25] MEDS: cefTRIAXone\\ROCEPHIN 1 GM, Syringe 0.4 ML in Sterile Water 9.6 ML SLOW IVP SCH (08:07)
[2017-07-25] MEDS: Rivaroxaban 10 MG TAB PO SCH (09:00)
[2017-07-25] MEDS ORDERED: Non-Formulary Item 1 EACH (Insulin Glargine,Hum.Rec.Anlog [Lantus] 15 UNITS) SQ SCH (09:00)
[2017-07-25] MEDS: Tamsulosin HCl 0.4 MG CAP PO SCH (09:00)
[2017-07-25] MEDS ORDERED: Potassium Chloride 20 MEQ TAB PO SCH (09:30)
[2017-07-25] MEDS: Famotidine 20 MG TAB PO SCH ×2 (10:10→20:38)
[2017-07-25] MEDS: Ferrous Sulfate 325 MG TAB PO SCH ×2 (10:10→20:38)
[2017-07-25] MEDS: Polyethylene Glycol 3350 17 GM Packet PO SCH (10:10)
[2017-07-25] MEDS: Saccharomyces boulardii 250 MG CAP PO SCH ×2 (10:11→20:38)
[2017-07-25] MEDS: Carvedilol 6.25 MG TAB PO SCH ×3 (10:42→20:39)
[2017-07-25] MEDS: FLUoxetine HCl 20 MG CAP PO SCH (10:42)
[2017-07-25] MEDS: Insulin Detemir 100 UNITS/ML 15 UNITS in Pre-Filled Syringe 1 EACH SC SCH (10:42)
[2017-07-25] MEDS: Sodium Chloride 0.9% 1,000 ML IV SCH (10:48)
[2017-07-25] MEDS ORDERED: Sodium Chloride 0.9% 500 ML IV SCH (11:45)
--- NOTE | 2017-07-25 11:45 | PDOC.PN ---
- Subjective Encounter Start Date: 07/25/17 Encounter Start Time: 08:10 pt was lethargic when he was getting MBS, so test was aborted, he was hypotensive on floor, lethargic but arousable responded to fluid - Objective Resuscitation Status: Resuscitation Status DNR:Do Not Resuscitate MAR Reviewed: Yes Vital Signs & Weight: Vital Signs (12 hours) Temp Pulse Resp BP BP Pulse Ox 07/25/17 11:29 96.8 F L 72 16 101/53 L 100 07/25/17 10:42 152/81 H 07/25/17 08:00 98.0 F 77 18 155/72 H 93 L 07/25/17 04:00 98.2 F 81 18 134/73 95 07/25/17 00:00 98.8 F 76 20 152/81 H 152/81 H 95 Weight Admit Weight 136 lb 9.6 oz Weight 155 lb 1 oz I&O: 07/24/17 07/25/17 07/26/17 06:59 06:59 06:59 Output Total 1125 Balance -1125 Result Diagrams: 07/25/17 03:20 07/25/17 03:20 Additional Labs: Accuchecks 07/24/17 07/24/17 21:10 16:22 POC Glucose 210 H 301 H Phys Exam - Physical Examination Constitutional: NAD HEENT: PERRLA, moist MMs, sclera anicteric Neck: no JVD, supple Respiratory: no wheezing, no rales, no rhonchi Cardiovascular: RRR, no rub SM+ Gastrointestinal: soft, non-tender, no distention, positive bowel sounds Musculoskeletal: no edema, pulses present Neurological: non-focal, moves all 4 limbs Lymphatic: no nodes Psychiatric: normal affect Skin: no rash, normal turgor Dx/Plan (1) Discitis of lumbosacral region Code(s): M46.47 - DISCITIS, UNSPECIFIED, LUMBOSACRAL REGION Status: Acute (2) Hypernatremia Code(s): E87.0 - HYPEROSMOLALITY AND HYPERNATREMIA Status: Resolved (3) Hypokalemia Code(s): E87.6 - HYPOKALEMIA Status: Acute (4) MSSA bacteremia Code(s): R78.81 - BACTEREMIA Status: Acute (5) Anemia, normocytic normochromic Code(s): D64.9 - ANEMIA, UNSPECIFIED Status: Chronic (6) Anxiety and depression Code(s): F41.9 - ANXIETY DISORDER, UNSPECIFIED; F32.9 - MAJOR DEPRESSIVE DISORDER, SINGLE EPISODE, UNSPECIFIED Status: Chronic (7) CAD (coronary artery disease) Code(s): I25.10 - ATHSCL HEART DISEASE OF [place] CORONARY ARTERY W/O ANG PCTRS Status: Chronic Qualifiers: (8) Chronic anticoagulation Code(s): Z79.01 - [employer]ONT [employer] (CURRENT) USE OF ANTICOAGULANTS Status: Chronic (9) DM type 2 (diabetes mellitus, type 2) Status: Chronic Qualifiers: (10) H/O endocarditis Code(s): Z86.79 - PERSONAL HISTORY OF OTHER DISEASES OF THE CIRCULATORY SYSTEM Status: Chronic Comment: had mitral post leaflet veg 05/05/2017 (11) HTN (hypertension) Code(s): I10 - ESSENTIAL (PRIMARY) HYPERTENSION Status: Chronic Qualifiers: Comment: (12) Hypoalbuminemia due to protein-calorie malnutrition Code(s): E46 - UNSPECIFIED PROTEIN-CALORIE MALNUTRITION Status: Chronic (13) Moderate aortic stenosis by prior echocardiography Code(s): I35.0 - NONRHEUMATIC AORTIC (VALVE) STENOSIS Status: Chronic (14) Moderate mitral regurgitation by prior echocardiography Code(s): I34.0 - NONRHEUMATIC MITRAL (VALVE) INSUFFICIENCY Status: Chronic (15) UTI (urinary tract infection) Status: Suspected Qualifiers: - Plan cont current plan of care, continue antibiotics * DC roecphin and levaquin * restart cefazolin for his recent MSSA bacteremia and osteomyelitis spine * has coppola and picc line * give 500 ml bolus and then continue 50 ml per hour * hold BP meds for SBP <130 * medication reviewed as below * symptomatic treatment * will monitor * culture is negative so far. Review of Systems - Review of Systems Constitutional: weakness. negative: fever, chills, sweats, malaise, other ENT: negative: Ear Pain, Ear Discharge, Nose Pain, Nose Discharge, Nose Congestion, Mouth Pain, Mouth Swelling, Throat Pain, Throat Swelling, Other Respiratory: negative: Cough, Dry, Shortness of Breath, Hemoptysis, SOB with Excertion, Pleuritic Pain, Sputum, Wheezing Cardiovascular: negative: chest pain, palpitations, orthopnea, paroxysmal nocturnal dyspnea, edema, light headedness, other Gastrointestinal: negative: Nausea, Vomiting, Abdominal Pain, Diarrhea, Constipation, Melena, Hematochezia, Other Genitourinary: negative: Dysuria, Frequency, Incontinence, Hematuria, Retention , Other Musculoskeletal: negative: Neck Pain, Shoulder Pain, Arm Pain, Back Pain, Hand Pain, Leg Pain, Foot Pain, Other Skin: negative: Rash, Lesions, Norbert, Bruising, Other - Medications/Allergies Allergies/Adverse Reactions: Allergies Allergy/AdvReac Type Severity Reaction Status Date / Time No Known Allergies Allergy Verified 06/21/17 02:47 Medications: Current Medications Acetaminophen (Tylenol) 650 mg PO Q4H PRN PRN Reason: Headache/Fever or Pain Hydrocodone Bitart/Acetaminophen ([place] 5/325) 1 tab PO Q4H PRN PRN Reason: Moderate Pain (4-6) Last Admin: 07/24/17 18:33 Dose: 1 tab Al Hydroxide/Mg Hydroxide (Maalox) 30 ml PO Q6H PRN PRN Reason: Heartburn or Indigestion Artificial Tears (Tears Naturale) 0 drop EA EYE PRN PRN PRN Reason: Dry Eyes Aspirin (Aspirin Chewable) 81 mg PO DAILY [facility] Last Admin: 07/25/17 10:10 Dose: Not Given Atorvastatin Calcium (Lipitor) 20 mg PO HS [facility] Last Admin: 07/24/17 20:31 Dose: 20 mg Carvedilol (Coreg) 12.5 mg PO BID [facility] Last Admin: 07/25/17 10:42 Dose: Not Given Cefazolin Sodium (Ancef) 2 gm SLOW IVP Q8HR [facility] Dextrose/Water (Dextrose 50%) 25 gm SLOW IVP PRN PRN PRN Reason: Hypoglycemia Famotidine (Pepcid) 20 mg PO BID [facility] Last Admin: 07/25/17 10:10 Dose: Not Given Ferrous Sulfate (Feosol) 325 mg PO BID [facility] Last Admin: 07/25/17 10:10 Dose: Not Given Fluoxetine HCl (Prozac) 20 mg PO DAILY [facility] Last Admin: 07/25/17 10:42 Dose: Not Given Glucagon (Glucagon) 1 mg IM PRN PRN PRN Reason: Hypoglycemia Guaifenesin (Robitussin Sf) 200 mg PO Q4H PRN PRN Reason: Cough Hydralazine HCl (Apresoline) 10 mg SLOW IVP Q4H PRN PRN Reason: Systolic BP > 180 Dextrose/Water (D5w) 1,000 mls @ 0 mls/hr IV .Q0M PRN; As Directed PRN Reason: Hypoglycemia Insulin Detemir 15 units/ (Miscellaneous Medication) 0.15 mls @ 0 mls/hr SC DAILY KIM PRN Reason: As Directed Last Admin: 07/25/17 10:42 Dose: Not Given Sodium Chloride (Normal Saline 0.9%) 500 mls @ 999 mls/hr IV .Q31M [facility] Stop: 07/25/17 12:15 Sodium Chloride (Normal Saline 0.9%) 1,000 mls @ 50 mls/hr IV .Q20H [facility] Insulin Human Lispro (Humalog) 0 units SC .MODERATE SLIDING SC PRN PRN Reason: Moderate Correctional Scale Last Admin: 07/25/17 06:06 Dose: 6 unit Insulin Human Lispro (Humalog) 0 units SC .BEDTIME SLIDING SC PRN PRN Reason: Bedtime Correctional Scale Last Admin: 07/24/17 21:27 Dose: 2 unit Lisinopril (Zestril) 40 mg PO HS [facility] Loperamide HCl (Imodium) 2 mg PO PRN PRN PRN Reason: Diarrhea/Loose Stools Loratadine (Claritin) 10 mg PO DAILYPRN PRN PRN Reason: Sinus Symptoms Magnesium Hydroxide (Milk Of Magnesium) 30 ml PO DAILYPRN PRN PRN Reason: Constipation Mineral Oil/White Petrolatum (Eucerin Cream) 0 gm TOP BIDPRN PRN PRN Reason: Dry Skin Ondansetron HCl (Zofran Odt) 4 mg PO Q6H PRN PRN Reason: Nausea/Vomiting Ondansetron HCl (Zofran) 4 mg IVP Q6H PRN PRN Reason: Nausea/Vomiting Phenol (Chloraseptic [place] 180 Ml Bot) 0 ml PO PRN PRN PRN Reason: Sore Throat Polyethylene Glycol (Miralax) 17 gm PO DAILY [facility] Last Admin: 07/25/17 10:10 Dose: Not Given Rivaroxaban (Xarelto) 20 mg PO DAILY [facility] Last Admin: 07/25/17 09:00 Dose: Not Given Saccharomyces Boulardii (Florastor) 250 mg PO BID [facility] Last Admin: 07/25/17 10:11 Dose: Not Given Senna (Senokot) 2 tab PO HSPRN PRN PRN Reason: Constipation Sodium Chloride (Flush - Normal Saline) 10 ml IVF Q12HR [facility] Last Admin: 07/25/17 10:11 Dose: Not Given Sodium Chloride (Flush - Normal Saline) 10 ml IVF PRN PRN PRN Reason: Saline Flush Sodium Chloride ([place] Nasal [place] 0.65%) 0 ml EA NARE QIDPRN PRN PRN Reason: Nasal Congestion Tamsulosin HCl (Flomax) 0.4 mg PO DAILY [facility] Last Admin: 07/25/17 09:00 Dose: Not Given Ziprasidone (Geodon) 20 mg PO BID[facility] Zolpidem Tartrate (Ambien) 5 mg PO HSPRN PRN PRN Reason: Insomnia
--- NOTE | 2017-07-25 11:46 | RAD ---
MODIFIED BARIUM SWALLOW STUDY: Date: 07/25/17 HISTORY: Dysphagia, oropharyngeal phase, R13.12. Feeding difficulties, R63.3. COMPARISON: Speech study dated 05/11/17. FINDINGS: Exam was cut short as the patient could not stay awake or swallow any significant consistency contras t. IMPRESSION: Incomplete exam. Patient was only able to swallow some pudding, for which there was moderate residue. The patient was unable to stay awake to swallow any other contrast. POS: DILLAN
[2017-07-25] MEDS: CEFAZOLIN/Water 2 GM/20 ML SYRINGE SLOW IVP SCH ×2 (13:22→20:48)
[2017-07-25] MEDS ORDERED: Non-Formulary Item 1 EACH (Cefazolin Sodium In 0.9 % Nacl [Cefazolin 2 G/100 Ml-0.9% Nacl IV SCH (14:00)
[2017-07-25] MEDS: Ziprasidone 20 MG CAP PO SCH (16:18)
[2017-07-25] MEDS: Atorvastatin Calcium 20 MG TAB PO SCH (20:38)
[2017-07-25] MEDS: Lisinopril 20 MG TAB PO SCH (20:45)
[2017-07-25] MEDS ORDERED: LISINOPRIL PO SCH (21:00)
[2017-07-26] MEDS: Sodium Chloride 0.9% 1,000 ML IV SCH ×2 (05:31→22:57)
[2017-07-26] MEDS: CEFAZOLIN/Water 2 GM/20 ML SYRINGE SLOW IVP SCH ×3 (05:31→21:25)
[2017-07-26] MEDS: HumaLOG 300 UNITS/3 ML VIAL SC PRN (05:39)
[2017-07-26 05:43] LABS: INR-International Normal Ratio 1.2; PTT 33.8 SEC (22.9-36.1); Prothrombin Time 15.2 SEC (12.0-14.7)
[2017-07-26 06:05] LABS: Anion Gap 11 mmol/L (10-20); BUN (Urea Nitrogen) 14 mg/dL (8.4-25.7); Calc. Creatinine Clearance 71 mL/min (70-130); Carbon Dioxide 33 mmol/L (23-31); Chloride 103 mmol/L (98-107); Estimated GFR-MDRD 82; Glucose 287 mg/dL (83-110); Potassium 4.2 mmol/L (3.5-5.1); Sodium 143 mmol/L (136-145)
[2017-07-26] MEDS: Ferrous Sulfate 325 MG TAB PO SCH ×2 (07:39→21:20)
[2017-07-26] MEDS: Saccharomyces boulardii 250 MG CAP PO SCH ×2 (07:40→21:20)
[2017-07-26] MEDS: Famotidine 20 MG TAB PO SCH ×2 (07:40→21:20)
[2017-07-26] MEDS: Rivaroxaban 10 MG TAB PO SCH (07:40)
[2017-07-26] MEDS: Insulin Detemir 100 UNITS/ML 15 UNITS in Pre-Filled Syringe 1 EACH SC SCH (07:41)
[2017-07-26] MEDS: Tamsulosin HCl 0.4 MG CAP PO SCH (07:41)
[2017-07-26] MEDS: Fluconazole 100 MG TAB PO SCH (07:41)
[2017-07-26] MEDS: FLUoxetine HCl 20 MG CAP PO SCH (07:41)
[2017-07-26] MEDS: Carvedilol 6.25 MG TAB PO SCH ×2 (07:41→21:20)
[2017-07-26] MEDS: Ziprasidone 20 MG CAP PO SCH ×2 (07:41→16:23)
[2017-07-26] MEDS: Polyethylene Glycol 3350 17 GM Packet PO SCH (07:51)
--- NOTE | 2017-07-26 10:33 | PDOC.PN ---
- Subjective Encounter Start Date: 07/26/17 Encounter Start Time: 08:50 Patient seen and examined. No new complaints. No overnight events - Objective Resuscitation Status: Resuscitation Status DNR:Do Not Resuscitate MAR Reviewed: Yes Vital Signs & Weight: Vital Signs (12 hours) Temp Pulse Resp BP BP Pulse Ox 07/26/17 07:57 97.9 F 82 16 96 07/26/17 07:52 97.9 F 82 16 141/60 H 96 07/26/17 07:41 141/60 H 07/25/17 23:38 98.2 F 74 18 153/55 H 100 Weight Admit Weight 136 lb 9.6 oz Weight 153 lb 6.4 oz I&O: 07/25/17 07/26/17 07/27/17 06:59 06:59 06:59 Intake Total 1550 Output Total 1125 550 Balance -1125 1000 Result Diagrams: 07/25/17 03:20 07/26/17 04:50 Additional Labs: Accuchecks 07/26/17 07/25/17 07/25/17 04:48 20:56 16:44 POC Glucose 274 H 313 H 229 H 07/25/17 07/25/17 10:20 05:19 POC Glucose 180 H 261 H Phys Exam - Physical Examination Constitutional: NAD HEENT: PERRLA, moist MMs, sclera anicteric Neck: no JVD, supple Respiratory: no wheezing, no rales, no rhonchi Cardiovascular: RRR, no significant murmur, no rub Gastrointestinal: soft, non-tender, no distention, positive bowel sounds Musculoskeletal: no edema, pulses present Neurological: moves all 4 limbs Lymphatic: no nodes Psychiatric: normal affect Skin: no rash, normal turgor Dx/Plan (1) Discitis of lumbosacral region Code(s): M46.47 - DISCITIS, UNSPECIFIED, LUMBOSACRAL REGION Status: Acute (2) Hypernatremia Code(s): E87.0 - HYPEROSMOLALITY AND HYPERNATREMIA Status: Resolved (3) Hypokalemia Code(s): E87.6 - HYPOKALEMIA Status: Acute (4) MSSA bacteremia Code(s): R78.81 - BACTEREMIA Status: Acute (5) Anemia, normocytic normochromic Code(s): D64.9 - ANEMIA, UNSPECIFIED Status: Chronic (6) Anxiety and depression Code(s): F41.9 - ANXIETY DISORDER, UNSPECIFIED; F32.9 - MAJOR DEPRESSIVE DISORDER, SINGLE EPISODE, UNSPECIFIED Status: Chronic (7) CAD (coronary artery disease) Code(s): I25.10 - ATHSCL HEART DISEASE OF [place] CORONARY ARTERY W/O ANG PCTRS Status: Chronic Qualifiers: (8) Chronic anticoagulation Code(s): Z79.01 - ALF (CURRENT) USE OF ANTICOAGULANTS Status: Chronic (9) DM type 2 (diabetes mellitus, type 2) Status: Chronic Qualifiers: (10) H/O endocarditis Code(s): Z86.79 - PERSONAL HISTORY OF OTHER DISEASES OF THE CIRCULATORY SYSTEM Status: Chronic Comment: had mitral post leaflet veg 05/05/2017 (11) HTN (hypertension) Code(s): I10 - ESSENTIAL (PRIMARY) HYPERTENSION Status: Chronic Qualifiers: Comment: (12) Hypoalbuminemia due to protein-calorie malnutrition Code(s): E46 - UNSPECIFIED PROTEIN-CALORIE MALNUTRITION Status: Chronic (13) Moderate aortic stenosis by prior echocardiography Code(s): I35.0 - NONRHEUMATIC AORTIC (VALVE) STENOSIS Status: Chronic (14) Moderate mitral regurgitation by prior echocardiography Code(s): I34.0 - NONRHEUMATIC MITRAL (VALVE) INSUFFICIENCY Status: Chronic (15) UTI (urinary tract infection) Status: Suspected Qualifiers: - Plan cont current plan of care, continue antibiotics * medication reviewed as below * symptomatic treatment * today more alert * continue cefazolin * will discharge tomorrow. Review of Systems - Review of Systems Other: not reliable due to dementia - Medications/Allergies Allergies/Adverse Reactions: Allergies Allergy/AdvReac Type Severity Reaction Status Date / Time No Known Allergies Allergy Verified 06/21/17 02:47 Medications: Current Medications Acetaminophen (Tylenol) 650 mg PO Q4H PRN PRN Reason: Headache/Fever or Pain Hydrocodone Bitart/Acetaminophen ([place] 5/325) 1 tab PO Q4H PRN PRN Reason: Moderate Pain (4-6) Last Admin: 07/24/17 18:33 Dose: 1 tab Al Hydroxide/Mg Hydroxide (Maalox) 30 ml PO Q6H PRN PRN Reason: Heartburn or Indigestion Artificial Tears (Tears Naturale) 0 drop EA EYE PRN PRN PRN Reason: Dry Eyes Aspirin (Aspirin Chewable) 81 mg PO DAILY [facility] Last Admin: 07/26/17 07:40 Dose: 81 mg Atorvastatin Calcium (Lipitor) 20 mg PO HS [facility] Last Admin: 07/25/17 20:38 Dose: 20 mg Carvedilol (Coreg) 12.5 mg PO BID [facility] Last Admin: 07/26/17 07:41 Dose: 12.5 mg Cefazolin Sodium (Ancef) 2 gm SLOW IVP Q8HR [facility] Last Admin: 07/26/17 05:31 Dose: 2 gm Dextrose/Water (Dextrose 50%) 25 gm SLOW IVP PRN PRN PRN Reason: Hypoglycemia Famotidine (Pepcid) 20 mg PO BID [facility] Last Admin: 07/26/17 07:40 Dose: 20 mg Ferrous Sulfate (Feosol) 325 mg PO BID [facility] Last Admin: 07/26/17 07:39 Dose: 325 mg Fluconazole (Diflucan) 100 mg PO DAILY [facility] Last Admin: 07/26/17 07:41 Dose: 100 mg Fluoxetine HCl (Prozac) 20 mg PO DAILY [facility] Last Admin: 07/26/17 07:41 Dose: 20 mg Glucagon (Glucagon) 1 mg IM PRN PRN PRN Reason: Hypoglycemia Guaifenesin (Robitussin Sf) 200 mg PO Q4H PRN PRN Reason: Cough Hydralazine HCl (Apresoline) 10 mg SLOW IVP Q4H PRN PRN Reason: Systolic BP > 180 Dextrose/Water (D5w) 1,000 mls @ 0 mls/hr IV .Q0M PRN; As Directed PRN Reason: Hypoglycemia Insulin Detemir 15 units/ (Miscellaneous Medication) 0.15 mls @ 0 mls/hr SC DAILY [facility] PRN Reason: As Directed Last Admin: 07/26/17 07:41 Dose: 0.15 mls Sodium Chloride (Normal Saline 0.9%) 1,000 mls @ 50 mls/hr IV .Q20H [facility] Last Admin: 07/26/17 05:31 Dose: 1,000 mls Insulin Human Lispro (Humalog) 0 units SC .MODERATE SLIDING SC PRN PRN Reason: Moderate Correctional Scale Last Admin: 07/26/17 05:39 Dose: 6 unit Insulin Human Lispro (Humalog) 0 units SC .BEDTIME SLIDING SC PRN PRN Reason: Bedtime Correctional Scale Last Admin: 07/25/17 20:59 Dose: 4 unit Lisinopril (Zestril) 40 mg PO [facility] Last Admin: 07/25/17 20:45 Dose: Not Given Loperamide HCl (Imodium) 2 mg PO PRN PRN PRN Reason: Diarrhea/Loose Stools Loratadine (Claritin) 10 mg PO DAILYPRN PRN PRN Reason: Sinus Symptoms Magnesium Hydroxide (Milk Of Magnesium) 30 ml PO DAILYPRN PRN PRN Reason: Constipation Mineral Oil/White Petrolatum (Eucerin Cream) 0 gm TOP BIDPRN PRN PRN Reason: Dry Skin Ondansetron HCl (Zofran Odt) 4 mg PO Q6H PRN PRN Reason: Nausea/Vomiting Ondansetron HCl (Zofran) 4 mg IVP Q6H PRN PRN Reason: Nausea/Vomiting Phenol (Chloraseptic [place] 180 Ml Bot) 0 ml PO PRN PRN PRN Reason: Sore Throat Polyethylene Glycol (Miralax) 17 gm PO DAILY [facility] Last Admin: 07/26/17 07:51 Dose: Not Given Rivaroxaban (Xarelto) 20 mg PO DAILY [facility] Last Admin: 07/26/17 07:40 Dose: 20 mg Saccharomyces Boulardii (Florastor) 250 mg PO BID [facility] Last Admin: 07/26/17 07:40 Dose: 250 mg Senna (Senokot) 2 tab PO HSPRN PRN PRN Reason: Constipation Sodium Chloride (Flush - Normal Saline) 10 ml IVF Q12HR [facility] Last Admin: 07/26/17 07:51 Dose: Not Given Sodium Chloride (Flush - Normal Saline) 10 ml IVF PRN PRN PRN Reason: Saline Flush Sodium Chloride ([place] Nasal [place] 0.65%) 0 ml EA NARE QIDPRN PRN PRN Reason: Nasal Congestion Tamsulosin HCl (Flomax) 0.4 mg PO DAILY [facility] Last Admin: 07/26/17 07:41 Dose: 0.4 mg Ziprasidone (Geodon) 20 mg PO BID[facility] Last Admin: 07/26/17 07:41 Dose: 20 mg Zolpidem Tartrate (Ambien) 5 mg PO HSPRN PRN PRN Reason: Insomnia
[2017-07-26] MEDS: Atorvastatin Calcium 20 MG TAB PO SCH (21:20)
[2017-07-26] MEDS: Lisinopril 20 MG TAB PO SCH (21:21)
[2017-07-27] MEDS: CEFAZOLIN/Water 2 GM/20 ML SYRINGE SLOW IVP SCH ×2 (06:28→16:52)
[2017-07-27] MEDS: Saccharomyces boulardii 250 MG CAP PO SCH (08:46)
[2017-07-27] MEDS: FLUoxetine HCl 20 MG CAP PO SCH (08:46)
[2017-07-27] MEDS: Carvedilol 6.25 MG TAB PO SCH (08:47)
[2017-07-27] MEDS: Rivaroxaban 10 MG TAB PO SCH (08:47)
[2017-07-27] MEDS: Fluconazole 100 MG TAB PO SCH (08:48)
[2017-07-27] MEDS: Tamsulosin HCl 0.4 MG CAP PO SCH (08:48)
[2017-07-27] MEDS: Famotidine 20 MG TAB PO SCH (08:49)
[2017-07-27] MEDS: Ferrous Sulfate 325 MG TAB PO SCH (08:49)
[2017-07-27] MEDS: Ziprasidone 20 MG CAP PO SCH (08:51)
--- NOTE | 2017-07-27 09:01 | DIS ---
DATE OF ADMISSION: 07/24/2017 DATE OF DISCHARGE: 07/27/2017 PRIMARY CARE PHYSICIAN: Dr. Gaming. DISCHARGE DISPOSITION: [facility]. PRIMARY DISCHARGE DIAGNOSES: 1. Urinary tract infection due to yeast. 2. Hypernatremia. 3. Hypokalemia. SECONDARY DISCHARGE DIAGNOSES: Diskitis of lumbosacral origin; recent methicillin-sensitive Staphylococcus aureus bacteremia; normocytic-normochromic anemia; anxiety and depression; coronary artery disease; chronic anticoagulation ; diabetes, type 2; history of endocarditis; hypertension; hypoalbuminemia due to protein-calorie malnutrition; moderate aortic stenosis; moderate mitral regurgitation. PRIMARY PROCEDURE/OPERATION: None. RADIOLOGICAL INVESTIGATION: Limited modified barium swallow with Speech Therapy. SIGNIFICANT LABORATORY DATA: WBC 7.3, hemoglobin 8.2, platelets 229. ESR 31. INR 1.2, sodium 143, potassium 4.2, BUN 14, creatinine 0.91, calcium 8.0, AST 6 , ALT less than 7, alkaline phosphatase 115, phosphorus and magnesium normal. CRP 3.59. Urinalysis suspected for UTI. Urine culture grew yeast. DISCHARGE MEDICATIONS: Patient will continue cefazolin 2 gram IV q.8 hourly as per previous instruction to finish complete course of antibiotic therapy through the PICC line. New medication, Diflucan 100 mg p.o. daily for 7 more days. Continue following medication: Tylenol #3 one tablet q.6 hourly p.r.n., aspirin 81 mg p.o. daily, Coreg 12.5 mg p.o. b.i.d., ferrous sulfate 325 mg p.o. daily, Prozac 20 mg p.o. daily, insulin as per sliding scale, Lantus insulin 15 units subcutaneously daily, lisinopril 40 mg p.o. at bedtime, Zofran 4 mg q.8 hourly p.r.n., MiraLax 17 grams p.o. daily, Xarelto 20 mg p.o. daily, Florastor 250 mg p.o. daily, Zocor 40 mg p.o. at bedtime, Flomax 0.4 mg p.o. daily, Geodon 20 mg p.o. b.i.d. CONTRAINDICATIONS: None. CODE STATUS: DNR. INPATIENT CONSULTANTS: None. ALLERGIES: No known drug allergy. DISCHARGE PLAN: Post hospital, the patient is discharged back to jail home at [facility] where patient will continue to get IV antibiotic therapy as per previous. HOSPITAL COURSE: A 71-year-old male, who lives at [facility]. He is getting IV antibiotic therapy through PICC line for recent MSSA bacteremia and he has diagnosis of lumbosacral diskitis and osteomyelitis. The patient had routine blood test and patient was found with hypernatremia and hypokalemia and that is why he was sent to emergency room for evaluation. Patient was hydrated with IV fluid. His sodium was corrected and his potassium was corrected. Initially, we gave him Rocephin and Levaquin, because his urinalysis was suspected for UTI, but subsequently urine culture grew yeast species and that is why we discontinued Rocephin and Levaquin and we changed to his as usual cefazolin while in hospital and we also added Diflucan therapy for yeast infection. Patient's abnormal electrolytes corrected. The patient does have chronic oropharyngeal dysphagia and he was on modified diet as per Speech Therapy. We were trying to get a modified barium swallow with Speech Therapy, but patient had orthostatic hypotension and that is why procedure was aborted and it was uninterpretable. At this point, the patient is doing well with modified diet as per Speech Therapy and he does not have any ongoing signs of aspiration. Patient has physical deconditioning and he will need to go back to jail home for finishing antibiotic therapy and PT/OT. PHYSICAL EXAMINATION: The patient is seen and examined at bedside today. VITAL SIGNS: Temperature 98.2, pulse 84, respiratory rate 20, saturation 95%, blood pressure 147/72, weight 156 pounds. GENERAL: The patient is currently alert, awake, in no obvious acute distress. HEAD: Normocephalic, atraumatic. LUNGS: Clear. CARDIAC: S1 and S2 appears regular. Systolic murmur present. No gallop, no rub. ABDOMEN: Soft, bowel sounds present, PICC line in place in right upper extremity. EXTREMITIES: No edema. NEUROLOGIC: The patient is moving all 4 limbs. Paper work for discharge done. Discharge medication reconciliation done. The patient is medically stable for discharge today. Total time spent on discharge day more than 30 minutes MTDD
[2017-07-27] MEDS: Polyethylene Glycol 3350 17 GM Packet PO SCH (09:08)
[2017-07-27] MEDS: Insulin Detemir 100 UNITS/ML 15 UNITS in Pre-Filled Syringe 1 EACH SC SCH ×2 (09:09→11:40)
[2017-07-27] MEDS: HumaLOG 300 UNITS/3 ML VIAL SC PRN (11:39)
[2017-07-27 11:42] VITALS: BP 131/66; TEMP 97.9
--- NOTE | 2017-07-27 16:08 | PDOC.PN ---
- Subjective Encounter Start Date: 07/27/17 Encounter Start Time: 16:07 Patient seen and examined. No new complaints. No overnight events - Objective Resuscitation Status: Resuscitation Status DNR:Do Not Resuscitate MAR Reviewed: Yes Vital Signs & Weight: Vital Signs (12 hours) Temp Pulse Resp BP Pulse Ox 07/27/17 11:41 97.9 F 81 18 131/66 94 L 07/27/17 08:00 97.7 F 88 22 H 163/89 H 92 L Weight Admit Weight 136 lb 9.6 oz Weight 156 lb 8 oz I&O: 07/26/17 07/27/17 07/28/17 06:59 06:59 06:59 Intake Total 1550 100 Output Total 550 750 Balance 1000 -650 Result Diagrams: 07/25/17 03:20 07/26/17 04:50 Additional Labs: Accuchecks 07/27/17 07/27/17 07/27/17 11:29 03:51 03:33 POC Glucose 393 H 101 93 07/26/17 07/26/17 21:06 16:42 POC Glucose 75 99 Phys Exam - Physical Examination Constitutional: NAD HEENT: PERRLA, moist MMs, sclera anicteric Neck: no JVD, supple Respiratory: no wheezing, no rales, no rhonchi Cardiovascular: RRR, no rub sm+ Gastrointestinal: soft, non-tender, no distention, positive bowel sounds Musculoskeletal: no edema, pulses present Neurological: non-focal Lymphatic: no nodes Psychiatric: normal affect Skin: no rash, normal turgor Dx/Plan (1) Discitis of lumbosacral region Code(s): M46.47 - DISCITIS, UNSPECIFIED, LUMBOSACRAL REGION Status: Acute (2) Hypernatremia Code(s): E87.0 - HYPEROSMOLALITY AND HYPERNATREMIA Status: Resolved (3) Hypokalemia Code(s): E87.6 - HYPOKALEMIA Status: Acute (4) MSSA bacteremia Code(s): R78.81 - BACTEREMIA Status: Acute (5) Anemia, normocytic normochromic Code(s): D64.9 - ANEMIA, UNSPECIFIED Status: Chronic (6) Anxiety and depression Code(s): F41.9 - ANXIETY DISORDER, UNSPECIFIED; F32.9 - MAJOR DEPRESSIVE DISORDER, SINGLE EPISODE, UNSPECIFIED Status: Chronic (7) CAD (coronary artery disease) Code(s): I25.10 - ATHSCL HEART DISEASE OF [place] CORONARY ARTERY W/O ANG PCTRS Status: Chronic Qualifiers: (8) Chronic anticoagulation Code(s): Z79.01 - COMPENSATION AND BENEFITS ADVISOR (CURRENT) USE OF ANTICOAGULANTS Status: Chronic (9) DM type 2 (diabetes mellitus, type 2) Status: Chronic Qualifiers: (10) H/O endocarditis Code(s): Z86.79 - PERSONAL HISTORY OF OTHER DISEASES OF THE CIRCULATORY SYSTEM Status: Chronic Comment: had mitral post leaflet veg 05/05/2017 (11) HTN (hypertension) Code(s): I10 - ESSENTIAL (PRIMARY) HYPERTENSION Status: Chronic Qualifiers: Comment: (12) Hypoalbuminemia due to protein-calorie malnutrition Code(s): E46 - UNSPECIFIED PROTEIN-CALORIE MALNUTRITION Status: Chronic (13) Moderate aortic stenosis by prior echocardiography Code(s): I35.0 - NONRHEUMATIC AORTIC (VALVE) STENOSIS Status: Chronic (14) Moderate mitral regurgitation by prior echocardiography Code(s): I34.0 - NONRHEUMATIC MITRAL (VALVE) INSUFFICIENCY Status: Chronic (15) UTI (urinary tract infection) Status: Suspected Qualifiers: - Plan cont current plan of care, continue antibiotics * PICC placement again today as he pulled out * medication reviewed as below * symptomatic treatment * see discharge ingris. Review of Systems - Review of Systems ENT: negative: Ear Pain, Ear Discharge, Nose Pain, Nose Discharge, Nose Congestion, Mouth Pain, Mouth Swelling, Throat Pain, Throat Swelling, Other Respiratory: negative: Cough, Dry, Shortness of Breath, Hemoptysis, SOB with Excertion, Pleuritic Pain, Sputum, Wheezing Cardiovascular: negative: chest pain, palpitations, orthopnea, paroxysmal nocturnal dyspnea, edema, light headedness, other Gastrointestinal: negative: Nausea, Vomiting, Abdominal Pain, Diarrhea, Constipation, Melena, Hematochezia, Other Genitourinary: negative: Dysuria, Frequency, Incontinence, Hematuria, Retention , Other Musculoskeletal: negative: Neck Pain, Shoulder Pain, Arm Pain, Back Pain, Hand Pain, Leg Pain, Foot Pain, Other - Medications/Allergies Allergies/Adverse Reactions: Allergies Allergy/AdvReac Type Severity Reaction Status Date / Time No Known Allergies Allergy Verified 06/21/17 02:47 Medications: Current Medications Acetaminophen (Tylenol) 650 mg PO Q4H PRN PRN Reason: Headache/Fever or Pain Hydrocodone Bitart/Acetaminophen ([place] 5/325) 1 tab PO Q4H PRN PRN Reason: Moderate Pain (4-6) Last Admin: 07/24/17 18:33 Dose: 1 tab Al Hydroxide/Mg Hydroxide (Maalox) 30 ml PO Q6H PRN PRN Reason: Heartburn or Indigestion Artificial Tears (Tears Naturale) 0 drop EA EYE PRN PRN PRN Reason: Dry Eyes Aspirin (Aspirin Chewable) 81 mg PO DAILY [facility] Last Admin: 07/27/17 08:49 Dose: 81 mg Atorvastatin Calcium (Lipitor) 20 mg PO HS [facility] Last Admin: 07/26/17 21:20 Dose: 20 mg Carvedilol (Coreg) 12.5 mg PO BID [facility] Last Admin: 07/27/17 08:47 Dose: 12.5 mg Cefazolin Sodium (Ancef) 2 gm SLOW IVP Q8HR [facility] Last Admin: 07/27/17 06:28 Dose: 2 gm Dextrose/Water (Dextrose 50%) 25 gm SLOW IVP PRN PRN PRN Reason: Hypoglycemia Famotidine (Pepcid) 20 mg PO BID [facility] Last Admin: 07/27/17 08:49 Dose: 20 mg Ferrous Sulfate (Feosol) 325 mg PO BID [facility] Last Admin: 07/27/17 08:49 Dose: 325 mg Fluconazole (Diflucan) 100 mg PO DAILY [facility] Last Admin: 07/27/17 08:48 Dose: 100 mg Fluoxetine HCl (Prozac) 20 mg PO DAILY [facility] Last Admin: 07/27/17 08:46 Dose: 20 mg Glucagon (Glucagon) 1 mg IM PRN PRN PRN Reason: Hypoglycemia Guaifenesin (Robitussin Sf) 200 mg PO Q4H PRN PRN Reason: Cough Hydralazine HCl (Apresoline) 10 mg SLOW IVP Q4H PRN PRN Reason: Systolic BP > 180 Dextrose/Water (D5w) 1,000 mls @ 0 mls/hr IV .Q0M PRN; As Directed PRN Reason: Hypoglycemia Insulin Detemir 15 units/ (Miscellaneous Medication) 0.15 mls @ 0 mls/hr SC DAILY [facility] PRN Reason: As Directed Last Admin: 07/27/17 11:40 Dose: 0.15 mls Sodium Chloride (Normal Saline 0.9%) 1,000 mls @ 50 mls/hr IV .Q20H [facility] Last Admin: 07/26/17 22:57 Dose: Not Given Insulin Human Lispro (Humalog) 0 units SC .MODERATE SLIDING SC PRN PRN Reason: Moderate Correctional Scale Last Admin: 07/27/17 11:39 Dose: 8 unit Insulin Human Lispro (Humalog) 0 units SC .BEDTIME SLIDING SC PRN PRN Reason: Bedtime Correctional Scale Last Admin: 07/25/17 20:59 Dose: 4 unit Lisinopril (Zestril) 40 mg PO HS [facility] Last Admin: 07/26/17 21:21 Dose: 40 mg Loperamide HCl (Imodium) 2 mg PO PRN PRN PRN Reason: Diarrhea/Loose Stools Loratadine (Claritin) 10 mg PO DAILYPRN PRN PRN Reason: Sinus Symptoms Magnesium Hydroxide (Milk Of Magnesium) 30 ml PO DAILYPRN PRN PRN Reason: Constipation Mineral Oil/White Petrolatum (Eucerin Cream) 0 gm TOP BIDPRN PRN PRN Reason: Dry Skin Ondansetron HCl (Zofran Odt) 4 mg PO Q6H PRN PRN Reason: Nausea/Vomiting Ondansetron HCl (Zofran) 4 mg IVP Q6H PRN PRN Reason: Nausea/Vomiting Phenol (Chloraseptic [place] 180 Ml Bot) 0 ml PO PRN PRN PRN Reason: Sore Throat Polyethylene Glycol (Miralax) 17 gm PO DAILY [facility] Last Admin: 07/27/17 09:08 Dose: Not Given Rivaroxaban (Xarelto) 20 mg PO DAILY [facility] Last Admin: 07/27/17 08:47 Dose: 20 mg Saccharomyces Boulardii (Florastor) 250 mg PO BID [facility] Last Admin: 07/27/17 08:46 Dose: 250 mg Senna (Senokot) 2 tab PO HSPRN PRN PRN Reason: Constipation Sodium Chloride (Flush - Normal Saline) 10 ml IVF Q12HR [facility] Last Admin: 07/27/17 09:09 Dose: 10 ml Sodium Chloride (Flush - Normal Saline) 10 ml IVF PRN PRN PRN Reason: Saline Flush Sodium Chloride ([place] Nasal [place] 0.65%) 0 ml EA NARE QIDPRN PRN PRN Reason: Nasal Congestion Tamsulosin HCl (Flomax) 0.4 mg PO DAILY [facility] Last Admin: 07/27/17 08:48 Dose: 0.4 mg Ziprasidone (Geodon) 20 mg PO BID-[facility] Last Admin: 07/27/17 08:51 Dose: 20 mg Zolpidem Tartrate (Ambien) 5 mg PO HSPRN PRN PRN Reason: Insomnia
--- NOTE | 2017-07-27 16:21 | SPC ---
SONOGRAPHIC GUIDED LEFT UPPER EXTREMITY PICC PLACEMENT: History: Urinary tract infection. FINDINGS: After explaining the procedure and answering all questions, the left upper extremity was prepped and draped in the usual sterile fashion. Sterile technique, buffered local anesthesia, sonographic guidan ce and a 22 gauge needle were used to carefully access the left brachial vein. Standard technique was then used to place the tip of a 5 [place] dual lumen PICC so that the tip lies at the level of the wright perior vena cava. Catheter was flushed and secured externally. The patient tolerated the procedure we ll and was returned in unchanged condition. IMPRESSION: Technically successful left upper extremity PICC placement. Catheter is now ready for use. POS: [facility]
== END 2017-07-27 17:08 | DRG 728 ==
LOC: ERS 01:36 → T4-A 02:38
PROVIDERS: ADMIT Internal Medicine; ATTEND Internal Medicine
PROC: 02HV33Z Insertion of Infusion Device into Superior Vena Cava, Percutaneous Approach (ICD-10-PCS; principal; 2017-07-27)
DX: B37.49 Other urogenital candidiasis (principal); E87.0 Hyperosmolality and hypernatremia; E46 Unspecified protein-calorie malnutrition; I27.20 Pulmonary hypertension, unspecified; R78.81 Bacteremia; M46.27 Osteomyelitis of vertebra, lumbosacral region; I11.0 Hypertensive heart disease with heart failure; I50.32 Chronic diastolic (congestive) heart failure; B95.61 Methicillin susceptible Staphylococcus aureus infection as the cause of diseases classified elsewhere; Z68.1 Body mass index [BMI] 19.9 or less, adult; E86.0 Dehydration; E11.9 Type 2 diabetes mellitus without complications; D64.9 Anemia, unspecified; Z66 Do not resuscitate; M46.47 Discitis, unspecified, lumbosacral region; E87.6 Hypokalemia; F41.9 Anxiety disorder, unspecified; F32.9 Major depressive disorder, single episode, unspecified; I25.10 Atherosclerotic heart disease of native coronary artery without angina pectoris; Z79.01 Long term (current) use of anticoagulants; Z86.79 Personal history of other diseases of the circulatory system; I08.0 Rheumatic disorders of both mitral and aortic valves; F03.90 Unspecified dementia, unspecified severity, without behavioral disturbance, psychotic disturbance, mood disturbance, and anxiety; Z86.718 Personal history of other venous thrombosis and embolism; I25.2 Old myocardial infarction; Z95.1 Presence of aortocoronary bypass graft; J44.9 Chronic obstructive pulmonary disease, unspecified; E78.5 Hyperlipidemia, unspecified; N40.0 Benign prostatic hyperplasia without lower urinary tract symptoms
CPT/HCPCS: 36415; 36416; 36569; 74230; 80048; 80053; 81003; 81015; 82550; 83735; 83930; 84100; 85025; 85610; 85652; 85730; 86140; 87086; 93005; 94760; A4216; C1751; G8978-GP-CM; G8979-GP-CL; G8987-GO-CK; G8988-GO-CI; G8996-GN-CK; G8996-GN-CL; G8997-GN-CJ; G8997-GN-CL; J0696; J1815; J1956

== ENCOUNTER 2017-09-16 11:50 | Emergency (ER) | payer MEDICARE ==
[2017-09-16 13:59] LABS: #Eosinphils 0.8 thou/uL (0.0-0.7); #Lymphocytes 1.9 thou/uL (1.20-3.40); #Monocytes 0.5 thou/uL (0.11-0.59); #Neutrophils 3.5 thou/uL (1.40-6.50); %Basophils 0.4 % (0.0-1.0); %Eosinophils 11.1 % (0.0-10.0); %Lymphocytes 28.6 % (21.0-51.0); %Neutrophils 51.9 % (42.0-75.0); Hemoglobin 9.9 g/dL (14.0-18.0); Mean Corpuscular HGB CONC 32.2 g/dL (32.0-36.0); Mean Corpuscular Volume 90.2 fl (80.0-94.0); Mean Platelet Volume 7.3 fL (7.4-10.4); Platelet Count 386 thou/uL (130-400); RBC Distribution Width 18.4 % (11.5-14.5); Red Blood Cell (RBC) Count 3.42 mill/uL (4.70-6.10); White Blood Cell (WBC) Count 6.8 thou/uL (4.8-10.8)
[2017-09-16 14:18] LABS: Anion Gap 12 mmol/L (10-20); BUN (Urea Nitrogen) 17 mg/dL (8.4-25.7); Calc. Creatinine Clearance 0 mL/min (70-130); Calcium 8.7 mg/dL (7.8-10.44); Carbon Dioxide 28 mmol/L (23-31); Chloride 101 mmol/L (98-107); Estimated GFR-MDRD 86; Glucose 183 mg/dL (83-110); Sodium 136 mmol/L (136-145)
== END 2017-09-16 16:10 | disposition home or self-care (01) ==
LOC: ERS 11:50
DX: T82.898A Other specified complication of vascular prosthetic devices, implants and grafts, initial encounter (principal); I11.0 Hypertensive heart disease with heart failure; I50.9 Heart failure, unspecified; E10.9 Type 1 diabetes mellitus without complications; G89.29 Other chronic pain; F41.9 Anxiety disorder, unspecified; I25.2 Old myocardial infarction; Z79.4 Long term (current) use of insulin; Z79.899 Other long term (current) drug therapy; Z79.82 Long term (current) use of aspirin
CPT/HCPCS: 36415; 80048; 85025; 99283

== ENCOUNTER 2017-10-01 14:52 | Outpatient (CLI) | payer MEDICARE ==
--- NOTE | 2017-10-01 16:46 | MRI ---
LUMBAR SPINE MRI WITH AND WITHOUT CONTRAST 10/01/17 COMPARISON: 07/04/17 HISTORY: Discitis/osteomyelitis at the L5-S1 level. TECHNIQUE: Multiplanar and multisequence MRI imaging of the lumbar spine is obtained with and without contrast. FINDINGS: Osseous detail is quite limited on the basis of body habitus and motion. This limits detailed assessm ent for central canal and/or neural foraminal stenosis within the lumbar spine. The sagittal STIR imaging demonstrates increased signal intensity within the intervertebral disc at t he L5-S1 level, similar when compared to the most recent prior examination. There is minimal fluid si gnal intensity in the presacral space, significantly improved since 07/04/17 exam. There is anterolisthesis at L5-S1 measuring approximately 8 mm. Bilateral L5 pars defects are noted. Assuming five lumbar type vertebral bodies, the conus medullaris terminates at the T11-12 level. T11-12: No significant central canal and neural foraminal stenosis. T12-L1: No significant central canal or neural foraminal stenosis. L1-2: Bilateral facet hypertrophy noted. There is mild disc space narrowing and disc desiccation with no significant central canal or neural foraminal stenosis. L2-3: Disc space narrowing, disc desiccation and mild disc bulge. Bilateral facet hypertrophy and hyp ertrophy of the ligamentum flavum. Mild bilateral neural foraminal stenosis. Mild central canal steno sis. L3-4: Moderate bilateral facet hypertrophy. There is disc space narrowing and degenerative end plate change with disc bulge causing a moderate degree of central canal stenosis. There is moderate bilater al neural foraminal stenosis. L4-5: Moderate bilateral facet hypertrophy. There is disc space narrowing, disc desiccation, and disc osteophyte complex. There is moderate/severe bilateral neural foraminal stenosis, left greater than right, as well as moderate central canal stenosis. L5-S1: There is prominent end plate irregularity involving inferior end plate of L5 and superior end plate of S1. There is fluid within the intervertebral disc. There is prominent bilateral facet hypert rophy. There is severe bilateral neural foraminal stenosis. There is moderate/severe central canal st enosis. The imaged quality is limited to the degree of which it is difficult to assess the L5-S1 level, inclu ding the vertebral body end plates and the intervertebral disc for enhancement. There is a suggestion of mild enhancement involving the superior end plate of the S1 vertebral body and the inferior end p late of the L5 vertebral body. No obvious enhancement of the intervertebral disc is seen within the l imitations of this examination. There may be mild enhancement of the epidural space in a circumferential manner at the L5-S1 level, r ight greater than left, which could signify inflammatory change. When compared to the 07/04/17 exam, t here has been no significant interval change. The imaged retroperitoneal structures appear grossly unremarkable. IMPRESSION: Markedly limited examination secondary to motion. Multilevel degenerative change noted with central c anal and neural foraminal stenosis, most prominent within the lower lumbar spine. At L5-S1, there is prominent end plate signal abnormality with bilateral L5 pars defects. It is possible that these beebe ges are associated with severe degenerative end plate change associated with abnormal motion on the b asis of pars defects and/or stable discitis/osteomyelitis. Circumferential subtle epidural enhancemen t at L5-S1 may be infectious in nature. Nuclear medicine examination may be beneficial to evaluate fo r active infection at the L5-S1 intervertebral disc space. POS: [facility]
== END 2017-10-01 14:53 | disposition home or self-care (01) ==
LOC: MRI 14:52
PROVIDERS: ATTEND Internal Medicine Infectious Disease
DX: M46.47 Discitis, unspecified, lumbosacral region (principal); A41.01 Sepsis due to Methicillin susceptible Staphylococcus aureus; M47.896 Other spondylosis, lumbar region; M48.061 Spinal stenosis, lumbar region without neurogenic claudication; M99.83 Other biomechanical lesions of lumbar region; M48.8X4 Other specified spondylopathies, thoracic region
CPT/HCPCS: 72158

== ENCOUNTER → 2017-10-20 | Day surgery (SDC) | payer MEDICARE ==
[2017-10-19 13:03] VITALS: BMI 25.7
[~2017-10-20] MED LIST: Glycopyrrolate 0.2 MG/ML 5 ML SYRINGE ONE; Lidocaine 1% PF 5 ML VIAL ONE; PROPOFOL 200 MG/20 ML VIAL ONE; ePHEDrine/0.9% NaCl/PF SYRINGE 50 mg/10 ml ONE
--- NOTE | 2017-10-20 09:11 | HP ---
SHORT STAY HISTORY AND PHYSICAL DATE OF ADMISSION: 10/20/2017 HISTORY OF PRESENT ILLNESS: This is a 71-year-old male referred to me for a prior evaluation of anem ia. He is in a wheel chair. As per fci, anemia recently. He has no history of sheba tochezia or melena. He has no bleeding from the gums or the nose. No history of hematuria. The pat namrata also has history of dysphagia and 2 months ago. The patient comes here for an esophagoga stroduodenoscopy. actually swallowing better. There is no history of hematochezia or melena . The patient comes for an EGD and a colonoscopy because of unexplained anemia. MEDICAL ILLNESSES: 1. Past history of endocarditis, on IV antibiotics. 2. Physical deconditioning. 3. Indwelling Rueda catheter. 4. Hypertension. 5. Diabetes mellitus. 6. Urinary tract infection. 7. Coronary artery disease. 8. Anxiety. PHYSICAL EXAMINATION: GENERAL: This is a fragile looking male, appears comfortable. VITAL SIGNS: Pulse is 70, blood pressure 130/70. HEENT: Conjunctivae clear. CARDIOVASCULAR SYSTEM: First and second heart sounds normal. LUNGS: Clear to auscultation. ABDOMEN: Soft to palpate. No organomegaly. No tenderness. No masses. ADMITTING DIAGNOSIS: Anemia, etiology unclear. PLAN: EGD and colonoscopy.
--- NOTE | 2017-10-20 12:25 | OP ---
DATE OF PROCEDURE: 10/20/2017 SURGEON: Pastora Haynes M.D. OPERATIVE PROCEDURE: OPERATIVE PROCEDURE: 1. Esophagogastroduodenoscopy. 2. Esophageal dilation with Denis size 50-[place] in diameter. PREOPERATIVE DIAGNOSES: 1. Dysphagia. 2. Anemia. POSTOPERATIVE DIAGNOSES: 1. Distal esophageal ring, nonobstructing. 2. Hiatus hernia. 3. Shallow ulcer over the gastric antrum. 4. Normal duodenum. PROCEDURE IN DETAIL: The patient was placed on his left lateral position and was given sedation by A nesthesia Department. A Pentax video gastroscope under direct vision was passed down the oropharynx, past the GE junction, into the stomach. The vocal cords appeared healthy. The esophageal mucosa ap peared normal. At the GE junction the patient found to have esophageal rings nonobstructing wide ope n. He has small hiatus hernia. Retroflexion failed to show pathology in the fundus or cardia. The gastric body, no pathology seen. There is a shallow gastric ulcer in the gastric antrum, close to py loric opening. The duodenal bulb, ascending duodenum, no pathology seen. The stomach was decompress ed and the scope removed. Because of history of dysphagia, a 50-[place] Denis dilator passed down w ith no resistance. The stomach was decompressed and the scope removed.
--- NOTE | 2017-10-20 12:27 | OP ---
DATE OF PROCEDURE: 10/20/2017 SURGEON: Pastora Haynes M.D. OPERATIVE PROCEDURE: Attempted colonoscopy. PROCEDURE IN DETAIL: The procedure was not done due to retained fecal material. PROCEDURE NOTE: The patient was placed in left lateral position and was given sedation by Anesthesia Department. On rectal exam the patient was found to have a stool around the anal opening. A digita l exam was done. He has a large amount of solid stool in the rectal vault. The procedure was cancel ed. DISCHARGE PLANNING: A 71-year-old male who came for EGD and a colonoscopy. He underwent d ilation. The colonoscopy was not successful because of retained solid stool in the rectum. DISCHARGE RECOMMENDATIONS: We will bring the patient back in the next couple of weeks for a colonosc opy if the patient is agreeable.
== END ==
LOC: SDC 08:53
PROVIDERS: ATTEND Internal Medicine Gastroenterology
PROC: 0DJD8ZZ Inspection of Lower Intestinal Tract, Via Natural or Artificial Opening Endoscopic (ICD-10-PCS; principal; 2017-10-20)
PROC: 0D758ZZ Dilation of Esophagus, Via Natural or Artificial Opening Endoscopic (ICD-10-PCS; 2017-10-20)
DX: K22.2 Esophageal obstruction (principal); K25.9 Gastric ulcer, unspecified as acute or chronic, without hemorrhage or perforation; K44.9 Diaphragmatic hernia without obstruction or gangrene; K59.00 Constipation, unspecified; D64.9 Anemia, unspecified; I10 Essential (primary) hypertension; E11.9 Type 2 diabetes mellitus without complications; I25.10 Atherosclerotic heart disease of native coronary artery without angina pectoris; F41.9 Anxiety disorder, unspecified; Z79.82 Long term (current) use of aspirin; Z79.4 Long term (current) use of insulin; Z79.899 Other long term (current) drug therapy; Z53.8 Procedure and treatment not carried out for other reasons
CPT/HCPCS: 36416; J2001; J2704

== ENCOUNTER 2018-01-29 16:02 | Inpatient (IN) | payer MEDICARE ==
[2018-01-29 16:29] LABS: Lactate 1.86 mmol/L (0.50-2.20)
[2018-01-29 16:38] LABS: #Eosinphils 0.3 thou/uL (0.0-0.7); #Lymphocytes 1.7 thou/uL (1.20-3.40); #Monocytes 1.2 thou/uL (0.11-0.59); #Neutrophils 11.4 thou/uL (1.40-6.50); %Basophils 0.2 % (0.0-1.0); %Eosinophils 2.2 % (0.0-10.0); %Lymphocytes 11.5 % (21.0-51.0); %Monocytes 7.9 % (0.0-10.0); %Neutrophils 78.2 % (42.0-75.0); Hemoglobin 7.7 g/dL (14.0-18.0); Mean Corpuscular HGB CONC 32.5 g/dL (32.0-36.0); Mean Corpuscular Hemoglobin 29.9 pg (27.0-31.0); Mean Corpuscular Volume 92.2 fL (78.0-98.0); Mean Platelet Volume 7.2 fL (7.4-10.4); Platelet Count 507 thou/uL (130-400); RBC Distribution Width 12.3 % (11.5-14.5); Red Blood Cell (RBC) Count 2.58 mill/uL (4.70-6.10); White Blood Cell (WBC) Count 14.6 thou/uL (4.8-10.8)
[2018-01-29 16:41] LABS: Bilirubin Negative (Negative); Blood, Urine Moderate (Negative); Clarity CLOUDY (Clear); Glucose, Urine (Dipstick) Negative (Negative); Leukocyte Large (Negative); Nitrite Negative (Negative); Protein, Urine (Dipstick) 30 mg/dL (Neg-Trace); Specific Gravity, Urine 1.015 (1.002-1.036); Urobilinogen 0.2 mg/dL (0.2-1.0); pH, Urine 5.5 (5.0-9.0)
--- NOTE | 2018-01-29 16:41 | RAD ---
PORTABLE CHEST: Date: 01/29/18 HISTORY: Mental status change. COMPARISON: 01/18/18. FINDINGS: The lungs appear clear. No infiltrate or vascular congestion. Heart size within normal range. Postop sternotomy change. IMPRESSION: No acute lung process. POS: [facility]
[2018-01-29 16:43] LABS: Hyaline Casts/LPF 7-10 HYALINE CAST LPF (0-3 Hyaline); Pathc Cast-AUWi Flag 2.03 (0-2.49)
[2018-01-29 17:04] LABS: ALT (SGPT) 10 U/L (8-55); AST (SGOT) 12 U/L (5-34); Albumin 2.8 g/dL (3.4-4.8); Alkaline Phosphatase 75 U/L (40-150); Anion Gap 13 mmol/L (10-20); BUN (Urea Nitrogen) 21 mg/dL (8.4-25.7); Bilirubin, Total Less than 0.2 mg/dL (0.2-1.2); Calc. Creatinine Clearance 0 mL/min (70-130); Calcium 7.8 mg/dL (7.8-10.44); Carbon Dioxide 20 mmol/L (23-31); Chloride 105 mmol/L (98-107); Estimated GFR-MDRD 51; Glucose 90 mg/dL (83-110); Potassium 4.5 mmol/L (3.5-5.1); Protein, Total 5.8 g/dL (5.8-8.1); Sodium 133 mmol/L (136-145)
[2018-01-29 17:05] LABS: Bacteria/HPF 1+ HPF (None Seen); Squamous Epithelial 0-3 HPF (0-3); Transitional Epithelial 0-3 HPF (0-3); Yeast-All Forms 3+ HPF (None Seen)
[2018-01-29] MEDS ORDERED: cefTRIAXone\\ROCEPHIN 2 GM VIAL ONE (17:41)
[2018-01-29 20:36] LABS: Lactic Acid 0.7 mmol/L (0.5-2.2)
[2018-01-29] MEDS ORDERED: Acetaminophen 325 MG TAB PO PRN (21:42)
[2018-01-30] MEDS ORDERED: Ondansetron ODT 4 MG TAB PO PRN (01:58)
[2018-01-30] MEDS ORDERED: HumaLOG 300 UNITS/3 ML VIAL SC PRN (01:58)
[2018-01-30] MEDS ORDERED: Dextrose 50% Abboject 50 ML SYRINGE SLOW IVP PRN (01:58)
[2018-01-30] MEDS ORDERED: Dextrose 5% in Water 1,000 ML IV PRN (01:58)
[2018-01-30] MEDS ORDERED: Diabetic Tussin 200 MG/10 ML UDCUP PO PRN (01:58)
[2018-01-30] MEDS ORDERED: Ondansetron PF 4 MG/2 ML Vial IVP PRN (01:58)
[2018-01-30] MEDS ORDERED: Acetaminophen 500 MG TAB PO PRN (01:58)
--- NOTE | 2018-01-30 03:47 | HP ---
DATE OF ADMISSION: 01/29/2018 PRIMARY CARE PROVIDER: Dr. Sd Gaming. CHIEF COMPLAINT: Question of altered mental status. HISTORY OF PRESENT ILLNESS: This is a 72-year-old male who presents from [facility] where patient is a current resident after recent admission and discharge from [facility] on 01/25/2018. Patient was recently diagnosed with urinary tract infection in the con text of chronic indwelling Rueda catheter with urine culture showing Proteus species. Patient was di scharged on amoxicillin for 10-day course of outpatient antibiotics. Patient apparently was noted by detention personnel with altered mentation. Patient was evaluated in the emergency room, however , was noted, alert and oriented x3. Patient was noted with mild hypotension with temperature of 99.6 degrees Fahrenheit. Patient was treated with Tylenol 1000 mg as well as intravenous normal saline. Patient also received Zofran for mild nausea. Patient recently underwent exchange of his current ronic Rueda catheter and was subsequently replaced again in the emergency room on 01/29/2018. PAST MEDICAL HISTORY: 1. History of sepsis secondary to urinary tract infection with Proteus species. 2. Chronic indwelling Rueda catheter. 3. Dementia, mild. 4. Deconditioning. 5. Diabetes mellitus, type 2. 6. Coronary artery disease. 7. Hypertension. 8. History of endocarditis. PAST SURGICAL HISTORY: 1. Status post coronary artery bypass grafting in 2011. 2. Status post bilateral cataract removal. CURRENT MEDICATIONS: 1. Enteric-coated aspirin 81 mg p.o. daily. 2. Coreg 12.5 mg p.o. b.i.d. 3. Ferrous sulfate 325 mg p.o. b.i.d. 4. Prozac 20 mg p.o. daily. 5. Lasix 40 mg p.o. daily. 6. Zestril 40 mg p.o. daily. 7. Multivitamin 1 tab p.o. daily. 8. Zofran 4 mg p.o. q.8 hours p.r.n. nausea, vomiting. 9. MiraLax 17 grams p.o. daily. 10. Klor-Con 20 mEq p.o. daily. 11. Xarelto 20 mg p.o. daily. 12. Florastor 250 mg p.o. b.i.d. 13. Zocor 20 mg p.o. at bedtime. 14. Flomax 0.4 mg p.o. daily. 15. Amoxicillin 500 mg p.o. t.i.d. ALLERGIES: No known drug allergies. FAMILY HISTORY: Father of complications of diabetes mellitus and coronary artery disease at the age of 70. Sister of complications of lung cancer. SOCIAL HISTORY: Patient resides at [facility]. No current alcohol, tobacco, or illicit drug use. REVIEW OF SYSTEMS: The following complete review of systems was otherwise negative, except as stated per HPI: Constitutional: Weight loss or gain, ability to conduct usual activities. Skin: Rash, i tching. Eyes: Double vision, pain. ENT/Mouth: Nose bleeding, neck stiffness, pain, tenderness. C ardiovascular: Palpitations, dyspnea on exertion, orthopnea. Respiratory: Shortness of breath, whe ezing, cough, hemoptysis, fever, or night sweats. Gastrointestinal: Poor appetite, abdominal pain, heartburn, nausea, vomiting, constipation, or diarrhea. Genitourinary: Urgency, frequency, dysuria, nocturia. Musculoskeletal: Pain, swelling. Neurologic/Psychiatric: Anxiety, depression. Allergy /Immunologic: Skin rash, bleeding tendency. PHYSICAL EXAMINATION: VITAL SIGNS: Currently, blood pressure 106/54, pulse 71, respiratory rate 18, temperature 97.3 degre es Fahrenheit, O2 saturation 98% on room air. GENERAL APPEARANCE: This is a 72-year-old male, ill-appearing, alert, and responds to ques tions. HEENT: Pupils are equal, round, and reactive to light and accommodation. Extraocular muscles are in tact. No scleral icterus, no conjunctival injection. Nares patent. OP is clear. Teeth in fair rep air. NECK: Supple, no cervical adenopathy, no thyromegaly, no carotid bruits, no JVD noted. Cervical spi ne with full active and passive range of motion. No meningeal signs noted. CHEST: Lungs are clear to auscultation bilaterally. CARDIOVASCULAR: S1, S2 with a 3/6 systolic ejection murmur loudest in the right upper sternal border . ABDOMEN: Rounded, soft, nontender, nondistended, no palpable mass. GENITOURINARY: Rueda catheter in place. EXTREMITIES: Warm and dry with fair turgor. No clubbing, cyanosis, or asymmetric edema appreciated. NEUROLOGIC: Cranial nerves II through XII are grossly intact. Alert and oriented x3. No focal or l ateralizing signs noted. PERTINENT LABORATORY DATA AND X-RAY FINDINGS: Sodium 133, potassium 4.5, chloride 105, CO2 of 20, BU N 21, creatinine 1.36, estimated GFR 51, glucose 90. Lactic acid level ranged between 0.7 to 2.2, ca lcium 7.8. LFTs within normal limits. CBC showed a white blood cell count of 14.6, hemoglobin 7.7, hematocrit 24, platelet count 507 with 78% neutrophils. Influenza A and B antigen dated 01/29/2018, negative. Portable chest x-ray dated 01/29/2018 showed no acute process. EKG dated 01/29/2018 by my interpretation shows sinus mechanism with heart rates in the 60s. Attenuated R waves noted in the p recordial leads. Normal axis. ASSESSMENT AND PLAN: 1. Metabolic encephalopathy. Questionable baseline mental status function with current mental statu s alert and oriented x3. Continue general supportive management. 2. Urinary tract infection, patient with chronic indwelling Rueda catheter with recent Proteus speci es, urinary tract infection. We will continue Rocephin 2 grams IV q.24 hours. Repeat urine culture. 3. Chronic indwelling Rueda catheter. Current catheter exchanged in the emergency department. Cont inue general catheter care. 4. Hypotension. Mild, status post intravenous normal saline. Hold antihypertensive regimen and mon itor serial blood pressures. 5. Chronic kidney disease, stage 3. Avoid nephrotoxic agents and limit contrast exposure. Repeat c reatinine in the a.m. 6. Normocytic anemia. Chronic after review of the electronic medical record. Continue to monitor h emoglobin trend. Check stool Hemoccult. 7. Deconditioning. PT evaluation for functional assessment. General fall risk precautions. 8. Prophylaxis. Sequential compression devices while in bed. Pepcid 20 mg p.o. b.i.d. 9. Code status is DO NOT RESUSCITATE confirm with the patient. Surrogate medical decision maker is patient's spouse.
[2018-01-30 06:51] LABS: Anion Gap 13 mmol/L (10-20); BUN (Urea Nitrogen) 17 mg/dL (8.4-25.7); Calc. Creatinine Clearance 57 mL/min (70-130); Calcium 8.1 mg/dL (7.8-10.44); Carbon Dioxide 20 mmol/L (23-31); Chloride 108 mmol/L (98-107); Estimated GFR-MDRD 60; Glucose 167 mg/dL (83-110); Potassium 3.7 mmol/L (3.5-5.1); Sodium 137 mmol/L (136-145)
[2018-01-30 06:58] LABS: Band 21 % (5-11); Eosinophils 5 % (0-10); Hemoglobin 8.5 g/dL (14.0-18.0); Lymphocytes 10 % (21-51); MDiff Complete? YES; Mean Corpuscular HGB CONC 32.4 g/dL (32.0-36.0); Mean Corpuscular Volume 92.6 fL (78.0-98.0); Mean Platelet Volume 7.5 fL (7.4-10.4); Monocytes 5 % (0-10); Neutrophil 59 % (42-75); Platelet Count 492 thou/uL (130-400); RBC Distribution Width 12.4 % (11.5-14.5); Red Blood Cell (RBC) Count 2.83 mill/uL (4.70-6.10)
[2018-01-30] MEDS ORDERED: Prevnar 13-Val Conj/PF 0.5 ML SYRINGE IM ONE (09:00)
[2018-01-30] MEDS: Carvedilol 25 MG TAB PO SCH ×2 (09:16→16:08)
[2018-01-30] MEDS: Famotidine 20 MG TAB PO SCH ×2 (09:16→21:19)
[2018-01-30] MEDS: Ferrous Sulfate 325 MG TAB PO SCH ×2 (09:17→16:09)
[2018-01-30] MEDS: Acetaminophen/Codeine 30-300mg Tablet PO SCH ×3 (09:17→21:19)
[2018-01-30] MEDS: Multivitamin W/ Minerals 1 TAB PO SCH (09:17)
[2018-01-30] MEDS: Potassium Chloride 20 MEQ TAB PO SCH (09:17)
[2018-01-30] MEDS: FLUoxetine HCl 20 MG CAP PO SCH (09:17)
[2018-01-30] MEDS: Saccharomyces boulardii 250 MG CAP PO SCH ×2 (09:17→21:19)
[2018-01-30] MEDS: Tamsulosin HCl 0.4 MG CAP PO SCH (09:19)
[2018-01-30] MEDS: Polyethylene Glycol 3350 17 GM Packet PO SCH (09:20)
[2018-01-30] MEDS: Insulin Glargine 20 UNITS in Pre-Filled Syringe 1 EACH SC SCH (09:27)
[2018-01-30 10:24] LABS: Hemoglobin 8.4 g/dL (14.0-18.0); Platelet Count 511 thou/uL (130-400)
[2018-01-30] MEDS: Vancomycin HCl 25 MG/ML Oral PO SCH ×3 (14:04→21:18)
[2018-01-30] MEDS: Rivaroxaban 10 MG TAB PO SCH (16:09)
[2018-01-30] MEDS: cefTRIAXone\\ROCEPHIN 2 GM in Sodium Chloride 0.9% 100 ML IVPB SCH (17:15)
--- NOTE | 2018-01-30 17:53 | PDOC.EVN ---
Event Note - Event Note Event Note: Doing well today. No complaints. His C diff did come back positive. Starting oral Vanc. Otherwise exam is benign.
[2018-01-30] MEDS ORDERED: Saccharomyces boulardii 250 MG CAP PO SCH (21:00)
[2018-01-30] MEDS: Atorvastatin Calcium 10 MG TAB PO SCH (21:19)
[2018-01-31] MEDS ORDERED: Digoxin 0.5 MG/2 ML AMP SLOW IVP SCH (08:45)
[2018-01-31] MEDS: Polyethylene Glycol 3350 17 GM Packet PO SCH (09:01)
[2018-01-31] MEDS: Insulin Glargine 20 UNITS in Pre-Filled Syringe 1 EACH SC SCH (09:02)
[2018-01-31] MEDS: Ferrous Sulfate 325 MG TAB PO SCH ×2 (09:03→17:32)
[2018-01-31] MEDS: FLUoxetine HCl 20 MG CAP PO SCH (09:04)
[2018-01-31] MEDS: Saccharomyces boulardii 250 MG CAP PO SCH ×2 (09:04→21:52)
[2018-01-31] MEDS: Famotidine 20 MG TAB PO SCH ×2 (09:04→21:51)
[2018-01-31] MEDS: Tamsulosin HCl 0.4 MG CAP PO SCH (09:04)
[2018-01-31] MEDS: Multivitamin W/ Minerals 1 TAB PO SCH (09:04)
[2018-01-31] MEDS: Vancomycin HCl 25 MG/ML Oral PO SCH ×4 (09:04→21:52)
[2018-01-31] MEDS: Acetaminophen/Codeine 30-300mg Tablet PO SCH ×3 (09:05→21:53)
[2018-01-31] MEDS: Carvedilol 25 MG TAB PO SCH ×2 (09:05→17:32)
[2018-01-31] MEDS: Potassium Chloride 20 MEQ TAB PO SCH (09:06)
--- NOTE | 2018-01-31 12:47 | PDOC.PN ---
- Subjective Encounter Start Date: 01/31/18 Encounter Start Time: 07:00 Pt seen for followup re: clostrdium difficile diarrhea. Feels better. No chest pain, still has diarrhea. - Objective Resuscitation Status: Resuscitation Status DNR:Do Not Resuscitate MAR Reviewed: Yes Vital Signs & Weight: Vital Signs (12 hours) Temp Pulse Resp BP Pulse Ox 01/31/18 12:00 97.7 F 113 H 14 114/64 98 01/31/18 09:07 108 H 01/31/18 08:00 98.4 F 113 H 13 113/68 95 01/31/18 03:47 98.3 F 108 H 16 116/64 92 L Weight Admit Weight 161 lb Weight 162 lb 9.6 oz I&O: 01/30/18 01/31/18 02/01/18 06:59 06:59 06:59 Intake Total 50 730 Output Total 1000 1100 Balance -950 -370 Result Diagrams: 01/30/18 09:40 01/30/18 09:40 Additional Labs: Accuchecks 01/31/18 01/31/18 01/30/18 11:01 05:53 21:10 POC Glucose 152 H 65 L 150 H 01/30/18 17:13 POC Glucose 163 H EKG Reviewed by me: Yes (Tele: a. mio) Phys Exam - Physical Examination Constitutional: NAD HEENT: moist MMs, sclera anicteric, oral pharynx no lesions, 2+ tonsils Neck: no nodes, no JVD, supple, full ROM Respiratory: no wheezing, no rales, no rhonchi, clear to auscultation bilateral Cardiovascular: no rub, irregular S1, S2 Gastrointestinal: soft, non-tender, no distention, positive bowel sounds Neurological: moves all 4 limbs Psychiatric: normal affect Deviation from normal: Oriented to person and place, not to time Dx/Plan (1) Clostridium difficile diarrhea Code(s): A04.72 - ENTEROCOLITIS D/T CLOSTRIDIUM DIFFICILE, NOT SPCF RECUR Status: Acute Comment: continue enteral vancomycin (2) UTI (urinary tract infection) Status: Acute Qualifiers: Urinary tract infection type: catheter-associated UTI Indwelling urinary catheter type: indwelling urethral catheter Encounter type: initial encounter Qualified Code(s): T83.511A - Infection and inflammatory reaction due to indwelling urethral catheter, initial encounter; N39.0 - Urinary tract infection , site not specified Comment: continue IV ceftriaxone (3) Atrial fibrillation with RVR Code(s): I48.91 - UNSPECIFIED ATRIAL FIBRILLATION Status: Acute Comment: Likely paroxysmal, pt is on xarelto at [facility] home. Continue tele monitor. Pt received a dose of digoxin. Check 2D echo. (4) Dementia Code(s): F03.90 - UNSPECIFIED DEMENTIA WITHOUT BEHAVIORAL DISTURBANCE Status: Chronic Qualifiers: Dementia type: unspecified type Dementia behavioral disturbance: without behavioral disturbance Qualified Code(s): F03.90 - Unspecified dementia without behavioral disturbance Comment: stable (5) DM2 (diabetes mellitus, type 2) Status: Chronic Comment: continue accuchecks, insulin sliding scale. (6) CAD (coronary artery disease) Code(s): I25.10 - ATHSCL HEART DISEASE OF [place] CORONARY ARTERY W/O ANG PCTRS Status: Chronic Comment: stable (7) HTN (hypertension) Code(s): I10 - ESSENTIAL (PRIMARY) HYPERTENSION Status: Chronic Comment: controlled - Plan * . Review of Systems - Review of Systems Constitutional: negative: fever, chills, sweats, weakness, malaise Cardiovascular: negative: chest pain, palpitations, orthopnea, paroxysmal nocturnal dyspnea, edema, light headedness Gastrointestinal: Diarrhea. negative: Nausea, Vomiting, Abdominal Pain, Constipation, Melena, Hematochezia Genitourinary: negative: Dysuria, Frequency, Incontinence, Hematuria, Retention Musculoskeletal: negative: Neck Pain, Shoulder Pain, Arm Pain, Back Pain, Hand Pain, Leg Pain, Foot Pain Skin: negative: Rash, Lesions, Norbert, Bruising - Medications/Allergies Allergies/Adverse Reactions: Allergies Allergy/AdvReac Type Severity Reaction Status Date / Time No Known Drug Allergies Allergy Verified 01/29/18 22:22 Medications: Current Medications Acetaminophen (Tylenol) 1,000 mg PO Q6H PRN PRN Reason: Mild Pain (1-3) Acetaminophen/Codeine Phosphate (Tylenol #3) 1 tab PO TID [facility] Last Admin: 01/31/18 09:05 Dose: Not Given Aspirin (Aspirin Chewable) 81 mg PO DAILY [facility] Last Admin: 01/31/18 09:02 Dose: 81 mg Atorvastatin Calcium (Lipitor) 10 mg PO QPM [facility] Last Admin: 01/30/18 21:19 Dose: 10 mg Carvedilol (Coreg) 12.5 mg PO BID[facility] Last Admin: 01/31/18 09:05 Dose: 12.5 mg Dextrose/Water (Dextrose 50%) 25 gm SLOW IVP PRN PRN PRN Reason: Hypoglycemia Famotidine (Pepcid) 20 mg PO BID [facility] Last Admin: 01/31/18 09:04 Dose: 20 mg Ferrous Sulfate (Feosol) 325 mg PO BID[facility] Last Admin: 01/31/18 09:03 Dose: 325 mg Fluoxetine HCl (Prozac) 20 mg PO DAILY [facility] Last Admin: 01/31/18 09:04 Dose: 20 mg Glucagon (Glucagon) 1 mg IM PRN PRN PRN Reason: Hypoglycemia Guaifenesin (Robitussin Sf) 200 mg PO Q4H PRN PRN Reason: Cough Dextrose/Water (D5w) 1,000 mls @ 0 mls/hr IV .Q0M PRN PRN Reason: Hypoglycemia Ceftriaxone Sodium 2 gm/ (Sodium Chloride) 100 mls @ 200 mls/hr IVPB 1800 [facility] Last Admin: 01/30/18 17:15 Dose: 100 mls Insulin Glargine 20 units/ (Miscellaneous Medication) 0.2 mls @ 0 mls/hr SC DAILY [facility] Last Admin: 01/31/18 09:02 Dose: 0.2 mls Insulin Human Lispro (Humalog) 0 units SC .MILD SLIDING SCALE PRN PRN Reason: Mild Correctional Scale Insulin Human Lispro (Humalog) 0 units SC .BEDTIME SLIDING SC PRN PRN Reason: Bedtime Correctional Scale Iron/Minerals/Multivitamins (Theragran M) 1 tab PO DAILY [facility] Last Admin: 01/31/18 09:04 Dose: 1 tab Ondansetron HCl (Zofran Odt) 4 mg PO Q6H PRN PRN Reason: Nausea/Vomiting Ondansetron HCl (Zofran) 4 mg IVP Q6H PRN PRN Reason: Nausea/Vomiting Polyethylene Glycol (Miralax) 17 gm PO DAILY [facility] Last Admin: 01/31/18 09:01 Dose: 17 gm Potassium Chloride (K-Dur) 20 meq PO QAM[facility] Last Admin: 01/31/18 09:06 Dose: 20 meq Rivaroxaban (Xarelto) 20 mg PO 1700 [facility] Last Admin: 01/30/18 16:09 Dose: 20 mg Saccharomyces Boulardii (Florastor) 250 mg PO BID [facility] Last Admin: 01/31/18 09:04 Dose: 250 mg Tamsulosin HCl (Flomax) 0.4 mg PO DAILY [facility] Last Admin: 01/31/18 09:04 Dose: 0.4 mg Vancomycin HCl (First Vancomycin) 125 mg PO QID [facility] Last Admin: 01/31/18 09:04 Dose: 5 ml
[2018-01-31] MEDS: Rivaroxaban 10 MG TAB PO SCH (17:33)
[2018-01-31] MEDS: cefTRIAXone\\ROCEPHIN 2 GM in Sodium Chloride 0.9% 100 ML IVPB SCH (17:33)
[2018-01-31] MEDS: Atorvastatin Calcium 10 MG TAB PO SCH (21:51)
--- NOTE | 2018-02-01 01:40 | CON ---
DATE OF CONSULTATION: 01/31/2018 HISTORY OF PRESENT ILLNESS: Dennis Zafar is a 72-year-old white male who was admitted with altered mental status. He has a very complicated past medical history which is made much more difficult in that he has two hospital charts. He was admitted around the first of the year with methicillin sensitive Staphylococcus aureus bacteremia, was found to have a vegetation on his mitral valve. He was treated with prolonged antibiotics. Also, he apparently had paroxysmal atrial fibrillation and was placed on Xarelto. He has had a bypass sometime before 2010 when he was working in [place]. He was followed by Dr. Vines when he was in the hospital earlier this year with his infection. He also states that he is bedridden and is in a skilled nursing. He is uncertain why, but apparently developed lumbar diskitis and osteomyelitis and also in reading the MRI reports sounds like there were some degree of spinal stenosis. He was just admitted several weeks ago with urinary tract infection related to his chronic indwelling Rueda. He now is readmitted with mental status changes. Mr. Zafar denies any history of syncope, although I am uncertain of the accuracy of the history that he is giving. He developed an episode of atrial fibrillation during this admission then developed atrial flutter with rates of 140-150. The atrial flutter terminated and then he had a 7 second pause. He denies any recent chest discomfort or shortness of breath. PAST MEDICAL HISTORY: Coronary artery disease, history of methicillin sensitive Staph aureus, mitral valve endocarditis, dementia, deconditioning, bedridden, diabetes mellitus, hypertension, and hypercholesterolemia. OPERATIONS: CABG and cataract surgery. MEDICATIONS: Xarelto 20 mg daily, aspirin 81 daily, amoxicillin 500 mg q.8 hours, carvedilol 12.5 b.i.d., ferrous sulfate 325 b.i.d., furosemide 40 daily, insulin, lisinopril 40 mg daily, KCl 20 mEq daily, simvastatin 20 at bedtime, Flomax 0.4 daily, Florastor 250 b.i.d. ALLERGIES: None. SOCIAL HISTORY: He smoked in the past. FAMILY HISTORY: Father had myocardial infarction. PHYSICAL EXAMINATION: VITAL SIGNS: Blood pressure 109/60, pulse of 69. HEENT: PERRL. NECK: Supple. LUNGS: Chest is clear. CARDIAC: S1 and S2 are normal, without any S3 or S4. There is a 2/6 systolic murmur in the aortic area. ABDOMEN: Normal bowel sounds, without tenderness. EXTREMITIES: Revealed no clubbing, cyanosis, or edema. SKIN: Warm and dry. LABORATORY DATA: EKG on admission revealed normal sinus rhythm with possible anterior infarction. As noted above, he did convert to atrial fibrillation and atrial flutter. Hemoglobin 8.4, hematocrit 26.5. Sodium 137, potassium 3.7, chloride 108, carbon dioxide 20, BUN 17, creatinine 1.18. IMPRESSION: 1. Paroxysmal atrial fibrillation. 2. Episode of atrial flutter with 7 second pause with converting. 3. Status post coronary artery bypass graft. 4. 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 5. Bedridden probably related to diskitis and osteomyelitis of the lumbar spine. 6. History of hypertension. 7. Hypercholesterolemia. 8. Anemia. 9. The patient is a DO NOT RESUSCITATE. 10. Clostridium difficile. PLAN: Mr. Zafar presents with significant problem. If a pacemaker was placed, is almost certain that this would become infected with his multiple episodes of endocarditis, urosepsis, etc. Consideration could be given to ablation of the atrial flutter since when he converted from this is what causes prolonged pause. In looking in the previous records, I never saw any mention of atrial flutter and this may also be a new finding. Electrophysiology will be consulted in regards to this. VLADISLAV
[2018-02-01 06:10] LABS: #Eosinphils 0.8 thou/uL (0.0-0.7); #Monocytes 0.6 thou/uL (0.11-0.59); #Neutrophils 7.5 thou/uL (1.40-6.50); %Basophils 0.3 % (0.0-1.0); %Eosinophils 7.6 % (0.0-10.0); %Monocytes 5.7 % (0.0-10.0); %Neutrophils 68.4 % (42.0-75.0); Hemoglobin 7.8 g/dL (14.0-18.0); Mean Corpuscular HGB CONC 31.9 g/dL (32.0-36.0); Mean Corpuscular Hemoglobin 29.5 pg (27.0-31.0); Mean Corpuscular Volume 92.5 fL (78.0-98.0); Mean Platelet Volume 6.9 fL (7.4-10.4); Platelet Count 528 thou/uL (130-400); RBC Distribution Width 12.1 % (11.5-14.5); Red Blood Cell (RBC) Count 2.66 mill/uL (4.70-6.10)
[2018-02-01 06:18] LABS: Anion Gap 7 mmol/L (10-20); BUN (Urea Nitrogen) 11 mg/dL (8.4-25.7); Calc. Creatinine Clearance 65 mL/min (70-130); Carbon Dioxide 26 mmol/L (23-31); Chloride 106 mmol/L (98-107); Estimated GFR-MDRD 70; Glucose 186 mg/dL (83-110); Sodium 135 mmol/L (136-145)
[2018-02-01 08:22] LABS: Hemoglobin 7.6 g/dL (14.0-18.0); Platelet Count 515 thou/uL (130-400)
[2018-02-01] MEDS: Vancomycin HCl 25 MG/ML Oral PO SCH ×4 (08:42→20:43)
[2018-02-01] MEDS: Saccharomyces boulardii 250 MG CAP PO SCH ×2 (08:43→20:44)
[2018-02-01] MEDS: Multivitamin W/ Minerals 1 TAB PO SCH (08:43)
[2018-02-01] MEDS: Insulin Glargine 20 UNITS in Pre-Filled Syringe 1 EACH SC SCH (08:43)
[2018-02-01] MEDS: Famotidine 20 MG TAB PO SCH ×2 (08:43→20:43)
[2018-02-01] MEDS: Carvedilol 25 MG TAB PO SCH ×2 (08:43→19:35)
[2018-02-01] MEDS: Ferrous Sulfate 325 MG TAB PO SCH ×2 (08:43→18:48)
[2018-02-01] MEDS: FLUoxetine HCl 20 MG CAP PO SCH (08:43)
[2018-02-01] MEDS: Tamsulosin HCl 0.4 MG CAP PO SCH (08:43)
[2018-02-01] MEDS: Potassium Chloride 20 MEQ TAB PO SCH (08:44)
[2018-02-01] MEDS: Polyethylene Glycol 3350 17 GM Packet PO SCH (08:45)
[2018-02-01] MEDS: Acetaminophen/Codeine 30-300mg Tablet PO SCH ×3 (10:58→20:44)
--- NOTE | 2018-02-01 13:22 | CON ---
DATE OF CONSULTATION: 02/01/2018 I am seeing Mr. Zafar at our [facility] telemetry floor as an electrophysiology process consultant. REFERRING PHYSICIAN: Dr. Rudy Dyer/Dr Damian Vines I am seeing Mr. Zafar at our [facility] telemetry floor as an electrophysiology process consultant for the following problems: 1. Paroxysmal atrial fibrillation/flutter. A. Developed atrial fibrillation which advanced to rapid atrial flutter with rate of 140 to 150 beats per minute; B. Conversion pause >7 sec. 2. History of coronary artery disease with prior coronary bypass grafting surgery. 3. Clostridium difficile colitis. 4. Past history of MSSA bacteremia, on antibiotics/endocarditis, currently negative blood cultures x2. 5. Proteus mirabilis urinary tract infection with chronic indwelling Rueda. 6. Risk factors including type 2 diabetes, hypertension. 7. CHADS-VASc score of 4, on Xarelto. ALLERGIES: None noted. MEDICATIONS AT HOME: Aspirin 81 mg daily, Coreg 12.5 twice a day, ferrous sulfate 325 twice a day, Prilosec 20 mg a day, ____ daily, Zestril 40 mg daily , multivitamin 1 tablet p.o. daily, Zofran 4 mg p.o. q.8 hours, MiraLax 17 grams daily, Xarelto 10 mg p.o. daily, Florastor, Zocor, Flomax, amoxicillin 500 mg t.i.d. SUBJECTIVE: Mr. Zafar is somewhat of a poor historian, but seems that he was diagnosed with a UTI in the setting of chronic indwelling Rueda and was on outpatient antibiotics. He was found to have some altered mentation, but no true loss of consciousness by his home nursing staff. He was brought to the ER where he was oriented x3. Blood pressure was mildly low, temperature 99.6 degrees Fahrenheit treated with Tylenol and IV saline, Zofran for nausea and chronic Rueda was exchanged and replaced in the ER. Currently he is feeling better. He has no more fever, chills, or cough. No stroke-like symptoms, no neurological deficits. He is alert and oriented x3. No PND, orthopnea. He does feel palpitations at times, but does not pass out. He has no angina, CHF. No stroke like symptoms. No orthopnea and the rest of the 12-point review of systems is unremarkable. PAST MEDICAL HISTORY: As above, also includes mild dementia, deconditioning, chronic backache due to possible lumbar diskitis and osteomyelitis and spinal stenosis. He is currently bedridden and lives in senior care. SOCIAL HISTORY: The patient lives in a senior care. Again, bedridden. Denies smoking, ETOH or drug abuse. FAMILY HISTORY: Noncontributory. OBJECTIVE: VITAL SIGNS: Blood pressure is 130/76, heart rate 123, respiration 12, temperature 97.8 degrees Fahrenheit. GENERAL: He is alert and oriented man in no apparent distress. NECK: Supple. Jugular veins not distended. CHEST: Coarse without crackles. CARDIOVASCULAR: Heart sounds are regular to rate and rhythm. No murmur or gallop. ABDOMEN: Benign. Bowel sounds positive. EXTREMITIES: Lower extremities without edema, clubbing or cyanosis. Pulses are adequate. NEUROLOGIC: Patient nonfocal. MUSCULOSKELETAL: No joint swelling or deformities. SKIN: Without rash. DATABASE: I reviewed the EKGs. Initial EKG reveals sinus rhythm. No resting ST-T changes. Subsequent EKG reveals atrial fibrillation. The telemetry strips do reveal episodes of atrial flutter with 2:1 AV conduction, which obviously is typical of isthmus-dependent in morphology. LABORATORY DATA: White count today 11, coming down from 14.6 two days ago, hemoglobin 7.8, platelet counts are 528. Sodium 135, potassium 4, BUN is 11, creatinine 1.0. The stool occult blood is negative. Blood cultures; no growth at 48 hours from the 26th. He grows only yeast species on the 26th. On 01/18/2018 there was potassium elevation on blood cultures. Flu A and B is negative. ASSESSMENT AND PLAN: Mr. Zafar is an unfortunate 72-year-old man who is bedridden, a senior care resident. He is on chronic Xarelto for a history of paroxysmal atrial fibrillation/flutter. He indeed had developed paroxysms of atrial fibrillation/flutter and episodes of atrial flutter was very rapid at a rate of 150 beats per minute with 2:1 AV conduction. Then a spontaneous conversion to sinus rhythm was seen. He had a 7 second pause. I was consulted by Dr. Dyer for further management options. IMPRESSION: 1. Paroxysmal atrial fibrillation/flutter. The rates are extremely rapid atrial flutter requiring high dose of Coreg and as well added digoxin administration. This increased AV stephy blocking agents and negative chronotropic agents could have contributed to the significant pause. I think it would be reasonable to get with atrial flutter circuit letting us use lower dosages of negative chronotropic agents. Hopefully, this will avoid further pausing which was otherwise asymptomatic. He is somewhat of a poor candidate for pacing. Hence, history of endocarditis. Leadless pacemaker could be a potential possibility. 2. Anemia with a positive Hemoccult in the setting of Xarelto use. Consider further GI evaluation. 3. History of a Proteus urinary tract infection, adequately treated with no growth on urine, most recently. 4. History of Clostridium difficile colitis, improving infectious signs are noted. I discussed with Dr. Dyer and possibly proceed with atrial flutter ablation today as he is back in sinus rhythm. Hold Xarelto for tonight. Consider further GI evaluation of his anemia. Risks and benefits of the procedure were discussed with the patient. He understands and willing to proceed. We will schedule for a near date. Thank you for allowing me to participate in the care of this patient. VLADISLAV
--- NOTE | 2018-02-01 13:55 | PQF ---
CLINICAL DOCUMENTATION IMPROVEMENT CLARIFICATION FORM: ICD-10 Updated PLEASE DO AN ADDENDUM TO THE PROGRESS NOTE WITH ANY DOCUMENTATION UPDATES OR ADDITIONS AND CARRY THROUGH TO DC SUMMARY. THANK YOU. DATE: ATTN: DR. SHAHANA BRADLEY Please exercise your independent, professional judgment in responding to the clarification form. Clinical indicators are provided on the bottom of this form for your review. Please check appropriate box(es): [ ] Sepsis due to: CATHETER ASSOCIATED UTI [ ] Sepsis NOT due to CATHETER ASSOCIATED UTI [ ] Severe sepsis with acute organ dysfunction of: [ ] Localized infection without sepsis [ X ] Other diagnosis __Sepsis due to clostridium difficile diarrhea [ ] Unable to determine For continuity of documentation, please document condition throughout progress notes and discharge summary. Thank You. CLINICAL INDICATORS - SIGNS / SYMPTOMS / LABS ER PRESENTATION 01/29: SEPSIS ALERT HYPOTENSIVE: 91/44 - 106/55 WBC: 14.6 MA REPORTS [facility] ER PHYSICIAN DIAGNOSES: SEPSIS, CATHETER ASSOCIATED UTI, AMS PHYSICIAN H&P 01/29: ASSESSMENT/PLANS: 1) METABOLIC ENCEPHALOPATHY RISK FACTORS: CATHETER ASSOCIATED UTI METABOLIC ENCEPHALOPATHY DEBILITATED MA PATIENT TREATMENTS: IVF (2.5L NS IN ER) IV ANTIBIOTIC (ROCEPHIN 01/29 - PRESENT) HAYES CHANGED IN ER THANK YOU! Roseann (This form is maintained as a part of the permanent medical record) 2014 [employer]. All Rights Reserved Roseann Lucia RN, BSN [email or web address] Office: [phone] [facility]
[2018-02-01] MEDS ORDERED: CEFAZOLIN 1 GM VIAL ONE (14:43)
--- NOTE | 2018-02-01 14:51 | PDOC.PN ---
- Subjective Encounter Start Date: 02/01/18 Encounter Start Time: 07:00 Pt seen for followup re: clostridium difficile colitis. Reports feeling better. Still has diarrhea. No nausea or vomiting. - Objective Resuscitation Status: Resuscitation Status DNR:Do Not Resuscitate MAR Reviewed: Yes Vital Signs & Weight: Vital Signs (12 hours) Temp Pulse Resp BP Pulse Ox 02/01/18 12:00 98.3 F 57 L 13 136/63 97 02/01/18 08:00 97.8 F 73 12 130/66 97 02/01/18 04:00 98.3 F 70 16 132/62 98 Weight Admit Weight 161 lb Weight 162 lb 5 oz I&O: 01/31/18 02/01/18 02/02/18 06:59 06:59 06:59 Intake Total 730 300 Output Total 1100 1500 Balance -370 -1200 Result Diagrams: 02/02/18 05:28 02/02/18 05:28 Additional Labs: Accuchecks 02/01/18 02/01/18 01/31/18 11:08 05:22 20:40 POC Glucose 159 H 191 H 204 H 01/31/18 16:35 POC Glucose 137 H EKG Reviewed by me: Yes (Tele: NSR) Phys Exam - Physical Examination Constitutional: NAD HEENT: moist MMs, sclera anicteric, oral pharynx no lesions, 2+ tonsils Neck: no nodes, no JVD, supple, full ROM Respiratory: no wheezing, no rales, no rhonchi, clear to auscultation bilateral Cardiovascular: RRR, no rub S1, S2 Gastrointestinal: soft, non-tender, no distention, positive bowel sounds Neurological: moves all 4 limbs Psychiatric: normal affect Deviation from normal: Oriented to person and place only, not to time Dx/Plan (1) Clostridium difficile diarrhea Code(s): A04.72 - ENTEROCOLITIS D/T CLOSTRIDIUM DIFFICILE, NOT SPCF RECUR Status: Acute Comment: on oral vancomycin and Florastor (2) UTI (urinary tract infection) Status: Acute Qualifiers: Urinary tract infection type: catheter-associated UTI Indwelling urinary catheter type: indwelling urethral catheter Encounter type: initial encounter Qualified Code(s): T83.511A - Infection and inflammatory reaction due to indwelling urethral catheter, initial encounter; N39.0 - Urinary tract infection , site not specified Comment: continue IV ceftriaxone (3) Atrial fibrillation with RVR Code(s): I48.91 - UNSPECIFIED ATRIAL FIBRILLATION Status: Chronic Comment: pt switched to NSR yesterday, preceded by a 7-second pause. EP consult pending. (4) Dementia Code(s): F03.90 - UNSPECIFIED DEMENTIA WITHOUT BEHAVIORAL DISTURBANCE Status: Chronic Qualifiers: Dementia type: unspecified type Dementia behavioral disturbance: without behavioral disturbance Qualified Code(s): F03.90 - Unspecified dementia without behavioral disturbance Comment: stable (5) DM2 (diabetes mellitus, type 2) Status: Chronic Comment: continue accuchecks, insulin sliding scale. (6) CAD (coronary artery disease) Code(s): I25.10 - ATHSCL HEART DISEASE OF [place] CORONARY ARTERY W/O ANG PCTRS Status: Chronic Comment: stable (7) HTN (hypertension) Code(s): I10 - ESSENTIAL (PRIMARY) HYPERTENSION Status: Chronic Comment: controlled - Plan * . Review of Systems - Review of Systems Constitutional: weakness Respiratory: negative: Cough, Shortness of Breath, SOB with Excertion, Pleuritic Pain, Wheezing Cardiovascular: negative: chest pain, palpitations, orthopnea, paroxysmal nocturnal dyspnea, edema, light headedness Gastrointestinal: Diarrhea. negative: Nausea, Vomiting, Abdominal Pain, Constipation, Melena, Hematochezia Genitourinary: negative: Dysuria, Frequency, Incontinence, Hematuria, Retention Skin: negative: Rash, Lesions, Norbert, Bruising - Medications/Allergies Allergies/Adverse Reactions: Allergies Allergy/AdvReac Type Severity Reaction Status Date / Time No Known Drug Allergies Allergy Verified 01/29/18 22:22 Medications: Current Medications Acetaminophen (Tylenol) 1,000 mg PO Q6H PRN PRN Reason: Mild Pain (1-3) Acetaminophen/Codeine Phosphate (Tylenol #3) 1 tab PO TID [facility] Last Admin: 02/01/18 10:58 Dose: Not Given Aspirin (Aspirin Chewable) 81 mg PO DAILY [facility] Last Admin: 02/01/18 08:43 Dose: 81 mg Atorvastatin Calcium (Lipitor) 10 mg PO QPM [facility] Last Admin: 01/31/18 21:51 Dose: 10 mg Carvedilol (Coreg) 12.5 mg PO BID[facility] Last Admin: 02/01/18 08:43 Dose: 12.5 mg Dextrose/Water (Dextrose 50%) 25 gm SLOW IVP PRN PRN PRN Reason: Hypoglycemia Famotidine (Pepcid) 20 mg PO BID [facility] Last Admin: 02/01/18 08:43 Dose: 20 mg Ferrous Sulfate (Feosol) 325 mg PO BID[facility] Last Admin: 02/01/18 08:43 Dose: 325 mg Fluoxetine HCl (Prozac) 20 mg PO DAILY [facility] Last Admin: 02/01/18 08:43 Dose: 20 mg Glucagon (Glucagon) 1 mg IM PRN PRN PRN Reason: Hypoglycemia Guaifenesin (Robitussin Sf) 200 mg PO Q4H PRN PRN Reason: Cough Dextrose/Water (D5w) 1,000 mls @ 0 mls/hr IV .Q0M PRN PRN Reason: Hypoglycemia Insulin Glargine 20 units/ (Miscellaneous Medication) 0.2 mls @ 0 mls/hr SC DAILY [facility] Last Admin: 02/01/18 08:43 Dose: 0.2 mls Insulin Human Lispro (Humalog) 0 units SC .MILD SLIDING SCALE PRN PRN Reason: Mild Correctional Scale Insulin Human Lispro (Humalog) 0 units SC .BEDTIME SLIDING SC PRN PRN Reason: Bedtime Correctional Scale Iron/Minerals/Multivitamins (Theragran M) 1 tab PO DAILY [facility] Last Admin: 02/01/18 08:43 Dose: 1 tab Ondansetron HCl (Zofran Odt) 4 mg PO Q6H PRN PRN Reason: Nausea/Vomiting Ondansetron HCl (Zofran) 4 mg IVP Q6H PRN PRN Reason: Nausea/Vomiting Polyethylene Glycol (Miralax) 17 gm PO DAILY [facility] Last Admin: 02/01/18 08:45 Dose: Not Given Potassium Chloride (K-Dur) 20 meq PO QAM[facility] Last Admin: 02/01/18 08:44 Dose: 20 meq Rivaroxaban (Xarelto) 20 mg PO 1700 [facility] Last Admin: 01/31/18 17:33 Dose: 20 mg Saccharomyces Boulardii (Florastor) 250 mg PO BID [facility] Last Admin: 02/01/18 08:43 Dose: 250 mg Tamsulosin HCl (Flomax) 0.4 mg PO DAILY [facility] Last Admin: 02/01/18 08:43 Dose: 0.4 mg Vancomycin HCl (First Vancomycin) 125 mg PO QID [facility] Last Admin: 02/01/18 12:51 Dose: 5 ml
[2018-02-01] MEDS ORDERED: Lidocaine 1% (PF) 30 ML VIAL ONE (15:02)
[2018-02-01] MEDS ORDERED: Heparin 10,000 UNITS/1 ML VIAL ONE (15:11)
[2018-02-01] MEDS ORDERED: Fentanyl 100 MCG/2 ML VIAL ONE (15:55)
[2018-02-01] MEDS ORDERED: Propofol 500 MG/50 ML VIAL ONE (15:55)
[2018-02-01] MEDS ORDERED: Furosemide 40 MG/4 ML VIAL ONE (15:55)
[2018-02-01] MEDS ORDERED: PROPOFOL 40 ML ONE (15:56)
[2018-02-01] MEDS ORDERED: DOPamine 400 MG/D5W 250 ML 250 ML ONE (16:42)
[2018-02-01] MEDS ORDERED: Isoproterenol 0.2 MG/1 ML AMP ONE (16:42)
[2018-02-01] MEDS ORDERED: Lidocaine 1% PF 5 ML VIAL ONE (16:59)
[2018-02-01] MEDS ORDERED: PROPOFOL 200 MG/20 ML VIAL ONE (16:59)
[2018-02-01] MEDS ORDERED: ePHEDrine/0.9% NaCl/PF SYRINGE 50 mg/10 ml ONE (16:59)
[2018-02-01] MEDS ORDERED: Carvedilol 6.25 MG TAB PO SCH (18:30)
[2018-02-01] MEDS: Rivaroxaban 10 MG TAB PO SCH (19:35)
[2018-02-01] MEDS: Atorvastatin Calcium 10 MG TAB PO SCH (20:44)
[2018-02-02 06:14] LABS: #Eosinphils 0.8 thou/uL (0.0-0.7); #Lymphocytes 1.8 thou/uL (1.20-3.40); #Monocytes 0.6 thou/uL (0.11-0.59); #Neutrophils 7.1 thou/uL (1.40-6.50); %Basophils 0.4 % (0.0-1.0); %Lymphocytes 17.6 % (21.0-51.0); %Monocytes 5.4 % (0.0-10.0); %Neutrophils 68.5 % (42.0-75.0); Hemoglobin 8.2 g/dL (14.0-18.0); Mean Corpuscular HGB CONC 32.6 g/dL (32.0-36.0); Mean Corpuscular Volume 92.1 fL (78.0-98.0); Mean Platelet Volume 6.7 fL (7.4-10.4); Platelet Count 544 thou/uL (130-400); RBC Distribution Width 12.2 % (11.5-14.5); Red Blood Cell (RBC) Count 2.74 mill/uL (4.70-6.10); White Blood Cell (WBC) Count 10.4 thou/uL (4.8-10.8)
[2018-02-02 06:25] LABS: Anion Gap 9 mmol/L (10-20); BUN (Urea Nitrogen) 8 mg/dL (8.4-25.7); Calc. Creatinine Clearance 79 mL/min (70-130); Calcium 8.2 mg/dL (7.8-10.44); Carbon Dioxide 24 mmol/L (23-31); Chloride 108 mmol/L (98-107); Estimated GFR-MDRD 87; Glucose 127 mg/dL (83-110); Potassium 4.2 mmol/L (3.5-5.1); Sodium 137 mmol/L (136-145)
--- NOTE | 2018-02-02 08:14 | OP ---
DATE OF SERVICE: 02/01/2018 ELECTROPHYSIOLOGY STUDY AND RADIOFREQUENCY ABLATION REPORT REFERRING PHYSICIAN: Dr. Dyer/Dr. Vines. REASON FOR PROCEDURE: Mr. Zafar is a 72-year-old man with prior history of endocarditis and bacteremia, currently though negative blood cultures, admitted with C. diff colitis and recent history of Proteus UTI. He also bedridden due to diskitis and osteomyelitis process in the past. He was noted to be in sinus rhythm initially progressing to atrial fibrillation, then typical atrial flutter with rapid rates were documented. They appeared to be typical isthmus- dependent in morphology, eventually terminated to sinus rhythm with a long 7- second pause. Patient is a poor candidate for pacing and attempts were made to reduce rates during atrial fibrillation/atrial flutter burden by ablating the cavotricuspid isthmus, thus allowing for lowering his negative chronotropic agents. Patient is currently anticoagulated on Xarelto. DESCRIPTION OF PROCEDURE: Patient received deep sedation by Anesthesia specialist. The right femoral venous area was prepped the anesthetizing subcutaneous lidocaine. The right femoral vein was cannulated x2 with an ultrasound guidance and the two 8-Occitan sheaths, a ThermoCool SF catheter was advanced to the right atrium and 3D map of the right atrium, His bundle area right ventricular coronary sinus, and right atrium was obtained and all of these areas pacing, mapping, and recording was performed. Following that a Decapolar catheter was placed in the CS position. Baseline EP study was obtained in the following findings. Baseline of the sinus rhythm with cycle length 1151, CO at 189, QRS 59, AH 146, HV 45 milliseconds. Sinus node recovery time was 2197. Corrected sinus node recovery time was about 1200 milliseconds markedly prolonged AV Wenckebach cycle length 370 milliseconds. Even though ERP was 600/280 milliseconds. They did not demonstrate definite dual AV stephy physiology. Following that, burst atrial pacing was performed, which converted the patient into an initial atrial fibrillation, which organized into an atypical left atrial appearing flutter. Burst atrial pacing again pushing back into atrial fibrillation as well transiently, right-sided dependent atrial flutter was also seen, but was not pace terminated by electrical cardioversion the patient back to sinus rhythm. Due to typical appearing isthmus dependent flutter on EKGs, a cavotricuspid isthmus ablation was performed using 40 rosa of energy for duration 2 minutes and 3 seconds, total of 4 lesions delivered with average impedance 78 ohms. Following that during the proximal CS pacing, isthmus map was obtained demonstrating prolongation of transisthmus time over 200 milliseconds with longest transisthmus time measurements were obtained by the ablation line suggestive of unilateral block. Following that dopamine was administered and the trans-isthmus block was again ascertained. In the end of the case, no change in cardiac silhouette is noted. Patient tolerated procedure well, no complications noted. The sheaths were removed in the slabber light. CONCLUSION: 1. Inducible atrial fibrillation with multi-circuit left atrial arrhythmias. 2. Status post cavotricuspid isthmus ablation prolonging the transisthmus time over 200 milliseconds. 3. Abnormal sinus stephy function/sinus node disease. 4. Normal AV conduction is demonstrated. PLAN: At this point, I reduced negative chronotropic agents. Consider antiarrhythmic agent for suppression of atrial fibrillation. If further bradycardic symptoms recur, consider pacing. MTDD
[2018-02-02] MEDS: Insulin Glargine 20 UNITS in Pre-Filled Syringe 1 EACH SC SCH (09:46)
[2018-02-02] MEDS: Potassium Chloride 20 MEQ TAB PO SCH (09:47)
[2018-02-02] MEDS: Saccharomyces boulardii 250 MG CAP PO SCH ×2 (09:47→20:44)
[2018-02-02] MEDS: FLUoxetine HCl 20 MG CAP PO SCH (09:48)
[2018-02-02] MEDS: Multivitamin W/ Minerals 1 TAB PO SCH (09:48)
[2018-02-02] MEDS: Ferrous Sulfate 325 MG TAB PO SCH ×2 (09:49→17:11)
[2018-02-02] MEDS: Tamsulosin HCl 0.4 MG CAP PO SCH (09:49)
[2018-02-02] MEDS: Carvedilol 6.25 MG TAB PO SCH ×2 (09:49→17:11)
[2018-02-02] MEDS: Acetaminophen/Codeine 30-300mg Tablet PO SCH ×3 (09:56→20:44)
[2018-02-02 10:02] LABS: Iron 52 ug/dL (65-175); Iron Binding Capacity, Total 173 mcg/dL (261-462)
[2018-02-02] MEDS: Polyethylene Glycol 3350 17 GM Packet PO SCH (10:30)
[2018-02-02] MEDS: Famotidine 20 MG TAB PO SCH ×2 (11:13→20:45)
[2018-02-02] MEDS: Vancomycin HCl 25 MG/ML Oral PO SCH ×4 (11:13→20:45)
--- NOTE | 2018-02-02 11:27 | PRG ---
DATE OF SERVICE: 02/02/2018 HISTORY: Mr. Zafar is doing well. He had an ablation yesterday, it was successful. He has no chest pain or pressure. PHYSICAL EXAMINATION: VITAL SIGNS: Blood pressure 160/76, pulse 63, regular. LUNGS: Clear. CARDIAC: Normal S1, normal S2. ABDOMEN: Soft, nontender. EXTREMITIES: There is no edema. PERTINENT LABORATORIES: Hemoglobin is 8.2, hematocrit 25.2. ASSESSMENT: 1. Tachycardia-bradycardia syndrome with atrial flutter as well as some atrial fibrillation, seemed to have very long pauses, especially after the atrial flutter. He had an atrial flutter ablation yes terday. 2. Recurrent infections. Not a candidate for pacemaker insertion in view of the recurrent bacteremi a and infections with history of endocarditis. 3. Anemia, iron deficiency. PLAN: 1. Check iron levels. If he is iron deficient despite oral iron give intravenous iron. 2. He is on reduced dose carvedilol. 3. Continue to monitor at least for one more day here on the radiation monitor.
--- NOTE | 2018-02-02 12:57 | EKG ---
Test Reason : Blood Pressure : / mmHG Vent. Rate : 070 BPM Atrial Rate : 071 BPM P-R Int : 000 ms QRS Dur : 086 ms QT Int : 434 ms P-R-T Axes : 000 019 034 degrees QTc Int : 468 ms Normal sinus rhythm Low voltage QRS Abnormal ECG Confirmed by VERONICA ACKERMAN ([id number]) on 02/02/2018 12:57:08 PM Referred By: Confirmed By:VERONICA ACKERMAN
--- NOTE | 2018-02-02 13:02 | PDOC.CTH ---
Cardiology Progress Note - Subjective EP progress Note: Seen and evaluated. No new cardiac concerns or complaints today. Doing well overnight since EP study and CTI ablation yesterday. Minimal pain at groin site. No heart racing, palpitations, chest pain, dizziness, or passing out - Objective Vital Signs Pulse Resp BP BP Pulse Ox 02/02/18 09:49 128/83 02/02/18 04:00 63 14 160/76 H 98 Admit Weight 161 lb Weight 162 lb 7 oz 02/01/18 02/02/18 02/03/18 06:59 06:59 06:59 Intake Total 300 390 Output Total 1500 1300 Balance -1200 -910 - Physical Examination General/Neuro: alert & oriented x3, NAD Neck: carotid US brisk, no JVD present Lungs: CTA, unlabored respirations Heart: PMI normal, RRR Abdomen: NT/ND, soft - Telemetry Telemetry Rhythm: SR - Labs Result Diagrams: 02/02/18 05:28 02/02/18 05:28 - Assessment/Plan 1. Typical atrial flutter, s/p CTI ablation 2. Atrial fibrillation - multiple left atrial circuits seen during EP study. -Continue rate control strategy for now. Limited AAD options. Multaq is a consideration but would hold off for now. Agree with reduced coreg dose 3. Abnormal sinus node function - SNRT 2197msec -conversion pause >7 seconds while on coreg and digoxin 4. C. diff colitis 5. Hx of endocarditis, MSSA, proteus mirabilis UTI 6. CAD with prior CABG 7. CHADS2-VASC: 4, on xarelto. Continue OAC
--- NOTE | 2018-02-02 16:27 | PDOC.PN ---
- Subjective Encounter Start Date: 02/02/18 Encounter Start Time: 07:00 Pt seen for followup re: Clostridium difficile colitis. reports diarrhea is better. No chest pain, palpitations, nausea or vomiting. - Objective Resuscitation Status: Resuscitation Status DNR:Do Not Resuscitate MAR Reviewed: Yes Vital Signs & Weight: Vital Signs (12 hours) BP 02/02/18 09:49 128/83 Weight Admit Weight 161 lb Weight 162 lb 7 oz I&O: 02/01/18 02/02/18 02/03/18 06:59 06:59 06:59 Intake Total 300 390 Output Total 1500 1300 Balance -1200 -910 Result Diagrams: 02/03/18 07:53 02/03/18 07:53 Additional Labs: Accuchecks 02/02/18 02/02/18 02/01/18 11:10 06:11 21:04 POC Glucose 256 H 144 H 126 H EKG Reviewed by me: Yes (Tele: NSR) Phys Exam - Physical Examination Constitutional: NAD HEENT: moist MMs Neck: supple Respiratory: clear to auscultation bilateral Cardiovascular: RRR Gastrointestinal: soft Neurological: moves all 4 limbs Psychiatric: normal affect Dx/Plan (1) Clostridium difficile diarrhea Code(s): A04.72 - ENTEROCOLITIS D/T CLOSTRIDIUM DIFFICILE, NOT SPCF RECUR Status: Acute Comment: continue oral vancomycin and Florastor (2) Dementia Code(s): F03.90 - UNSPECIFIED DEMENTIA WITHOUT BEHAVIORAL DISTURBANCE Status: Chronic Qualifiers: Dementia type: unspecified type Dementia behavioral disturbance: without behavioral disturbance Qualified Code(s): F03.90 - Unspecified dementia without behavioral disturbance Comment: stable (3) DM2 (diabetes mellitus, type 2) Status: Chronic Comment: on accuchecks, insulin sliding scale, reasonable control for the most part (4) CAD (coronary artery disease) Code(s): I25.10 - ATHSCL HEART DISEASE OF [place] CORONARY ARTERY W/O ANG PCTRS Status: Chronic Comment: stable (5) HTN (hypertension) Code(s): I10 - ESSENTIAL (PRIMARY) HYPERTENSION Status: Chronic Comment: controlled (6) UTI (urinary tract infection) Status: Ruled-out Qualifiers: Urinary tract infection type: catheter-associated UTI Indwelling urinary catheter type: indwelling urethral catheter Encounter type: initial encounter Qualified Code(s): T83.511A - Infection and inflammatory reaction due to indwelling urethral catheter, initial encounter; N39.0 - Urinary tract infection , site not specified Comment: ceftriaxone has been discontinued (7) Sepsis Code(s): A41.9 - SEPSIS, UNSPECIFIED ORGANISM Status: Resolved Comment: Likely due to C. difficile colitis (8) Atrial fibrillation with RVR Code(s): I48.91 - UNSPECIFIED ATRIAL FIBRILLATION Status: Resolved Comment: s/p ablation, now in sinus rhythm - Plan * . Review of Systems - Review of Systems Respiratory: negative: Cough, Shortness of Breath, SOB with Excertion, Pleuritic Pain, Wheezing Cardiovascular: negative: chest pain, palpitations, orthopnea, paroxysmal nocturnal dyspnea, edema, light headedness Gastrointestinal: Diarrhea - Medications/Allergies Allergies/Adverse Reactions: Allergies Allergy/AdvReac Type Severity Reaction Status Date / Time No Known Drug Allergies Allergy Verified 01/29/18 22:22 Medications: Current Medications Acetaminophen (Tylenol) 1,000 mg PO Q6H PRN PRN Reason: Mild Pain (1-3) Acetaminophen/Codeine Phosphate (Tylenol #3) 1 tab PO TID [facility] Last Admin: 02/02/18 09:56 Dose: Not Given Aspirin (Aspirin Chewable) 81 mg PO DAILY [facility] Last Admin: 02/02/18 09:48 Dose: 81 mg Atorvastatin Calcium (Lipitor) 10 mg PO QPM [facility] Last Admin: 02/01/18 20:44 Dose: 10 mg Carvedilol (Coreg) 6.25 mg PO BID-[facility] Last Admin: 02/02/18 09:49 Dose: 6.25 mg Dextrose/Water (Dextrose 50%) 25 gm SLOW IVP PRN PRN PRN Reason: Hypoglycemia Famotidine (Pepcid) 20 mg PO BID [facility] Last Admin: 02/02/18 11:13 Dose: 20 mg Ferrous Sulfate (Feosol) 325 mg PO BID-[facility] Last Admin: 02/02/18 09:49 Dose: 325 mg Fluoxetine HCl (Prozac) 20 mg PO DAILY [facility] Last Admin: 02/02/18 09:48 Dose: 20 mg Glucagon (Glucagon) 1 mg IM PRN PRN PRN Reason: Hypoglycemia Guaifenesin (Robitussin Sf) 200 mg PO Q4H PRN PRN Reason: Cough Dextrose/Water (D5w) 1,000 mls @ 0 mls/hr IV .Q0M PRN PRN Reason: Hypoglycemia Insulin Glargine 20 units/ (Miscellaneous Medication) 0.2 mls @ 0 mls/hr SC DAILY [facility] Last Admin: 02/02/18 09:46 Dose: 0.2 mls Insulin Human Lispro (Humalog) 0 units SC .MILD SLIDING SCALE PRN PRN Reason: Mild Correctional Scale Insulin Human Lispro (Humalog) 0 units SC .BEDTIME SLIDING SC PRN PRN Reason: Bedtime Correctional Scale Iron/Minerals/Multivitamins (Theragran M) 1 tab PO DAILY [facility] Last Admin: 02/02/18 09:48 Dose: 1 tab Ondansetron HCl (Zofran Odt) 4 mg PO Q6H PRN PRN Reason: Nausea/Vomiting Ondansetron HCl (Zofran) 4 mg IVP Q6H PRN PRN Reason: Nausea/Vomiting Polyethylene Glycol (Miralax) 17 gm PO DAILY [facility] Last Admin: 02/02/18 10:30 Dose: Not Given Potassium Chloride (K-Dur) 20 meq PO QAM-WM [facility] Last Admin: 02/02/18 09:47 Dose: 20 meq Rivaroxaban (Xarelto) 20 mg PO 1700 [facility] Saccharomyces Boulardii (Florastor) 250 mg PO BID [facility] Last Admin: 02/02/18 09:47 Dose: 250 mg Tamsulosin HCl (Flomax) 0.4 mg PO DAILY [facility] Last Admin: 02/02/18 09:49 Dose: 0.4 mg Vancomycin HCl (First Vancomycin) 125 mg PO QID [facility] Last Admin: 02/02/18 14:06 Dose: 5 ml
[2018-02-02] MEDS: Rivaroxaban 10 MG TAB PO SCH (17:11)
[2018-02-02] MEDS: HumaLOG 300 UNITS/3 ML VIAL SC PRN (17:14)
[2018-02-02] MEDS: Atorvastatin Calcium 10 MG TAB PO SCH (20:44)
[2018-02-03 08:12] LABS: Hemoglobin 8.7 g/dL (14.0-18.0); Platelet Count 561 thou/uL (130-400)
[2018-02-03 08:37] LABS: Calc. Creatinine Clearance 61 mL/min (70-130); Estimated GFR-MDRD Greater than 90
[2018-02-03] MEDS: Polyethylene Glycol 3350 17 GM Packet PO SCH (09:12)
[2018-02-03] MEDS: Insulin Glargine 20 UNITS in Pre-Filled Syringe 1 EACH SC SCH (09:18)
[2018-02-03] MEDS: Saccharomyces boulardii 250 MG CAP PO SCH ×2 (09:23→20:37)
[2018-02-03] MEDS: Carvedilol 6.25 MG TAB PO SCH (09:23)
[2018-02-03] MEDS: Multivitamin W/ Minerals 1 TAB PO SCH (09:23)
[2018-02-03] MEDS: Potassium Chloride 20 MEQ TAB PO SCH (09:23)
[2018-02-03] MEDS: Ferrous Sulfate 325 MG TAB PO SCH ×2 (09:23→18:20)
[2018-02-03] MEDS: Tamsulosin HCl 0.4 MG CAP PO SCH (09:24)
[2018-02-03] MEDS: Acetaminophen/Codeine 30-300mg Tablet PO SCH ×3 (09:24→20:36)
[2018-02-03] MEDS: Famotidine 20 MG TAB PO SCH ×2 (09:24→20:34)
[2018-02-03] MEDS: FLUoxetine HCl 20 MG CAP PO SCH (09:24)
[2018-02-03] MEDS: Vancomycin HCl 25 MG/ML Oral PO SCH ×4 (09:25→20:37)
[2018-02-03] MEDS ORDERED: Iron Sucrose Complex 200 MG in Sodium Chloride 0.9% 250 ML 250 ML IVPB SCH (09:30)
--- NOTE | 2018-02-03 10:14 | PRG ---
DATE OF SERVICE: 02/03/2018 SUBJECTIVE: Mr. Zafar seems to be doing fair. No further arrhythmia episodes are documented. OBJECTIVE DATA: VITAL SIGNS: Blood pressure is 158/68, heart rate 71, respirations 16, temperature 97.8 degrees Fahr enheit. GENERAL: Alert and oriented man in no apparent distress. NECK: Supple. Jugular veins are distended. CHEST: Coarse, no crackles. CARDIOVASCULAR: Heart sounds are regular to rate and rhythm. No murmur, rub, or gallop. ABDOMEN: Benign. Bowel sounds positive. EXTREMITIES: Without edema, clubbing, or cyanosis. DATABASE: The EKGs reveal sinus rhythm. ASSESSMENT AND PLAN: Mr. Zafar is a pleasant 72-year-old man with, 1. Prior history of atrial fibrillation/flutter, cavotricuspid isthmus ablation was performed to livan id extreme rapid rates. He also was noted to have severe sinus node disease and significant pausing after conversion prior to the ablation. We decreased Coreg and so far no further pausing of bradycar rene occurred. 2. Chronic anticoagulation, on Xarelto. 3. Prior history of endocarditis, methicillin-susceptible Staphylococcus aureus, and recent urinary tract infection, and Clostridium difficile colitis. For now, try to avoid pacemaker implantation if that is feasible. I am happy to see him back as an outpatient.
[2018-02-03] MEDS ORDERED: Iron, Sodium Ferric Gluconate 250 MG in Sodium Chloride 0.9% 100 ML IVPB SCH (11:00)
[2018-02-03] MEDS: HumaLOG 300 UNITS/3 ML VIAL SC PRN ×3 (11:55→21:14)
--- NOTE | 2018-02-03 13:48 | PRG ---
DATE OF SERVICE: 02/03/2018 Mr. Zafar has had no further bradycardia or tachycardia. At this point, the patient can be discontin ued from a cardiac standpoint. The carvedilol dose was reduced. He has had atrial flutter ablation. He is a very poor candidate for pacemaker insertion in view of his recurrent infections. The patien t did have a long pause after converting out of atrial flutter. The patient is stable at this time. The patient did develop bradycardia this afternoon. Heart rate is in the 30s. We will stop carvedil ol and monitor overnight.
--- NOTE | 2018-02-03 15:17 | PDOC.PN ---
- Subjective Encounter Start Date: 02/03/18 Encounter Start Time: 15:15 Subjective: feels much better but still pretty weak. -: denies any CP/SOb at rest - Objective Resuscitation Status: Resuscitation Status DNR:Do Not Resuscitate MAR Reviewed: Yes Vital Signs & Weight: Vital Signs (12 hours) Temp Pulse Resp BP BP Pulse Ox 02/03/18 12:00 98.7 F 57 L 16 121/60 97 02/03/18 09:23 128/83 02/03/18 07:31 97 02/03/18 07:30 97.8 F 71 16 158/68 H 97 02/03/18 06:20 98.3 F 60 14 154/67 H 98 Weight Admit Weight 161 lb Weight 120 lb 12.8 oz I&O: 02/02/18 02/03/18 02/04/18 06:59 06:59 06:59 Intake Total 390 810 Output Total 1300 1550 Balance -910 -740 Result Diagrams: 02/03/18 07:53 02/03/18 07:53 Additional Labs: Accuchecks 02/03/18 02/03/18 02/02/18 10:49 06:39 21:19 POC Glucose 155 H 80 132 H 02/02/18 16:51 POC Glucose 286 H Microbiology 01/30/18 02:50 Stool Stool Occult Blood (SABINO) - Final 01/30/18 02:50 Stool C. difficile GDH Antigen & Toxins - Final 01/29/18 17:50 Nasopharynx - Pending Influenza Types A,B Direct EIA - Final 01/29/18 16:18 Urine coppola catheter Urine Culture - Final Yeast species 01/29/18 16:32 Venous blood - Left Hand Blood Culture - Preliminary NO GROWTH AT 48 HOURS 01/29/18 16:18 Venous blood - Left Hand Blood Culture - Preliminary NO GROWTH AT 48 HOURS Laboratory Tests 01/29/18 01/30/18 01/30/18 16:18 05:10 09:40 Creatinine 1.36 H 1.18 1.04 Iron TIBC % Saturation Ferritin 02/02/18 02/02/18 02/02/18 05:28 09:31 09:31 Creatinine 0.86 Iron 52 L TIBC 173 L % Saturation 30 Ferritin 279.75 02/03/18 07:53 Creatinine 0.83 Iron TIBC % Saturation Ferritin Phys Exam - Physical Examination Constitutional: NAD HEENT: PERRLA, moist MMs, sclera anicteric, oral pharynx no lesions Neck: no nodes, no JVD, supple, full ROM Respiratory: no wheezing, no rales, no rhonchi, clear to auscultation bilateral Cardiovascular: RRR, no significant murmur, no rub Gastrointestinal: soft, non-tender, no distention, positive bowel sounds Musculoskeletal: no edema, pulses present Neurological: non-focal, normal sensation, moves all 4 limbs Psychiatric: normal affect, A&O x 3 Skin: no rash Dx/Plan (1) Sepsis Code(s): A41.9 - SEPSIS, UNSPECIFIED ORGANISM Status: Acute Qualifiers: Sepsis type: sepsis due to unspecified organism Qualified Code(s): A41.9 - Sepsis, unspecified organism (2) Atrial fibrillation with RVR Code(s): I48.91 - UNSPECIFIED ATRIAL FIBRILLATION Status: Resolved Comment: s/p ablation, now in sinus rhythm (3) Clostridium difficile diarrhea Code(s): A04.72 - ENTEROCOLITIS D/T CLOSTRIDIUM DIFFICILE, NOT SPCF RECUR Status: Acute Comment: continue oral vancomycin and Florastor (4) CAD (coronary artery disease) Code(s): I25.10 - ATHSCL HEART DISEASE OF [place] CORONARY ARTERY W/O ANG PCTRS Status: Chronic Comment: stable (5) DM2 (diabetes mellitus, type 2) Status: Chronic Comment: on accuchecks, insulin sliding scale, reasonable control for the most part (6) HTN (hypertension) Code(s): I10 - ESSENTIAL (PRIMARY) HYPERTENSION Status: Chronic Comment: controlled (7) Dementia Code(s): F03.90 - UNSPECIFIED DEMENTIA WITHOUT BEHAVIORAL DISTURBANCE Status: Chronic Qualifiers: Dementia type: unspecified type Dementia behavioral disturbance: without behavioral disturbance Qualified Code(s): F03.90 - Unspecified dementia without behavioral disturbance Comment: stable (8) History of endocarditis Code(s): Z86.79 - PERSONAL HISTORY OF OTHER DISEASES OF THE CIRCULATORY SYSTEM Status: Chronic (9) Indwelling catheter present on admission Code(s): Z96.0 - PRESENCE OF UROGENITAL IMPLANTS Status: Chronic (10) ISIDORO (iron deficiency anemia) Code(s): D50.9 - IRON DEFICIENCY ANEMIA, UNSPECIFIED Status: Chronic - Plan plan discussed w/ family, continue antibiotics, PT/OT, incentive spirometry, out of bed/ambulate, DVT proph w/SCDs Cont Po Vancomycin.no more diarrheal stools -: Change coppola.No indication for Abx as UA lkley colonized w indwelling coppola -: add OT.PT.pt is bed bound since admission -: BB stopped d/t sinus bradycardia.appreciate Cardio/EP recs -: Low iron levels.will give IV iron. * .cont ASA,statin. * HD stable. * am labs * Care discussed w RN. Chart from last admission reviewed. * Time spent 32 minutes * Review of Systems - Review of Systems Constitutional: weakness, malaise ENT: negative: Ear Pain, Ear Discharge, Nose Pain, Nose Discharge, Nose Congestion, Mouth Pain, Mouth Swelling, Throat Pain, Throat Swelling, Other Respiratory: negative: Cough, Dry, Shortness of Breath, Hemoptysis, SOB with Excertion, Pleuritic Pain, Sputum, Wheezing Cardiovascular: negative: chest pain, palpitations, orthopnea, paroxysmal nocturnal dyspnea, edema, light headedness, other Gastrointestinal: negative: Nausea, Vomiting, Abdominal Pain, Diarrhea, Constipation, Melena, Hematochezia, Other Genitourinary: negative: Dysuria, Frequency, Incontinence, Hematuria, Retention , Other Musculoskeletal: negative: Neck Pain, Shoulder Pain, Arm Pain, Back Pain, Hand Pain, Leg Pain, Foot Pain, Other Neurological: negative: Weakness, Numbness, Incoordination, Change in Speech, Confusion, Seizures, Other - Medications/Allergies Allergies/Adverse Reactions: Allergies Allergy/AdvReac Type Severity Reaction Status Date / Time No Known Drug Allergies Allergy Verified 01/29/18 22:22 Medications: Current Medications Acetaminophen (Tylenol) 1,000 mg PO Q6H PRN PRN Reason: Mild Pain (1-3) Acetaminophen/Codeine Phosphate (Tylenol #3) 1 tab PO TID [facility] Last Admin: 02/03/18 09:24 Dose: 1 tab Aspirin (Aspirin Chewable) 81 mg PO DAILY [facility] Last Admin: 02/03/18 09:24 Dose: 81 mg Atorvastatin Calcium (Lipitor) 10 mg PO QPM [facility] Last Admin: 02/02/18 20:44 Dose: 10 mg Dextrose/Water (Dextrose 50%) 25 gm SLOW IVP PRN PRN PRN Reason: Hypoglycemia Famotidine (Pepcid) 20 mg PO BID [facility] Last Admin: 02/03/18 09:24 Dose: 20 mg Ferrous Sulfate (Feosol) 325 mg PO BID-[facility] Last Admin: 02/03/18 09:23 Dose: 325 mg Fluoxetine HCl (Prozac) 20 mg PO DAILY [facility] Last Admin: 02/03/18 09:24 Dose: 20 mg Glucagon (Glucagon) 1 mg IM PRN PRN PRN Reason: Hypoglycemia Guaifenesin (Robitussin Sf) 200 mg PO Q4H PRN PRN Reason: Cough Dextrose/Water (D5w) 1,000 mls @ 0 mls/hr IV .Q0M PRN PRN Reason: Hypoglycemia Insulin Glargine 20 units/ (Miscellaneous Medication) 0.2 mls @ 0 mls/hr SC DAILY [facility] Last Admin: 02/03/18 09:18 Dose: Not Given Insulin Human Lispro (Humalog) 0 units SC .MILD SLIDING SCALE PRN PRN Reason: Mild Correctional Scale Last Admin: 02/03/18 11:55 Dose: 2 unit Insulin Human Lispro (Humalog) 0 units SC .BEDTIME SLIDING SC PRN PRN Reason: Bedtime Correctional Scale Iron/Minerals/Multivitamins (Theragran M) 1 tab PO DAILY [facility] Last Admin: 02/03/18 09:23 Dose: 1 tab Ondansetron HCl (Zofran Odt) 4 mg PO Q6H PRN PRN Reason: Nausea/Vomiting Ondansetron HCl (Zofran) 4 mg IVP Q6H PRN PRN Reason: Nausea/Vomiting Polyethylene Glycol (Miralax) 17 gm PO DAILY [facility] Last Admin: 02/03/18 09:12 Dose: Not Given Potassium Chloride (K-Dur) 20 meq PO QAM-[facility] Last Admin: 02/03/18 09:23 Dose: 20 meq Rivaroxaban (Xarelto) 20 mg PO 1700 [facility] Last Admin: 02/02/18 17:11 Dose: 20 mg Saccharomyces Boulardii (Florastor) 250 mg PO BID [facility] Last Admin: 02/03/18 09:23 Dose: 250 mg Tamsulosin HCl (Flomax) 0.4 mg PO DAILY [facility] Last Admin: 02/03/18 09:24 Dose: 0.4 mg Vancomycin HCl (First Vancomycin) 125 mg PO QID [facility] Last Admin: 02/03/18 13:48 Dose: 5 ml
[2018-02-03] MEDS: Rivaroxaban 10 MG TAB PO SCH (18:21)
[2018-02-03] MEDS: Atorvastatin Calcium 10 MG TAB PO SCH (20:33)
[2018-02-04] MEDS: Ferrous Sulfate 325 MG TAB PO SCH ×2 (08:56→17:59)
[2018-02-04] MEDS: Acetaminophen/Codeine 30-300mg Tablet PO SCH ×3 (08:56→20:58)
[2018-02-04] MEDS: Potassium Chloride 20 MEQ TAB PO SCH (08:56)
[2018-02-04] MEDS: Famotidine 20 MG TAB PO SCH ×2 (08:58→20:58)
[2018-02-04] MEDS: FLUoxetine HCl 20 MG CAP PO SCH (08:58)
[2018-02-04] MEDS: Saccharomyces boulardii 250 MG CAP PO SCH ×2 (08:58→20:57)
[2018-02-04] MEDS: Vancomycin HCl 25 MG/ML Oral PO SCH ×4 (08:58→20:57)
[2018-02-04] MEDS: Multivitamin W/ Minerals 1 TAB PO SCH (08:58)
[2018-02-04] MEDS: Tamsulosin HCl 0.4 MG CAP PO SCH (08:58)
[2018-02-04] MEDS: Insulin Glargine 20 UNITS in Pre-Filled Syringe 1 EACH SC SCH (09:01)
[2018-02-04] MEDS: Polyethylene Glycol 3350 17 GM Packet PO SCH (09:02)
[2018-02-04] MEDS: HumaLOG 300 UNITS/3 ML VIAL SC PRN ×3 (11:29→18:00)
[2018-02-04 11:38] VITALS: BMI 21.3
--- NOTE | 2018-02-04 14:21 | PDOC.CTH ---
Cardiology Progress Note - Subjective EP progress Note: Seen and evaluated. No new cardiac concerns or complaints today. Doing well overnight since EP study and CTI ablation 3 days ago. No pain at groin site. No heart racing, palpitations, chest pain, dizziness, or passing out. Rhythm stable overnight. - Objective Vital Signs Temp Pulse Pulse Pulse Resp BP BP 02/04/18 13:45 98.1 F 74 18 02/04/18 09:16 72 79 119/59 L 126/61 02/04/18 09:00 02/04/18 08:00 97.8 F 78 16 02/04/18 04:00 96.8 F L 74 16 BP Pulse Ox 02/04/18 13:45 118/56 L 98 02/04/18 09:16 02/04/18 09:00 130/64 02/04/18 08:00 168/78 H 97 02/04/18 04:00 163/74 H 96 Admit Weight 161 lb 3.2 oz Weight 161 lb 12.8 oz 02/03/18 02/04/18 02/05/18 06:59 06:59 06:59 Intake Total 810 1070 Output Total 1550 2800 Balance -740 -1730 - Physical Examination General/Neuro: alert & oriented x3, NAD Neck: carotid US brisk, no JVD present Lungs: CTA, unlabored respirations Heart: PMI normal, RRR Abdomen: NT/ND, soft - Telemetry Telemetry Rhythm: SR - Labs Result Diagrams: 02/03/18 07:53 02/03/18 07:53 - Assessment/Plan 1. Typical atrial flutter, s/p CTI ablation 02/01/18 2. Atrial fibrillation - multiple left atrial circuits seen during EP study. -Continue rate control strategy for now. Limited AAD options. Multaq is a consideration but would hold off for now. Continue with reduced coreg dose 3. Abnormal sinus node function - SNRT 2197msec -conversion pause >7 seconds while on coreg and digoxin 4. C. diff colitis 5. Hx of endocarditis, MSSA, proteus mirabilis UTI 6. CAD with prior CABG 7. CHADS2-VASC: 4, on xarelto. Continue OAC No further arrhythmias issues seen. OK for DC by EP. Continue Xarelto and coreg. Will see as outpatient for routine follow up in 6-8 weeks.
--- NOTE | 2018-02-04 16:13 | PDOC.PN ---
- Subjective Encounter Start Date: 02/04/18 Encounter Start Time: 16:09 Subjective: feels weak otherwise OK. -: RN called for high blood sugars throughout the day & HR in 30-40s - Objective Resuscitation Status: Resuscitation Status DNR:Do Not Resuscitate MAR Reviewed: Yes Vital Signs & Weight: Vital Signs (12 hours) Temp Pulse Pulse Pulse Resp BP BP 02/04/18 13:45 98.1 F 74 18 02/04/18 09:16 72 79 119/59 L 126/61 02/04/18 09:00 02/04/18 08:00 97.8 F 78 16 BP Pulse Ox 02/04/18 13:45 118/56 L 98 02/04/18 09:16 02/04/18 09:00 130/64 02/04/18 08:00 168/78 H 97 Weight Admit Weight 161 lb 3.2 oz Weight 161 lb 12.8 oz I&O: 02/03/18 02/04/18 02/05/18 06:59 06:59 06:59 Intake Total 810 1070 Output Total 1550 2800 Balance -740 -1730 Result Diagrams: 02/03/18 07:53 02/03/18 07:53 Additional Labs: Accuchecks 02/04/18 02/04/18 02/04/18 12:51 10:52 06:11 POC Glucose 415 H 437 H 323 H 02/03/18 02/03/18 20:47 17:09 POC Glucose 226 H 208 H Microbiology 01/30/18 02:50 Stool Stool Occult Blood (SABINO) - Final 01/30/18 02:50 Stool C. difficile GDH Antigen & Toxins - Final 01/29/18 17:50 Nasopharynx - Pending Influenza Types A,B Direct EIA - Final 01/29/18 16:32 Venous blood - Left Hand Blood Culture - Final NO GROWTH IN 5 DAYS 01/29/18 16:18 Venous blood - Left Hand Blood Culture - Final NO GROWTH IN 5 DAYS 01/29/18 16:18 Urine coppola catheter Urine Culture - Final Yeast species Phys Exam - Physical Examination Constitutional: NAD HEENT: PERRLA, moist MMs, sclera anicteric, oral pharynx no lesions Neck: no nodes, no JVD, supple, full ROM Respiratory: no wheezing, no rales, no rhonchi, clear to auscultation bilateral Cardiovascular: RRR, no significant murmur, no rub Gastrointestinal: soft, non-tender, no distention, positive bowel sounds Musculoskeletal: no edema, pulses present Neurological: non-focal, normal sensation, moves all 4 limbs Psychiatric: normal affect, A&O x 3 Skin: no rash Dx/Plan (1) Sinus bradycardia Code(s): R00.1 - BRADYCARDIA, UNSPECIFIED Status: Acute Comment: off Of beta Blockers since yesterday (2) Sepsis Code(s): A41.9 - SEPSIS, UNSPECIFIED ORGANISM Status: Acute Qualifiers: Sepsis type: sepsis due to unspecified organism Qualified Code(s): A41.9 - Sepsis, unspecified organism (3) Atrial fibrillation with RVR Code(s): I48.91 - UNSPECIFIED ATRIAL FIBRILLATION Status: Resolved Comment: s/p ablation, now in sinus rhythm (4) Clostridium difficile diarrhea Code(s): A04.72 - ENTEROCOLITIS D/T CLOSTRIDIUM DIFFICILE, NOT SPCF RECUR Status: Acute Comment: continue oral vancomycin and Florastor (5) CAD (coronary artery disease) Code(s): I25.10 - ATHSCL HEART DISEASE OF [place] CORONARY ARTERY W/O ANG PCTRS Status: Chronic Comment: stable (6) DM2 (diabetes mellitus, type 2) Status: Chronic Comment: on accuchecks, insulin sliding scale, reasonable control for the most part (7) HTN (hypertension) Code(s): I10 - ESSENTIAL (PRIMARY) HYPERTENSION Status: Chronic Comment: controlled (8) Dementia Code(s): F03.90 - UNSPECIFIED DEMENTIA WITHOUT BEHAVIORAL DISTURBANCE Status: Chronic Qualifiers: Dementia type: unspecified type Dementia behavioral disturbance: without behavioral disturbance Qualified Code(s): F03.90 - Unspecified dementia without behavioral disturbance Comment: stable (9) History of endocarditis Code(s): Z86.79 - PERSONAL HISTORY OF OTHER DISEASES OF THE CIRCULATORY SYSTEM Status: Chronic (10) Indwelling catheter present on admission Code(s): Z96.0 - PRESENCE OF UROGENITAL IMPLANTS Status: Chronic (11) ISIDORO (iron deficiency anemia) Code(s): D50.9 - IRON DEFICIENCY ANEMIA, UNSPECIFIED Status: Chronic - Plan continue antibiotics, PT/OT, out of bed/ambulate, DVT proph w/SCDs Hold DC to NH today.Discussed w cardiology.poor candidate for PPM -: Increase insulin to aggressive .monitor -: cont PO vancomycin.no more diarrhea -: check labs in am * . Review of Systems - Review of Systems Constitutional: negative: fever, chills, sweats, weakness, malaise, other Respiratory: negative: Cough, Dry, Shortness of Breath, Hemoptysis, SOB with Excertion, Pleuritic Pain, Sputum, Wheezing Cardiovascular: negative: chest pain, palpitations, orthopnea, paroxysmal nocturnal dyspnea, edema, light headedness, other Gastrointestinal: negative: Nausea, Vomiting, Abdominal Pain, Diarrhea, Constipation, Melena, Hematochezia, Other Genitourinary: negative: Dysuria, Frequency, Incontinence, Hematuria, Retention , Other Musculoskeletal: negative: Neck Pain, Shoulder Pain, Arm Pain, Back Pain, Hand Pain, Leg Pain, Foot Pain, Other Skin: negative: Rash, Lesions, Norbert, Bruising, Other Neurological: negative: Weakness, Numbness, Incoordination, Change in Speech, Confusion, Seizures, Other - Medications/Allergies Allergies/Adverse Reactions: Allergies Allergy/AdvReac Type Severity Reaction Status Date / Time No Known Drug Allergies Allergy Verified 01/29/18 22:22 Medications: Current Medications Acetaminophen (Tylenol) 1,000 mg PO Q6H PRN PRN Reason: Mild Pain (1-3) Acetaminophen/Codeine Phosphate (Tylenol #3) 1 tab PO TID [facility] Last Admin: 02/04/18 15:52 Dose: Not Given Aspirin (Aspirin Chewable) 81 mg PO DAILY [facility] Last Admin: 02/04/18 08:58 Dose: 81 mg Atorvastatin Calcium (Lipitor) 10 mg PO QPM [facility] Last Admin: 02/03/18 20:33 Dose: 10 mg Dextrose/Water (Dextrose 50%) 25 gm SLOW IVP PRN PRN PRN Reason: Hypoglycemia Famotidine (Pepcid) 20 mg PO BID [facility] Last Admin: 02/04/18 08:58 Dose: 20 mg Ferrous Sulfate (Feosol) 325 mg PO BID-[facility] Last Admin: 02/04/18 08:56 Dose: 325 mg Fluoxetine HCl (Prozac) 20 mg PO DAILY [facility] Last Admin: 02/04/18 08:58 Dose: 20 mg Glucagon (Glucagon) 1 mg IM PRN PRN PRN Reason: Hypoglycemia Guaifenesin (Robitussin Sf) 200 mg PO Q4H PRN PRN Reason: Cough Dextrose/Water (D5w) 1,000 mls @ 0 mls/hr IV .Q0M PRN PRN Reason: Hypoglycemia Insulin Glargine 20 units/ (Miscellaneous Medication) 0.2 mls @ 0 mls/hr SC DAILY [facility] Last Admin: 02/04/18 09:01 Dose: 0.2 mls Insulin Human Lispro (Humalog) 0 units SC .BEDTIME SLIDING SC PRN PRN Reason: Bedtime Correctional Scale Insulin Human Lispro (Humalog) 0 units SC .AGGRESSIVE SLIDING PRN; Protocol PRN Reason: AGGRESSIVE SLIDING SCALE Last Admin: 02/04/18 13:46 Dose: 13 unit Iron/Minerals/Multivitamins (Theragran M) 1 tab PO DAILY [facility] Last Admin: 02/04/18 08:58 Dose: 1 tab Ondansetron HCl (Zofran Odt) 4 mg PO Q6H PRN PRN Reason: Nausea/Vomiting Ondansetron HCl (Zofran) 4 mg IVP Q6H PRN PRN Reason: Nausea/Vomiting Polyethylene Glycol (Miralax) 17 gm PO DAILY [facility] Last Admin: 02/04/18 09:02 Dose: Not Given Potassium Chloride (K-Dur) 20 meq PO QAM-[facility] Last Admin: 02/04/18 08:56 Dose: 20 meq Rivaroxaban (Xarelto) 20 mg PO 1700 [facility] Last Admin: 02/03/18 18:21 Dose: 20 mg Saccharomyces Boulardii (Florastor) 250 mg PO BID [facility] Last Admin: 02/04/18 08:58 Dose: 250 mg Tamsulosin HCl (Flomax) 0.4 mg PO DAILY [facility] Last Admin: 02/04/18 08:58 Dose: 0.4 mg Vancomycin HCl (First Vancomycin) 125 mg PO QID [facility] Last Admin: 02/04/18 13:45 Dose: 5 ml
[2018-02-04] MEDS: Rivaroxaban 10 MG TAB PO SCH (18:00)
--- NOTE | 2018-02-04 20:55 | PRG ---
DATE OF SERVICE: 02/04/2018 Mr. Zafar was about to be transferred back to [facility] when he had some bradycardia, heart rate was 40 transiently. He is asymptomatic. I discussed with Mr. Zafar that it would be very problematic to place a pacemaker. He has had multiple episodes of infection and bacteremia. Unfortunately, the patient has had 2 charts electronically generated but the hospitalizations previously under a different medical record number, but he has had multiple episodes of admission with infection and some bacteremia. It will be at very high probability that he would get the pacemaker lead infected, which could be a terminal event. At this time it is best to continue to observe him off any beta blockers. Pacemaker could be placed, but it appears to be a high probability of becoming infected and that could place him in a worse situation even he is in now. Patient understands. VLADISLAV
[2018-02-04] MEDS: Atorvastatin Calcium 10 MG TAB PO SCH (20:58)
[2018-02-05 08:09] LABS: Hemoglobin 8.9 g/dL (14.0-18.0); Platelet Count 559 thou/uL (130-400)
[2018-02-05] MEDS: Vancomycin HCl 25 MG/ML Oral PO SCH ×2 (08:22→12:08)
[2018-02-05] MEDS: Famotidine 20 MG TAB PO SCH (08:23)
[2018-02-05] MEDS: Multivitamin W/ Minerals 1 TAB PO SCH (08:23)
[2018-02-05] MEDS: Potassium Chloride 20 MEQ TAB PO SCH (08:23)
[2018-02-05] MEDS: Tamsulosin HCl 0.4 MG CAP PO SCH (08:23)
[2018-02-05] MEDS: Saccharomyces boulardii 250 MG CAP PO SCH (08:23)
[2018-02-05] MEDS: FLUoxetine HCl 20 MG CAP PO SCH (08:23)
[2018-02-05] MEDS: Ferrous Sulfate 325 MG TAB PO SCH (08:23)
[2018-02-05] MEDS: Acetaminophen/Codeine 30-300mg Tablet PO SCH (08:23)
[2018-02-05] MEDS: Insulin Glargine 20 UNITS in Pre-Filled Syringe 1 EACH SC SCH (08:26)
[2018-02-05] MEDS: Polyethylene Glycol 3350 17 GM Packet PO SCH (08:27)
[2018-02-05] MEDS: HumaLOG 300 UNITS/3 ML VIAL SC PRN (12:09)
--- NOTE | 2018-02-05 13:47 | PDOC.CTH ---
<Lety Lugo - Last Filed: 02/05/18 13:47> Cardiology Progress Note - Subjective EP progress Note: Seen and evaluated. No new cardiac concerns or complaints today. Doing well overnight since EP study and CTI ablation 4 days ago. No pain at groin site. No heart racing, palpitations, chest pain, dizziness, or passing out. Rhythm stable overnight. - Objective Vital Signs Temp Pulse Pulse Resp BP BP Pulse Ox 02/05/18 11:25 69 148/65 H 02/05/18 07:40 98.6 F 70 18 141/64 H 97 02/05/18 04:00 97.1 F L 79 16 158/70 H 95 Admit Weight 161 lb 3.2 oz Weight 157 lb 9.6 oz 02/04/18 02/05/18 02/06/18 06:59 06:59 06:59 Intake Total 1070 1120 Output Total 2800 1800 Balance -1730 -680 - Physical Examination General/Neuro: alert & oriented x3, NAD Neck: carotid US brisk Lungs: CTA, unlabored respirations Heart: PMI normal, RRR Abdomen: NT/ND, soft - Telemetry Telemetry Rhythm: SR - Labs Result Diagrams: 02/05/18 07:31 02/05/18 07:31 - Assessment/Plan 1. Typical atrial flutter, s/p CTI ablation 02/01/18 2. Atrial fibrillation - multiple left atrial circuits seen during EP study. -Continue rate control strategy for now. Limited AAD options. Multaq is a consideration but would hold off for now. Continue with reduced coreg dose 3. Abnormal sinus node function - SNRT 2197msec -conversion pause >7 seconds while on coreg and digoxin. No further pauses seen since Dig was stopped and coreg reduced. 4. C. diff colitis 5. Hx of endocarditis, MSSA, proteus mirabilis UTI 6. CAD with prior CABG 7. CHADS2-VASC: 4, on xarelto. Continue OAC No further arrhythmias issues seen. OK for DC by EP. Continue Xarelto and coreg. Will see as outpatient for routine follow up in 6-8 weeks. <Tom De La Cruz - Last Filed: 02/08/18 13:48> Cardiology Progress Note - Objective Admit Weight 161 lb 3.2 oz Weight 157 lb 9.6 oz - Labs Result Diagrams: 02/05/18 07:31 02/05/18 07:31 Attending Addendum - Attending Addendum Date/Time: 02/08/18 1859 I personally evaluated the patient and discussed the management with Ms Lugo. I agree with the History, Examination, Assessment and Plan documented above with any addition or exceptions noted below.
[2018-02-05 13:57] VITALS: BP 109/58; TEMP 98.5
--- NOTE | 2018-02-05 23:07 | DIS ---
DATE OF ADMISSION: 01/30/2018 DATE OF DISCHARGE: 02/05/2018 CONDITION AT THE TIME OF DISCHARGE: Stable and improved. DISCHARGE DISPOSITION: [facility] for [facility] where he is also a permanent resident. DISCHARGE DIAGNOSES: 1. Sepsis due to Clostridium difficile colitis. 2. Atrial fibrillation with rapid ventricular response, resolved. 3. Sinus bradycardia. 4. Typical atrial flutter, status post CTI ablation on 02/01/2018. 5. Atrial fibrillation, rate controlled, with slow ventricular response. Intolerant of beta aracely due to bradycardia. 6. Clostridium difficile colitis. 7. History of methicillin-susceptible Staphylococcus aureus endocarditis. 8. History of Proteus urinary tract infection. None of these two above this admission. 9. History of coronary artery disease with coronary artery bypass graft. 10. Chronic anticoagulation for chronic atrial fibrillation. 11. Severe deconditioning. 12. Diabetes mellitus, 2. 13. Chronic dementia. 14. Indwelling Rueda catheter. 15. Iron deficiency anemia, status post IV iron supplementation. DISCHARGE MEDICATIONS: 1. Oral vancomycin 125 mg p.o. q.i.d. for 7 more days. 2. Florastor 250 mg p.o. b.i.d. for 14 days. 3. Lisinopril 20 mg daily, Zofran p.r.n. 4. Aspirin 81 mg daily. 5. Prozac 20 mg daily. 6. Iron sulfate 325 mg p.o. b.i.d. 7. Lasix 40 mg daily. 8. Lantus 20 units daily. 9. NovoLog sliding scale. 10. MiraLax p.r.n. 11. Potassium chloride 20 mEq daily. 12. Xarelto 20 mg daily, 13. Zocor 20 mg daily. 14. Flomax 0.4 mg daily. Discharge plan was discussed with the patient's daughter, Ms. Peterson over the phone by myself this mor dylan. I have encouraged her to follow up with Urology in the outpatient setting as the patient has a n indwelling Rueda of unknown duration. She verbalized understanding. INHOUSE CONSULTATIONS: 1. Cardiology, Dr. Vines. 2. Electrophysiology, Dr. De La Cruz. PROCEDURES DONE IN THE HOSPITAL: 1. Transthoracic echocardiogram on 02/01/2018 which shows EF of 60% to 65% with diastolic dysfunctio n. 2. Electrophysiology study and radiofrequency ablation by Dr. De La Cruz on 02/01/2018. HISTORY OF PRESENTING ILLNESS: Mr. Zafar is a 72-year-old male with known history of coronary artery disease, MSSA bacteremia, diabetes, dementia and deconditioning and multiple hospitalizations for re peated UTI, etc, who presented to the emergency room with complaints of altered mental status. He wa s brought in from [facility] where he is a current resident. He was recently discharged from our facility on 01/25/2018 after being treated for Proteus urinary tract infection on oral antib iotics. The indwelling Rueda was changed in the ER on 01/29/2018 at the time of presentation. This time he had findings suggestive of another dirty urine possibly colonization. He was mildly hypotens annmarie in the emergency room. His, otherwise, initial workup including a chest x-ray, EKG and CT of the brain were unremarkable. He was admitted on telemetry unit for further investigation. HOSPITAL COURSE: The patient had positive C. difficile upon investigation. He was started and john nued on oral vancomycin appropriate dose and his diarrhea improved. He went into atrial fibrillation with RVR during hospitalization for which Cardiology and EP were consulted. Echo was done with the results mentioned above. He was continued on his oral anticoagulation and beta blockers and underwen t radiofrequency ablation. He shortly underwent bradycardia in the heart rate of 30s to 40s after ab lation and beta aracely was discontinued. He was asymptomatic during the short episodes of sinus bra dycardia and Cardiology recommended that the patient is not a candidate for pacemaker given his frequ ent hospitalization and multiple episodes of infection. I conveyed this to the patient's daughter, Cleveland Peterson this morning and she will follow up with Cardiology in the outpatient setting. Eventually, the patient was stable in sinus rhythm, eating and drinking well and with resolution of h is diarrhea. He was discharged to rehabilitation back at [facility] this morning. I have seen and ex amined the patient prior to discharge. PHYSICAL EXAMINATION: VITAL SIGNS: This morning, temperature 98.5, pulse of 85, respirations 18, saturating 100% on room a ir, blood pressure 109/58. GENERAL: No acute distress. He is awake, alert, oriented x3. CHEST: Clear to auscultation bilaterally. CARDIOVASCULAR: Rate and rhythm is regular. LABORATORY EXAMINATION: Hemoglobin at the time of discharge 8.9, which was 7.7 upon presentation. [facility] chemistries showed normal BUN and creatinine this morning. Blood sugar anywhere from 104 to 310 . His blood culture and urine culture are unremarkable during this admission. Total time spent in the discharge of this patient 38 minutes.
== END 2018-02-05 14:47 | DRG 853 ==
LOC: ERS 16:02 → MERGE 18:31 → 2NO 18:31
PROVIDERS: ADMIT Internal Medicine; ATTEND Internal Medicine
PROC: 02583ZZ Destruction of Conduction Mechanism, Percutaneous Approach (ICD-10-PCS; principal; 2018-02-01)
PROC: 4A0234Z Measurement of Cardiac Electrical Activity, Percutaneous Approach (ICD-10-PCS; 2018-02-01)
DX: A41.9 Sepsis, unspecified organism (principal); G93.41 Metabolic encephalopathy; I48.3 Typical atrial flutter; A04.72 Enterocolitis due to Clostridium difficile, not specified as recurrent; E11.9 Type 2 diabetes mellitus without complications; I25.10 Atherosclerotic heart disease of native coronary artery without angina pectoris; F03.90 Unspecified dementia, unspecified severity, without behavioral disturbance, psychotic disturbance, mood disturbance, and anxiety; I12.9 Hypertensive chronic kidney disease with stage 1 through stage 4 chronic kidney disease, or unspecified chronic kidney disease; N18.3 Chronic kidney disease, stage 3 (moderate); E11.22 Type 2 diabetes mellitus with diabetic chronic kidney disease; D64.9 Anemia, unspecified; I48.91 Unspecified atrial fibrillation; Z79.01 Long term (current) use of anticoagulants
CPT/HCPCS: 36415; 36416; 51702; 71045; 76942; 80048; 80053; 81003; 81015; 82274; 82565; 82728; 83540; 83550; 83605; 85007; 85014; 85018; 85025; 85027; 85049; 86850; 86900; 86901; 87040; 87086; 87324; 87449; 87804; 90471; 90670; 93005; 93010; 93306; 93613; 93623; 93653; 96361; 96365; C1730; C1769; G0009; G8978-GP-CL; G8979-GP-CJ; G8987-GO-CL; G8988-GO-CJ; J0690; J0696; J1160; J1265; J1644; J1940; J2001; J2704; J2916; J3010; J3490; J7050

== ENCOUNTER 2018-02-09 14:26 | Emergency (ER) | payer MEDICARE ==
[2018-02-09] MEDS ORDERED: Lidocaine Viscous Sol 2% 15 ml UD Cup ONE ×2 (15:42→16:19)
[2018-02-09 17:55] LABS: Blood, Urine Large (Negative); Clarity TURBID (Clear); Glucose, Urine (Dipstick) Negative (Negative); Leukocyte Large (Negative); Protein, Urine (Dipstick) 300 mg/dL (Neg-Trace); Specific Gravity, Urine 1.019 (1.002-1.036); Urobilinogen 0.2 mg/dL (0.2-1.0)
[2018-02-09 18:08] LABS: Bilirubin Unable to Interpret (Negative); Nitrite Unable to Interpret (Negative); RBC/HPF GREATER THAN 50-TNTC HPF (0-3)
[2018-02-09 18:09] LABS: Bacteria/HPF None Seen HPF (None Seen); Hyaline Casts/LPF NONE SEEN LPF (0-3 Hyaline); Squamous Epithelial 0-3 HPF (0-3)
== END 2018-02-09 19:26 | disposition home or self-care (01) ==
LOC: ERS 14:26
DX: Z46.6 Encounter for fitting and adjustment of urinary device (principal); Z86.718 Personal history of other venous thrombosis and embolism; I25.10 Atherosclerotic heart disease of native coronary artery without angina pectoris; I11.0 Hypertensive heart disease with heart failure; I50.9 Heart failure, unspecified; E10.9 Type 1 diabetes mellitus without complications; I25.2 Old myocardial infarction; F41.9 Anxiety disorder, unspecified
CPT/HCPCS: 51703; 81003; 81015

== ENCOUNTER 2018-02-14 22:49 | Emergency (ER) | payer MEDICARE ==
--- NOTE | 2018-02-15 07:57 | CT ---
BRAIN CT WITHOUT IV CONTRAST: History: 72-year-old male with history of injury secondary to a fall out of bed. FINDINGS: There is atrophy and chronic white matter ischemic change. No focal mass or midline shift. No intra o r extraaxial hemorrhage. Minimal soft tissue swelling over the left frontal region. IMPRESSION: Atrophy with chronic white matter ischemic change. No mass or bleed. Minimal left frontal soft tissue swelling. POS: H
--- NOTE | 2018-02-15 07:58 | CT ---
CERVICAL SPINE CT SCAN WITHOUT IV CONTRAST: Date: 02/14/18 HISTORY: Cervical spine injury following a fall. FINDINGS: There is severe multilevel disc osteophytosis and facet arthrosis, as well as thickening of the poste rior longitudinal ligament and some associated ossification of the posterior longitudinal ligament. H eterogeneous bony demineralization. No acute fracture or dislocation. Stable appearance from 06/20/17 . IMPRESSION: Extensive spondylosis and bony demineralization. No acute fracture or facet dislocation. No significa nt change from prior study of 06/20/17. POS: [facility]
== END 2018-02-15 00:53 | disposition home or self-care (01) ==
LOC: ERS 22:49
DX: S41.112A Laceration without foreign body of left upper arm, initial encounter (principal); S00.83XA Contusion of other part of head, initial encounter; I25.10 Atherosclerotic heart disease of native coronary artery without angina pectoris; I50.9 Heart failure, unspecified; E10.9 Type 1 diabetes mellitus without complications; I11.0 Hypertensive heart disease with heart failure; I25.2 Old myocardial infarction; F41.9 Anxiety disorder, unspecified; Z86.718 Personal history of other venous thrombosis and embolism; Z79.899 Other long term (current) drug therapy; Z79.4 Long term (current) use of insulin; Z79.82 Long term (current) use of aspirin; W06.XXXA Fall from bed, initial encounter
CPT/HCPCS: 70450; 72125

== ENCOUNTER 2018-12-03 20:44 | Observation (INO) | payer MEDICARE ==
[2018-12-03 21:39] LABS: Bilirubin Negative (Negative); Blood, Urine 2+ (Negative); Clarity Clear (Clear); Glucose, Urine (Dipstick) Normal (Negative); Leukocyte 500 Leu/uL (Negative); Nitrite Negative (Negative); Protein, Urine (Dipstick) 10 mg/dL (Neg-Trace); RBC/HPF 21-50 HPF (0-3); Squamous Epithelial None Seen HPF (0-3); Urobilinogen Normal mg/dL (Less than 2); WBC/HPF 21-50 HPF (0-3)
[2018-12-03 21:51] LABS: #Eosinphils 0.3 thou/uL (0.0-0.7); #Lymphocytes 1.7 thou/uL (1.20-3.40); #Monocytes 0.7 thou/uL (0.11-0.59); #Neutrophils 4.2 thou/uL (1.40-6.50); %Basophils 0.1 % (0.0-1.0); %Eosinophils 4.9 % (0.0-10.0); %Lymphocytes 24.4 % (21.0-51.0); %Neutrophils 60.7 % (42.0-75.0); Hemoglobin 9.4 g/dL (14.0-18.0); Mean Corpuscular HGB CONC 33.3 g/dL (32.0-36.0); Mean Corpuscular Hemoglobin 30.1 pg (27.0-31.0); Mean Corpuscular Volume 90.5 fL (78.0-98.0); Platelet Count 279 thou/uL (130-400); RBC Distribution Width 13.9 % (11.5-14.5); Red Blood Cell (RBC) Count 3.11 mill/uL (4.70-6.10)
[2018-12-03 21:51] LABS: Bacteria/HPF Rare-Few HPF (None Seen); Yeast-Budding None Seen HPF (None Seen)
[2018-12-03 22:09] LABS: ALT (SGPT) 12 U/L (8-55); AST (SGOT) 8 U/L (5-34); Albumin 3.6 g/dL (3.4-4.8); Alkaline Phosphatase 82 U/L (40-150); Anion Gap 12 mmol/L (10-20); BUN (Urea Nitrogen) 23 mg/dL (8.4-25.7); Bilirubin, Total 0.2 mg/dL (0.2-1.2); Calc. Creatinine Clearance 0 mL/min (70-130); Calcium 8.9 mg/dL (7.8-10.44); Carbon Dioxide 27 mmol/L (23-31); Chloride 98 mmol/L (98-107); Estimated GFR-MDRD 51; Globulin 2.8 g/dL (2.4-3.5); Glucose 108 mg/dL (83-110); Potassium 3.8 mmol/L (3.5-5.1); Protein, Total 6.4 g/dL (5.8-8.1); Sodium 133 mmol/L (136-145)
[2018-12-03] MEDS ORDERED: cefTRIAXone\\ROCEPHIN 2 GM VIAL ONE (22:23)
[2018-12-03] MEDS ORDERED: Vancomycin HCl 1.25 GM in Sodium Chloride 0.9% 250 ML 250 ML IVPB SCH (22:30)
[2018-12-03] MEDS ORDERED: Gentamicin Sulfate 400 MG in Sodium Chloride 0.9% 100 ML IVPB SCH (22:45)
[2018-12-03] MEDS ORDERED: Senokot S 8.6-50 MG TAB PO PRN (23:15)
[2018-12-03] MEDS ORDERED: Sodium Chloride 0.9% 1,000 ML IV SCH (23:15)
[2018-12-03] MEDS ORDERED: Dextrose 5% in Water 1,000 ML IV PRN (23:22)
[2018-12-03] MEDS ORDERED: Dextrose 50% Abboject 50 ML SYRINGE SLOW IVP PRN (23:22)
--- NOTE | 2018-12-04 00:01 | PDOC.HHP ---
Hospitalist HPI - History of Present Illness Hematuria History of Present Illness: Hematuria from suprapubic catheter, patient reports he fell unto his bottom yesterday, denies pain ED Course: Given ABX for UTI, H/H stable, hematuria improving while in the ED - Exam General Appearance: NAD Eye: PERRL ENT: moist mucosa Neck: supple, JVD Heart: RRR, III/IV Respiratory: CTAB, no wheezes Gastrointestinal: soft, non-tender Gastrointestinal - other findings: umbilical hernia, easily reducible, suprapubic catheter in place, hematuria Extremities: no clubbing, no edema Skin: normal turgor Neurological: CN's grossly intact Musculoskeletal: normal tone, normal strength Psychiatric: normal affect, A&O x 3 Hospitalist Results - Labs Result Diagrams: 12/03/18 21:34 12/03/18 21:34 Lab results: WBC 7.0 thou/uL (4.8-10.8) 12/03/18 21:34 Hgb 9.4 g/dL (14.0-18.0) L 12/03/18 21:34 Hct 28.1 % (42.0-52.0) L 12/03/18 21:34 MCV 90.5 fL (78.0-98.0) 12/03/18 21:34 Plt Count 279 thou/uL (130-400) 12/03/18 21:34 Neutrophils % 60.7 % (42.0-75.0) 12/03/18 21:34 Sodium 133 mmol/L (136-145) L 12/03/18 21:34 Potassium 3.8 mmol/L (3.5-5.1) 12/03/18 21:34 Chloride 98 mmol/L (98-107) 12/03/18 21:34 Carbon Dioxide 27 mmol/L (23-31) 12/03/18 21:34 BUN 23 mg/dL (8.4-25.7) 12/03/18 21:34 Creatinine 1.36 mg/dL (0.7-1.3) H 12/03/18 21:34 Glucose 108 mg/dL (83-110) 12/03/18 21:34 Calcium 8.9 mg/dL (7.8-10.44) 12/03/18 21:34 Total Bilirubin 0.2 mg/dL (0.2-1.2) 12/03/18 21:34 AST 8 U/L (5-34) 12/03/18 21:34 ALT 12 U/L (8-55) 12/03/18 21:34 Alkaline Phosphatase 82 U/L (40-150) 12/03/18 21:34 Serum Total Protein 6.4 g/dL (5.8-8.1) 12/03/18 21:34 Albumin 3.6 g/dL (3.4-4.8) 12/03/18 21:34 Urine Ketones Negative mg/dL (Negative) 12/03/18 21:12 Urine Blood 2+ (Negative) A 12/03/18 21:12 Urine Nitrite Negative (Negative) 12/03/18 21:12 Ur Leukocyte Esterase 500 Nai/uL (Negative) A 12/03/18 21:12 Urine RBC 21-50 HPF (0-3) A 12/03/18 21:12 Urine WBC 21-50 HPF (0-3) A 12/03/18 21:12 Ur Squamous Epith Cells None Seen HPF (0-3) 12/03/18 21:12 Urine Bacteria Rare-Few HPF (None Seen) 12/03/18 21:12 Hospitalist H&P A/P - Problem (1) Hematuria Code(s): R31.9 - HEMATURIA, UNSPECIFIED Status: Acute (2) Suprapubic catheter Code(s): Z93.59 - OTHER CYSTOSTOMY STATUS Status: Chronic (3) UTI (urinary tract infection) due to urinary indwelling catheter Code(s): T83.511A - I/I REACT D/T INDWELLING URETHRAL CATHETER, INIT; N39.0 - URINARY TRACT INFECTION, SITE NOT SPECIFIED Status: Acute (4) Anemia, normocytic normochromic Code(s): D64.9 - ANEMIA, UNSPECIFIED Status: Chronic (5) BPH (benign prostatic hyperplasia) Code(s): N40.0 - BENIGN PROSTATIC HYPERPLASIA WITHOUT LOWER URINRY TRACT SYMP Status: Chronic (6) Chronic anticoagulation Code(s): Z79.01 - SPANISH [employer]OR (CURRENT) USE OF ANTICOAGULANTS Status: Chronic (7) Diabetes mellitus Code(s): E11.9 - TYPE 2 DIABETES MELLITUS WITHOUT COMPLICATIONS Status: Acute Qualifiers: Diabetes mellitus type: type 2 (8) Hyperlipemia Code(s): E78.5 - HYPERLIPIDEMIA, UNSPECIFIED Status: Acute (9) Hypertension Code(s): I10 - ESSENTIAL (PRIMARY) HYPERTENSION Status: Chronic - Plan Plan: No known drug allergies Home medications to be reconciled Hematuria: Gentle hydration NS 75ml/hr x1 bag Urine sent off for culture, pyuria, no bacteria present - will continue Rocephin until culture results Serial H&H Consult Urology if hematuria does not clear or if worsens Will hold Xarelto and ASA DM: ACHS accuchecks, mild S/S as needed, home meds when reconciled Hypertension: home medications to be restarted reconciled Hyperlipidemia: home medications to be restarted once reconciled Recheck labs in AM Plan discussed with Dr. Mehta who agrees to plan
[2018-12-04 01:39] VITALS: BMI 24.0
[2018-12-04 06:21] LABS: Anion Gap 14 mmol/L (10-20); BUN (Urea Nitrogen) 19 mg/dL (8.4-25.7); Calc. Creatinine Clearance 62 mL/min (70-130); Calcium 8.9 mg/dL (7.8-10.44); Carbon Dioxide 24 mmol/L (23-31); Chloride 103 mmol/L (98-107); Estimated GFR-MDRD 59; Glucose 113 mg/dL (83-110); Potassium 3.9 mmol/L (3.5-5.1); Sodium 137 mmol/L (136-145)
[2018-12-04 06:28] LABS: #Eosinphils 0.6 thou/uL (0.0-0.7); #Lymphocytes 1.3 thou/uL (1.20-3.40); #Monocytes 0.8 thou/uL (0.11-0.59); #Neutrophils 5.8 thou/uL (1.40-6.50); %Basophils 0.2 % (0.0-1.0); %Lymphocytes 15.5 % (21.0-51.0); %Monocytes 9.2 % (0.0-10.0); %Neutrophils 68.2 % (42.0-75.0); Mean Corpuscular HGB CONC 34.4 g/dL (32.0-36.0); Mean Corpuscular Hemoglobin 30.7 pg (27.0-31.0); Mean Corpuscular Volume 89.2 fL (78.0-98.0); Mean Platelet Volume 8.2 fL (7.4-10.4); Platelet Count 281 thou/uL (130-400); RBC Distribution Width 13.9 % (11.5-14.5); Red Blood Cell (RBC) Count 3.27 mill/uL (4.70-6.10); White Blood Cell (WBC) Count 8.5 thou/uL (4.8-10.8)
[2018-12-04] MEDS: Famotidine 20 MG TAB PO SCH ×2 (07:56→20:08)
[2018-12-04] MEDS: HumaLOG 300 UNITS/3 ML VIAL SC PRN ×2 (12:28→16:37)
--- NOTE | 2018-12-04 18:00 | PDOC.HOSPP ---
- Subjective Encounter Date: 12/04/18 Subjective: He has no specific complaints, continues to have hematuria but to a lesser extent, he slid yesterday and thinks that it might be the cause of his hematuria. - Objective Vital Signs & Weight: Vital Signs (12 hours) Temp Pulse Resp BP BP Pulse Ox 12/04/18 16:00 99.6 F 79 16 146/67 H 94 L 12/04/18 12:45 98.6 F 87 16 108/62 92 L 12/04/18 07:05 99 F 91 16 159/77 H 97 Weight Weight 181 lb 14.102 oz I&O: 12/03/18 12/04/18 12/05/18 06:59 06:59 06:59 Output Total 1300 Balance -1300 Result Diagrams: 12/04/18 09:50 12/04/18 05:44 Additional Labs: Accuchecks 12/04/18 12/04/18 12/04/18 16:11 12:13 05:24 POC Glucose 305 H 340 H 116 H Hospitalist ROS - Medication Medications: Active Medications Generic Name Dose Route Start Last Admin Trade Name Giovannyq PRN Reason Stop Dose Admin Famotidine 20 mg 12/04/18 09:00 12/04/18 07:56 Pepcid PO 20 mg BID KIM Administration Insulin Human Lispro 0 units 12/03/18 23:22 12/04/18 16:37 Humalog SC 5 unit .MILD SLIDING SCALE PRN Administration Mild Correctional Scale Sodium Chloride 10 ml 12/03/18 23:15 12/04/18 07:56 Flush - Normal Saline IVF 10 ml PRN PRN Administration Saline Flush - Exam General Appearance: NAD Eye: PERRL, anicteric sclera ENT: normocephalic atraumatic, no oropharyngeal lesions, moist mucosa Neck: supple, symmetric, no JVD, no thyromegaly, no lymphadenopathy, no carotid bruit Heart: RRR, no murmur, no gallops, no rubs, normal peripheral pulses Respiratory: CTAB, no wheezes, no rales, no ronchi, normal chest expansion, no tachypnea, normal percussion Gastrointestinal: soft, non-tender, non-distended, normal bowel sounds, no palpable masses, no hepatomegaly, no splenomegaly, no bruit Extremities: no cyanosis, no clubbing, no edema Hosp A/P (1) Hematuria Code(s): R31.9 - HEMATURIA, UNSPECIFIED Status: Acute (2) Hyperlipemia Code(s): E78.5 - HYPERLIPIDEMIA, UNSPECIFIED Status: Chronic (3) Bacteremia Code(s): R78.81 - BACTEREMIA Status: Acute (4) Hypokalemia Code(s): E87.6 - HYPOKALEMIA Status: Acute (5) UTI (urinary tract infection) due to urinary indwelling catheter Code(s): T83.511A - I/I REACT D/T INDWELLING URETHRAL CATHETER, INIT; N39.0 - URINARY TRACT INFECTION, SITE NOT SPECIFIED Status: Acute - Plan Renal and urinary---will continue with ATB---awaiting cultures---continue holding his anticoagulamt for now---if hematuria persists will call urology. DM--resume insulin HTN--resume BP meds
[2018-12-04] MEDS: Simvastatin 20 MG TAB PO SCH (20:07)
[2018-12-04] MEDS: Acetaminophen 325 MG TAB PO PRN (20:08)
[2018-12-04] MEDS ORDERED: Prevnar 13-Val Conj/PF 0.5 ML SYRINGE IM ONE (21:00)
[2018-12-04] MEDS: cefTRIAXone\\ROCEPHIN 1 GM in Sodium Chloride 0.9% 100 ML IVPB SCH (21:25)
[2018-12-04] MEDS: hydrALAZINE 20 MG/ML VIAL SLOW IVP PRN (23:35)
[2018-12-05] MEDS: hydrALAZINE 20 MG/ML VIAL SLOW IVP PRN ×2 (04:17→17:04)
[2018-12-05] MEDS: HumaLOG 300 UNITS/3 ML VIAL SC PRN ×4 (04:20→20:17)
[2018-12-05 05:32] LABS: #Eosinphils 0.6 thou/uL (0.0-0.7); #Lymphocytes 1.4 thou/uL (1.20-3.40); #Monocytes 0.6 thou/uL (0.11-0.59); #Neutrophils 4.6 thou/uL (1.40-6.50); %Basophils 0.1 % (0.0-1.0); %Eosinophils 8.8 % (0.0-10.0); %Lymphocytes 19.3 % (21.0-51.0); %Monocytes 8.2 % (0.0-10.0); %Neutrophils 63.6 % (42.0-75.0); Hemoglobin 10.6 g/dL (14.0-18.0); Mean Corpuscular HGB CONC 33.3 g/dL (32.0-36.0); Mean Corpuscular Hemoglobin 29.7 pg (27.0-31.0); Mean Corpuscular Volume 89.3 fL (78.0-98.0); Mean Platelet Volume 8.2 fL (7.4-10.4); Platelet Count 287 thou/uL (130-400); RBC Distribution Width 13.9 % (11.5-14.5); Red Blood Cell (RBC) Count 3.55 mill/uL (4.70-6.10); White Blood Cell (WBC) Count 7.2 thou/uL (4.8-10.8)
[2018-12-05 05:46] LABS: Anion Gap 15 mmol/L (10-20); BUN (Urea Nitrogen) 25 mg/dL (8.4-25.7); Calc. Creatinine Clearance 50 mL/min (70-130); Carbon Dioxide 23 mmol/L (23-31); Chloride 99 mmol/L (98-107); Estimated GFR-MDRD 46; Glucose 417 mg/dL (83-110); Potassium 4.6 mmol/L (3.5-5.1); Sodium 132 mmol/L (136-145)
[2018-12-05] MEDS: Famotidine 20 MG TAB PO SCH ×2 (07:50→20:14)
[2018-12-05] MEDS: Tamsulosin HCl 0.4 MG CAP PO SCH (07:50)
[2018-12-05] MEDS: Ferrous Sulfate 325 MG TAB PO SCH (07:50)
[2018-12-05] MEDS: FLUoxetine HCl 20 MG CAP PO SCH (07:50)
[2018-12-05] MEDS: Lisinopril 20 MG TAB PO SCH (07:50)
[2018-12-05] MEDS: Saccharomyces boulardii 250 MG CAP PO SCH (07:51)
[2018-12-05] MEDS ORDERED: Sodium Chloride 0.9% 1,000 ML IV SCH (08:45)
[2018-12-05 13:26] LABS: Anion Gap 13 mmol/L (10-20); BUN (Urea Nitrogen) 26 mg/dL (8.4-25.7); Calc. Creatinine Clearance 51 mL/min (70-130); Calcium 8.7 mg/dL (7.8-10.44); Carbon Dioxide 24 mmol/L (23-31); Chloride 99 mmol/L (98-107); Estimated GFR-MDRD 47; Glucose 418 mg/dL (83-110); Potassium 4.3 mmol/L (3.5-5.1); Sodium 132 mmol/L (136-145)
--- NOTE | 2018-12-05 19:32 | PDOC.HOSPP ---
- Subjective Encounter Date: 12/05/18 Subjective: no complaints today, he was ambulating comfortably. - Objective Vital Signs & Weight: Vital Signs (12 hours) Temp Pulse Resp BP BP Pulse Ox 12/05/18 19:27 98.3 F 79 18 124/56 L 96 12/05/18 18:30 132/68 12/05/18 17:04 82 158/73 H 12/05/18 16:00 98.6 F 82 20 147/70 H 94 L 12/05/18 11:00 98.9 F 85 20 132/68 93 L 12/05/18 07:50 98.6 F 82 16 128/72 128/72 96 Weight Admit Weight 181 lb 14.102 oz Weight 181 lb 14.102 oz I&O: 12/04/18 12/05/18 12/06/18 06:59 06:59 06:59 Intake Total 2120 1720 Output Total 1300 3450 1250 Balance -1300 -1330 470 Result Diagrams: 12/05/18 05:00 12/05/18 12:58 Additional Labs: Accuchecks 12/05/18 12/05/18 12/05/18 16:29 11:08 04:13 POC Glucose 388 H 475 H 430 H 12/04/18 21:01 POC Glucose 286 H Hospitalist ROS - Medication Medications: Active Medications Generic Name Dose Route Start Last Admin Trade Name Freq PRN Reason Stop Dose Admin Acetaminophen 650 mg 12/03/18 23:15 12/04/18 20:08 Tylenol PO 650 mg Q4H PRN Administration Headache/Fever/Mild Pain (1-3) Famotidine 20 mg 12/04/18 09:00 12/05/18 07:50 Pepcid PO 20 mg BID KIM Administration Ferrous Sulfate 325 mg 12/05/18 09:00 12/05/18 07:50 Feosol PO 325 mg DAILY KIM Administration Fluoxetine HCl 40 mg 12/05/18 09:00 12/05/18 07:50 Prozac PO 40 mg DAILY KIM Administration Hydralazine HCl 5 mg 12/04/18 18:07 12/05/18 17:04 Apresoline SLOW IVP 5 mg Q4H PRN Administration Hypertension Ceftriaxone Sodium 1 gm/ 100 mls @ 200 mls/hr 12/04/18 22:00 12/04/18 21:25 Sodium Chloride IVPB 100 mls 2200 KIM Administration Insulin Human Lispro 0 units 12/03/18 23:22 12/05/18 17:01 Humalog SC 5 unit .MILD SLIDING SCALE PRN Administration Mild Correctional Scale Lisinopril 20 mg 12/05/18 09:00 12/05/18 07:50 Zestril PO 20 mg DAILY KIM Administration Saccharomyces Boulardii 250 mg 12/05/18 09:00 12/05/18 07:51 Florastor PO 250 mg DAILY KIM Administration Simvastatin 20 mg 12/04/18 21:00 12/04/18 20:07 Zocor PO 20 mg HS KIM Administration Sodium Chloride 10 ml 12/03/18 23:15 12/05/18 07:51 Flush - Normal Saline IVF 10 ml PRN PRN Administration Saline Flush Tamsulosin HCl 0.4 mg 12/05/18 09:00 12/05/18 07:50 Flomax PO 0.4 mg DAILY KIM Administration - Exam General Appearance: NAD, awake alert Eye: PERRL, anicteric sclera ENT: normocephalic atraumatic, no oropharyngeal lesions, moist mucosa Neck: supple, symmetric, no JVD, no thyromegaly, no lymphadenopathy, no carotid bruit Heart: RRR, no murmur, no gallops, no rubs, normal peripheral pulses Respiratory: CTAB, no wheezes, no rales, no ronchi, normal chest expansion, no tachypnea, normal percussion Gastrointestinal: soft, non-tender, non-distended, normal bowel sounds, no palpable masses, no hepatomegaly, no splenomegaly, no bruit Extremities: no cyanosis, no clubbing, no edema Hosp A/P (1) Hematuria Code(s): R31.9 - HEMATURIA, UNSPECIFIED Status: Resolved (2) Hyperlipemia Code(s): E78.5 - HYPERLIPIDEMIA, UNSPECIFIED Status: Chronic (3) Bacteremia Code(s): R78.81 - BACTEREMIA Status: Resolved (4) Hypokalemia Code(s): E87.6 - HYPOKALEMIA Status: Acute (5) UTI (urinary tract infection) due to urinary indwelling catheter Code(s): T83.511A - I/I REACT D/T INDWELLING URETHRAL CATHETER, INIT; N39.0 - URINARY TRACT INFECTION, SITE NOT SPECIFIED Status: Acute - Plan Renal and urinary---will continue with ATB---hematuria has resolved--will resume anticoagulation. DM--resume insulin, resume long acting. HTN--resume BP meds
[2018-12-05] MEDS: Simvastatin 20 MG TAB PO SCH (20:14)
[2018-12-05] MEDS: Acetaminophen 325 MG TAB PO PRN (20:14)
[2018-12-05] MEDS ORDERED: Insulin Glargine 10 UNITS in Pre-Filled Syringe SC SCH (21:00)
[2018-12-05] MEDS: cefTRIAXone\\ROCEPHIN 1 GM in Sodium Chloride 0.9% 100 ML IVPB SCH (21:05)
[2018-12-06] MEDS: HumaLOG 300 UNITS/3 ML VIAL SC PRN ×3 (04:48→16:51)
[2018-12-06 06:46] LABS: Anion Gap 12 mmol/L (10-20); BUN (Urea Nitrogen) 26 mg/dL (8.4-25.7); Calc. Creatinine Clearance 51 mL/min (70-130); Calcium 9.1 mg/dL (7.8-10.44); Carbon Dioxide 24 mmol/L (23-31); Chloride 100 mmol/L (98-107); Estimated GFR-MDRD 47; Glucose 320 mg/dL (83-110); Sodium 132 mmol/L (136-145)
[2018-12-06 07:19] VITALS: BP 131/62; TEMP 98.2
[2018-12-06] MEDS: Saccharomyces boulardii 250 MG CAP PO SCH (08:47)
[2018-12-06] MEDS: FLUoxetine HCl 20 MG CAP PO SCH (08:47)
[2018-12-06] MEDS: Tamsulosin HCl 0.4 MG CAP PO SCH (08:47)
[2018-12-06] MEDS: Lisinopril 20 MG TAB PO SCH (08:47)
[2018-12-06] MEDS: Ferrous Sulfate 325 MG TAB PO SCH (08:48)
[2018-12-06] MEDS: Famotidine 20 MG TAB PO SCH (08:49)
[2018-12-06] MEDS ORDERED: Aspirin Chewable 81 MG TAB PO SCH (09:00)
[2018-12-06] MEDS ORDERED: INSULIN GLARGINE SC SCH (09:00)
[2018-12-06] MEDS ORDERED: Rivaroxaban 10 MG TAB PO SCH (09:00)
[2018-12-06] MEDS ORDERED: PRE FILLED SC SCH (09:00)
--- NOTE | 2018-12-07 14:03 | DIS ---
DATE OF ADMISSION: 12/03/2018 DATE OF DISCHARGE: 12/06/2018 HOSPITAL COURSE: This is a patient who was admitted on 12/03/2018 for hematuria. He does have a suprapubic catheter and at some point he told me that he fell on the ground, he slipped actually, and he thinks that may be that caused movement of his catheter. He also is on anticoagulation and may be that is why he developed the hematuria. During this stay, his anticoagulants were stopped. It was also noted that his kidney function was worse than his baseline. He is known to have chronic kidney disease, so he was started on IV fluids. Also, his urine did demonstrate evidence of pyuria. He was started on antibiotics. After a couple of days, his urine cleared. He was not febrile. His creatinine function improved, and I reinstated his anticoagulants and his blood pressure medications. Also, he did have uncontrolled glucose level, so I reinstated his long-acting insulin and we had him covered with an insulin sliding scale. Today, the patient appears to be doing very well. He is eager to go to his care home facility. He denies any dysuria. No fevers and no chills. PHYSICAL EXAMINATION: VITAL SIGNS: His blood pressure is 124/56, heart rate of 79, temperature is 98.3, and saturating 96% on room air. HEENT: Head is nontraumatic and normocephalic. Pupils are equal and reactive. Extraocular movements are intact. Nonicteric sclerae. Well-injected conjunctive. Oral mucosa is normal. Nasal mucosa is normal. NECK: Supple. No adenopathy. No mass. Thyroid is not palpable. Trachea is midline. No supraclavicular lymphadenopathy. HEART: S1 and S2, regular. No murmurs, no gallops, and no frictional rubs. No displacement of PMI. LUNGS: Clear to auscultation bilaterally. No wheezes or rhonchi. No crackles. ABDOMEN: Bowel sounds are positive. Nontender abdomen. No hepatosplenomegaly. EXTREMITIES: No lower extremity edema. No cyanosis. NEUROLOGIC: Cranial nerves 2 through 12 within normal limits. Normal motor function. Normal sensory function and reflexes. LABORATORY DATA: His blood works shows a sodium of 132, potassium of 4, and creatinine of 1.45. His urine culture showed gram-negative rods, 10,000 to 25,000 Staph species, and presumptive Pseudomonas less than 5000. The patient will be discharged to his facility to resume his previous medications. We will give him a course of Ceftin for approximately 5 days to finish his current antibiotic therapy. We will resume his long-acting insulin, his diuretics, and his potassium supplementation. More than half an hour was spent to discharge this patient. Job ID: [id number]
== END 2018-12-06 17:16 ==
LOC: ERS 20:44 → T4-A 22:38 → MERGE 22:38
PROVIDERS: ADMIT Internal Medicine; ATTEND Internal Medicine
DX: R31.9 Hematuria, unspecified (principal); D64.9 Anemia, unspecified; N40.0 Benign prostatic hyperplasia without lower urinary tract symptoms; E11.9 Type 2 diabetes mellitus without complications; E78.5 Hyperlipidemia, unspecified; Z79.01 Long term (current) use of anticoagulants; Z79.82 Long term (current) use of aspirin; Z79.899 Other long term (current) drug therapy
CPT/HCPCS: 80048 ×4; 80053; 82962 ×3; 85014; 85018; 85025 ×3; 87086; 96361 ×2; 96365; 96366 ×2; 96367; 96375; 96376; 97116 ×3; 97139; 97530; 99284; G0378 ×5; 36415; 36416; 81003; 81015; J0360; J0696; J1580; J1815; J3370; J3490; J7050

== ENCOUNTER 2020-02-16 15:33 | Inpatient (IN) | payer MEDICARE, MEDICAID ==
--- NOTE | 2020-02-16 16:31 | RAD ---
RADIOGRAPH CHEST 1 VIEW: DATE: 02/16/2020 HISTORY: 74-year-old male with dyspnea FINDINGS: There are no airspace densities, pulmonary edema, pneumothorax, or cardiomegaly. The lateral costophr enic angles are sharp. Sternotomy wires. Surgical clips over the mediastinum and heart. IMPRESSION: 1. No acute cardiopulmonary findings. 2. Prior coronary artery bypass graft surgery.
[2020-02-16 16:32] LABS: Bacteria/HPF 3+ HPF (None Seen); Bilirubin Negative (Negative); Blood, Urine 1+ (Negative); Clarity Extra Turbid (Clear); Glucose, Urine (Dipstick) Greater than 1000 mg/dL (Negative); Ketone, Urine 20 mg/dL (Negative); Leukocyte 500 Leu/uL (Negative); Nitrite Negative (Negative); Protein, Urine (Dipstick) 30 mg/dL (Neg-Trace); Specific Gravity, Urine 1.023 (1.002-1.036); Squamous Epithelial None Seen HPF (0-3); Urobilinogen Normal mg/dL (Less than 2); WBC/HPF Greater than 50 HPF (0-3); pH, Urine 5.5 (5.0-9.0)
[2020-02-16 17:14] LABS: #Monocytes 0.6 thou/uL (0.11-0.59); #Neutrophils 7.6 thou/uL (1.40-6.50); %Basophils 0.3 % (0.0-1.0); %Eosinophils 0.1 % (0.0-10.0); %Monocytes 6.5 % (0.0-10.0); %Neutrophils 82.1 % (42.0-75.0); Hemoglobin 13.9 g/dL (14.0-18.0); Mean Corpuscular HGB CONC 32.5 g/dL (32.0-36.0); Mean Corpuscular Hemoglobin 30.3 pg (27.0-31.0); Mean Corpuscular Volume 93.1 fL (78.0-98.0); Mean Platelet Volume 9.7 fL (7.4-10.4); Platelet Count 282 thou/uL (130-400); Red Blood Cell (RBC) Count 4.58 mill/uL (4.70-6.10); White Blood Cell (WBC) Count 9.3 thou/uL (4.8-10.8)
[2020-02-16] MEDS ORDERED: Vancomycin HCl 1.25 GM in Sodium Chloride 0.9% 250 ML 250 ML IVPB SCH (17:15)
[2020-02-16] MEDS ORDERED: Cefepime 2 GM VIAL ONE (17:16)
[2020-02-16] MEDS ORDERED: Acetaminophen 500 MG TAB ONE (17:16)
[2020-02-16 17:31] LABS: ALT (SGPT) 13 U/L (8-55); AST (SGOT) 13 U/L (5-34); Albumin 3.8 g/dL (3.4-4.8); Alkaline Phosphatase 108 U/L (40-110); Anion Gap 15 mmol/L (10-20); BUN (Urea Nitrogen) 48 mg/dL (8.4-25.7); Bilirubin, Total 0.4 mg/dL (0.2-1.2); Calc. Creatinine Clearance 0 mL/min (70-130); Carbon Dioxide 30 mmol/L (23-31); Chloride 95 mmol/L (98-107); Estimated GFR-MDRD 27; Globulin 3.1 g/dL (2.4-3.5); Glucose 297 mg/dL (83-110); Potassium 4.4 mmol/L (3.5-5.1); Protein, Total 6.9 g/dL (5.8-8.1); Sodium 136 mmol/L (136-145)
[2020-02-16 17:55] LABS: CKMB 3.9 ng/mL (0-6.6)
--- NOTE | 2020-02-16 18:53 | CT ---
CT abdomen and pelvis noncontrast HISTORY: Flank pain. COVID pneumonia. COMPARISON: 08/24/2018. FINDINGS: Each renal collecting system and ureter are decompressed. Urinary bladder is decompressed b y suprapubic catheter with associated thickening of the urinary bladder wall. There is prominent calcification throughout the arterial structures with narrowing of the distal aorta and each common i liac artery. Prominent degenerative changes throughout the lower lumbar spine. Bilateral spondylolysis and grade 1 spondylolisthesis at the lumbosacral junction is apparent, where degenerative changes are also most pronounced. Very mild groundglass infiltrate at the right posterior lateral lung base is consistent with COVID pn eumonitis. Lack of contrast limits evaluation of the soft tissues. Fluid is present within the distal esophagus. There is prominent circumferential wall thickening of the partially visualized distal esophagus and stomach. No evidence of bowel obstruction. IMPRESSION : No evidence of urinary tract obstruction or calcification. Suprapubic catheter is in place. No eviden ce of complication. Prominent circumferential wall thickening of the distal esophagus and stomach. Cause for inflammation is not evident. Gastroesophageal reflux. Mild right lung base groundglass infiltrate, consistent with COVID pneumonitis. Prominent atherosclerosis.
[2020-02-16] MEDS ORDERED: Aspirin Chewable 81 MG TAB ONE (19:00)
[2020-02-16] MEDS ORDERED: Guaifenesin DM 100-10/5 ML UDCUP PO PRN (21:46)
[2020-02-16] MEDS ORDERED: Acetaminophen 325 MG TAB PO PRN (21:46)
[2020-02-16] MEDS ORDERED: Ondansetron ODT 4 MG TAB PO PRN (21:46)
[2020-02-16] MEDS ORDERED: HYDROcodone/Acetaminophen 5/325 mg Tablet PO PRN (21:46)
[2020-02-16] MEDS ORDERED: Acetaminophen 650 MG Suppository PR PRN (21:46)
--- NOTE | 2020-02-16 21:57 | PDOC.HHP ---
Hospitalist HPI - History of Present Illness abdominal pain decreased o2 sat History of Present Illness: Case of an 74-year-old male intermediate resident, coronavirus positive male with past medical history of coronary artery disease status post CABG, chronic indwelling suprapubic catheter, cad, chf, dm, htn and ckd who comes to hospital due to an episode of decreased o2 sats and abdominal pain. patient presents to the emergency department with 1 day of increasing abdominal pain, nausea vomiting and chills patient also had en episode of hypoxia into the low 80s after a coughing spell for which he was brought to hospital for evaluation. patient is a poor historian and is not sure why he is in the hospital patient also denies abdominal pain chest pain sob or diarrhea Hospitalist ROS - Review of Systems All other systems reviewed; all pertinent +/- noted in HPI/Subj Hospitalist History - Past Surgical History Past Surgical History: reports: CABG Other Surgical History: urogenital implant - Family History Family History: reports: no pertinent history - Social History Alcohol: reports: None Drugs: reports: none - Exam General Appearance: NAD, awake alert Eye: PERRL, anicteric sclera ENT: normocephalic atraumatic, no oropharyngeal lesions Neck: supple, symmetric, no JVD Heart: RRR, no murmur, no gallops Respiratory: CTAB, no wheezes, no rales, no ronchi Gastrointestinal: soft, non-tender, non-distended, normal bowel sounds Extremities: no cyanosis, no clubbing, no edema Skin: normal turgor, no lesions, no rashes Neurological: cranial nerve grossly intact, normal sensation to touch, no weakness Musculoskeletal: normal tone, normal strength, no muscle wasting Psychiatric: normal affect, normal behavior, oriented to person, oriented to place Hospitalist Results - Labs Result Diagrams: 02/16/20 16:54 02/16/20 16:54 Lab results: WBC 9.3 thou/uL (4.8-10.8) 02/16/20 16:54 Hgb 13.9 g/dL (14.0-18.0) L 02/16/20 16:54 Hct 42.6 % (42.0-52.0) 02/16/20 16:54 MCV 93.1 fL (78.0-98.0) 02/16/20 16:54 Plt Count 282 thou/uL (130-400) 02/16/20 16:54 Neutrophils % 82.1 % (42.0-75.0) H 02/16/20 16:54 Sodium 136 mmol/L (136-145) 02/16/20 16:54 Potassium 4.4 mmol/L (3.5-5.1) 02/16/20 16:54 Chloride 95 mmol/L (98-107) L 02/16/20 16:54 Carbon Dioxide 30 mmol/L (23-31) 02/16/20 16:54 BUN 48 mg/dL (8.4-25.7) H 02/16/20 16:54 Creatinine 2.35 mg/dL (0.7-1.3) H 02/16/20 16:54 Glucose 297 mg/dL (83-110) H 02/16/20 16:54 Lactic Acid 1.7 mmol/L (0.5-2.2) 02/16/20 16:54 Calcium 9.0 mg/dL (7.8-10.44) 02/16/20 16:54 Total Bilirubin 0.4 mg/dL (0.2-1.2) 02/16/20 16:54 AST 13 U/L (5-34) 02/16/20 16:54 ALT 13 U/L (8-55) 02/16/20 16:54 Alkaline Phosphatase 108 U/L (40-110) 02/16/20 16:54 CK-MB (CK-2) 3.9 ng/mL (0-6.6) 02/16/20 16:54 Troponin I 0.082 ng/mL (< 0.028) H 02/16/20 16:54 Serum Total Protein 6.9 g/dL (5.8-8.1) 02/16/20 16:54 Albumin 3.8 g/dL (3.4-4.8) 02/16/20 16:54 Urine Ketones 20 mg/dL (Negative) A 02/16/20 Unknown Urine Blood 1+ (Negative) A 02/16/20 Unknown Urine Nitrite Negative (Negative) 02/16/20 Unknown Ur Leukocyte Esterase 500 Nai/uL (Negative) A 02/16/20 Unknown Urine RBC 4-6 HPF (0-3) A 02/16/20 Unknown Urine WBC Greater than 50 HPF (0-3) A 02/16/20 Unknown Ur Squamous Epith Cells None Seen HPF (0-3) 02/16/20 Unknown Urine Bacteria 3+ HPF (None Seen) A 02/16/20 Unknown Hospitalist H&P A/P - Problem (1) COVID-19 Code(s): U07.1 - COVID-19 Status: Acute (2) Acute kidney failure Status: Resolved (3) UTI (urinary tract infection) Status: Suspected Qualifiers: (4) Nausea & vomiting Code(s): R11.2 - NAUSEA WITH VOMITING, UNSPECIFIED Status: Resolved Qualifiers: Vomiting type: unspecified Vomiting Intractability: non-intractable Qualified Code(s): R11.2 - Nausea with vomiting, unspecified (5) BPH (benign prostatic hyperplasia) Code(s): N40.0 - BENIGN PROSTATIC HYPERPLASIA WITHOUT LOWER URINRY TRACT SYMP Status: Chronic (6) CAD (coronary artery disease) Code(s): I25.10 - ATHSCL HEART DISEASE OF [place] CORONARY ARTERY W/O ANG PCTRS Status: Chronic Qualifiers: (7) DM type 2 (diabetes mellitus, type 2) Status: Chronic (8) Dementia Code(s): F03.90 - UNSPECIFIED DEMENTIA WITHOUT BEHAVIORAL DISTURBANCE Status: Chronic Qualifiers: Dementia type: unspecified type Dementia behavioral disturbance: without behavioral disturbance Qualified Code(s): F03.90 - Unspecified dementia without behavioral disturbance (9) Dyslipidemia Code(s): E78.5 - HYPERLIPIDEMIA, UNSPECIFIED Status: Chronic (10) HTN (hypertension) Code(s): I10 - ESSENTIAL (PRIMARY) HYPERTENSION Status: Chronic Qualifiers: - Plan Plan: 74y/o male with the stated pmhx who presents with and episode of hypoxia while been monitored for covid 19, also found to be on renal failure covid 19 - tested positive at intermediate - episode of hypoxia could be secondary to coughing spell - 02 supplementation, wean as tolerated - cxr clean - f/u cultures - f/u inflmation markers - id consulted - decadron 6mg ivd renal failure acute cn chronic - ivs - f/u bmp and u/o uti - f/u cultures - on rocephin - could be chronic colonization - f/ cultures hx of dvt - pt unclear is takes ac, will try to contact intermediate for medication reconcilation, seems to take xarelto htn - holding lasix, acei. need to confirm medication dm - long acting insulin - ss + acc n/v - symptomatifc treatment prn
[2020-02-16] MEDS ORDERED: cefTRIAXone\\ROCEPHIN 1 GM in Sodium Chloride 0.9% 100 ML IVPB SCH (22:00)
[2020-02-16 23:04] VITALS: BMI 24.2
[2020-02-16 23:07] LABS: Troponin I 0.087 ng/mL (< 0.028)
[2020-02-16] MEDS ORDERED: Dextrose 5% in Water 1,000 ML IV PRN (23:30)
[2020-02-16] MEDS ORDERED: HumaLOG 300 UNITS/3 ML VIAL SC PRN (23:30)
[2020-02-17] MEDS: Sodium Chloride 0.9% 1,000 ML IV SCH ×2 (00:03→17:39)
[2020-02-17] MEDS ORDERED: Insulin Glargine 20 UNITS in Pre-Filled Syringe 1 EACH SC SCH (00:30)
[2020-02-17 02:24] LABS: Band 1 % (5-11); Hemoglobin 12.1 g/dL (14.0-18.0); Lymphocytes 18 % (21-51); MDiff Complete? YES; Mean Corpuscular HGB CONC 31.9 g/dL (32.0-36.0); Mean Platelet Volume 9.1 fL (7.4-10.4); Monocytes 7 % (0-10); Neutrophil 74 % (42-75); Platelet Count 240 thou/uL (130-400); Platelet Morphology Comment Appears Adequate; Red Blood Cell (RBC) Count 4.04 mill/uL (4.70-6.10); White Blood Cell (WBC) Count 7.2 thou/uL (4.8-10.8)
[2020-02-17 02:36] LABS: Troponin I 0.089 ng/mL (< 0.028)
[2020-02-17 02:42] LABS: ALT (SGPT) 9 U/L (8-55); AST (SGOT) 12 U/L (5-34); Albumin 3.1 g/dL (3.4-4.8); Alkaline Phosphatase 84 U/L (40-110); Anion Gap 12 mmol/L (10-20); BUN (Urea Nitrogen) 41 mg/dL (8.4-25.7); Bilirubin, Total 0.2 mg/dL (0.2-1.2); CRP (Inflammatory) 0.94 mg/dL (= or < 0.5); Calc. Creatinine Clearance 39 mL/min (70-130); Calcium 7.8 mg/dL (7.8-10.44); Carbon Dioxide 27 mmol/L (23-31); Chloride 103 mmol/L (98-107); Estimated GFR-MDRD 35; Globulin 2.7 g/dL (2.4-3.5); Glucose 76 mg/dL (83-110); Lipase 10 U/L (8-78); Potassium 3.7 mmol/L (3.5-5.1); Protein, Total 5.8 g/dL (5.8-8.1); Sodium 138 mmol/L (136-145)
[2020-02-17] MEDS: Dextrose 50% Abboject 50 ML SYRINGE SLOW IVP PRN (04:45)
[2020-02-17] MEDS ORDERED: Aspirin 325 MG TAB ONE (05:04)
[2020-02-17] MEDS ORDERED: Nitroglycerin 0.4 MG TAB (25 Tab Bottle) ONE (05:09)
[2020-02-17] MEDS ORDERED: Nitroglycerin 0.4 MG TAB (25 Tab Bottle) SL PRN (05:39)
[2020-02-17] MEDS ORDERED: Morphine 2 MG/ML VIAL SLOW IVP PRN (05:52)
[2020-02-17] MEDS ORDERED: Sodium Chloride 0.9% 500 ML IV SCH (06:00)
[2020-02-17 06:07] LABS: Troponin I 0.074 ng/mL (< 0.028)
--- NOTE | 2020-02-17 08:59 | PDOC.HOSPP ---
- Subjective Encounter Date: 02/17/20 Encounter Time: 08:47 Subjective: no distress no dyspnea, poss coughing - Objective Vital Signs & Weight: Vital Signs (12 hours) Temp Pulse Resp BP Pulse Ox 02/17/20 06:27 98.6 F 126 H 26 H 122/77 100 02/17/20 05:55 97.8 F 124 H 20 127/77 96 02/17/20 05:15 120 H 20 152/71 H 95 02/17/20 04:45 140 H 02/17/20 04:30 97.6 F 122 H 20 142/83 H 99 02/16/20 22:20 99 02/16/20 21:50 98.2 F 115 H 16 126/83 99 Weight Weight 178 lb 9.6 oz I&O: 02/16/20 02/17/20 02/18/20 06:59 06:59 06:59 Intake Total 1040 Output Total 400 Balance 640 Result Diagrams: 02/17/20 01:57 02/17/20 01:57 Additional Labs: Accuchecks 02/17/20 05:11 POC Glucose 134 H Hospitalist ROS - Medication Medications: Active Medications Generic Name Dose Route Start Last Admin Trade Name Freq PRN Reason Stop Dose Admin Dextrose/Water 25 gm 02/16/20 23:30 02/17/20 04:45 Dextrose 50% Abboject 50 Ml Syringe SLOW IVP 25 gm PRN PRN Administration Hypoglycemia Sodium Chloride 1,000 mls @ 50 mls/hr 02/16/20 22:00 02/17/20 00:03 Normal Saline 0.9% IV 1,000 mls .Q20H KIM Administration Ceftriaxone Sodium 1 gm/ 100 mls @ 200 mls/hr 02/16/20 22:00 02/17/20 00:02 Sodium Chloride IVPB 100 mls Q24HR KIM Administration - Exam Neck: no JVD Heart: RRR, no murmur Respiratory - other findings: scatterred mild coarse BS, Gastrointestinal: soft, non-tender, normal bowel sounds Extremities: no clubbing Hosp A/P (1) Pneumonia due to COVID-19 virus Code(s): U07.1 - COVID-19; J12.89 - OTHER VIRAL PNEUMONIA Status: Acute (2) CAD (coronary artery disease) Code(s): I25.10 - ATHSCL HEART DISEASE OF [place] CORONARY ARTERY W/O ANG PCTRS Status: Chronic Qualifiers: Coronary Disease-Associated Artery/Lesion type: [place] artery [place] vs. transplanted heart: [place] heart Associated angina: without angina Qualified Code(s): I25.10 - Atherosclerotic heart disease of [place] coronary artery witho ut angina pectoris (3) DM type 2 (diabetes mellitus, type 2) Status: Chronic Qualifiers: Diabetes mellitus ferry terminal agent insulin use: with care home use Diabetes mellitus complication status: with kidney complications Diabetes mellitus complication detail: with chronic kidney disease Chronic kidney disease stage: stage 3 (moderate) (4) HTN (hypertension) Code(s): I10 - ESSENTIAL (PRIMARY) HYPERTENSION Status: Chronic Qualifiers: Hypertension type: essential hypertension - Plan cont iv decadron cont iv antibx-switch to zithromax accu/ss need med list FROM [place] palliative care for assistance in documenting medical directive
[2020-02-17] MEDS ORDERED: Aspirin Chewable 81 MG TAB PO SCH (09:00)
[2020-02-17] MEDS: Dexamethasone 4 mg/ml Vial SLOW IVP SCH (09:02)
--- NOTE | 2020-02-17 19:30 | CON ---
DATE OF CONSULTATION: 02/17/2020 REASON FOR CONSULTATION: COVID pneumonia. 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 He developed fever on February 08 and tested positive the next day for COVID, has been kept in the group home until now when he was admitted because of development of nausea and hypoxemia. He had some abdominal pain as well and had some chills. So hypoxemia was in the 80s associated with coughing spells. Right now, Mr. Zafar appears fairly comfortable and he is not wearing any O2 supplementation. Denies any headaches, visual symptoms, sore throat, odynophagia, or dysphagia. He is hungry actually. No abdominal pain anymore. Voiding with a suprapubic catheter. PAST MEDICAL HISTORY: Includes dementia, mitral valve endocarditis, bypass graft surgery, suprapubic catheter for management of urinary retention, hypertension, CKD, type 2 diabetes, coronary artery disease, and eczema. SOCIAL HISTORY: He used to drink heavily. Former smoker. [facility] resident. FAMILY HISTORY: Noncontributory. ALLERGIES: NONE. CURRENT MEDICATION LIST: 1. Aspirin. 2. Ceftriaxone. 3. Decadron. 4. Guaifenesin. 5. Hydrocodone. 6. Insulin. 7. Nitroglycerin. 8. Ondansetron. PHYSICAL EXAMINATION: VITAL SIGNS: T-max 98.7, blood pressure 120/75, and his O2 saturations started 99 and 100 now, had been anywhere from 2 L to room air nasal cannula. SKIN: Normal except for a suprapubic catheter. Peripheral IV access. No lymphadenopathy. HEENT: Ocular movements conjugate. Only a few remaining teeth in place. Quite a bit of decay and gum disease. NECK: Supple. No jugular vein distention. LUNGS: Symmetric air entry. No crackles or wheezing. HEART: S1 and S2. Regular rate. ABDOMEN: Soft, not distended or tender. No ascites. No bladder distention. EXTREMITIES: No joint inflammatory activity. Able to move extremities equally. Pulses 1+ in dorsalis pedis. Cognitive function appears to be intact. LABORATORY DATA: White cell count is 9.3 and 7.2, hemoglobin 12, platelets 240, and 74% neutrophils. D-dimer 1.23. Urinalysis greater than 50 wbc's. Microbiology, we have specimens from 19, but no current specimen. IMAGING: There is an abdomen and pelvis CT and this showed no urinary obstruction. No calcification. Suprapubic catheter in place. No other issues noted. This was a noncontrast study. Chest x-ray, no infiltrates noticeable. ASSESSMENT: 1. Prior episode of mitral valve endocarditis due to methicillin-susceptible Staphylococcus aureus, treated in the past with no evidence of recurrence. 2. Dementia. 3. Type 2 diabetes, hypertension, coronary artery disease, chronic indwelling suprapubic catheter, and COVID pneumonia since February 08, symptomatic. DISCUSSION: This is the first week of illness, so there is still significant risk for deterioration, in view of the risk factors. We will continue monitoring his markers as a prognostic indicator. His ferritin was measured today at 808 and CRP was 0.94, so continue measuring them daily or every other day from here on. His O2 saturations are pretty good, actually excellent and he is on Decadron to be continued. I would recommend discontinuation of Rocephin and if he remains stable, then he would be eligible for discharge planning. The urinary findings are not considered to be meaningful at this point in time. Would not recommend treating that finding. Job ID: [id number] [facility]ENTERAna
[2020-02-17] MEDS: Insulin Glargine 20 UNITS in Pre-Filled Syringe 1 EACH SC SCH (20:45)
[2020-02-17] MEDS ORDERED: FLU VACC QS2020-21(65YR UP)/PF 240 MCG/0.7 ML SYRINGE IM ONE (21:00)
[2020-02-18] MEDS: Dextrose 50% Abboject 50 ML SYRINGE SLOW IVP PRN (06:40)
[2020-02-18] MEDS: Ondansetron PF 4 MG/2 ML Vial IVP PRN ×2 (06:40→18:48)
[2020-02-18] MEDS: Aspirin 325 MG TAB PO SCH (08:16)
[2020-02-18] MEDS: Dexamethasone 4 mg/ml Vial SLOW IVP SCH (08:16)
--- NOTE | 2020-02-18 13:56 | PDOC.HOSPP ---
- Subjective Encounter Date: 02/18/20 - Objective Vital Signs & Weight: Vital Signs (12 hours) Temp Pulse Resp BP Pulse Ox 02/18/20 08:10 97.4 F L 124 H 18 161/93 H 93 L 02/18/20 04:35 98.5 F 122 H 16 137/91 H 95 Weight Weight 178 lb 9.6 oz I&O: 02/17/20 02/18/20 02/19/20 06:59 06:59 06:59 Intake Total 1040 1790 120 Output Total 400 1650 Balance 640 140 120 Result Diagrams: 02/17/20 01:57 02/17/20 01:57 Additional Labs: Accuchecks 02/18/20 02/18/20 02/17/20 10:44 06:17 19:44 POC Glucose 265 H 69 L 199 H 02/17/20 17:33 POC Glucose 191 H Hospitalist ROS - Medication Medications: Active Medications Generic Name Dose Route Start Last Admin Trade Name Freq PRN Reason Stop Dose Admin Aspirin 325 mg 02/18/20 09:00 02/18/20 08:16 Aspirin 325 Mg Tab PO 325 mg DAILY KIM Administration Dexamethasone 6 mg 02/17/20 09:00 02/18/20 08:16 Dexamethasone 4 Mg/Ml Vial SLOW IVP 6 mg DAILY KIM Administration Dextrose/Water 25 gm 02/16/20 23:30 02/18/20 06:40 Dextrose 50% Abboject 50 Ml Syringe SLOW IVP 25 gm PRN PRN Administration Hypoglycemia Sodium Chloride 1,000 mls @ 50 mls/hr 02/16/20 22:00 02/17/20 17:39 Normal Saline 0.9% IV 1,000 mls .Q20H KIM Administration Insulin Glargine 20 units/ 0.2 mls @ 0 mls/hr 02/17/20 21:00 02/17/20 20:45 Miscellaneous Medication SC 0.2 mls HS KIM Administration Ondansetron HCl 4 mg 02/16/20 21:46 02/18/20 06:40 Ondansetron Pf 4 Mg/2 Ml Vial IVP 4 mg Q6H PRN Administration Nausea/Vomiting Sodium Chloride 10 ml 02/17/20 09:00 02/18/20 08:16 Flush - Normal Saline 10 Ml Syringe IVF 10 ml Q12HR KIM Administration Sodium Chloride 10 ml 02/16/20 22:00 02/18/20 06:40 Flush - Normal Saline 10 Ml Syringe IVF 10 ml PRN PRN Administration Saline Flush - Exam General Appearance: awake alert ENT: normocephalic atraumatic Neck: supple, no JVD Heart - other findings: Regular tachycardia Respiratory: normal chest expansion, no tachypnea Extremities: no cyanosis, no clubbing Neurological: cranial nerve grossly intact, no new deficit Hosp A/P (1) Pneumonia due to COVID-19 virus Code(s): U07.1 - COVID-19; J12.89 - OTHER VIRAL PNEUMONIA Status: Acute (2) Accelerated junctional rhythm Code(s): I49.8 - OTHER SPECIFIED CARDIAC ARRHYTHMIAS Status: Acute (3) History of atrial fibrillation Code(s): Z86.79 - PERSONAL HISTORY OF OTHER DISEASES OF THE CIRCULATORY SYSTEM Status: Acute (4) Diabetes mellitus Code(s): E11.9 - TYPE 2 DIABETES MELLITUS WITHOUT COMPLICATIONS Status: Acute Qualifiers: Diabetes mellitus type: type 2 (5) BPH (benign prostatic hyperplasia) Code(s): N40.0 - BENIGN PROSTATIC HYPERPLASIA WITHOUT LOWER URINRY TRACT SYMP Status: Chronic (6) CAD (coronary artery disease) Code(s): I25.10 - ATHSCL HEART DISEASE OF [place] CORONARY ARTERY W/O ANG PCTRS Status: Chronic Qualifiers: Coronary Disease-Associated Artery/Lesion type: [place] artery [place] vs. transplanted heart: [place] heart Associated angina: without angina Qualified Code(s): I25.10 - Atherosclerotic heart disease of [place] coronary artery without angina pectoris (7) Hyperlipemia Code(s): E78.5 - HYPERLIPIDEMIA, UNSPECIFIED Status: Chronic (8) Hypertension Code(s): I10 - ESSENTIAL (PRIMARY) HYPERTENSION Status: Chronic - Plan COVID-19 pneumonia without evidence of hypoxia. Continue to monitor the patient closely. Urine analysis is likely a contamination of a suprapubic catheter per ID. Antibiotics has been discontinued. The patient has been in an accelerated junctional rhythm. Start metoprolol succinate 50 mg orally daily. Restart the patient's Xarelto.
[2020-02-18] MEDS: Sodium Chloride 0.9% 1,000 ML IV SCH (15:20)
[2020-02-18] MEDS ORDERED: Rivaroxaban 15 MG TAB PO SCH (17:00)
[2020-02-18] MEDS: Insulin Glargine 20 UNITS in Pre-Filled Syringe 1 EACH SC SCH (20:08)
[2020-02-19] MEDS: Sodium Chloride 0.9% 1,000 ML IV SCH (09:24)
[2020-02-19] MEDS: Aspirin 325 MG TAB PO SCH (09:24)
[2020-02-19] MEDS: Dexamethasone 4 mg/ml Vial SLOW IVP SCH (09:25)
[2020-02-19 12:44] VITALS: BP 129/79; TEMP 98.3
--- NOTE | 2020-02-19 12:52 | PDOC.DS.DS ---
Provider - Provider Date of Admission: 02/16/20 20:24 Date of Discharge: 02/19/20 Admitting Provider: Harman Sanchez Primary Care Physician: Sd Gaming MD Course - Hospital Course Hospital Course: "History of Present Illness: Case of an 74-year-old male [facility] resident, coronavirus positive male with past medical history of coronary artery disease status post CABG, chronic indwelling suprapubic catheter, cad, chf, dm, htn and ckd who comes to hospital due to an episode of decreased o2 sats and abdominal pain. patient presents to the emergency department with 1 day of increasing abdominal pain, nausea vomiting and chills patient also had en episode of hypoxia into the low 80s after a coughing spell for which he was brought to hospital for evaluation. patient is a poor historian and is not sure why he is in the hospital patient also denies abdominal pain chest pain sob or diarrhea" The patient was monitored in the hospital for 72 hours. His hypoxia resolved within the first day. He remained stable afterwards with the exception of an episode of tachycardia that was managed with rate control via metoprolol succinate. Resuscitation Status: 02/17/20 14:28 Resuscitation Status Routine Resuscitation Status: DNAR: NO Resuscitation Discussed with: daughter - Labs Lab Results: 02/17/20 01:57 02/17/20 01:57 Abnormal Lab Results - Last 48 hrs 02/17/20 12:26: Troponin I 0.060 H 02/17/20 17:48: Troponin I 0.060 H 02/18/20 09:34: C-Reactive Protein 1.78 H 02/18/20 09:34: Ferritin 682.92 H 02/18/20 09:34: D-Dimer 1.22 H - Physical Exam Vitals: Vital Signs (12 hours) Temp Pulse Resp BP Pulse Ox 02/19/20 12:00 98.3 F 107 H 24 H 129/79 99 02/19/20 08:00 97.5 F L 126 H 28 H 172/99 H 96 02/19/20 04:00 98.4 F 123 H 13 153/95 H 96 Weight Weight 177 lb 1.6 oz Physical Exam: The patient was seen and examined on the day of discharge. Problem - Problem (1) Pneumonia due to COVID-19 virus Code(s): U07.1 - COVID-19; J12.89 - OTHER VIRAL PNEUMONIA Status: Acute (2) Accelerated junctional rhythm Code(s): I49.8 - OTHER SPECIFIED CARDIAC ARRHYTHMIAS Status: Acute (3) History of atrial fibrillation Code(s): Z86.79 - PERSONAL HISTORY OF OTHER DISEASES OF THE CIRCULATORY SYSTEM Status: Acute (4) Diabetes mellitus Code(s): E11.9 - TYPE 2 DIABETES MELLITUS WITHOUT COMPLICATIONS Status: Acute Qualifiers: Diabetes mellitus type: type 2 (5) BPH (benign prostatic hyperplasia) Code(s): N40.0 - BENIGN PROSTATIC HYPERPLASIA WITHOUT LOWER URINRY TRACT SYMP Status: Chronic (6) CAD (coronary artery disease) Code(s): I25.10 - ATHSCL HEART DISEASE OF [place] CORONARY ARTERY W/O ANG PCTRS Status: Chronic Qualifiers: Coronary Disease-Associated Artery/Lesion type: [place] artery [place] vs. transplanted heart: [place] heart Associated angina: without angina Qualified Code(s): I25.10 - Atherosclerotic heart disease of [place] coronary artery without angina pectoris (7) Hyperlipemia Code(s): E78.5 - HYPERLIPIDEMIA, UNSPECIFIED Status: Chronic (8) Hypertension Code(s): I10 - ESSENTIAL (PRIMARY) HYPERTENSION Status: Chronic Plan - Discharge Medications Prescriptions: Metoprolol Succinate 50 mg PO DAILY #30 tab.er.24h Home Medications: Medication Instructions Recorded Confirmed Type Simvastatin [Zocor] 40 mg PO HS 04/30/17 02/18/20 History Ondansetron HCl [Zofran] 4 mg PO Q8HR PRN 06/21/17 02/18/20 History Aspirin Chewable [Aspirin Chewable 81 mg PO DAILY 01/18/18 02/18/20 History Tablet] Furosemide [Lasix] 40 mg PO DAILY 01/18/18 02/18/20 History Acetaminophen With Codeine 1 - 2 tablet PO Q4HR PRN 08/24/18 02/18/20 History [Tylenol with Codeine #3] FLUoxetine HCl 40 mg PO DAILY 08/24/18 02/18/20 History Insulin Aspart [Novolog] 0 - 10 units SC ACHS PRN 08/24/18 02/18/20 History Tamsulosin HCl [Flomax] 0.4 mg PO HS 08/24/18 02/18/20 History Rivaroxaban [Xarelto] 20 mg PO DAILY #0 08/31/18 02/18/20 Rx Insulin Glargine,Hum.Rec.Anlog 40 units SQ QAM 10/12/18 02/18/20 History [Lantus] Insulin Glargine,Hum.Rec.Anlog 29 units SQ HS 12/04/18 02/18/20 History [Lantus] Acetaminophen 650 mg PO Q4H PRN 02/18/20 02/18/20 History Ascorbic Acid [Vitamin C] 1,000 mg PO DAILY 02/18/20 02/18/20 History Cholecalciferol [Vitamin D3] 1,000 unit PO DAILY 02/18/20 02/18/20 History Famotidine [Pepcid] 20 mg PO BID 02/18/20 02/18/20 History Ferrous Sulfate [Iron] 325 mg PO TID 02/18/20 02/18/20 History Lisinopril [Zestril] 10 mg PO DAILY 02/18/20 02/18/20 History Potassium Chloride 20 meq PO DAILY 02/18/20 02/18/20 History Saccharomyces boulardii [Florastor] 250 mg PO DAILY 02/18/20 02/18/20 History Zinc 50 mg PO DAILY 02/18/20 02/18/20 History Metoprolol Succinate 50 mg PO DAILY #30 tab.er.24h 02/19/20 Rx Allergies: No Known Drug Allergies Allergy (Verified 02/17/20 02:01) - Follow up Plan Referrals: Sd Gaming MD [Primary Care Provider] - Disposition: HOME Quality - Care Measures CORE MEASURES:: N/A
--- NOTE | 2020-02-21 06:56 | EKG ---
Test Reason : Blood Pressure : / mmHG Vent. Rate : 121 BPM Atrial Rate : 113 BPM P-R Int : 000 ms QRS Dur : 086 ms QT Int : 422 ms P-R-T Axes : 000 033 178 degrees QTc Int : 599 ms Accelerated Junctional rhythm Abnormal ECG No previous ECGs available Confirmed by SANDY SEARS MD ([id number]) on 02/21/2020 6:55:55 AM Referred By: Confirmed By:SANDY SEARS MD
--- NOTE | 2020-02-22 06:58 | EKG ---
Test Reason : Blood Pressure : / mmHG Vent. Rate : 124 BPM Atrial Rate : 044 BPM P-R Int : 000 ms QRS Dur : 084 ms QT Int : 408 ms P-R-T Axes : 000 027 127 degrees QTc Int : 586 ms Accelerated Junctional rhythm Nonspecific ST and T wave abnormality Abnormal ECG Confirmed by SANDY SEARS MD ([id number]) on 02/22/2020 6:58:27 AM Referred By: ABE Confirmed By:SANDY SEARS MD
--- NOTE | 2020-02-22 07:00 | EKG ---
Test Reason : ROUTINE Blood Pressure : / mmHG Vent. Rate : 110 BPM Atrial Rate : 117 BPM P-R Int : 000 ms QRS Dur : 084 ms QT Int : 338 ms P-R-T Axes : 000 -04 139 degrees QTc Int : 457 ms Poor data quality, interpretation may be adversely affected Atrial fibrillation with rapid ventricular response Nonspecific T wave abnormality , probably digitalis effect Abnormal ECG Confirmed by ORION SMITH, SANDY ([id number]) on 02/22/2020 6:59:42 AM Referred By: JOSÉ LUIS Confirmed By:SANDY SEARS MD
--- NOTE | 2020-02-25 16:33 | EKG ---
Test Reason : ABD PAIN Blood Pressure : / mmHG Vent. Rate : 125 BPM Atrial Rate : 131 BPM P-R Int : 000 ms QRS Dur : 084 ms QT Int : 386 ms P-R-T Axes : 000 -06 158 degrees QTc Int : 557 ms Sinus tachycardia Septal infarct , age undetermined Abnormal ECG Confirmed by ZEINA STRINGER DO ([id number]), photography editor REX MCGHEE ([id number]) on 02/25/2020 4:33:00 PM Referred By: CECILIOO Confirmed By:ZEINA STRINGER DO
== END 2020-02-19 16:14 | DRG 177 ==
LOC: ERS 15:33 → T4-A 20:24 → 2SW 02-17 06:20
PROVIDERS: ADMIT Internal Medicine; ATTEND Internal Medicine
DX: U07.1 COVID-19 (principal); J12.89 Other viral pneumonia; I13.0 Hypertensive heart and chronic kidney disease with heart failure and stage 1 through stage 4 chronic kidney disease, or unspecified chronic kidney disease; N17.9 Acute kidney failure, unspecified; N39.0 Urinary tract infection, site not specified; E78.00 Pure hypercholesterolemia, unspecified; I50.9 Heart failure, unspecified; I25.10 Atherosclerotic heart disease of native coronary artery without angina pectoris; N18.30 Chronic kidney disease, stage 3 unspecified; E11.22 Type 2 diabetes mellitus with diabetic chronic kidney disease; D64.9 Anemia, unspecified; N40.0 Benign prostatic hyperplasia without lower urinary tract symptoms; F41.9 Anxiety disorder, unspecified; F32.9 Major depressive disorder, single episode, unspecified; F03.90 Unspecified dementia, unspecified severity, without behavioral disturbance, psychotic disturbance, mood disturbance, and anxiety; Z95.1 Presence of aortocoronary bypass graft; Z87.891 Personal history of nicotine dependence; I49.8 Other specified cardiac arrhythmias; Z86.718 Personal history of other venous thrombosis and embolism; Z79.82 Long term (current) use of aspirin; E78.5 Hyperlipidemia, unspecified; Z93.50 Unspecified cystostomy status; Z79.891 Long term (current) use of opiate analgesic; Z79.4 Long term (current) use of insulin; Z79.899 Other long term (current) drug therapy
CPT/HCPCS: 36415; 36416; 71045; 74176; 80053; 81003; 81015; 82553; 82728; 83605; 83615; 83690; 84145; 84484; 85007; 85025; 85027; 85379; 86140; 93005; 93010; 94760; 96365; 96366; 96375; J0692; J0696; J1100; J1815; J2405; J3370; J3490; J7050; Q0162

== ENCOUNTER 2020-02-27 12:49 | Emergency (ER) | payer MEDICARE, MEDICAID ==
[2020-02-27 13:42] LABS: #Lymphocytes 0.8 thou/uL (1.20-3.40); #Monocytes 0.5 thou/uL (0.11-0.59); #Neutrophils 11.9 thou/uL (1.40-6.50); %Basophils 0.1 % (0.0-1.0); %Eosinophils 0.3 % (0.0-10.0); %Lymphocytes 6.1 % (21.0-51.0); %Monocytes 3.4 % (0.0-10.0); %Neutrophils 90.2 % (42.0-75.0); Hemoglobin 11.5 g/dL (14.0-18.0); Mean Corpuscular HGB CONC 32.6 g/dL (32.0-36.0); Mean Corpuscular Hemoglobin 30.4 pg (27.0-31.0); Mean Corpuscular Volume 93.1 fL (78.0-98.0); Mean Platelet Volume 8.6 fL (7.4-10.4); Platelet Count 453 thou/uL (130-400); RBC Distribution Width 11.9 % (11.5-14.5); White Blood Cell (WBC) Count 13.2 thou/uL (4.8-10.8)
--- NOTE | 2020-02-27 13:52 | RAD ---
PORTABLE CHEST 1 VIEW: Date: 02/27/2020 Time: 1335 hours HISTORY: Chest pain. COMPARISON: 02/16/2020. FINDINGS: Changes of median sternotomy are again seen. The heart size is normal. No lobar consolidation, pneumo thoraces, nabila pulmonary edema, or pleural effusions are seen. IMPRESSION: No acute process. POS: [facility]
[2020-02-27 14:00] LABS: Anion Gap 14 mmol/L (10-20); BUN (Urea Nitrogen) 23 mg/dL (8.4-25.7); Calc. Creatinine Clearance 0 mL/min (70-130); Calcium 8.7 mg/dL (7.8-10.44); Carbon Dioxide 30 mmol/L (23-31); Chloride 97 mmol/L (98-107); Estimated GFR-MDRD 41; Glucose 77 mg/dL (83-110); Potassium 4.5 mmol/L (3.5-5.1); Sodium 136 mmol/L (136-145)
== END 2020-02-27 18:47 ==
LOC: ERS 12:49
DX: I48.91 Unspecified atrial fibrillation (principal); U07.1 COVID-19; D72.829 Elevated white blood cell count, unspecified; E78.5 Hyperlipidemia, unspecified; E78.00 Pure hypercholesterolemia, unspecified; I25.10 Atherosclerotic heart disease of native coronary artery without angina pectoris; I13.0 Hypertensive heart and chronic kidney disease with heart failure and stage 1 through stage 4 chronic kidney disease, or unspecified chronic kidney disease; E11.22 Type 2 diabetes mellitus with diabetic chronic kidney disease; N18.30 Chronic kidney disease, stage 3 unspecified; I50.9 Heart failure, unspecified; F03.90 Unspecified dementia, unspecified severity, without behavioral disturbance, psychotic disturbance, mood disturbance, and anxiety; I25.2 Old myocardial infarction; D63.1 Anemia in chronic kidney disease; F41.9 Anxiety disorder, unspecified; F32.9 Major depressive disorder, single episode, unspecified; Z79.899 Other long term (current) drug therapy; Z86.718 Personal history of other venous thrombosis and embolism
CPT/HCPCS: 36415; 71045; 80048; 82553; 83605; 83735; 84484; 85025; 87040; 87086; 93005

== ENCOUNTER 2020-03-01 17:50 | Inpatient (IN) | payer MEDICARE, MEDICAID ==
[~2020-03-01 17:50] MED LIST changes: -Glycopyrrolate 0.2 MG/ML 5 ML SYRINGE ONE; +Iopamidol-370 76% 500 ML 1 ML ONE; -Lidocaine 1% PF 5 ML VIAL ONE; -PROPOFOL 200 MG/20 ML VIAL ONE; -ePHEDrine/0.9% NaCl/PF SYRINGE 50 mg/10 ml ONE
[2020-03-01] MEDS ORDERED: cefTRIAXone\\ROCEPHIN 1 GM VIAL ONE (18:18)
[2020-03-01] MEDS ORDERED: Vancomycin 1 GM/200 ML BAG ONE (18:20)
[2020-03-01 18:26] LABS: #Eosinphils 0.1 thou/uL (0.0-0.7); #Lymphocytes 1.3 thou/uL (1.20-3.40); #Monocytes 0.6 thou/uL (0.11-0.59); #Neutrophils 5.8 thou/uL (1.40-6.50); %Basophils 0.3 % (0.0-1.0); %Eosinophils 0.9 % (0.0-10.0); %Lymphocytes 16.8 % (21.0-51.0); %Monocytes 7.2 % (0.0-10.0); %Neutrophils 74.7 % (42.0-75.0); Hemoglobin 11.7 g/dL (14.0-18.0); Mean Corpuscular HGB CONC 32.1 g/dL (32.0-36.0); Mean Corpuscular Hemoglobin 30.3 pg (27.0-31.0); Mean Corpuscular Volume 94.3 fL (78.0-98.0); Mean Platelet Volume 8.4 fL (7.4-10.4); Platelet Count 473 thou/uL (130-400); RBC Distribution Width 12.1 % (11.5-14.5); Red Blood Cell (RBC) Count 3.87 mill/uL (4.70-6.10); White Blood Cell (WBC) Count 7.8 thou/uL (4.8-10.8)
--- NOTE | 2020-03-01 18:29 | RAD ---
PORTABLE CHEST: Date: 03/01/2020 PROVIDED CLINICAL HISTORY: COVID-positive, fever FINDINGS: Comparison with 02/27/2020. Heart size appears normal. Median sternotomy changes are seen. Patchy air space disease is present wi thin the right mid and lower lung zones. Subsegmental atelectasis versus infiltrate medial left lung base. No pleural fluid or pneumothorax apparent. IMPRESSION: Bilateral air space disease, compatible with pneumonia in the appropriate clinical context. POS: [facility]
[2020-03-01 18:49] LABS: ALT (SGPT) 19 U/L (8-55); AST (SGOT) 13 U/L (5-34); Albumin 3.2 g/dL (3.4-4.8); Alkaline Phosphatase 87 U/L (40-110); Anion Gap 16 mmol/L (10-20); BUN (Urea Nitrogen) 25 mg/dL (8.4-25.7); Bilirubin, Total 0.4 mg/dL (0.2-1.2); Calc. Creatinine Clearance 0 mL/min (70-130); Calcium 8.4 mg/dL (7.8-10.44); Carbon Dioxide 30 mmol/L (23-31); Chloride 97 mmol/L (98-107); Estimated GFR-MDRD 32; Globulin 3.2 g/dL (2.4-3.5); Glucose 61 mg/dL (83-110); Magnesium 1.9 mg/dL (1.6-2.6); Potassium 4.5 mmol/L (3.5-5.1); Protein, Total 6.4 g/dL (5.8-8.1); Sodium 138 mmol/L (136-145)
[2020-03-01 19:40] LABS: CKMB 1.8 ng/mL (0-6.6)
--- NOTE | 2020-03-01 20:40 | CT ---
CT BRAIN: Date: 03/01/2020 PROVIDED CLINICAL HISTORY: Altered mental status. FINDINGS: Comparison with 02/14/2018. The ventricular system is unchanged in size and morphology. There is no evidence for intracranial hem orrhage or mass effect. The extracranial soft tissues and osseous structures demonstrate no acute abn ormality. IMPRESSION: No evidence for intracranial hemorrhage or mass effect. POS: [facility]
--- NOTE | 2020-03-01 20:44 | CT ---
CT ABDOMEN AND PELVIS WITH IV CONTRAST: Date: 03/01/2020 PROVIDED CLINICAL HISTORY: Abdominal pain. FINDINGS: Comparison with 08/24/2018. There is patchy consolidation at the right lung base. The liver, spleen, pancreas, kidneys, and adren al glands demonstrate an unremarkable CT appearance. Umbilical hernia containing nondilated small bow el is redemonstrated. There is no bowel dilatation, focal inflammatory fat stranding, free fluid, or free air apparent. Suprapubic catheter is noted within the urinary bladder. Nonspecific urinary bladd er wall thickening, possibly on the basis of nondistention. Extensive atherosclerotic vascular calcif ication. The osseous structures demonstrate no concerning lytic or blastic lesions. Advanced lower dante mbar degenerative changes are seen. IMPRESSION: 1. Right basilar air space disease, compatible with pneumonia. 2. Nonspecific urinary bladder wall thickening, possibly on the basis of nondistention. Correlate wi concerns for cystitis. 3. Other findings as above. POS: [facility]
[2020-03-01] MEDS ORDERED: Norepinephrine 8 MG/0.9% NS 250 ML ONE (21:03)
[2020-03-01 21:20] LABS: Lactic Acid 1.8 mmol/L (0.5-2.2)
[2020-03-01] MEDS ORDERED: HYDROcodone/Acetaminophen 5/325 mg Tablet PO PRN (21:30)
[2020-03-01] MEDS ORDERED: Guaifenesin DM 100-10/5 ML UDCUP PO PRN (21:30)
[2020-03-01] MEDS ORDERED: Acetaminophen 325 MG TAB PO PRN (21:30)
[2020-03-01] MEDS ORDERED: Ondansetron ODT 4 MG TAB PO PRN (21:30)
[2020-03-01] MEDS ORDERED: Ondansetron PF 4 MG/2 ML Vial IVP PRN (21:30)
[2020-03-01] MEDS ORDERED: Acetaminophen 650 MG Suppository PR PRN (21:30)
[2020-03-01] MEDS ORDERED: Lorazepam 2 MG/ML VIAL ONE (21:38)
--- NOTE | 2020-03-01 21:40 | PDOC.HHP ---
Hospitalist HPI - History of Present Illness nause / vomting hypotension History of Present Illness: Case of an 74[facility] with past medical history of coronary artery disease status post CABG, chronic indwelling suprapubic catheter, cad, chf, dm, htn and ckd who comes to hospital due to altered mental state and vomiting. patient with a recent hospitalization due to covid 19 at the beginning of this month. at ed patient was evaluated and found on sepsis, he was evaluated with abd abc ct due to recents complains [facility] of abdominal pain which showed pneumonia at [facility]. patient was started in sepsis bundles, b/p systolic dropped into the 60s and it did not improved as expected, pt was started on levophed and hospitalist was called for further evaluation and management. Hospitalist ROS - Review of Systems ROS unobtainable: due to mental status Hospitalist History - Past Surgical History Past Surgical History: reports: CABG - Social History Smoking Status: Smoker, status unknown Alcohol: reports: None Drugs: reports: none - Exam General Appearance: NAD, awake alert Eye: PERRL, anicteric sclera ENT: normocephalic atraumatic, no oropharyngeal lesions Neck: supple, symmetric, no JVD, no thyromegaly Heart: irregular Heart - other findings: tachycardic Respiratory: no wheezes, no rales, rhonchi Gastrointestinal: soft, non-tender, non-distended, normal bowel sounds Extremities: no cyanosis, no clubbing, no edema Skin: normal turgor, no lesions, no rashes Neurological: cranial nerve grossly intact, normal sensation to touch Musculoskeletal: normal tone, normal strength, no muscle wasting Psychiatric: normal affect, oriented to person Hospitalist Results - Labs Result Diagrams: 03/01/20 18:13 03/01/20 18:13 Lab results: WBC 7.8 thou/uL (4.8-10.8) 03/01/20 18:13 Hgb 11.7 g/dL (14.0-18.0) L 03/01/20 18:13 Hct 36.4 % (42.0-52.0) L 03/01/20 18:13 MCV 94.3 fL (78.0-98.0) 03/01/20 18:13 Plt Count 473 thou/uL (130-400) H 03/01/20 18:13 Neutrophils % 74.7 % (42.0-75.0) 03/01/20 18:13 Sodium 138 mmol/L (136-145) 03/01/20 18:13 Potassium 4.5 mmol/L (3.5-5.1) 03/01/20 18:13 Chloride 97 mmol/L (98-107) L 03/01/20 18:13 Carbon Dioxide 30 mmol/L (23-31) 03/01/20 18:13 BUN 25 mg/dL (8.4-25.7) 03/01/20 18:13 Creatinine 2.01 mg/dL (0.7-1.3) H 03/01/20 18:13 Glucose 61 mg/dL (83-110) L 03/01/20 18:13 Lactic Acid 1.8 mmol/L (0.5-2.2) 03/01/20 20:48 Calcium 8.4 mg/dL (7.8-10.44) 03/01/20 18:13 Total Bilirubin 0.4 mg/dL (0.2-1.2) 03/01/20 18:13 AST 13 U/L (5-34) 03/01/20 18:13 ALT 19 U/L (8-55) 03/01/20 18:13 Alkaline Phosphatase 87 U/L (40-110) 03/01/20 18:13 CK-MB (CK-2) 1.8 ng/mL (0-6.6) 03/01/20 18:13 Troponin I 0.095 ng/mL (< 0.028) H 03/01/20 18:13 B-Natriuretic Peptide 324.6 pg/mL (0-100) H 03/01/20 18:13 Serum Total Protein 6.4 g/dL (5.8-8.1) 03/01/20 18:13 Albumin 3.2 g/dL (3.4-4.8) L 03/01/20 18:13 Hospitalist H&P A/P - Problem (1) Septic shock Code(s): A41.9 - SEPSIS, UNSPECIFIED ORGANISM; R65.21 - SEVERE SEPSIS WITH SEPTIC SHOCK Status: Acute (2) CAD (coronary artery disease) Code(s): I25.10 - ATHSCL HEART DISEASE OF [place] CORONARY ARTERY W/O ANG PCTRS Status: Chronic (3) Dementia Code(s): F03.90 - UNSPECIFIED DEMENTIA WITHOUT BEHAVIORAL DISTURBANCE Status: Chronic Qualifiers: Dementia type: unspecified type Dementia behavioral disturbance: without behavioral disturbance Qualified Code(s): F03.90 - Unspecified dementia without behavioral disturbance (4) Diabetes type 2, controlled Code(s): E11.9 - TYPE 2 DIABETES MELLITUS WITHOUT COMPLICATIONS Status: Chronic (5) Dyslipidemia Code(s): E78.5 - HYPERLIPIDEMIA, UNSPECIFIED Status: Chronic (6) Hyperlipemia Code(s): E78.5 - HYPERLIPIDEMIA, UNSPECIFIED Status: Chronic (7) Hypertension Code(s): I10 - ESSENTIAL (PRIMARY) HYPERTENSION Status: Chronic (8) Nausea & vomiting Code(s): R11.2 - NAUSEA WITH VOMITING, UNSPECIFIED Status: Resolved Qualifiers: Vomiting type: unspecified Vomiting Intractability: non-intractable Q ualified Code(s): R11.2 - Nausea with vomiting, unspecified (9) Atrial fibrillation Code(s): I48.91 - UNSPECIFIED ATRIAL FIBRILLATION Status: Acute (10) Renal failure (ARF), acute on chronic Code(s): N17.9 - ACUTE KIDNEY FAILURE, UNSPECIFIED; N18.9 - CHRONIC KIDNEY DISEASE, UNSPECIFIED Status: Acute - Plan Plan: 74y/o male with the stated pmhx who presents to hospital with septic shock secondary to pneumonia septic shock secondary to pneumonia - hypotensive + tachycardic + elevated LA + altered mental state + chest ct / cxr consistent with b/l pneumonia who did not responded to ivfs administration - on levophed - recent hospitalization will cover w cefepime + vanc - there is still a concern for covid 19, will placed in isolation and repeat test - crit care consulted atrial fibrillation - continue xarelto nause + vomiting - normal abd ct - symptomatic tx prn sivan over chronic kd - ivfs - r/u u/o and renal function htn - holding medication in setting of sepsis DM - hypoglycemic on initial labs, will hold tx for now
[2020-03-01] MEDS ORDERED: Norepinephrine 8 MG/0.9% NS 250 ML IVPB SCH (21:45)
[2020-03-01 22:58] LABS: Troponin I 0.086 ng/mL (< 0.028)
[2020-03-01] MEDS: Sodium Chloride 0.9% 1,000 ML IV SCH (23:23)
[2020-03-02 01:51] LABS: SARS-CoV-2 NAA Rapid Test DETECTED (NotDetected)
[2020-03-02 01:52] LABS: Troponin I 0.085 ng/mL (< 0.028)
[2020-03-02 02:28] VITALS: BMI 22.5
[2020-03-02 04:24] LABS: Hemoglobin 11.2 g/dL (14.0-18.0); Mean Corpuscular HGB CONC 33.1 g/dL (32.0-36.0); Mean Corpuscular Hemoglobin 30.9 pg (27.0-31.0); Mean Corpuscular Volume 93.2 fL (78.0-98.0); Mean Platelet Volume 8.8 fL (7.4-10.4); Platelet Count 448 thou/uL (130-400); RBC Distribution Width 12.1 % (11.5-14.5); Red Blood Cell (RBC) Count 3.62 mill/uL (4.70-6.10); White Blood Cell (WBC) Count 11.5 thou/uL (4.8-10.8)
[2020-03-02] MEDS: Cefepime 2 GM in Sodium Chloride 0.9% 100 ML IVPB SCH (06:36)
--- NOTE | 2020-03-02 08:58 | CON ---
DATE OF CONSULTATION: 03/01/2020 This is 50 minutes time of that time, greater than 50% spent with the patient and/or the patient's unit in the hospital. HISTORY OF PRESENT ILLNESS: The patient is a 74-year-old male, who was initially diagnosed with COVID on 02/10/2020 after developing symptoms on 02/09/2020. He was briefly hospitalized with pneumonia type symptoms mid month. He returned to the hospital yesterday from a [facility] with complaints of altered mental status and vomiting. He has been started on some Levophed for hypotension. His initial chest x-ray was clear and abdominal CT demonstrated lower lobe infiltrates, which probably left over from previous COVID pneumonia, but could be secondary infection. He is not hypoxic and he is not wearing oxygen. He does not really add much to the history. PAST MEDICAL HISTORY: 1. Endocarditis. 2. Dementia. 3. Neuropathy. 4. Diskitis. 5. C difficile colitis. 6. Cardiomyopathy. 7. Alcohol abuse. 8. Diabetes mellitus. 9. Coronary artery disease. PAST SURGICAL HISTORY: Coronary bypass grafting surgery. SOCIAL HISTORY: Does not drink. Does not smoke. FAMILY MEDICAL HISTORY: Not known. ALLERGIES: NONE. MEDICATIONS: Prior to admission: 1. Zocor. 2. NovoLog insulin. 3. Fluoxetine. 4. Lopressor. 5. Lasix. 6. Lantus insulin. 7. Floranex. 8. Iron sulfate. 9. Aspirin. 10. Xarelto. 11. Flomax. 12. Acetaminophen. Current inpatient medications reviewed. See chart. REVIEW OF SYSTEMS: Unobtainable secondary to patient's dementia. PHYSICAL EXAMINATION: VITAL SIGNS: Temperature 96.8, pulse 106, blood pressure 101/79, O2 saturation 97%. GENERAL: This patient is easily arousable, appears in no distress. He is on Levophed at 2 mcg/minute. HEENT: Pupils reactive. Sclerae icteric. Oropharynx clear. NECK: No adenopathy or JVD. LUNGS: Clear to auscultation. CARDIOVASCULAR: S1, S2. Slightly tachycardic. No murmur. ABDOMEN: Soft, nontender to palpation. EXTREMITIES: No clubbing, cyanosis, or edema. LABORATORY DATA: White blood cell count 11.5, hematocrit 33.7, and platelet count 448. Lactate was 2.8. BNP 324. Sodium 138, potassium 4.5, chloride 97, CO2 of 30, BUN 25, creatinine 2.0, glucose 61. Troponin 0.086. I reviewed his x-ray and CT scan in detail. ASSESSMENT: 1. The patient is presenting with hypotension which is probably secondary to volume depletion. Less likely this is a septic type situation. 2. Coronavirus disease situation is probably not in play given lack of hypoxemia and lag time since initial diagnosis. RECOMMENDATIONS: 1. Continue hydration. 2. Continue antibiotics for presumed secondary sepsis. 3. Wean off Levophed as tolerated. 4. Continue anticoagulation that he takes at home. 5. Continue Pepcid. 6. Would withhold steroids. 7. The patient is DNR. Job ID: [id number]
[2020-03-02] MEDS: Rivaroxaban 10 MG TAB PO SCH (09:35)
[2020-03-02] MEDS: Famotidine/PF 20 mg/2ml Vial SLOW IVP SCH (09:35)
[2020-03-02] MEDS ORDERED: Dextrose 50% Abboject 50 ML SYRINGE ONE (10:40)
[2020-03-02] MEDS: Dextrose 5 % And 0.9 % NaCl 1,000 ML IV SCH (11:07)
[2020-03-02] MEDS ORDERED: Dextrose 5% in Water 1,000 ML IV PRN (11:15)
[2020-03-02] MEDS ORDERED: Dextrose 50% Abboject 50 ML SYRINGE IVP PRN (11:15)
[2020-03-02] MEDS: Sodium Chloride 0.9% 1,000 ML IV SCH (11:20)
--- NOTE | 2020-03-02 15:09 | PDOC.HOSPP ---
- Subjective Encounter Date: 03/02/20 Encounter Time: 14:50 Subjective: f/u for sepsis/UTI/hypotension/COVID receiving Levaquin/Cefepime/Vancomycin/Levophed/IVF's. Nursing reports hypoglycemic in 3 0's tx with an amp of D50 and D5 NS now with glucose values in 130's. Pt states he feels better and denies any respiratory complaints. - Objective Vital Signs & Weight: Vital Signs (12 hours) Temp Pulse Ox 03/02/20 12:00 96.8 F L 03/02/20 08:00 96.8 F L 03/02/20 07:50 97 03/02/20 04:00 97.3 F L Weight Weight 170 lb 13.732 oz Most Recent Monitor Data Heart Rate from ECG 110 NIBP 84/63 NIBP BP-Mean 70 Respiration from ECG 13 SpO2 97 I&O: 03/01/20 03/02/20 03/03/20 06:59 06:59 06:59 Intake Total 480 Output Total 610 600 Balance -130 -600 Result Diagrams: 03/02/20 03:27 03/01/20 18:13 Additional Labs: Accuchecks 03/02/20 03/02/20 12:15 11:11 POC Glucose 132 H 126 H Microbiology 03/01/20 18:14 Venous blood - Right Arm Blood Culture - Preliminary Specimen has been received and culture in progress. No Growth to date. 03/01/20 18:13 Venous blood - Left Arm Blood Culture - Preliminary Specimen has been received and culture in progress. No Growth to date. 03/01/20 15:22 Urine coppola catheter Urine Culture - Preliminary Gram Negative Suk[facility] Laboratory Tests 07/08/17 08/13/17 02/17/20 04:01 13:32 01:57 WBC Hgb Creatinine 1.86 H Lactic Acid B-Natriuretic Peptide 1334.0 H 812.3 H Troponin I SARS-CoV-2 Rap RNA(RT-PCR) 02/27/20 03/01/20 03/01/20 13:31 18:13 18:13 WBC 7.8 Hgb 11.7 L Creatinine 1.65 H Lactic Acid B-Natriuretic Peptide 324.6 H Troponin I SARS-CoV-2 Rap RNA(RT-PCR) 11/26/20 11/26/20 11/26/20 18:13 18:14 20:48 WBC Hgb Creatinine Lactic Acid 2.8 H 1.8 B-Natriuretic Peptide Troponin I 0.095 H SARS-CoV-2 Rap RNA(RT-PCR) 03/01/20 03/02/20 03/02/20 22:11 00:27 01:17 WBC Hgb Creatinine Lactic Acid B-Natriuretic Peptide Troponin I 0.086 H 0.085 H SARS-CoV-2 Rap RNA(RT-PCR) DETECTED A* Radiology Reviewed by me: Yes (CT abd/pel - R basilar infiltrate) EKG Reviewed by me: Yes (Tele - A-fib in 120's) Hospitalist ROS - Medication Medications: Active Medications Generic Name Dose Route Start Last Admin Trade Name Freq PRN Reason Stop Dose Admin Famotidine 20 mg 03/02/20 09:00 03/02/20 09:35 Famotidine/Pf 20 Mg/2ml Vial SLOW IVP 20 mg DAILY KIM Administration Cefepime HCl 2 gm/ Sodium 100 mls @ 200 mls/hr 03/02/20 06:00 03/02/20 06:36 Chloride IVPB 100 mls Q24HR KIM Administration Dextrose/Sodium Chloride 1,000 mls @ 80 mls/hr 03/02/20 11:15 03/02/20 11:07 D5 0.9% Ns IV 1,000 mls .[id number] KIM Administration Rivaroxaban 20 mg 03/02/20 09:00 03/02/20 09:35 Rivaroxaban 10 Mg Tab PO 20 mg DAILY KIM Administration - Exam General Appearance: awake alert, ill appearing General - other findings: responds to questions Eye: PERRL, anicteric sclera ENT: normocephalic atraumatic, no oropharyngeal lesions, dry oral mucosa Neck: supple, symmetric, no JVD, no thyromegaly, no lymphadenopathy Heart: no gallops, no rubs, normal peripheral pulses, irregular Heart - other findings: S1, S2 tachycardic Respiratory - other findings: diminished in bases bilat Gastrointestinal: soft, non-tender, non-distended, normal bowel sounds, no pal pable masses Gastrointestinal - other findings: suprapubic catheter in place Extremities: no cyanosis, no clubbing, no edema Skin: normal turgor, no lesions Neurological: cranial nerve grossly intact, no new deficit Musculoskeletal: normal tone, generalized weakness Psychiatric: oriented to person, flat affect, somnolent, lethargic Hosp A/P (1) Septic shock Code(s): A41.9 - SEPSIS, UNSPECIFIED ORGANISM; R65.21 - SEVERE SEPSIS WITH SEPTIC SHOCK Status: Acute (2) UTI (urinary tract infection) due to urinary indwelling catheter Code(s): T83.511A - I/I REACT D/T INDWELLING URETHRAL CATHETER, INIT; N39.0 - URINARY TRACT INFECTION, SITE NOT SPECIFIED Status: Acute Plan: Await final Ucx results, preliminary GNR noted, continue Cefepime/Levaquin (3) Atrial fibrillation Code(s): I48.91 - UNSPECIFIED ATRIAL FIBRILLATION Status: Acute Qualifiers: Atrial fibrillation type: permanent Qualified Code(s): I48.21 - Permanent atrial fibrillation Plan: A-fib RVR, resume home rate-control therapy, likely exacerbated by se psis/Levophed (4) Renal failure (ARF), acute on chronic Code(s): N17.9 - ACUTE KIDNEY FAILURE, UNSPECIFIED; N18.9 - CHRONIC KIDNEY DISEASE, UNSPECIFIED Status: Acute Plan: Likely volume mediated, continue low-volume IVF's, avoid nephrotoxic meds and limit contrast exposure (5) COVID-19 Code(s): U07.1 - COVID-19 Status: Chronic Plan: No respiratory complaints or symptoms, no hypoxia, continue supportive mgmt, isolation protocol (6) DM type 2 (diabetes mellitus, type 2) Status: Chronic Qualifiers: Diabetes mellitus [facility] insulin use: with [facility] use Diabetes mellitus complication status: with kidney complications Diabetes mellitus complication detail: with chronic kidney disease Chronic kidney disease stage: stage 3 (moderate) Plan: ISS, Hold home insulin due to hypoglycemia and need for D5NS, serial accuchecks - Plan continue antibiotics, 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
[2020-03-02] MEDS ORDERED: Lorazepam 2 MG/ML VIAL SLOW IVP PRN (17:09)
[2020-03-02] MEDS: Ferrous Sulfate 325 MG TAB PO SCH (17:42)
[2020-03-02] MEDS: Vancomycin HCl 1.25 GM in Sodium Chloride 0.9% 250 ML 250 ML IVPB SCH (17:42)
[2020-03-02] MEDS: Tamsulosin HCl 0.4 MG CAP PO SCH (20:26)
[2020-03-03] MEDS: Dextrose 5 % And 0.9 % NaCl 1,000 ML IV SCH ×2 (02:01→16:28)
[2020-03-03 05:35] LABS: #Eosinphils 0.2 thou/uL (0.0-0.7); #Monocytes 0.5 thou/uL (0.11-0.59); #Neutrophils 5.8 thou/uL (1.40-6.50); %Basophils 0.4 % (0.0-1.0); %Eosinophils 2.3 % (0.0-10.0); %Lymphocytes 13.3 % (21.0-51.0); %Monocytes 6.6 % (0.0-10.0); %Neutrophils 77.4 % (42.0-75.0); Hemoglobin 10.5 g/dL (14.0-18.0); Mean Corpuscular HGB CONC 32.2 g/dL (32.0-36.0); Mean Corpuscular Hemoglobin 30.4 pg (27.0-31.0); Mean Corpuscular Volume 94.6 fL (78.0-98.0); Mean Platelet Volume 8.9 fL (7.4-10.4); Platelet Count 367 thou/uL (130-400); RBC Distribution Width 12.1 % (11.5-14.5); Red Blood Cell (RBC) Count 3.46 mill/uL (4.70-6.10); White Blood Cell (WBC) Count 7.6 thou/uL (4.8-10.8)
[2020-03-03 05:54] LABS: Anion Gap 12 mmol/L (10-20); BUN (Urea Nitrogen) 15 mg/dL (8.4-25.7); Calc. Creatinine Clearance 47 mL/min (70-130); Calcium 7.7 mg/dL (7.8-10.44); Carbon Dioxide 27 mmol/L (23-31); Chloride 102 mmol/L (98-107); Estimated GFR-MDRD 47; Glucose 234 mg/dL (83-110); Potassium 4.1 mmol/L (3.5-5.1); Sodium 137 mmol/L (136-145)
[2020-03-03] MEDS: Cefepime 2 GM in Sodium Chloride 0.9% 100 ML IVPB SCH (06:04)
[2020-03-03] MEDS: Lactinex Tablet PO SCH (08:50)
[2020-03-03] MEDS: Famotidine/PF 20 mg/2ml Vial SLOW IVP SCH (08:50)
[2020-03-03] MEDS: Ferrous Sulfate 325 MG TAB PO SCH ×3 (08:50→17:41)
[2020-03-03] MEDS: FLUoxetine HCl 20 MG CAP PO SCH (08:50)
[2020-03-03] MEDS: Rivaroxaban 10 MG TAB PO SCH (08:50)
[2020-03-03] MEDS: Aspirin Chewable 81 MG TAB PO SCH (08:50)
[2020-03-03] MEDS ORDERED: Metoprolol Tartrate 50 MG TAB PO SCH (09:00)
--- NOTE | 2020-03-03 09:49 | PDOC.HOSPP ---
- Subjective Encounter Date: 03/03/20 Encounter Time: 11:00 Subjective: Patient off Levophed. No complaints. Tachycardic from Afib this AM, had to hold home Metoprolol due to borderline BP. - Objective Vital Signs & Weight: Vital Signs (12 hours) Temp Pulse Ox 03/03/20 07:51 99 03/03/20 07:00 96.8 F L 03/03/20 04:00 96.1 F L 03/03/20 00:00 97.1 F L Weight Weight 170 lb 13.732 oz Most Recent Monitor Data Heart Rate from ECG 114 NIBP 105/71 NIBP BP-Mean 82 Respiration from ECG 15 SpO2 99 I&O: 03/02/20 03/03/20 03/04/20 06:59 06:59 06:59 Intake Total 480 2375.0 Output Total 610 1975 200 Balance -130 400.0 -200 Result Diagrams: 03/03/20 04:19 03/03/20 04:19 Additional Labs: Accuchecks 03/03/20 03/02/20 03/02/20 04:19 22:16 15:44 POC Glucose 215 H 192 H 139 H 03/02/20 03/02/20 12:15 11:11 POC Glucose 132 H 126 H Hospitalist ROS - Review of Systems Constitutional: denies: fever, chills Respiratory: denies: cough, shortness of breath Cardiovascular: denies: chest pain, palpitations Gastrointestinal: denies: nausea, vomiting, abdominal pain - Medication Medications: Active Medications Generic Name Dose Route Start Last Admin Trade Name Freq PRN Reason Stop Dose Admin Famotidine 20 mg 03/02/20 09:00 03/02/20 09:35 Famotidine/Pf 20 Mg/2ml Vial SLOW IVP 20 mg DAILY KIM Administration Ferrous Sulfate 325 mg 03/02/20 17:00 03/02/20 17:42 Ferrous Sulfate 325 Mg Tab PO 325 mg TID-WM KIM Administration Cefepime HCl 2 gm/ Sodium 100 mls @ 200 mls/hr 03/02/20 06:00 03/03/20 06:04 Chloride IVPB 100 mls Q24HR KIM Administration Vancomycin HCl 1.25 gm/ Sodium 250 mls @ 166.667 mls/hr 03/02/20 18:00 17:42 Chloride IVPB 250 mls Q24HR KIM Administration Dextrose/Sodium Chloride 1,000 mls @ 80 mls/hr 03/02/20 11:15 03/03/20 02:01 D5 0.9% Ns IV 1,000 mls .[id number] KIM Administration Levofloxacin 750 mg/ Device 150 mls @ 100 mls/hr 03/02/20 15:00 03/02/20 15:30 IVPB 150 mls Q2D KIM Administration Rivaroxaban 20 mg 03/02/20 09:00 03/02/20 09:35 Rivaroxaban 10 Mg Tab PO 20 mg DAILY KIM Administration Tamsulosin HCl 0.4 mg 03/02/20 21:00 03/02/20 20:26 Tamsulosin Hcl 0.4 Mg Cap PO 0.4 mg HS KIM Administration - Exam General Appearance: NAD, awake alert ENT: moist mucosa Heart: no murmur, no gallops, no rubs, irregular Heart - other findings: tachycardic Respiratory: CTAB, no wheezes, no rales, no ronchi Gastrointestinal: soft, non-tender, non-distended, normal bowel sounds Extremities: no edema Psychiatric: normal affect, normal behavior Hosp A/P - Plan (1) Septic shock Code(s): A41.9 - SEPSIS, UNSPECIFIED ORGANISM; R65.21 - SEVERE SEPSIS WITH SEPTIC SHOCK Status: Acute Hypotension also likely due to dehydration. Weaning Levophed as tolerated. (2) UTI (urinary tract infection) due to urinary indwelling catheter Code(s): T83.511A - I/I REACT D/T INDWELLING URETHRAL CATHETER, INIT; N39.0 - URINARY TRACT INFECTION, SITE NOT SPECIFIED Status: Acute Plan: Growing Serratia liquifaciens, continue Cefepime/Levaquin, can likely transition to Rocephin if ok with pulmonology (3) Atrial fibrillation Code(s): I48.91 - UNSPECIFIED ATRIAL FIBRILLATION Status: Acute Qualifiers: Atrial fibrillation type: permanent Qualified Code(s): I48.21 - Permanent atrial fibrillation Plan: A-fib RVR, resume home rate-control therapy, likely exacerbated by sepsis/Levophed, will add Digoxin if needed (4) Renal failure (ARF), acute on chronic Code(s): N17.9 - ACUTE KIDNEY FAILURE, UNSPECIFIED; N18.9 - CHRONIC KIDNEY DISEASE, UNSPECIFIED Status: Acute Plan: Likely volume mediated, continue low-volume IVF's, avoid nephrotoxic meds and limit contrast exposure Improved with IV fluids (5) COVID-19 Code(s): U07.1 - COVID-19 Status: Chronic Plan: No respiratory complaints or symptoms, no hypoxia, continue supportive mgmt, isolation protocol, not likely contributing to current illness (6) DM type 2 (diabetes mellitus, type 2) Status: Chronic 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 Will d/c dextrose in fluids. Can transfer to telemetry now that off Levophed Continue Levaquin/Cefepime/Vancomycin Awaiting final Blood cx results Isolation protocol due to COVID + Resume ADA diet today AM lab: BMP, CBC
[2020-03-03] MEDS ORDERED: Metoprolol Tartrate 25 MG TAB PO SCH (11:15)
[2020-03-03] MEDS ORDERED: Digoxin 0.5 MG/2 ML AMP SLOW IVP SCH (13:45)
--- NOTE | 2020-03-03 15:13 | PRG ---
DATE OF SERVICE: 03/03/2020 SUBJECTIVE: Today he is clinically unchanged. He is in no distress. Reviewing notes, he is 23 days into this COVID process. He has dementia and lives in a full-time care environment. OBJECTIVE: VITAL SIGNS: Heart rate 102, blood pressure 107/68, respiratory rate 17. LUNGS: Clear. HEART: Regular rhythm. ABDOMEN: Soft. LABORATORY DATA: White count 7.6, hemoglobin 10.5, platelets 367. Electrolytes are normal except for creatinine of 1.47. IMPRESSION: 1. Clinical sepsis, likely related to Serratia isolated in his urine. 2. Recent COVID infection, likely no longer infectious if the history is accurate. 3. Do not resuscitate status according medical records. PLAN: Continue supportive care. Once off pressors, he can be transferred out of Critical Care to a medical bed. Job ID: [id number]
[2020-03-03] MEDS: Sodium Chloride 0.9% 1,000 ML IV SCH (15:29)
[2020-03-03 17:41] LABS: Vancomycin, Trough 9.6 ug/mL
[2020-03-03] MEDS: Tamsulosin HCl 0.4 MG CAP PO SCH (20:01)
[2020-03-03] MEDS: Vancomycin HCl 1.25 GM in Sodium Chloride 0.9% 250 ML 250 ML IVPB SCH (20:01)
[2020-03-03] MEDS: Metoprolol Tartrate 25 MG TAB PO SCH (20:02)
[2020-03-03] MEDS: HumaLOG 300 UNITS/3 ML VIAL SC PRN (20:41)
[2020-03-04 05:27] LABS: #Basophils 0.1 thou/uL (0.0-0.2); #Eosinphils 0.3 thou/uL (0.0-0.7); #Lymphocytes 1.4 thou/uL (1.20-3.40); #Monocytes 0.8 thou/uL (0.11-0.59); %Basophils 0.8 % (0.0-1.0); %Eosinophils 2.9 % (0.0-10.0); %Lymphocytes 16.7 % (21.0-51.0); %Monocytes 9.3 % (0.0-10.0); %Neutrophils 70.4 % (42.0-75.0); Hemoglobin 10.4 g/dL (14.0-18.0); Mean Corpuscular HGB CONC 31.9 g/dL (32.0-36.0); Mean Corpuscular Hemoglobin 30.2 pg (27.0-31.0); Mean Corpuscular Volume 94.6 fL (78.0-98.0); Mean Platelet Volume 8.2 fL (7.4-10.4); Platelet Count 335 thou/uL (130-400); RBC Distribution Width 12.2 % (11.5-14.5); Red Blood Cell (RBC) Count 3.44 mill/uL (4.70-6.10); White Blood Cell (WBC) Count 8.6 thou/uL (4.8-10.8)
[2020-03-04 05:52] LABS: Anion Gap 13 mmol/L (10-20); BUN (Urea Nitrogen) 17 mg/dL (8.4-25.7); Calc. Creatinine Clearance 49 mL/min (70-130); Carbon Dioxide 21 mmol/L (23-31); Chloride 103 mmol/L (98-107); Estimated GFR-MDRD 49; Glucose 232 mg/dL (83-110); Potassium 4.1 mmol/L (3.5-5.1); Sodium 133 mmol/L (136-145)
[2020-03-04] MEDS: Sodium Chloride 0.9% 1,000 ML IV SCH ×3 (05:52→21:29)
[2020-03-04] MEDS ORDERED: Vancomycin HCl 750 MG in Sodium Chloride 0.9% 250 ML 250 ML IVPB SCH ×2 (06:00→08:00)
[2020-03-04] MEDS: Cefepime 2 GM in Sodium Chloride 0.9% 100 ML IVPB SCH (06:10)
[2020-03-04] MEDS: HumaLOG 300 UNITS/3 ML VIAL SC PRN ×3 (06:10→18:20)
[2020-03-04] MEDS: Aspirin Chewable 81 MG TAB PO SCH (07:52)
[2020-03-04] MEDS: FLUoxetine HCl 20 MG CAP PO SCH (07:52)
[2020-03-04] MEDS: Rivaroxaban 10 MG TAB PO SCH (07:53)
[2020-03-04] MEDS: Ferrous Sulfate 325 MG TAB PO SCH ×3 (07:53→18:18)
[2020-03-04] MEDS: Metoprolol Tartrate 25 MG TAB PO SCH ×2 (07:54→20:56)
[2020-03-04] MEDS: Famotidine/PF 20 mg/2ml Vial SLOW IVP SCH (07:54)
[2020-03-04] MEDS: Lactinex Tablet PO SCH (08:05)
--- NOTE | 2020-03-04 18:42 | PDOC.HOSPP ---
- Subjective Encounter Date: 03/04/20 Encounter Time: 18:30 Subjective: f/u for Serratia ssp UTI/Septic shock/COVID + off all pressor support receiving Cefepime/Levaquin/Vancomycin. Apparently had short run of V-tach/a-fib RVR per nursing but asymptomatic. - Objective Vital Signs & Weight: Vital Signs (12 hours) Temp Pulse Resp BP Pulse Ox 03/04/20 16:00 98.3 F 95 18 96/61 95 03/04/20 11:08 98.4 F 109 H 16 105/66 99 03/04/20 08:15 98.2 F 102 H 16 108/56 L 98 Weight Weight 170 lb 11.2 oz Most Recent Monitor Data Heart Rate from ECG 109 NIBP 88/56 NIBP BP-Mean 66 Respiration from ECG 12 SpO2 100 I&O: 03/03/20 03/04/20 03/05/20 06:59 06:59 06:59 Intake Total 2375.0 3328 Output Total 1975 2040 Balance 400.0 1288 Result Diagrams: 03/04/20 05:14 03/04/20 05:14 Additional Labs: Accuchecks 03/04/20 03/04/20 03/03/20 15:59 11:10 20:38 POC Glucose 249 H 209 H 347 H Microbiology 03/02/20 06:00 Nares - Nares MRSA Screen - Final 03/01/20 15:22 Urine coppola catheter Urine Culture - Final Serratia liquifaciens group 03/01/20 18:14 Venous blood - Right Arm Blood Culture - Preliminary Specimen has been received and culture in progress. No Growth to date. 03/01/20 18:14 Venous blood - Right Arm Blood Culture - Preliminary NO GROWTH AT 48 HOURS 03/01/20 18:13 Venous blood - Left Arm Blood Culture - Preliminary Specimen has been received and culture in progress. No Growth to date. 03/01/20 18:13 Venous blood - Left Arm Blood Culture - Preliminary NO GROWTH AT 48 HOURS 03/01/20 15:22 Urine coppola catheter Urine Culture - Preliminary Gram Negative Sukh Laboratory Tests 07/08/17 08/13/17 02/17/20 04:01 13:32 01:57 WBC Hgb Creatinine 1.86 H Lactic Acid B-Natriuretic Peptide 1334.0 H 812.3 H Troponin I Vancomycin Trough SARS-CoV-2 Rap RNA(RT-PCR) 02/27/20 03/01/20 03/01/20 13:31 18:13 18:13 WBC 7.8 Hgb 11.7 L Creatinine 1.65 H Lactic Acid B-Natriuretic Peptide 324.6 H Troponin I Vancomycin Trough SARS-CoV-2 Rap RNA(RT-PCR) 03/01/20 03/01/20 03/01/20 18:13 18:14 20:48 WBC Hgb Creatinine Lactic Acid 2.8 H 1.8 B-Natriuretic Peptide Troponin I 0.095 H Vancomycin Trough SARS-CoV-2 Rap RNA(RT-PCR) 03/01/20 03/02/20 03/02/20 22:11 00:27 01:17 WBC Hgb Creatinine Lactic Acid B-Natriuretic Peptide Troponin I 0.086 H 0.085 H Vancomycin Trough SARS-CoV-2 Rap RNA(RT-PCR) DETECTED A* 03/03/20 03/03/20 04:19 17:14 WBC Hgb Creatinine 1.47 H Lactic Acid B-Natriuretic Peptide Troponin I Vancomycin Trough 9.6 SARS-CoV-2 Rap RNA(RT-PCR) EKG Reviewed by me: Yes (Tele - A-fib in 's) Hospitalist ROS - Medication Medications: Active Medications Generic Name Dose Route Start Last Admin Trade Name Giovannyq PRN Reason Stop Dose Admin Acidophilus 1 tab 03/03/20 09:00 03/04/20 08:05 Lactinex Tablet PO 1 tab DAILY KIM Administration Aspirin 81 mg 03/03/20 09:00 03/04/20 07:52 Aspirin Chewable 81 Mg Tab PO 81 mg DAILY KIM Administration Famotidine 20 mg 03/02/20 09:00 03/04/20 07:54 Famotidine/Pf 20 Mg/2ml Vial SLOW IVP 20 mg DAILY KIM Administration Ferrous Sulfate 325 mg 03/02/20 17:00 03/04/20 18:18 Ferrous Sulfate 325 Mg Tab PO 325 mg TID-WM KIM Administration Fluoxetine HCl 40 mg 03/03/20 09:00 03/04/20 07:52 Fluoxetine Hcl 20 Mg Cap PO 40 mg DAILY KIM Administration Cefepime HCl 2 gm/ Sodium 100 mls @ 200 mls/hr 03/02/20 06:00 03/04/20 06:10 Chloride IVPB 100 mls Q24HR KIM Administration Levofloxacin 750 mg/ Device 150 mls @ 100 mls/hr 03/02/20 15:00 03/04/20 18:19 IVPB 150 mls Q2D KIM Administration Sodium Chloride 1,000 mls @ 75 mls/hr 03/03/20 13:45 03/04/20 08:32 Normal Saline 0.9% IV 1,000 mls .[id number] KIM Administration Vancomycin HCl 750 mg/ Sodium 250 mls @ 250 mls/hr 03/04/20 08:00 03/04/20 07:52 Chloride IVPB 250 mls 08,1999 KIM Administration Insulin Human Lispro 0 units 03/03/20 19:15 03/04/20 18:20 Humalog 300 Units/3 Ml Vial SC 3 unit .MILD SLIDING SCALE PRN Administration MILD SLIDING SCALE Protocol Metoprolol Tartrate 25 mg 03/03/20 21:00 03/04/20 07:54 Metoprolol Tartrate 25 Mg Tab PO 25 mg BID KIM Administration Rivaroxaban 20 mg 03/02/20 09:00 03/04/20 07:53 Rivaroxaban 10 Mg Tab PO 20 mg DAILY KIM Administration Tamsulosin HCl 0.4 mg 03/02/20 21:00 03/03/20 20:01 Tamsulosin Hcl 0.4 Mg Cap PO 0.4 mg HS KIM Administration - Exam General Appearance: NAD, awake alert General - other findings: smiling, responsive Eye: PERRL, anicteric sclera ENT: normocephalic atraumatic, no oropharyngeal lesions Neck: supple, symmetric, no JVD, no thyromegaly, no lymphadenopathy Heart: no gallops, no rubs, normal peripheral pulses, irregular Heart - other findings: S1, S2 Respiratory: CTAB, no wheezes, no rales, no ronchi, normal chest expansion, no tachypnea Gastrointestinal: soft, non-tender, non-distended, normal bowel sounds, no palpable masses Gastrointestinal - other findings: SPT in place Extremities: no cyanosis, no clubbing, no edema Skin: normal turgor Neurological: cranial nerve grossly intact, no new deficit Musculoskeletal: normal tone, generalized weakness Psychiatric: normal affect, oriented to person, oriented to place Hosp A/P (1) Septic shock Code(s): A41.9 - SEPSIS, UNSPECIFIED ORGANISM; R65.21 - SEVERE SEPSIS WITH SEPTIC SHOCK Status: Acute Plan: Resolving, off all pressor support, likely due to UTI with Serratia spp isolated on Ucx, continue Cefepime and likely de-escalate Vancomycin in 24h. (2) UTI (urinary tract infection) due to urinary indwelling catheter Code(s): T83.511A - I/I REACT D/T INDWELLING URETHRAL CATHETER, INIT; N39.0 - URINARY TRACT INFECTION, SITE NOT SPECIFIED Status: Acute Plan: Serratia spp isolated, continue Cefepime (3) Renal failure (ARF), acute on chronic Code(s): N17.9 - ACUTE KIDNEY FAILURE, UNSPECIFIED; N18.9 - CHRONIC KIDNEY DISEASE, UNSPECIFIED Status: Acute Plan: Improved, avoid nephrotoxic meds and limit contrast exposure, serial creatinine (4) Atrial fibrillation Code(s): I48.91 - UNSPECIFIED ATRIAL FIBRILLATION Status: Acute Qualifiers: Atrial fibrillation type: permanent Qualified Code(s): I48.21 - Permanent atrial fibrillation Plan: Rate variable, resume home Metoprolol, may need additional titration, resume Xarelto (5) COVID-19 Code(s): U07.1 - COVID-19 Status: Acute Plan: Exposure hx and + on 03/02/20, no prominent respiratory complaints on current room air (6) DM type 2 (diabetes mellitus, type 2) Status: Chronic Qualifiers: Diabetes mellitus rodent exterminator insulin use: with rodent exterminator use Diabetes mellitus complication status: with kidney complications Diabetes mellitus complication detail: with chronic kidney disease Chronic kidney disease stage: stage 3 (moderate) Plan: ISS, resume Lantus 20u qam, ADA - Plan continue antibiotics, PT/OT, social media assistant, out of bed/ambulate, DVT proph w/SCDs Continue critical support Continue Levaquin/Cefepime D/C Vancomycin Isolation protocol due to COVID + Resume ADA diet today Start Lantus 20u sc qam AM lab: BMP Likely back to SNF in 24-48h
[2020-03-04] MEDS ORDERED: HumaLOG 300 UNITS/3 ML VIAL SC PRN (20:47)
[2020-03-04] MEDS ORDERED: Dextrose 5% in Water 1,000 ML IV PRN (20:47)
[2020-03-04] MEDS: Tamsulosin HCl 0.4 MG CAP PO SCH (20:56)
[2020-03-05 05:44] LABS: Anion Gap 14 mmol/L (10-20); BUN (Urea Nitrogen) 19 mg/dL (8.4-25.7); Calc. Creatinine Clearance 48 mL/min (70-130); Carbon Dioxide 20 mmol/L (23-31); Chloride 103 mmol/L (98-107); Estimated GFR-MDRD 48; Glucose 320 mg/dL (83-110); Potassium 4.4 mmol/L (3.5-5.1); Sodium 133 mmol/L (136-145)
[2020-03-05] MEDS: HumaLOG 300 UNITS/3 ML VIAL SC PRN ×3 (06:02→16:25)
[2020-03-05] MEDS: Cefepime 2 GM in Sodium Chloride 0.9% 100 ML IVPB SCH (06:08)
[2020-03-05] MEDS ORDERED: Insulin Glargine 20 UNITS in Pre-Filled Syringe 1 EACH SC SCH (09:00)
[2020-03-05] MEDS: FLUoxetine HCl 20 MG CAP PO SCH (09:33)
[2020-03-05] MEDS: Aspirin Chewable 81 MG TAB PO SCH (09:33)
[2020-03-05] MEDS: Rivaroxaban 10 MG TAB PO SCH (09:34)
[2020-03-05] MEDS: Metoprolol Tartrate 25 MG TAB PO SCH (09:34)
[2020-03-05] MEDS: Ferrous Sulfate 325 MG TAB PO SCH ×3 (09:34→16:25)
[2020-03-05] MEDS: Famotidine/PF 20 mg/2ml Vial SLOW IVP SCH (09:37)
[2020-03-05] MEDS: Lactinex Tablet PO SCH (09:37)
[2020-03-05 16:09] VITALS: BP 92/57; TEMP 98.8
--- NOTE | 2020-03-06 01:56 | DIS ---
DATE OF ADMISSION: 03/01/2020 DATE OF DISCHARGE: 03/05/2020 DISCHARGE DIAGNOSES: 1. Septic shock secondarily to urinary tract infection with Serratia species. 2. Urinary tract infection due to indwelling Rueda catheter with Serratia species. 3. Acute kidney injury on chronic kidney disease, improved. 4. Chronic atrial fibrillation, rate variable. 5. COVID-19 virus positive. 6. Diabetes mellitus type 2, insulin requiring. 7. Deconditioning. CONSULTATIONS: Jagdish Redd MD and Roderick Murillo MD with Pulmonology Critical Care Service. PERTINENT LABORATORY AND X-RAY FINDINGS: Creatinine ranged between 1.40 to 2.01. Estimated GFR ranged between 32 to 49. Lactic acid level ranged between 1.8 to 2.8. Magnesium level 1.9. BNP 325, previously 812, 08/13/2017. CBC showed a white blood cell count ranging between 7.6 to 11.5, hemoglobin ranged between 10.4 to 11.7. COVID-19 PCR positive, 03/02/2020. Blood cultures x2 dated 03/01/2020, showed no growth at 48 hours. Urine culture dated 03/01/2020, showed greater than 100,000 colonies of Serratia liquefaciens, sensitive to quinolones. Portable chest x-ray dated 03/01/2020, showed bilateral airspace disease within the right mid and lower lung zones. Subsegmental atelectasis versus infiltrate in the medial left lung base. CT of the abdomen and pelvis dated 03/01/2020, showed right basilar airspace disease. Nonspecific urinary bladder wall thickening. CT of the brain without contrast dated 03/01/2020, showed no acute intracranial process. HOSPITAL COURSE: The patient was initially admitted after presenting from [facility] meeting criteria for sepsis. The patient with an indwelling suprapubic catheter, presenting with sepsis and concern for potential pneumonia based on chest imaging. The patient with recent COVID-19 infection with hospitalization and subsequent discharge, presenting with the above signs and symptoms. The patient was noted with septic shock with systolics in the 60s as well as associated hypoglycemia. The patient was aggressively managed per sepsis protocol with IV fluid resuscitation in addition to D50. The patient was placed on broad-spectrum IV antibiotic therapy including cefepime and vancomycin. The patient was also given IV Levophed after placement of a right femoral central venous catheter. The patient was monitored in the intermediate care unit, stabilizing with aggressive IV antibiotic therapy, IV fluids, and pressor support. The patient did not present with prominent respiratory complaints or hypoxia and overall was treated for septic shock due to urinary tract infection with Serratia species isolated on urine culture. The patient did clinically improve with supportive management and returned to baseline functional and mental status prior to discharge. I have examined the patient at the time of discharge and discussed followup instructions. The patient verbalized understanding, in agreement and ready to discharge on 03/05/2020. DISCHARGE MEDICATIONS: 1. Levaquin 750 mg p.o. q.48h. x6 days. 2. Enteric-coated aspirin 81 mg p.o. daily. 3. Flomax 0.4 mg p.o. at bedtime. 4. Floranex 1 tablet p.o. daily. 5. Fluoxetine 40 mg p.o. daily. 6. Ferrous sulfate 325 mg p.o. t.i.d. 7. Glargine 40 units subcutaneously q.a.m. and 29 units subcutaneously at bedtime. 8. Metoprolol 50 mg p.o. daily. 9. NovoLog insulin sliding scale. 10. Potassium chloride 20 mEq p.o. daily. 11. Zocor 40 mg p.o. at bedtime. 12. Digoxin 125 mcg p.o. daily. 13. Xarelto 20 mg p.o. daily. FOLLOWUP: The patient may follow up with his primary care provider, Dr. Gaming after returning to [facility]. CONDITION ON DISCHARGE: Fair. ACTIVITY: Ad juanjose, rolling walker with standby/contact guard assistance and high fall risk precautions. DIET: ADA and heart healthy. CODE STATUS: Do not attempt resuscitation. DISPOSITION: Discharged to [facility], 03/05/2020. TIME SPENT: Total time preparing and coordinating discharge, 35 minutes. Job ID: [id number]
== END 2020-03-05 17:58 | DRG 698 ==
LOC: ERS 17:50 → ERHOLD 21:30 → CCU 03-02 01:25 → 2SW 03-03 15:05
PROVIDERS: ADMIT Internal Medicine; ATTEND Internal Medicine
PROC: 8E0ZXY6 Isolation (ICD-10-PCS; principal; 2020-03-01)
DX: T83.511A Infection and inflammatory reaction due to indwelling urethral catheter, initial encounter (principal); J69.0 Pneumonitis due to inhalation of food and vomit; R65.21 Severe sepsis with septic shock; U07.1 COVID-19; A41.53 Sepsis due to Serratia; I13.0 Hypertensive heart and chronic kidney disease with heart failure and stage 1 through stage 4 chronic kidney disease, or unspecified chronic kidney disease; I42.9 Cardiomyopathy, unspecified; N17.9 Acute kidney failure, unspecified; I48.21 Permanent atrial fibrillation; N39.0 Urinary tract infection, site not specified; I25.10 Atherosclerotic heart disease of native coronary artery without angina pectoris; I50.9 Heart failure, unspecified; E78.00 Pure hypercholesterolemia, unspecified; F03.90 Unspecified dementia, unspecified severity, without behavioral disturbance, psychotic disturbance, mood disturbance, and anxiety; E11.40 Type 2 diabetes mellitus with diabetic neuropathy, unspecified; Y83.9 Surgical procedure, unspecified as the cause of abnormal reaction of the patient, or of later complication, without mention of misadventure at the time of the procedure; Z66 Do not resuscitate; N18.30 Chronic kidney disease, stage 3 unspecified; E11.22 Type 2 diabetes mellitus with diabetic chronic kidney disease; F41.9 Anxiety disorder, unspecified; F32.9 Major depressive disorder, single episode, unspecified; Z79.82 Long term (current) use of aspirin; Z79.4 Long term (current) use of insulin; I25.2 Old myocardial infarction; Z86.718 Personal history of other venous thrombosis and embolism; Z95.1 Presence of aortocoronary bypass graft; Z79.899 Other long term (current) drug therapy; Z79.01 Long term (current) use of anticoagulants; R53.81 Other malaise; E78.5 Hyperlipidemia, unspecified; D63.1 Anemia in chronic kidney disease
CPT/HCPCS: 36415; 36416; 36556; 70450; 71045; 74177; 80048; 80053; 80202; 82553; 83605; 83735; 83880; 84484; 85007; 85025; 85027; 87040; 87077; 87081; 87086; 87186; 93005; 96365; 96366; 96367; 96375; J0692; J0696; J1160; J1815; J1956; J2060; J3370; J3490; J7050; Q0162; Q9967; S0028; U0002

== ENCOUNTER 2020-03-09 20:58 | Inpatient (IN) | payer MEDICARE, MEDICAID ==
[2020-03-09] MEDS ORDERED: Cefepime 2 GM VIAL ONE (21:31)
[2020-03-09] MEDS ORDERED: Ondansetron PF 4 MG/2 ML Vial ONE (21:31)
--- NOTE | 2020-03-09 21:42 | RAD ---
Exam: Chest one view HISTORY:Coffee-ground emesis. Comparison: 03/01/2020 FINDINGS: Cardiac silhouette:Upper normal cardiac silhouette. There are sternotomy wires. Aorta: Unremarkable Pulmonary vessels: Prominent Costophrenic angles: Clear LUNGS: Scattered interstitial opacities with more focal alveolar infiltrate in the left lower lobe. Pneumothorax: None Osseous abnormalities: None IMPRESSION: 1. Possible volume overload and pulmonary vascular congestion. 2. Increased opacities in the lung bases which may represent atelectasis, pneumonia or aspiration. Co ntinued surveillance is recommended.
[2020-03-09 21:49] LABS: #Eosinphils 0.2 thou/uL (0.0-0.7); #Lymphocytes 0.8 thou/uL (1.20-3.40); #Monocytes 0.6 thou/uL (0.11-0.59); #Neutrophils 7.9 thou/uL (1.40-6.50); %Basophils 0.1 % (0.0-1.0); %Eosinophils 1.7 % (0.0-10.0); %Lymphocytes 8.1 % (21.0-51.0); %Monocytes 6.7 % (0.0-10.0); %Neutrophils 83.4 % (42.0-75.0); Hemoglobin 11.6 g/dL (14.0-18.0); Mean Corpuscular Hemoglobin 30.1 pg (27.0-31.0); Mean Corpuscular Volume 93.9 fL (78.0-98.0); Mean Platelet Volume 8.7 fL (7.4-10.4); Platelet Count 283 thou/uL (130-400); RBC Distribution Width 12.7 % (11.5-14.5); Red Blood Cell (RBC) Count 3.87 mill/uL (4.70-6.10); White Blood Cell (WBC) Count 9.5 thou/uL (4.8-10.8)
[2020-03-09 21:56] LABS: Bacteria/HPF None Seen HPF (None Seen); Bilirubin Negative (Negative); Blood, Urine 2+ (Negative); Clarity Extra Turbid (Clear); Glucose, Urine (Dipstick) 200 mg/dL (Negative); Ketone, Urine Negative (Negative); Leukocyte 500 Leu/uL (Negative); Nitrite Negative (Negative); Protein, Urine (Dipstick) 100 mg/dL (Neg-Trace); Specific Gravity, Urine 1.022 (1.002-1.036); Squamous Epithelial None Seen HPF (0-3); Urobilinogen Normal mg/dL (Less than 2); WBC/HPF Greater than 50 HPF (0-3)
[2020-03-09] MEDS ORDERED: Vancomycin 1 GM/200 ML BAG ONE (22:00)
[2020-03-09 22:05] LABS: Yeast-Hyphae 3+ HPF (None Seen)
[2020-03-09 22:06] LABS: Calcium Oxalate Crystals Rare HPF (None Seen); Yeast-Budding 4+ HPF (None Seen)
[2020-03-09 22:12] LABS: Carbon Dioxide 27 mmol/L (23-31); Chloride 101 mmol/L (98-107); Sodium 140 mmol/L (136-145)
[2020-03-09 22:13] LABS: ALT (SGPT) 13 U/L (8-55); AST (SGOT) 12 U/L (5-34); Albumin 3.7 g/dL (3.4-4.8); Alkaline Phosphatase 99 U/L (40-110); Anion Gap 16 mmol/L (10-20); BUN (Urea Nitrogen) 14 mg/dL (8.4-25.7); Bilirubin, Total 0.5 mg/dL (0.2-1.2); Calc. Creatinine Clearance 0 mL/min (70-130); Calcium 9.3 mg/dL (7.8-10.44); Globulin 3.4 g/dL (2.4-3.5); Glucose 64 mg/dL (83-110); Protein, Total 7.1 g/dL (5.8-8.1)
[2020-03-09] MEDS ORDERED: Dextrose 50% Abboject 50 ML SYRINGE ONE (22:32)
[2020-03-09] MEDS ORDERED: Acetaminophen 650 MG Suppository ONE (23:58)
[2020-03-10] MEDS ORDERED: Lorazepam 2 MG/ML VIAL ONE ×3 (00:30→01:24)
[2020-03-10 01:09] LABS: Lactic Acid 2.7 mmol/L (0.5-2.2)
[2020-03-10] MEDS ORDERED: Norepinephrine 8 MG/0.9% NS 250 ML ONE (01:26)
[2020-03-10] MEDS ORDERED: Haloperidol Lactate 5 MG/ML VIAL ONE (01:27)
[2020-03-10] MEDS ORDERED: Dextrose 5% in Water 1,000 ML IV PRN (02:28)
[2020-03-10] MEDS ORDERED: Dextrose 50% Abboject 50 ML SYRINGE SLOW IVP PRN (02:28)
[2020-03-10] MEDS ORDERED: Ondansetron ODT 4 MG TAB PO PRN (02:28)
[2020-03-10] MEDS ORDERED: Communication Order-Pharmacy FS PRN (02:28)
[2020-03-10 02:37] VITALS: BMI 24.9
--- NOTE | 2020-03-10 02:56 | HP ---
PRIMARY CARE PROVIDERS: Sd Gaming MD CHIEF COMPLAINT: Fever and vomiting. HISTORY OF PRESENT ILLNESS: This is a 74-year-old male, who presents to [facility] Emergency Department in transfer from [facility], where patient is a current resident. The patient apparently developed vomiting x2 and questionable coffee-ground substance per [facility] documentation. The patient was also noted hypotensive with recent admission and discharge from [facility] from 03/01/2020 to 03/06/2020, diagnosed with urinary tract infection due to Serratia species, placed on Levaquin for discharge. The patient also with a history of COVID-19 viral positivity; however, no prominent respiratory complaints or oxygen requirement. The patient is unable to provide a coherent history due to advanced dementia. According to the ER attending and review of the electronic medical record, the patient was noted meeting sepsis criteria in the emergency room. Initially managed for potential persistent urinary tract infection, placed on IV Levaquin in addition to receiving IV normal saline due to the sepsis. The patient received additional cefepime and was noted with atrial fibrillation with rapid ventricular response. The patient was given a dose of Cardizem and noted with persistent tachycardia. The patient clinically declined in the emergency room with hypotension persisting requiring initiation of Levophed infusion after placement of central line. The patient had similar presentation as well as decompensation during the last admission, requiring transfer to the Critical Care Unit for further monitoring. PAST MEDICAL HISTORY: 1. Recent hospitalization due to septic shock with urinary tract infection and Serratia species identified. 2. Chronic indwelling suprapubic catheter. 3. Chronic kidney disease stage 3. 4. Advanced dementia. 5. Deconditioning. 6. DVT to the left upper extremity. 7. Chronic atrial fibrillation, on chronic anticoagulation with Xarelto. 8. Diabetes mellitus type 2, insulin requiring. 9. Coronary artery disease. 10. Diabetes mellitus type 2 insulin requiring. 11. History of congestive heart failure. PAST SURGICAL HISTORY: 1. Status post suprapubic catheter placement. 2. Status post coronary artery bypass grafting x5 vessels. 3. Status post cyst removal of the back. CURRENT MEDICATIONS: 1. Levaquin 750 mg p.o. q.48 hours. 2. Enteric-coated aspirin 81 mg p.o. daily. 3. Flomax 0.4 mg p.o. at bedtime. 4. Floranex one tablet p.o. daily. 5. Fluoxetine 40 mg p.o. daily. 6. Ferrous sulfate 325 mg p.o. t.i.d. 7. Glargine insulin 40 units subcutaneously q.a.m. and 29 units subcutaneously at bedtime. 8. Metoprolol 50 mg p.o. daily. 9. NovoLog sliding scale. 10. Potassium chloride 20 mEq p.o. daily. 11. Zocor 40 mg p.o. at bedtime. 12. Digoxin 125 mcg p.o. daily. 13. Xarelto 20 mg p.o. daily. ALLERGIES: NO KNOWN DRUG ALLERGIES. FAMILY HISTORY: Positive for hypertension. SOCIAL HISTORY: Resident of [facility]. No current alcohol, tobacco, or illicit drug use. REVIEW OF SYSTEMS: Unobtainable due to patient's advanced dementia. PHYSICAL EXAMINATION: VITAL SIGNS: On admission, blood pressure 80/45, pulse 123, respiratory rate 26, temperature 102.4 degrees Fahrenheit T-max. O2 saturation 94% on room air. GENERAL APPEARANCE: This is a 74-year-old male, answers questions, opens eyes, follows commands and rolls on his side when directed. HEENT: Pupils are equal, round, reactive to light and accommodation. Extraocular muscles are intact. No scleral icterus. No conjunctival injection. Nares patent. OP is clear with oral mucosa dry appearing. NECK: Supple. No cervical adenopathy. No thyromegaly. No carotid bruits. No JVD appreciated. Cervical spine with full active and passive range of motion. No meningeal signs noted. CHEST: Diminished breath sounds in the bases bilaterally. CARDIOVASCULAR: S1 and S2 with tachycardia. Irregular rate and rhythm noted. ABDOMEN: Rounded, soft, nontender, and nondistended. Bowel sounds are positive in all 4 quadrants. There is no palpable mass. Suprapubic catheter in place. EXTREMITIES: Warm and dry with fair turgor. No clubbing, cyanosis, or asymmetric edema appreciated. Pulses palpable distally at the dorsalis pedis, posterior tibial, and popliteal arteries bilaterally. Capillary refill less than 2 seconds. NEUROLOGIC: Cranial nerves 2 through 12 are grossly intact. No focal or lateralizing signs appreciated. PERTINENT LABORATORY AND X-RAY FINDINGS: Sodium 140, potassium 4.0, chloride 101, CO2 of 27, BUN 14, creatinine 1.62, estimated GFR of 42. Lactic acid level ranged between 2.7 to 3.0, calcium 9.3. LFTs within normal limits. CBC showed a white blood cell count of 9.5, hemoglobin 12, hematocrit 36, platelet count 283 with 83% neutrophils. Urinalysis showed a turbid specimen with specific gravity 1.022, positive protein, glucose, and blood. Leukocyte esterase positive. Urine microscopy showed 11 to 20 rbc's and greater than 50 to [id number]-ff-count wbc's per high-power field. Gastric occult blood negative 03/09/2020. Influenza A and B antigen dated 03/09/2020 negative. Portable chest x-ray dated 03/09/2020, showed prominence of pulmonary vasculature. Prominent opacities in the lung bases representing questionable atelectasis/pneumonia or aspiration. EKG dated 03/09/2020, by my interpretation shows atrial fibrillation with rapid ventricular response, heart rates in the 120s. No acute ST-T wave changes identified. ASSESSMENT/PLAN: 1. Septic shock secondary to urinary tract infection. The patient will be admitted to the Critical Care Unit. Continue sepsis protocol. The patient did receive fluid resuscitation in the emergency room. We will initiate Levophed to maintain the systolic blood pressure greater than or equal to 100. Continue IV fluids and IV antibiotic therapy with cefepime 2 g q.12 hours with additional vancomycin and Levaquin. Blood and urine cultures pending. The patient with recent urinary tract infection with Serratia species. 2. Urinary tract infection due to indwelling suprapubic catheter. We will continue antibiotic coverage as outlined previously. General suprapubic catheter care. 3. Atrial fibrillation with rapid ventricular response. We will continue rate control measures as clinically indicated. Currently, unable to provide further rate control due to hypotension in the context of sepsis. Resume home beta-aracely when clinically able. 4. Acute kidney injury on chronic kidney disease. We will continue IV fluid hydration and monitor clinical response. Avoid nephrotoxic agents and limit contrast exposure. Repeat creatinine in the a.m. 5. Coronavirus disease-19 viral infection. No respiratory compromise currently. Continue general supportive management. 6. Diabetes mellitus type 2, insulin requiring. Continue insulin sliding scale for reflexive coverage. Confirm outpatient insulin regimen. Serial Accu-Cheks q.6 hours. 7. Dementia. Advanced and likely Alzheimer type. Continue supportive management. 8. Prophylaxis. SCDs while in bed. Pepcid 20 mg IV b.i.d. CODE STATUS: Do not attempt resuscitation confirmed from medical power of tax attorney and information received from [facility]. Surrogate medical decision maker is patient's daughter. Job ID: [id number]
[2020-03-10 03:21] LABS: #Eosinphils 0.1 thou/uL (0.0-0.7); #Lymphocytes 0.7 thou/uL (1.20-3.40); #Monocytes 0.8 thou/uL (0.11-0.59); #Neutrophils 7.8 thou/uL (1.40-6.50); %Basophils 0.4 % (0.0-1.0); %Eosinophils 1.5 % (0.0-10.0); %Lymphocytes 7.6 % (21.0-51.0); %Monocytes 8.1 % (0.0-10.0); %Neutrophils 82.4 % (42.0-75.0); Mean Corpuscular HGB CONC 32.6 g/dL (32.0-36.0); Mean Corpuscular Volume 95.1 fL (78.0-98.0); Mean Platelet Volume 8.1 fL (7.4-10.4); Platelet Count 229 thou/uL (130-400); RBC Distribution Width 12.7 % (11.5-14.5); Red Blood Cell (RBC) Count 3.21 mill/uL (4.70-6.10); White Blood Cell (WBC) Count 9.4 thou/uL (4.8-10.8)
[2020-03-10] MEDS ORDERED: Cefepime 2 GM in Sodium Chloride 0.9% 100 ML IVPB SCH (03:30)
[2020-03-10 03:48] LABS: ALT (SGPT) 11 U/L (8-55); AST (SGOT) 12 U/L (5-34); Albumin 2.9 g/dL (3.4-4.8); Alkaline Phosphatase 80 U/L (40-110); Anion Gap 14 mmol/L (10-20); BUN (Urea Nitrogen) 12 mg/dL (8.4-25.7); Bilirubin, Total 0.5 mg/dL (0.2-1.2); Calc. Creatinine Clearance 50 mL/min (70-130); Carbon Dioxide 21 mmol/L (23-31); Chloride 106 mmol/L (98-107); Globulin 2.8 g/dL (2.4-3.5); Glucose 104 mg/dL (83-110); Potassium 4.1 mmol/L (3.5-5.1); Protein, Total 5.7 g/dL (5.8-8.1); Sodium 137 mmol/L (136-145)
[2020-03-10] MEDS: Sodium Chloride 0.9% 1,000 ML IV SCH ×3 (04:56→17:26)
[2020-03-10] MEDS: Vancomycin HCl 1.25 GM in Sodium Chloride 0.9% 250 ML 250 ML IVPB SCH (06:20)
[2020-03-10] MEDS ORDERED: Vancomycin HCl 1 GM in Sodium Chloride 0.9% 250 ML 300 ML IVPB SCH (09:00)
[2020-03-10] MEDS ORDERED: Diltiazem 125 MG in Sodium Chloride 0.9% 100 ML IVPB SCH ×2 (10:45→16:48)
[2020-03-10] MEDS: Famotidine/PF 20 mg/2ml Vial SLOW IVP SCH (11:16)
[2020-03-10] MEDS: Cefepime 2 GM in Sodium Chloride 0.9% 100 ML IVPB SCH ×2 (11:17→19:22)
[2020-03-10] MEDS: Lactinex Tablet PO SCH (11:19)
[2020-03-10] MEDS: Ondansetron PF 4 MG/2 ML Vial IVP PRN (13:53)
--- NOTE | 2020-03-10 16:59 | PDOC.BPN ---
- Brief Progress Note Patient was seen examined at bedside. This is a 74 years old gentleman, came from SNF who was admitted for sepsis with septic shock earlier this morning. Patient was started on Levophed drip after adequate volume resuscitation. Blood pressure improved, he has been weaned off of Levophed. He went into atrial fib with RVR. He was started on Cardizem drip for rate control. He is on Xarelto for stroke prophylaxis. We will continue with broad- spectrum IV antibiotics. Follow cultures.
[2020-03-10] MEDS ORDERED: Digoxin 0.5 MG/2 ML AMP SLOW IVP SCH (17:00)
[2020-03-10] MEDS ORDERED: Sodium Chloride 0.9% 500 ML IV SCH (17:00)
[2020-03-10] MEDS: Acetaminophen 500 MG TAB PO PRN (17:23)
[2020-03-10] MEDS: Rivaroxaban 15 MG TAB PO SCH (18:07)
[2020-03-11] MEDS: Acetaminophen 500 MG TAB PO PRN (02:15)
[2020-03-11] MEDS: Sodium Chloride 0.9% 1,000 ML IV SCH ×3 (02:35→18:51)
[2020-03-11] MEDS ORDERED: Albuterol Sulfate 2.5 mg/3 ml Neb NEB PRN (03:19)
[2020-03-11 04:15] LABS: #Eosinphils 0.1 thou/uL (0.0-0.7); #Lymphocytes 0.9 thou/uL (1.20-3.40); #Monocytes 0.6 thou/uL (0.11-0.59); #Neutrophils 10.3 thou/uL (1.40-6.50); %Basophils 0.3 % (0.0-1.0); %Eosinophils 1.2 % (0.0-10.0); %Lymphocytes 7.6 % (21.0-51.0); %Monocytes 5.2 % (0.0-10.0); %Neutrophils 85.7 % (42.0-75.0); Hemoglobin 9.5 g/dL (14.0-18.0); Mean Corpuscular HGB CONC 32.1 g/dL (32.0-36.0); Mean Corpuscular Hemoglobin 30.4 pg (27.0-31.0); Mean Corpuscular Volume 94.7 fL (78.0-98.0); Mean Platelet Volume 8.8 fL (7.4-10.4); Platelet Count 187 thou/uL (130-400); RBC Distribution Width 12.7 % (11.5-14.5); Red Blood Cell (RBC) Count 3.13 mill/uL (4.70-6.10)
[2020-03-11 04:52] LABS: ALT (SGPT) 11 U/L (8-55); AST (SGOT) 9 U/L (5-34); Albumin 2.7 g/dL (3.4-4.8); Alkaline Phosphatase 79 U/L (40-110); Anion Gap 19 mmol/L (10-20); BUN (Urea Nitrogen) 18 mg/dL (8.4-25.7); Bilirubin, Total 0.7 mg/dL (0.2-1.2); CRP (Inflammatory) 10.57 mg/dL (= or < 0.5); Calc. Creatinine Clearance 46 mL/min (70-130); Calcium 7.5 mg/dL (7.8-10.44); Carbon Dioxide 17 mmol/L (23-31); Chloride 104 mmol/L (98-107); Globulin 2.7 g/dL (2.4-3.5); Glucose 286 mg/dL (83-110); Lactic Acid 1.6 mmol/L (0.5-2.2); Magnesium 1.5 mg/dL (1.6-2.6); Potassium 4.5 mmol/L (3.5-5.1); Protein, Total 5.4 g/dL (5.8-8.1); Sodium 135 mmol/L (136-145)
[2020-03-11] MEDS: HumaLOG 300 UNITS/3 ML VIAL SC PRN ×3 (05:19→17:35)
[2020-03-11] MEDS: Vancomycin HCl 1.25 GM in Sodium Chloride 0.9% 250 ML 250 ML IVPB SCH (05:22)
[2020-03-11] MEDS ORDERED: Magnesium Sulfate 4 GM in Sodium Chloride 0.9% 250 ML 250 ML IVPB SCH (05:45)
[2020-03-11] MEDS: Lactinex Tablet PO SCH (08:29)
[2020-03-11] MEDS: Cefepime 2 GM in Sodium Chloride 0.9% 100 ML IVPB SCH ×2 (08:29→20:39)
[2020-03-11] MEDS: Digoxin 0.125 MG TAB PO SCH (08:29)
[2020-03-11] MEDS: Famotidine/PF 20 mg/2ml Vial SLOW IVP SCH (08:30)
[2020-03-11 09:24] LABS: Actual Bicarbonate (HCO3a) 20.7 mEq/L (22-28); Base Excess (BEa) -3.5 mEq/L (-2.0 to +3.0); CO2 Tension 34.1 mmHg (35.0-45.0); Calcium, Ionized (arterial) 1.09 mmol/L (1.12-1.30); Carboxyhemoglobin (COHb) 0.1 gm% (0.0-3.0); Hemoglobin (Hb) 10.6 g/dL (14.0-18.0); Potassium - ABG Lab 3.94 mmol/L (3.70-5.30)
--- NOTE | 2020-03-11 09:29 | CON ---
DATE OF CONSULTATION: 03/11/2020 REASON FOR CONSULTATION: Patient is on Levophed drip. HISTORY OF PRESENT ILLNESS: Patient is a 74-year-old male, who was admitted to the hospital on 03/10 with fever and vomiting. He had been hospitalized between 03/01 and 03/06 with a urinary tract infection. He also has a history of COVID-19 positivity. Last night, it was plan for him transfer from the ICU to the floor, but he developed atrial fibrillation with a rapid ventricular response, was placed on Cardizem, Cardizem made his blood pressure drop and now he is on Levophed. PAST MEDICAL HISTORY: 1. Recent hospitalization for urinary tract infection. 2. Endocarditis. 3. Dementia. 4. Neuropathy. 5. Diskitis. 6. C difficile colitis. 7. Cardiomyopathy. 8. Alcohol abuse. 9. Diabetes mellitus. 10. Coronary artery disease. PAST SURGICAL HISTORY: 1. Coronary artery bypass grafting surgery. 2. Suprapubic catheter placement. 3. Cyst removal from his back. ALLERGIES: NONE. SOCIAL HISTORY: Does not smoke. Does not drink. Does not use illicit drugs. He is a resident of [facility]. MEDICATIONS: These were reviewed. See summary section on chart. REVIEW OF SYSTEMS: Unobtainable secondary to patient's dementia. PHYSICAL EXAMINATION: VITAL SIGNS: Temperature 99.1, pulse 90, respirations 15, O2 saturation 96%, blood pressure 100/52. He is currently on diltiazem drip at 5 mg/hour and norepinephrine drip 5 mcg/minute. HEENT: Unremarkable. NECK: No adenopathy or JVD. CHEST: Clear to auscultation. CARDIOVASCULAR: S1 and S2. Irregularly irregular and slightly tachycardic. He has a 2/6 systolic murmur. ABDOMEN: Soft and nontender. EXTREMITIES: No clubbing, cyanosis, or edema. LABORATORY DATA: White blood cell count 12, hematocrit 29.7, and platelet count 187. Sodium 135, potassium 4.5, chloride 104, CO2 of 17, BUN 18, creatinine 1.5, glucose 286. C-reactive protein is 10. BNP 791. Chest x-ray shows bilateral pulmonary edema, right greater than left. ASSESSMENT: 1. Pulmonary edema versus pneumonia. 2. Recent coronavirus disease infection. 3. Atrial fibrillation with rapid ventricular response. 4. Hypotension, probably aggravated by use of Cardizem drip. RECOMMENDATIONS: I would recommend Cardiology consultation and consideration of using digoxin or amiodarone to control patient's heart rate rather than using the diltiazem, which is probably causing his hypotension and leading you to have to compensate with the norepinephrine. I agree with the antibiotics. Job ID: [id number]
[2020-03-11] MEDS ORDERED: Furosemide 40 MG TAB PO SCH ×2 (09:30→14:00)
[2020-03-11] MEDS ORDERED: Furosemide 40 MG/4 ML VIAL SLOW IVP SCH (09:45)
[2020-03-11 10:24] LABS: Puncture Site RRA
--- NOTE | 2020-03-11 11:08 | RAD ---
PORTABLE CHEST: INDICATION: Pneumonia followup. CCU followup. COMPARISON: 03/09/2020. FINDINGS/IMPRESSION: Bilateral diffuse hazy infiltrates with some confluent infiltrate in the right perihilar region. Brian ateral effusions. The right perihilar infiltrates appear to have progressed when compared to 03/09/2020. POS: AGW
[2020-03-11] MEDS ORDERED: Digoxin 0.5 MG/2 ML AMP SLOW IVP SCH ×2 (12:30→14:30)
[2020-03-11] MEDS: Norepinephrine 8 MG/0.9% NS 250 ML IVPB SCH (16:01)
[2020-03-11] MEDS: Amiodarone 450 MG, Admixture Fee 1 EACH in Dextrose 5% in Water 250 ML IVPB SCH (16:12)
--- NOTE | 2020-03-11 17:41 | PDOC.HOSPP ---
- Subjective Subjective: Patient was seen examined at bedside. Overnight events noted. Yesterday, patient went into atrial fib with RVR, he was started on Cardizem drip, however it dropped his blood pressure. He required Levophed. He appeared a little more drowsy today. ABG was done, no evidence of CO2 retention. Apparently, patient had silent aspiration, from previous admission. Discussed with speech therapist. He went to continue with diet, and understand the risk. I also reached out to his daughter, Adela, this is not new issue. She is aware, and respect his decision. - Objective Vital Signs & Weight: Vital Signs (12 hours) Temp Pulse Pulse Ox 03/11/20 15:52 107 H 03/11/20 13:07 107 H 03/11/20 08:29 102 H 03/11/20 08:21 98 03/11/20 08:00 97.8 F 100 Weight Weight 173 lb 11.588 oz Most Recent Monitor Data Heart Rate from ECG 112 NIBP 109/68 NIBP BP-Mean 81 Respiration from ECG 22 SpO2 93 I&O: 03/10/20 03/11/20 03/12/20 06:59 06:59 06:59 Intake Total 3372 Output Total 1420 1760 Balance 1952 -1760 Result Diagrams: 03/11/20 04:01 03/11/20 04:01 Additional Labs: Accuchecks 03/11/20 03/11/20 03/11/20 17:20 12:56 05:15 POC Glucose 350 H 308 H 257 H 03/10/20 17:31 POC Glucose 141 H Radiology Reviewed by me: Yes EKG Reviewed by me: Yes Hospitalist ROS - Medication Medications: Active Medications Generic Name Dose Route Start Last Admin Trade Name Freq PRN Reason Stop Dose Admin Acetaminophen 1,000 mg 03/10/20 02:28 03/11/20 02:15 Acetaminophen 500 Mg Tab PO 1,000 mg Q6H PRN Administration Mild Pain (1-3) Acidophilus 1 tab 03/10/20 09:00 03/11/20 08:29 Lactinex Tablet PO 1 tab DAILY KIM Administration Digoxin 0.125 mg 03/11/20 09:00 03/11/20 08:29 Digoxin 0.125 Mg Tab PO 0.125 mg DAILY KIM Administration Famotidine 20 mg 03/10/20 09:00 03/11/20 08:30 Famotidine/Pf 20 Mg/2ml Vial SLOW IVP 20 mg DAILY KIM Administration Norepinephrine Bitartrate 250 mls @ 0 mls/hr 03/10/20 02:28 03/11/20 16:01 Levophed IVPB 250 mls INF KIM Administration Protocol Titrate Cefepime HCl 2 gm/ Sodium 100 mls @ 200 mls/hr 03/10/20 09:00 03/11/20 08:29 Chloride IVPB 100 mls Q12HR KIM Administration Vancomycin HCl 1.25 gm/ Sodium 250 mls @ 166.667 mls/hr 03/10/20 06:00 03/11/20 05:22 Chloride IVPB 250 mls 0600 KIM Administration Sodium Chloride 1,000 mls @ 75 mls/hr 03/11/20 03:19 03/11/20 03:31 Normal Saline 0.9% IV Not Given .[id number] KIM Amiodarone HCl 450 mg/ 259 mls @ 0 mls/hr 03/11/20 15:15 03/11/20 16:12 Miscellaneous Medication 1 IVPB 259 mls each/ Dextrose/Water INF KIM Administration Protocol As Directed Insulin Human Lispro 0 units 03/11/20 16:45 03/11/20 17:35 Humalog 300 Units/3 Ml Vial SC 8 unit .MODERATE SLIDING SC PRN Administration MODERATE SLIDING SCALE Protocol Ondansetron HCl 4 mg 03/10/20 02:28 03/11/20 17:37 Ondansetron Odt 4 Mg Tab PO 4 mg Q6H PRN Administration Nausea/Vomiting Ondansetron HCl 4 mg 03/10/20 02:28 03/10/20 13:53 Ondansetron Pf 4 Mg/2 Ml Vial IVP 4 mg Q6H PRN Administration Nausea/Vomiting Rivaroxaban 15 mg 03/10/20 17:00 03/10/20 18:07 Rivaroxaban 15 Mg Tab PO 15 mg 1700 KIM Administration Sodium Chloride 10 ml 03/10/20 21:00 03/11/20 08:29 Flush - Normal Saline 10 Ml Syringe IVF 10 ml Q12HR KIM Administration - Exam General Appearance: NAD, awake alert, ill appearing Eye: PERRL ENT: normocephalic atraumatic Neck: supple, no carotid bruit Heart: irregular Respiratory: rhonchi Gastrointestinal: soft, non-tender Extremities: no cyanosis Skin: normal turgor Neurological: cranial nerve grossly intact Musculoskeletal: normal tone Psychiatric: normal affect, normal behavior, oriented to person, oriented to place Hosp A/P - Plan The patient is unfortunate 74 years old gentleman who has significant past medical history of CKD stage III, dementia, chronic atrial fib on Xarelto, diabetes type 2, CAD, diastolic heart failure, skilled nursing resident at [facility], who was sent to the ED for questionable coffee-ground emesis x2. Patient was found hypotensive on arrival. He was admitted for sepsis with septic shock. Sepsis with septic shock - secondary to aspiration PNA/UTI --Patient was adequately volume resuscitated, but remained hypotensive requiring vasopressor support --Continue broad-spectrum IV antibiotic, follow culture --Add stress dose steroid Aspiration PNA - pt has hx of silent aspiration but chose to continue oral intake with understanding of associated risks. --cont broad-spectrum IV abx. Nebs treatments. Follow cultures UTI --cont IV abx as above. Follow UCx Atrial fib with RVR - rate improved --didn't tolerate Cardizem gtt --cont dig, Amio gtt. Xarelto --Cardiology consult Acute on Chronic diastolic HF --cont IV Lasix as if his BP marianna --monitor vol status closely CKD stage 3 --Cr stable, avoid nephrotoxic agents DM2 - BG elevated --add basal insulin, ISS-mod HTN --hold home meds d/t hypotension DVT ppx: Pt is on Xarelto GI ppx: Pepcid Code Status: DNR Anticipated Dispo: [place] resident at [facility] I have updated patient's daughter, Adela.
[2020-03-11] MEDS: Rivaroxaban 15 MG TAB PO SCH (17:47)
[2020-03-11] MEDS: Tamsulosin HCl 0.4 MG CAP PO SCH (20:43)
[2020-03-11] MEDS: Atorvastatin Calcium 20 MG TAB PO SCH (20:43)
[2020-03-11] MEDS: Hydrocortisone Sod Succ/PF 100 mg/2 ml Vial IVP SCH (20:43)
[2020-03-11] MEDS: Furosemide 40 MG/4 ML VIAL SLOW IVP SCH (20:44)
[2020-03-11] MEDS ORDERED: Insulin Glargine 25 UNITS in Pre-Filled Syringe 1 EACH SC SCH (21:00)
[2020-03-11] MEDS ORDERED: Levofloxacin 750 mg/D5W 500 MG in Premix Bag 1 BAG IVPB SCH (21:00)
[2020-03-12] MEDS: Amiodarone 450 MG, Admixture Fee 1 EACH in Dextrose 5% in Water 250 ML IVPB SCH ×2 (00:24→14:38)
[2020-03-12] MEDS: HumaLOG 300 UNITS/3 ML VIAL SC PRN ×4 (00:30→23:38)
--- NOTE | 2020-03-12 05:13 | CON ---
DATE OF CONSULTATION: Critical care note of 30 minutes time. HISTORY OF PRESENT ILLNESS: The patient is a 74-year-old gentleman with history of coronary artery disease, aortic stenosis, and atrial fibrillation, who presented with fever, chills, and hypotension. The patient has a history of coronary artery disease. He previously underwent coronary artery bypass graft surgery. The patient also has a history of dementia. He is unable to give a coherent history. He lives in a shelter. He apparently became hypotensive and was noted to have a rapid irregular heart rate, admitted for further evaluation. The patient denies having any palpitations or chest discomfort. PAST MEDICAL HISTORY: 1. Coronary artery bypass surgery. 2. History of endocarditis. 3. Dementia. 4. Diabetes mellitus. 5. Hypertension. PAST SURGICAL HISTORY: Coronary artery bypass surgery. MEDICATION: See nursing list. ALLERGIES: NONE. PHYSICAL EXAMINATION: GENERAL: Confused gentleman. VITAL SIGNS: Blood pressure 114/61, heart rate is 103. NECK: Showed no jugular venous distention. LUNGS: Coarse breath sounds bilateral. HEART: Irregular rate and rhythm. Normal S1 and S2 with a 3/6 systolic murmur. ABDOMEN: Distended. EXTREMITIES: Show trace edema. LABORATORY RESULTS: Sodium 135, potassium 4.5, chloride 104, bicarbonate 17, BUN 18, creatinine 1.5, glucose is 286. White blood count 12.0, hemoglobin 9.5, hematocrit 29.7, platelets are 187. EKG atrial fibrillation with a rapid ventricular response. IMPRESSION: 1. Atrial fibrillation. 2. Sepsis. 3. Hypotension. 4. Aortic stenosis. 5. History of coronary artery bypass surgery. 6. Dementia. This gentleman presents with hypotension and rapid atrial fibrillation. he was initially treated with Cardizem. From a cardiac standpoint, we will add digoxin to try to control his heart rate. The patient is on Xarelto. We will follow this patient with you through his hospitalization. Job ID: [id number] [facility]
[2020-03-12 05:21] LABS: #Lymphocytes 0.7 thou/uL (1.20-3.40); #Monocytes 0.5 thou/uL (0.11-0.59); #Neutrophils 8.9 thou/uL (1.40-6.50); %Eosinophils 0.1 % (0.0-10.0); %Monocytes 4.4 % (0.0-10.0); %Neutrophils 88.4 % (42.0-75.0); Hemoglobin 9.1 g/dL (14.0-18.0); Mean Corpuscular HGB CONC 33.1 g/dL (32.0-36.0); Mean Corpuscular Hemoglobin 31.6 pg (27.0-31.0); Mean Corpuscular Volume 95.3 fL (78.0-98.0); Mean Platelet Volume 8.7 fL (7.4-10.4); Platelet Count 162 thou/uL (130-400); RBC Distribution Width 12.5 % (11.5-14.5); Red Blood Cell (RBC) Count 2.88 mill/uL (4.70-6.10); White Blood Cell (WBC) Count 10.1 thou/uL (4.8-10.8)
[2020-03-12 05:25] LABS: ALT (SGPT) 10 U/L (8-55); AST (SGOT) 8 U/L (5-34); Albumin 2.6 g/dL (3.4-4.8); Alkaline Phosphatase 73 U/L (40-110); Anion Gap 12 mmol/L (10-20); BUN (Urea Nitrogen) 25 mg/dL (8.4-25.7); Bilirubin, Total 0.6 mg/dL (0.2-1.2); CRP (Inflammatory) 25.21 mg/dL (= or < 0.5); Calc. Creatinine Clearance 46 mL/min (70-130); Calcium 7.6 mg/dL (7.8-10.44); Carbon Dioxide 25 mmol/L (23-31); Chloride 103 mmol/L (98-107); Globulin 2.8 g/dL (2.4-3.5); Glucose 110 mg/dL (83-110); Potassium 3.3 mmol/L (3.5-5.1); Protein, Total 5.4 g/dL (5.8-8.1); Sodium 137 mmol/L (136-145)
[2020-03-12 05:26] LABS: Vancomycin, Trough 13.3 ug/mL
[2020-03-12] MEDS: Vancomycin 1.5 GRAM/300 ML BAG 1.5 GM in Premix Bag 1 BAG IVPB SCH (06:01)
[2020-03-12] MEDS ORDERED: Potassium Chloride 40 MEQ in Premix Bag 1 BAG IVPB SCH (08:15)
[2020-03-12] MEDS: Hydrocortisone Sod Succ/PF 100 mg/2 ml Vial IVP SCH ×3 (08:29→21:39)
[2020-03-12] MEDS: Furosemide 40 MG/4 ML VIAL SLOW IVP SCH ×2 (08:29→21:39)
[2020-03-12] MEDS: Famotidine/PF 20 mg/2ml Vial SLOW IVP SCH (08:29)
[2020-03-12] MEDS: FLUoxetine HCl 20 MG CAP PO SCH (08:40)
[2020-03-12] MEDS: Lactinex Tablet PO SCH (08:40)
[2020-03-12] MEDS: Aspirin Chewable 81 MG TAB PO SCH (08:40)
--- NOTE | 2020-03-12 09:37 | RAD ---
Chest AP view INDICATION: Follow-up pneumonia COMPARISON: Prior exam dated March 11, 2020 FINDINGS: Lungs: There is bilateral airspace disease consistent with pneumonia, stable to the prior exam Cardiac silhouette: Post-CABG change of mild cardiomegaly is stable Pulmonary vasculature: Normal Pleural spaces: No pleural effusion or pneumothorax is demonstrated. Upper abdomen: No abnormality seen. Osseous structures: No acute osseous abnormality. Additional findings: None. IMPRESSION: Stable bilateral pneumonia
[2020-03-12] MEDS: Digoxin 0.125 MG TAB PO SCH (09:43)
[2020-03-12] MEDS: Potassium Chloride 20 MEQ TAB PO SCH (09:43)
[2020-03-12] MEDS ORDERED: Digoxin 0.5 MG/2 ML AMP SLOW IVP SCH (13:15)
--- NOTE | 2020-03-12 14:08 | PRG ---
DATE OF SERVICE: 03/12/2020 OBJECTIVE: VITAL SIGNS: Blood pressure is 109/70, heart rate 111 and paced, on a low dose of Levophed, amiodarone, and digoxin for atrial fibrillation. GENERAL: He is resting comfortably. LUNGS: Clear anteriorly. HEART: Regular rhythm. ABDOMEN: Soft. EXTREMITIES: Without asymmetry. IMPRESSION: 1. Atrial fibrillation with rapid ventricular response. 2. Diastolic dysfunction. 3. Chest radiograph suggestive of pulmonary edema, this can be followed. 4. Swallowing dysfunction and risk for aspiration pneumonia. 5. History of aortic stenosis. Continue supportive care. Job ID: [id number]
[2020-03-12] MEDS: Acetaminophen 500 MG TAB PO PRN (15:52)
[2020-03-12] MEDS: Sodium Chloride 0.9% 1,000 ML IV SCH ×2 (15:52→20:35)
[2020-03-12] MEDS: Rivaroxaban 15 MG TAB PO SCH (15:53)
[2020-03-12] MEDS: Albumin 25% 25 GM/100 ML BOT IVPB SCH ×2 (17:18→23:33)
--- NOTE | 2020-03-12 18:15 | PDOC.HOSPP ---
- Subjective Subjective: pt was placed on simplemask for comfort. rate still uncontrolled, current on amio gtt. still remains hypotensive, unable to wean off vasopressor - Objective Vital Signs & Weight: Vital Signs (12 hours) Temp Pulse Resp Pulse Ox 03/12/20 17:00 98.2 F 03/12/20 14:26 108 H 18 95 03/12/20 13:51 115 H 03/12/20 13:00 98.9 F 03/12/20 11:22 106 H 20 97 03/12/20 09:43 102 H 03/12/20 08:16 94 L 03/12/20 08:00 97.5 F L 94 L Weight Admit Weight 173 lb Weight 173 lb 11.588 oz Most Recent Monitor Data Heart Rate from ECG 105 NIBP 96/58 NIBP BP-Mean 70 Respiration from ECG 24 SpO2 96 I&O: 03/11/20 03/12/20 03/13/20 06:59 06:59 06:59 Intake Total 3372 2705.3 1558.4 Output Total 1420 4505 1460 Balance 1952 -1799.7 98.4 Result Diagrams: 03/12/20 04:50 03/12/20 04:50 Additional Labs: Accuchecks 03/12/20 03/12/20 03/12/20 17:24 12:04 09:50 POC Glucose 306 H 224 H 72 03/12/20 03/12/20 03/12/20 06:51 06:06 00:19 POC Glucose 78 84 299 H 03/11/20 03/10/20 03/10/20 20:54 23:03 06:26 POC Glucose 351 H 182 H 110 H Radiology Reviewed by me: Yes EKG Reviewed by me: Yes Hospitalist ROS - Medication Medications: Active Medications Generic Name Dose Route Start Last Admin Trade Name Freq PRN Reason Stop Dose Admin Acetaminophen 1,000 mg 03/10/20 02:28 03/12/20 15:52 Acetaminophen 500 Mg Tab PO 1,000 mg Q6H PRN Administration Mild Pain (1-3) Acidophilus 1 tab 03/10/20 09:00 03/12/20 08:40 Lactinex Tablet PO 1 tab DAILY KIM Administration Albumin Human 25 gm 03/12/20 18:00 03/12/20 17:18 Albumin 25% 25 Gm/100 Ml Bot IVPB 03/13/20 18:01 25 gm Q6HR KIM Administration Albuterol/Ipratropium 3 ml 03/12/20 10:30 03/12/20 14:26 Ipratropium/Albuterol Sulfate 3 Ml Neb NEB 3 ml [id number] KIM Administration Aspirin 81 mg 03/12/20 09:00 03/12/20 08:40 Aspirin Chewable 81 Mg Tab PO 81 mg DAILY KIM Administration Atorvastatin Calcium 20 mg 03/11/20 21:00 03/11/20 20:43 Atorvastatin Calcium 20 Mg Tab PO 20 mg HS KIM Administration Famotidine 20 mg 03/10/20 09:00 03/12/20 08:29 Famotidine/Pf 20 Mg/2ml Vial SLOW IVP 20 mg DAILY KIM Administration Fluoxetine HCl 40 mg 03/12/20 09:00 03/12/20 08:40 Fluoxetine Hcl 20 Mg Cap PO 40 mg DAILY KIM Administration Furosemide 40 mg 03/11/20 21:00 03/12/20 08:29 Furosemide 40 Mg/4 Ml Vial SLOW IVP 40 mg BID KIM Administration Hydrocortisone Sodium Succinate 50 mg 03/11/20 21:00 03/12/20 13:52 Hydrocortisone Sod Succ/Pf 100 Mg/2 Ml Vial IVP 50 mg TID KIM Administration Norepinephrine Bitartrate 250 mls @ 0 mls/hr 03/10/20 02:28 03/11/20 16:01 Levophed IVPB 250 mls INF KIM Administration Protocol Titrate Sodium Chloride 1,000 mls @ 75 mls/hr 03/11/20 03:19 03/12/20 15:52 Normal Saline 0.9% IV 1,000 mls .[id number] KIM Administration Amiodarone HCl 450 mg/ 259 mls @ 0 mls/hr 03/11/20 15:15 03/12/20 14:38 Miscellaneous Medication 1 IVPB 259 mls each/ Dextrose/Water INF KIM Administration Protocol As Directed Levofloxacin 500 mg/ Device 100 mls @ 100 mls/hr 03/11/20 21:00 03/11/20 21: 49 IVPB 100 mls Q2D KIM Administration Vancomycin HCl 1.5 gm/ Device 300 mls @ 200 mls/hr 03/12/20 06:00 03/12/20 06:01 IVPB 300 mls 0600 KIM Administration Insulin Human Lispro 0 units 03/10/20 02:28 03/12/20 00:30 Humalog 300 Units/3 Ml Vial SC 3 unit .BEDTIME SLIDING SC PRN Administration Bedtime Correctional Scale Insulin Human Lispro 0 units 03/11/20 16:45 03/12/20 17:25 Humalog 300 Units/3 Ml Vial SC 8 unit .MODERATE SLIDING SC PRN Administration MODERATE SLIDING SCALE Protocol Ondansetron HCl 4 mg 03/10/20 02:28 03/11/20 17:37 Ondansetron Odt 4 Mg Tab PO 4 mg Q6H PRN Administration Nausea/Vomiting Ondansetron HCl 4 mg 03/10/20 02:28 03/10/20 13:53 Ondansetron Pf 4 Mg/2 Ml Vial IVP 4 mg Q6H PRN Administration Nausea/Vomiting Potassium Chloride 20 meq 03/12/20 09:00 03/12/20 09:43 Potassium Chloride 20 Meq Tab PO 20 meq DAILY KIM Administration Rivaroxaban 15 mg 03/10/20 17:00 03/12/20 15:53 Rivaroxaban 15 Mg Tab PO 15 mg 1700 KIM Administration Sodium Chloride 10 ml 03/10/20 21:00 03/12/20 09:00 Flush - Normal Saline 10 Ml Syringe IVF 10 ml Q12HR KIM Administration Tamsulosin HCl 0.4 mg 03/11/20 21:00 03/11/20 20:43 Tamsulosin Hcl 0.4 Mg Cap PO 0.4 mg HS KIM Administration - Exam General Appearance: NAD Eye: PERRL ENT: normocephalic atraumatic Heart: RRR Respiratory: rhonchi Gastrointestinal: soft, non-tender Extremities: no cyanosis Neurological: cranial nerve grossly intact Musculoskeletal: normal tone Hosp A/P - Plan The patient is unfortunate 74 years old gentleman who has significant past medical history of CKD stage III, dementia, chronic atrial fib on Xarelto, diabetes type 2, CAD, diastolic heart failure, residential resident at [facility], who was sent to the ED for questionable coffee-ground emesis x2. Patient was found hypotensive on arrival. He was admitted for sepsis with septic shock. Sepsis with septic shock - secondary to aspiration PNA/UTI --Patient was adequately volume resuscitated, but remained hypotensive requiring vasopressor support. --Wean off Levophed as marianna --Continue broad-spectrum IV antibiotic, follow cultures - so far no growth --cont stress dose steroid Aspiration PNA - pt has hx of silent aspiration but chose to continue oral intake with understanding of associated risks. --cont broad-spectrum IV abx. Nebs treatments. Follow cultures Atrial fib with RVR - rate improved --didn't tolerate Cardizem gtt --cont dig, Amio gtt. Xarelto --Cardiology consult appreciated Acute on Chronic diastolic HF/Pul Edema --cont IV Lasix as if his BP marianna --monitor vol status closely CKD stage 3 --Cr stable, avoid nephrotoxic agents DM2 - BG elevated --decr basal insulin as he has episode of hypoglycemic, ISS-mod HTN --hold home meds d/t hypotension UTI --cont IV abx as above. Follow UCx DVT ppx: Pt is on Xarelto GI ppx: Pepcid Code Status: DNR Anticipated Dispo: NH resident at [facility] I have updated patient's daughter, Adela.
[2020-03-12] MEDS: Cefepime 2 GM in Sodium Chloride 0.9% 100 ML IVPB SCH (21:39)
[2020-03-12] MEDS: Atorvastatin Calcium 20 MG TAB PO SCH (21:39)
[2020-03-12] MEDS: Tamsulosin HCl 0.4 MG CAP PO SCH (21:39)
[2020-03-12] MEDS: Insulin Glargine 10 UNITS in Pre-Filled Syringe 1 EACH SC SCH (21:40)
[2020-03-12] MEDS: Norepinephrine 8 MG/0.9% NS 250 ML IVPB SCH (22:55)
[2020-03-13] MEDS: HumaLOG 300 UNITS/3 ML VIAL SC PRN ×4 (04:13→17:52)
[2020-03-13 04:33] LABS: #Lymphocytes 0.6 thou/uL (1.20-3.40); #Monocytes 0.7 thou/uL (0.11-0.59); #Neutrophils 10.2 thou/uL (1.40-6.50); %Basophils 0.1 % (0.0-1.0); %Lymphocytes 5.2 % (21.0-51.0); %Monocytes 6.4 % (0.0-10.0); %Neutrophils 88.2 % (42.0-75.0); Hemoglobin 8.9 g/dL (14.0-18.0); Mean Corpuscular HGB CONC 31.5 g/dL (32.0-36.0); Mean Corpuscular Hemoglobin 30.2 pg (27.0-31.0); Mean Platelet Volume 9.5 fL (7.4-10.4); Platelet Count 184 thou/uL (130-400); RBC Distribution Width 12.8 % (11.5-14.5); Red Blood Cell (RBC) Count 2.95 mill/uL (4.70-6.10); White Blood Cell (WBC) Count 11.6 thou/uL (4.8-10.8)
[2020-03-13 04:49] LABS: Actual Bicarbonate (HCO3a) 18.8 mEq/L (22-28); Base Excess (BEa) -4.8 mEq/L (-2.0 to +3.0); CO2 Tension 29.5 mmHg (35.0-45.0); Calcium, Ionized (arterial) 1.11 mmol/L (1.12-1.30); Carboxyhemoglobin (COHb) 0.2 gm% (0.0-3.0); Hemoglobin (Hb) 9.7 g/dL (14.0-18.0); Potassium - ABG Lab 3.44 mmol/L (3.70-5.30); pH, Arterial 7.42 (7.35-7.45)
[2020-03-13 04:55] LABS: Anion Gap 20 mmol/L (10-20); BUN (Urea Nitrogen) 32 mg/dL (8.4-25.7); CRP (Inflammatory) 18.13 mg/dL (= or < 0.5); Calc. Creatinine Clearance 35 mL/min (70-130); Calcium 8.1 mg/dL (7.8-10.44); Carbon Dioxide 19 mmol/L (23-31); Chloride 101 mmol/L (98-107); Potassium 3.5 mmol/L (3.5-5.1); Sodium 136 mmol/L (136-145)
[2020-03-13 04:57] LABS: O2 Tension (PaO2), arterial 47.1 mmHg (> 70.0)
[2020-03-13 04:58] LABS: ALV-art Gradient 272.525 mmHg (0-20); Puncture Site RRA
[2020-03-13 04:59] LABS: Glucose 560 mg/dL (83-110)
[2020-03-13] MEDS: Sodium Chloride 0.9% 1,000 ML IV SCH (05:51)
[2020-03-13] MEDS: Vancomycin 1.5 GRAM/300 ML BAG 1.5 GM in Premix Bag 1 BAG IVPB SCH (05:52)
[2020-03-13] MEDS: Amiodarone 450 MG, Admixture Fee 1 EACH in Dextrose 5% in Water 250 ML IVPB SCH ×2 (05:52→19:37)
[2020-03-13] MEDS: Albumin 25% 25 GM/100 ML BOT IVPB SCH ×3 (05:56→17:52)
[2020-03-13] MEDS: Famotidine/PF 20 mg/2ml Vial SLOW IVP SCH (08:33)
[2020-03-13] MEDS: Furosemide 40 MG/4 ML VIAL SLOW IVP SCH ×2 (08:33→19:48)
[2020-03-13] MEDS: Hydrocortisone Sod Succ/PF 100 mg/2 ml Vial IVP SCH ×3 (08:33→19:49)
[2020-03-13] MEDS: FLUoxetine HCl 20 MG CAP PO SCH (08:34)
[2020-03-13] MEDS: Lactinex Tablet PO SCH (08:34)
[2020-03-13] MEDS: Aspirin Chewable 81 MG TAB PO SCH (08:34)
[2020-03-13] MEDS: Potassium Chloride 20 MEQ TAB PO SCH (08:34)
[2020-03-13] MEDS ORDERED: Digoxin 0.5 MG/2 ML AMP SLOW IVP SCH ×2 (09:00→10:30)
[2020-03-13] MEDS: Ondansetron PF 4 MG/2 ML Vial IVP PRN (09:14)
--- NOTE | 2020-03-13 15:07 | PRG ---
DATE OF SERVICE: 03/13/2020 SUBJECTIVE: I talked to Mr. Zafar's daughter. Apparently, Mr. Zafar became more hypoxic overnight, was placed on BiPAP. He is reasonably comfortable at this time. OBJECTIVE: VITAL SIGNS: Blood pressure 102/48, heart rate 104, respiratory rate 22, and oximetry is 95. LUNGS: Remarkable for coarse equal breath sounds. HEART: Regular rhythm. ABDOMEN: Soft. EXTREMITIES: Without edema. LABORATORY DATA: White count 11.6, hemoglobin 8.9, and platelets 184. Sodium 136, potassium 3.5, chloride 101, bicarb 19, BUN 32, creatinine 2.0 up from 1.5 yesterday, and glucose was 560 this morning, has been 400 to 500 most of the day. IMPRESSION AND PLAN: Aspiration pneumonia. I do not feel he will survive this admission. I explained to his daughter that BiPAP is life support. She explained to me that they did not want that. I have asked her to allow me to keep him on BiPAP until tomorrow morning. She will come by and sit with him this evening after work. She has one sister, who is not available since she is incarcerated and another sister is way out in [facility]. She was unclear whether or not the sister would want to come. I suspected that he will slowly decline once we remove BiPAP as I have explained to her. He will be kept comfortable if that is the case. She was appreciated with a phone call. Job ID: [id number]
[2020-03-13] MEDS: Rivaroxaban 15 MG TAB PO SCH (16:03)
--- NOTE | 2020-03-13 18:46 | PDOC.HOSPP ---
- Subjective Subjective: pt required BiBAP overnight. He is comfortable, and answered some questions appropriately. Dr. Castro already discussed with the daughter, plan was made to transition to comfort cares in AM - Objective Vital Signs & Weight: Vital Signs (12 hours) Temp Pulse Resp Pulse Ox 03/13/20 13:46 97 23 H 92 L 03/13/20 12:00 98.3 F 03/13/20 11:07 92 03/13/20 10:53 92 20 90 L 03/13/20 08:34 102 H 03/13/20 08:12 93 03/13/20 08:11 91 23 H 94 L 03/13/20 08:00 98.6 F 93 L Weight Admit Weight 173 lb Weight 173 lb 11.588 oz Most Recent Monitor Data Heart Rate from ECG 102 NIBP 119/62 NIBP BP-Mean 81 Respiration from ECG 24 SpO2 90 I&O: 03/12/20 03/13/20 03/14/20 06:59 06:59 06:59 Intake Total 2705.3 3163.4 1679.1 Output Total 4505 2900 1420 Balance -1799.7 263.4 259.1 Result Diagrams: 03/13/20 03:40 03/13/20 03:40 Additional Labs: Accuchecks 03/13/20 03/13/20 03/13/20 17:45 11:09 05:10 POC Glucose 204 H 300 H Greater than 500 H 03/13/20 03/12/20 03:51 23:36 POC Glucose 462 H 477 H Hospitalist ROS - Medication Medications: Active Medications Generic Name Dose Route Start Last Admin Trade Name Freq PRN Reason Stop Dose Admin Acetaminophen 1,000 mg 03/10/20 02:28 03/12/20 15:52 Acetaminophen 500 Mg Tab PO 1,000 mg Q6H PRN Administration Mild Pain (1-3) Acidophilus 1 tab 03/10/20 09:00 03/13/20 08:34 Lactinex Tablet PO 1 tab DAILY KIM Administration Albuterol/Ipratropium 3 ml 03/12/20 10:30 03/13/20 13:46 Ipratropium/Albuterol Sulfate 3 Ml Neb NEB 3 ml [id number] KIM Administration Aspirin 81 mg 03/12/20 09:00 03/13/20 08:34 Aspirin Chewable 81 Mg Tab PO 81 mg DAILY KIM Administration Atorvastatin Calcium 20 mg 03/11/20 21:00 03/12/20 21:39 Atorvastatin Calcium 20 Mg Tab PO 20 mg HS KIM Administration Famotidine 20 mg 03/10/20 09:00 03/13/20 08:33 Famotidine/Pf 20 Mg/2ml Vial SLOW IVP 20 mg DAILY KIM Administration Fluoxetine HCl 40 mg 03/12/20 09:00 03/13/20 08:34 Fluoxetine Hcl 20 Mg Cap PO 40 mg DAILY KIM Administration Furosemide 40 mg 03/11/20 21:00 03/13/20 08:33 Furosemide 40 Mg/4 Ml Vial SLOW IVP 40 mg BID KIM Administration Hydrocortisone Sodium Succinate 50 mg 03/11/20 21:00 03/13/20 16:03 Hydrocortisone Sod Succ/Pf 100 Mg/2 Ml Vial IVP 50 mg TID KIM Administration Norepinephrine Bitartrate 250 mls @ 0 mls/hr 03/10/20 02:28 03/12/20 22:55 Levophed IVPB 250 mls INF KIM Administration Protocol Titrate Sodium Chloride 1,000 mls @ 75 mls/hr 03/11/20 03:19 03/13/20 05:51 Normal Saline 0.9% IV 1,000 mls .[id number] KIM Administration Amiodarone HCl 450 mg/ 259 mls @ 0 mls/hr 03/11/20 15:15 03/13/20 05:52 Miscellaneous Medication 1 IVPB 259 mls each/ Dextrose/Water INF KIM Administration Protocol As Directed Levofloxacin 500 mg/ Device 100 mls @ 100 mls/hr 03/11/20 21:00 03/11/20 21:49 IVPB 100 mls Q2D KIM Administration Vancomycin HCl 1.5 gm/ Device 300 mls @ 200 mls/hr 03/12/20 06:00 03/13/20 05:52 IVPB 300 mls 0600 KIM Administration Cefepime HCl 2 gm/ Sodium 100 mls @ 200 mls/hr 03/12/20 21:00 03/12/20 21:39 Chloride IVPB 100 mls 2100 KIM Administration Insulin Glargine 10 units/ 0.1 mls @ 0 mls/hr 03/12/20 21:00 03/12/20 21:40 Miscellaneous Medication SC 0.1 mls HS KIM Administration Insulin Human Lispro 0 units 03/10/20 02:28 03/13/20 04:13 Humalog 300 Units/3 Ml Vial SC 5 unit .BEDTIME SLIDING SC PRN Administration Bedtime Correctional Scale Insulin Human Lispro 0 units 03/11/20 16:45 03/13/20 17:52 Humalog 300 Units/3 Ml Vial SC 4 unit .MODERATE SLIDING SC PRN Administration MODERATE SLIDING SCALE Protocol Ondansetron HCl 4 mg 03/10/20 02:28 03/11/20 17:37 Ondansetron Odt 4 Mg Tab PO 4 mg Q6H PRN Administration Nausea/Vomiting Ondansetron HCl 4 mg 03/10/20 02:28 03/13/20 09:14 Ondansetron Pf 4 Mg/2 Ml Vial IVP 4 mg Q6H PRN Administration Nausea/Vomiting Potassium Chloride 20 meq 03/12/20 09:00 03/13/20 08:34 Potassium Chloride 20 Meq Tab PO 20 meq DAILY KIM Administration Rivaroxaban 15 mg 03/10/20 17:00 03/13/20 16:03 Rivaroxaban 15 Mg Tab PO 15 mg 1700 KIM Administration Sodium Chloride 10 ml 03/10/20 21:00 03/13/20 08:35 Flush - Normal Saline 10 Ml Syringe IVF 10 ml Q12HR KIM Administration Tamsulosin HCl 0.4 mg 03/11/20 21:00 03/12/20 21:39 Tamsulosin Hcl 0.4 Mg Cap PO 0.4 mg HS KIM Administration - Exam General Appearance: NAD Eye: PERRL ENT: normocephalic atraumatic Neck: supple Heart: RRR Respiratory: rhonchi Gastrointestinal: soft Extremities: no cyanosis Skin: normal turgor Neurological: cranial nerve grossly intact Musculoskeletal: normal tone Hosp A/P - Plan The patient is unfortunate 74 years old gentleman who has significant past medical history of CKD stage III, dementia, chronic atrial fib on Xarelto, diabetes type 2, CAD, diastolic heart failure, half-way resident at [facility], who was sent to the ED for questionable coffee-ground emesis x2. Patient was found hypotensive on arrival. He was admitted for sepsis with septic shock. acute hypoxic respiratory failure d/t asp pna/pul edema --pt requires BiBAP, family plans to transition to comfort cares in AM --cont supportive cares Sepsis with septic shock - secondary to aspiration PNA/UTI --Patient was adequately volume resuscitated, but remained hypotensive requiring vasopressor support. --Wean off Levophed as marianna --Continue broad-spectrum IV antibiotic, follow cultures - so far no growth --cont stress dose steroid Aspiration PNA - pt has hx of silent aspiration but chose to continue oral intake with understanding of associated risks. --cont broad-spectrum IV abx. Nebs treatments. Follow cultures Atrial fib with RVR - rate improved --didn't tolerate Cardizem gtt --cont dig, Amio gtt. Xarelto --Cardiology consult appreciated Acute on Chronic diastolic HF/Pul Edema --cont IV Lasix as if his BP marianna --monitor vol status closely CKD stage 3 --Cr stable, avoid nephrotoxic agents DM2 - BG elevated --decr basal insulin as he has episode of hypoglycemic, ISS-mod HTN --hold home meds d/t hypotension UTI --cont IV abx as above. Follow UCx DVT ppx: Pt is on Xarelto GI ppx: Pepcid Code Status: DNR Anticipated Dispo: NH resident at [facility] I have updated patient's daughter, Adela.
[2020-03-13] MEDS: Cefepime 2 GM in Sodium Chloride 0.9% 100 ML IVPB SCH (19:48)
[2020-03-13] MEDS: Atorvastatin Calcium 20 MG TAB PO SCH (19:48)
[2020-03-13] MEDS: Tamsulosin HCl 0.4 MG CAP PO SCH (19:51)
[2020-03-13] MEDS: Insulin Glargine 10 UNITS in Pre-Filled Syringe 1 EACH SC SCH (20:07)
[2020-03-13] MEDS: Morphine 10 MG/ML VIAL SLOW IVP PRN (21:47)
[2020-03-14] MEDS: Norepinephrine 8 MG/0.9% NS 250 ML IVPB SCH (03:11)
[2020-03-14] MEDS: HumaLOG 300 UNITS/3 ML VIAL SC PRN (03:12)
[2020-03-14 04:30] LABS: #Lymphocytes 0.7 thou/uL (1.20-3.40); #Monocytes 0.8 thou/uL (0.11-0.59); %Lymphocytes 5.3 % (21.0-51.0); %Monocytes 6.1 % (0.0-10.0); %Neutrophils 88.5 % (42.0-75.0); Hemoglobin 8.9 g/dL (14.0-18.0); Mean Corpuscular HGB CONC 31.5 g/dL (32.0-36.0); Mean Corpuscular Hemoglobin 30.1 pg (27.0-31.0); Mean Corpuscular Volume 95.5 fL (78.0-98.0); Mean Platelet Volume 9.7 fL (7.4-10.4); Platelet Count 202 thou/uL (130-400); RBC Distribution Width 12.9 % (11.5-14.5); Red Blood Cell (RBC) Count 2.96 mill/uL (4.70-6.10); White Blood Cell (WBC) Count 12.4 thou/uL (4.8-10.8)
[2020-03-14 05:05] LABS: Anion Gap 19 mmol/L (10-20); BUN (Urea Nitrogen) 31 mg/dL (8.4-25.7); Calc. Creatinine Clearance 38 mL/min (70-130); Calcium 8.2 mg/dL (7.8-10.44); Carbon Dioxide 19 mmol/L (23-31); Chloride 104 mmol/L (98-107); Glucose 348 mg/dL (83-110); Potassium 3.4 mmol/L (3.5-5.1); Sodium 139 mmol/L (136-145)
[2020-03-14 05:18] LABS: Vancomycin, Trough 21.8 ug/mL
[2020-03-14 05:38] VITALS: TEMP 98.2
[2020-03-14] MEDS: Vancomycin 1.5 GRAM/300 ML BAG 1.5 GM in Premix Bag 1 BAG IVPB SCH (05:39)
[2020-03-14] MEDS: Sodium Chloride 0.9% 1,000 ML IV SCH (05:39)
--- NOTE | 2020-03-14 08:26 | PDOC.FMACP ---
Advance Care Planning - Note Summary: Advanced Care Planning was discussed. The diagnosis, prognosis and goals of care were discussed. Appropriate forms and documentation to accomplish the goals of care were discussed. All questions were answered. The Palliative Care Team will be engaged to assist with completion of any outstanding forms that are needed.
[2020-03-14] MEDS: Hydrocortisone Sod Succ/PF 100 mg/2 ml Vial IVP SCH (08:50)
[2020-03-14] MEDS: Famotidine/PF 20 mg/2ml Vial SLOW IVP SCH (08:50)
[2020-03-14] MEDS: Furosemide 40 MG/4 ML VIAL SLOW IVP SCH (08:51)
[2020-03-14] MEDS ORDERED: Digoxin 0.5 MG/2 ML AMP SLOW IVP SCH (09:00)
[2020-03-14] MEDS: Morphine 10 MG/ML VIAL SLOW IVP PRN (09:08)
[2020-03-14] MEDS: Potassium Chloride 20 MEQ TAB PO SCH (09:10)
[2020-03-14] MEDS: Aspirin Chewable 81 MG TAB PO SCH (09:10)
[2020-03-14] MEDS: FLUoxetine HCl 20 MG CAP PO SCH (09:10)
--- NOTE | 2020-03-14 12:20 | PDOC.DS.DS ---
Provider - Provider Date of Admission: 03/09/20 23:39 Date of Discharge: 03/14/20 Admitting Provider: Jamaal Rodrigues DO Consultations: Cardiology, Pulmonary Primary Care Physician: Sd Gaming MD Course - Hospital Course Hospital Course: DISCHARGE DIAGNOSES: 1. Acute hypoxic respiratory failure secondary to aspiration pneumonia/pulm onary edema 2. Sepsis with septic shock 3. Aspiration pneumonia 4. Atrial flutter with RVR 5. CKD stage III 6. Acute on chronic diastolic heart failure 7. Pulmonary edema 8. Diabetes type 2 9. Hypertension, essential 10. UTI PERTINENT IMAGING STUDIES: Chest x-ray: Possible volume overload and pulmonary congestion. Increased opacity in the lung bases with very represent atelectasis, pneumonia, aspiration. HISTORY OF PRESENT ILLNESS AND BRIEF HOSPITAL COURSE: The patient is unfortunate 74 years old gentleman who has significant past medical history of CKD stage III, dementia, chronic atrial fib on Xarelto, diabetes type 2, CAD, diastolic heart failure, fdc resident at [facility], who was sent to the ED for questionable coffee-ground emesis x2. Patient was found hypotensive on arrival. He was admitted for sepsis with septic shock. Patient was started on broad-spectrum IV antibiotic, IV fluid hydration as per sepsis protocol. Patient required vasopressor support. Further work-up showed the patient has aspiration pneumonia, as well as pulmonary edema. He also went into atrial fibrillation RVR. Initially was started on Cardizem drip when his blood pressure was stabilized, however he did not tolerate. Subsequently switched over to amiodarone, as well as digoxin. He also went into respiratory failure, required BiPAP. Patient is DNI DNR. Unfortunately, his hospital course continued to deteriorate despite aggressive management. He had multiple specialists on the case including cardiology, pulmonology. Palliative care was consulted, patient and family subsequently decided to go on comfort care. He will be discharged from ICU, and transition to hospice for GIP, symptomatic management. PROCEDURE PERFORMED: NONE DISCHARGE CONDITION: Critically Ill DISPOSITION: Transition to Hospice for GIP, symptomatic management PHYSICAL EXAM: General Appearance: Alert, oriented, on BiPAP HEENT: Normocephalic/atraumatic, moist mucous membrane, normal ENT inspection, normal tones. PERRLA, no scleral icterus, normal conjunctiva Neck: Supple, normal inspection, no JVD Respiratory: Rhonchi Cardiovascular: Irregularly irregular Abdomen: Soft, nontender, nondistended, normal bowel sounds, no organomegaly, no guarding no rebound Extremities: No clubbing, no cyanosis, no edema Psych/Mental Status: Normal affect, speech, non-pressured, AAO x 1 Neurologic: CN II-XII are intact. Skin: Warm/Dry, Normal Color, no rashes DISCHARGE TIME SPENT: >30 MINUTES Resuscitation Status: 03/10/20 01:09 Resuscitation Status Routine Resuscitation Status: DNAR: NO Resuscitation Discussed with: Confirmed with MPOA - Labs Lab Results: 03/14/20 04:00 03/14/20 04:00 Abnormal Lab Results - Last 48 hrs 03/13/20 03:40: Carbon Dioxide 19 L, BUN 32 H, Creatinine 2.01 H, C-Reactive Protein 18.13 H 03/13/20 03:40: B-Natriuretic Peptide 655.1 H 03/13/20 03:40: WBC 11.6 H, RBC 2.95 L, Hgb 8.9 L, Hct 28.4 L, MCHC 31.5 L, Neutrophils % 88.2 H, Lymphocytes % 5.2 L, Neutrophils # 10.2 H, Lymphocytes # 0.6 L, Monocytes # 0.7 H 03/13/20 04:42: Bicarbonate Actual 18.8 L, ABG pCO2 29.5 L, ABG pO2 47.1 L*, ABG O2 Sat (Measured) 83.5 L*, ABG O2 Content 11.4 L, ABG Base Excess -4.8 L, ABG Hematocrit 29.0 L, ABG Hemoglobin 9.7 L, ABG Oxyhemoglobin 83.1 L, ABG Deoxyhemoglobin 16.4 H, A-a O2 Gradient 272.525 H, Potassium 3.44 L, Ionized Calcium 1.11 L 03/14/20 04:00: Potassium 3.4 L, Carbon Dioxide 19 L, BUN 31 H, Creatinine 1.84 H 03/14/20 04:00: WBC 12.4 H, RBC 2.96 L, Hgb 8.9 L, Hct 28.3 L, MCHC 31.5 L, Neutrophils % 88.5 H, Lymphocytes % 5.3 L, Neutrophils # 11.0 H, Lymphocytes # 0.7 L, Monocytes # 0.8 H Microbiology - Entire Visit 03/09/20 21:38 Venous blood - Right Arm Blood Culture - Preliminary NO GROWTH AT 48 HOURS 03/09/20 21:38 Venous blood - Left Arm Blood Culture - Preliminary NO GROWTH AT 48 HOURS 03/09/20 21:15 Urine coppola catheter Urine Culture - Final Presumptive Shakira albicans 03/09/20 22:15 Nasal swab Influenza Types A,B Direct EIA - Final 03/09/20 22:08 Gastric - Pending Gastric Occult Blood - Final - Physical Exam Vitals: Vital Signs (12 hours) Temp Pulse Resp Pulse Ox 03/14/20 08:49 99 03/14/20 08:02 99 13 88 L 03/14/20 07:46 89 L 03/14/20 04:00 98.2 F 03/14/20 03:05 94 L 03/14/20 02:28 87 03/14/20 02:00 98.5 F Weight Admit Weight 173 lb Weight 173 lb 11.588 oz Most Recent Monitor Data Heart Rate from ECG 100 NIBP 126/70 NIBP BP-Mean 88 Respiration from ECG 13 SpO2 96 Physical Exam: The patient was seen and examined on the day of discharge. Plan - Discharge Medications Home Medications: Medication Instructions Recorded Confirmed Type Simvastatin [Zocor] 40 mg PO HS 04/30/17 03/10/20 History Aspirin Chewable [Aspirin Chewable 81 mg PO DAILY 01/18/18 03/10/20 History Tablet] Acetaminophen With Codeine 1 - 2 tablet PO Q4HR PRN 08/24/18 03/10/20 History [Tylenol with Codeine #3] FLUoxetine HCl 40 mg PO DAILY 08/24/18 03/10/20 History Insulin Aspart [Novolog] 0 - 10 units SC ACHS PRN 08/24/18 03/10/20 History Tamsulosin HCl [Flomax] 0.4 mg PO HS 08/24/18 03/10/20 History Rivaroxaban [Xarelto] 20 mg PO DAILY #0 08/31/18 03/10/20 Rx Insulin Glargine,Hum.Rec.Anlog 40 units SQ QAM 10/12/18 03/10/20 History [Lantus] Insulin Glargine,Hum.Rec.Anlog 29 units SQ HS 12/04/18 03/02/20 History [Lantus] Ferrous Sulfate [Iron] 325 mg PO TID 02/18/20 03/10/20 History Potassium Chloride 20 meq PO DAILY 02/18/20 03/10/20 History Lactobacillus [Floranex] 1 tab PO DAILY 03/02/20 03/10/20 History Metoprolol Tartrate [Lopressor] 50 mg PO DAILY 03/02/20 03/10/20 History Digoxin 125 mcg PO DAILY #1 tab 03/05/20 Rx Furosemide [Lasix] 40 mg PO DAILY 03/10/20 History Allergies: No Known Drug Allergies Allergy (Verified 02/17/20 02:01) - Follow up Plan Referrals: Sd Gaming MD [Primary Care Provider] - Disposition: HOSPICE MEDICAL FACILITY Quality - Care Measures CORE MEASURES:: N/A
== END 2020-03-14 09:04 | disposition hospice, inpatient (51) | DRG 871 ==
LOC: ERS 20:58 → ERHOLD 23:39 → CCU 03-10 08:59 → 2SW 03-10 12:00 → CCU 03-10 12:21
PROVIDERS: ADMIT Family Medicine; ATTEND Family Medicine
PROC: 3E033XZ Introduction of Vasopressor into Peripheral Vein, Percutaneous Approach (ICD-10-PCS; principal; 2020-03-09)
PROC: 02HV33Z Insertion of Infusion Device into Superior Vena Cava, Percutaneous Approach (ICD-10-PCS; 2020-03-09)
DX: A41.9 Sepsis, unspecified organism (principal); J69.0 Pneumonitis due to inhalation of food and vomit; R65.21 Severe sepsis with septic shock; I50.33 Acute on chronic diastolic (congestive) heart failure; J96.01 Acute respiratory failure with hypoxia; I13.0 Hypertensive heart and chronic kidney disease with heart failure and stage 1 through stage 4 chronic kidney disease, or unspecified chronic kidney disease; I48.20 Chronic atrial fibrillation, unspecified; N39.0 Urinary tract infection, site not specified; N17.9 Acute kidney failure, unspecified; I42.9 Cardiomyopathy, unspecified; Z51.5 Encounter for palliative care; Z66 Do not resuscitate; Z86.19 Personal history of other infectious and parasitic diseases; M54.9 Dorsalgia, unspecified; G89.29 Other chronic pain; D63.1 Anemia in chronic kidney disease; F10.10 Alcohol abuse, uncomplicated; E78.00 Pure hypercholesterolemia, unspecified; F03.90 Unspecified dementia, unspecified severity, without behavioral disturbance, psychotic disturbance, mood disturbance, and anxiety; N18.30 Chronic kidney disease, stage 3 unspecified; E11.22 Type 2 diabetes mellitus with diabetic chronic kidney disease; F41.9 Anxiety disorder, unspecified; F32.9 Major depressive disorder, single episode, unspecified; Y83.9 Surgical procedure, unspecified as the cause of abnormal reaction of the patient, or of later complication, without mention of misadventure at the time of the procedure; I25.10 Atherosclerotic heart disease of native coronary artery without angina pectoris; I35.0 Nonrheumatic aortic (valve) stenosis; E11.40 Type 2 diabetes mellitus with diabetic neuropathy, unspecified; Z79.82 Long term (current) use of aspirin; I25.2 Old myocardial infarction; Z79.899 Other long term (current) drug therapy; Z95.1 Presence of aortocoronary bypass graft; Z79.01 Long term (current) use of anticoagulants; Z79.4 Long term (current) use of insulin; Z79.2 Long term (current) use of antibiotics
CPT/HCPCS: 36415; 36416; 36556; 36600; 71045; 80048; 80053; 80202; 81003; 81015; 82271; 82805; 83605; 83735; 83880; 85025; 86140; 87040; 87086; 87804; 93005; 93306; 94640; 94660; 96365; 96366; 96367; 96375; J0282; J0692; J1160; J1630; J1720; J1815; J1940; J1956; J2060; J2270; J2405; J3370; J3475; J3480; J3490; J7050; J7070; J7620; P9047; Q0162; S0028

== ENCOUNTER 2020-03-14 09:11 | Inpatient (IN) | payer OTHER ==
[2020-03-14] MEDS ORDERED: Lorazepam 2 MG/ML VIAL ONE (09:26)
[2020-03-14 09:31] VITALS: BMI 23.3
[2020-03-14] MEDS ORDERED: Morphine 10 MG/ML VIAL SLOW IVP PRN ×2 (09:31→09:33)
[2020-03-14] MEDS ORDERED: Lorazepam 2 MG/ML VIAL SLOW IVP PRN (09:32)
[2020-03-14] MEDS ORDERED: Morphine 4 MG/ML VIAL ONE (09:33)
[2020-03-14] MEDS ORDERED: Ondansetron PF 4 MG/2 ML Vial IVP PRN (09:33)
[2020-03-14] MEDS ORDERED: Ondansetron PF 4 MG/2 ML Vial IVP SCH (09:45)
[2020-03-14] MEDS ORDERED: Scopolamine 1.5 mg/72 hour Patch TOP SCH (09:45)
== END 2020-03-14 09:48 | disposition expired | DRG 951 ==
LOC: CCU 09:11
PROVIDERS: ADMIT Internal Medicine; ATTEND Internal Medicine
DX: Z51.5 Encounter for palliative care (principal); A41.9 Sepsis, unspecified organism; R65.20 Severe sepsis without septic shock; Z66 Do not resuscitate; J96.01 Acute respiratory failure with hypoxia; I50.33 Acute on chronic diastolic (congestive) heart failure; J69.0 Pneumonitis due to inhalation of food and vomit; I48.92 Unspecified atrial flutter; T83.511A Infection and inflammatory reaction due to indwelling urethral catheter, initial encounter; N39.0 Urinary tract infection, site not specified; N17.9 Acute kidney failure, unspecified; I48.20 Chronic atrial fibrillation, unspecified; I13.0 Hypertensive heart and chronic kidney disease with heart failure and stage 1 through stage 4 chronic kidney disease, or unspecified chronic kidney disease; N18.30 Chronic kidney disease, stage 3 unspecified; Y84.6 Urinary catheterization as the cause of abnormal reaction of the patient, or of later complication, without mention of misadventure at the time of the procedure; I25.10 Atherosclerotic heart disease of native coronary artery without angina pectoris; E11.22 Type 2 diabetes mellitus with diabetic chronic kidney disease; G30.9 Alzheimer's disease, unspecified; F02.80 Dementia in other diseases classified elsewhere, unspecified severity, without behavioral disturbance, psychotic disturbance, mood disturbance, and anxiety; Z86.718 Personal history of other venous thrombosis and embolism; Z79.01 Long term (current) use of anticoagulants; Z95.1 Presence of aortocoronary bypass graft; Z79.4 Long term (current) use of insulin
CPT/HCPCS: J2060; J2270